=== PATIENT | female | born 1990 | race Caucasian/White ===

== ENCOUNTER → 2020-09-22 11:44 | Outpatient (CLI) | payer OTHER, SELFPAY ==
[2020-09-22 12:38] LABS: hCG Titer Quant., Serum 777 mIU/mL (1-3)
== END ==
PROVIDERS: Referring Provider Obstetrics & Gynecology Reproductive Endocrinology; Visit Provider Obstetrics & Gynecology Reproductive Endocrinology
DX: Z32.01 Encounter for pregnancy test, result positive (principal)
CPT/HCPCS: 36415; 84702

== ENCOUNTER → 2021-03-09 08:52 | Outpatient (CLI) | payer OTHER, SELFPAY ==
[2021-02-12 08:27] VITALS: BMI 26.5
[2021-03-09 09:09] LABS: Absolute Lymphocyte Count 1.43 X10^3/uL (0.83-4.51); Absolute Neutrophil Count 7.3 X10^3/uL (2.0-7.7); Basophil# 0.04 X10^3/uL; Basophil% 0.4 % (0-1); Eosinophil# 0.32 X10^3/uL; Eosinophils% 3.3 % (0-5); Hematocrit 36.1 % (37-47); Hemoglobin 11.7 g/dL (12.0-15.0); Lymphocyte # 1.43 X10^3/ul (0.83-4.51); Lymphocyte % 14.7 % (19-41); Mean Corp Hgb Conc 32.4 g/dL (32-36); Mean Corpuscular Volume 101.7 fL (81-99); Mean Platelet Vol. 11.5 fl (6.2-12.0); Monocyte# 0.57 X10^3/uL; Monocyte% 5.9 % (0-10); NRBC Flagged by Analyzer 0 % (0-5); Neutrophil % 75.1 % (47-70); Platelet Count 180 K/mm3 (150-450); RBC Distribution Width CV 12.5 % (11.6-14.6); RBC Distribution Width SD 46.9 fl (35.1-43.9); Red Blood Count 3.55 M/mm3 (4.2-5.4); White Blood Count 9.7 K/mm3 (4.4-11.0)
[2021-03-09 09:26] LABS: Glucose Challenge Gest 1H 50g 117 mg/dL (70-140)
== END ==
PROVIDERS: Referring Provider Obstetrics & Gynecology; Visit Provider Obstetrics & Gynecology
DX: Z34.90 Encounter for supervision of normal pregnancy, unspecified, unspecified trimester (principal); Z13.1 Encounter for screening for diabetes mellitus
CPT/HCPCS: 36415; 82950; 85025

== ENCOUNTER → 2021-05-07 17:14 | Outpatient (CLI) | payer OTHER, SELFPAY ==
[2021-05-07 16:14] VITALS: BMI 26.5
== END ==
PROVIDERS: Referring Provider Obstetrics & Gynecology; Visit Provider Obstetrics & Gynecology
DX: Z34.00 Encounter for supervision of normal first pregnancy, unspecified trimester (principal); Z3A.36 36 weeks gestation of pregnancy
CPT/HCPCS: 87077; 87081; 87186

== ENCOUNTER 2021-06-01 12:20 | Inpatient (IN) | payer OTHER, SELFPAY ==
[2021-05-24 13:25] VITALS: BMI 26.5
[2021-06-01] VITALS (35 sets, daily range): BP systolic 97–131; BP diastolic 55–92; PULSE 69–100; TEMP 36.6–37.3; O2SAT 96–100; BMI 26.5; BMI 28.3
[2021-06-01 10:57] LABS: ROM Internal Control Test YES-OK TO RESULT pt. (Internal QC)
[2021-06-01 11:01] LABS: ROM Patient Test POSITIVE (Negative)
[2021-06-01] MEDS: Lactated Ringers 1,000 ML 50 ML IV (13:30)
[2021-06-01 13:45] LABS: Absolute Lymphocyte Count 1.35 X10^3/uL (0.83-4.51); Absolute Neutrophil Count 7.3 X10^3/uL (2.0-7.7); Basophil# 0.03 X10^3/uL; Basophil% 0.3 % (0-1); Eosinophil# 0.01 X10^3/uL; Eosinophils% 0.1 % (0-5); Hemoglobin 11.9 g/dL (12.0-15.0); Lymphocyte # 1.35 X10^3/ul (0.83-4.51); Lymphocyte % 14.4 % (19-41); Mean Corp Hgb Conc 33.1 g/dL (32-36); Mean Corpuscular Hgb 33.2 pg (27.0-32.0); Mean Corpuscular Volume 100.6 fL (81-99); Mean Platelet Vol. 12.5 fl (6.2-12.0); Monocyte# 0.68 X10^3/uL; Monocyte% 7.2 % (0-10); NRBC Flagged by Analyzer 0 % (0-5); Neutrophil # 7.28 X10^3/uL (2.7-7.7); Neutrophil % 77.6 % (47-70); Platelet Count 171 K/mm3 (150-450); RBC Distribution Width CV 12.2 % (11.6-14.6); RBC Distribution Width SD 45.7 fl (35.1-43.9); Red Blood Count 3.58 M/mm3 (4.2-5.4); White Blood Count 9.4 K/mm3 (4.4-11.0)
--- NOTE | 2021-06-01 17:20 | HP.PCM.OB_ITS ---
HPI - General General Date of Admission: 06/01/21 HPI Narrative ISHA CUNNINGHAM, is a 30 F who presents with spontaneous rupture membranes. Patient was initially half centimeter dilated may change to 1/80 and -2. ROM plus was positive but bag was still present and therefore this was ruptured for meconium fluid. Maternal Data Information JENNY Calculator Estimated Delivery Date Method Current WG Current Estimate 05/30/21 LMP (Certain) 40w 2d Other Estimates 05/30/21 Manual 40w 2d by LMP [facility] Medical History Asthma Eczema Positive GBS test Home Medications cetirizine 10 mg tablet 10 mg PO DAILY PRN 12/06/20 [History Last Taken 1 Day Ago ~05/31/21] docosahexaenoic acid 200 mg capsule 1 PO 12/06/20 [History Last Taken 1 Day Ago ~05/31/21] Allergy/AdvReac Type Severity Reaction Status Date / Time ceftriaxone [From Rocephin] Allergy Mild rash Verified 05/24/21 13:25 Family History Grandfather Lymphoma Other Diabetes type 1, controlled Surgical History s/p left ankle surgery s/p stomach surgery Social History Smoking Status: Never smoker alcohol intake: never substance use type: does not use caffeine: No what type of physical activity do you participate in: running, aerobics and weight training frequency: 3-4 times per week seatbelt use: always do you feel safe at home: Yes additional social history: - No Patient is resident at [facility] History 1 Elective abortions Hx Para 0 Spontaneous abortions Hx # Term Pregnancies Ectopic pregnancies Hx # Pregnancies Multiple births # of living children Visit Details Expected Delivery Route/Plan by 41 weeks Labor Preferences- CB/BF classes: [] labor support person: Misha labor intervention preferences: tub in labor, birthing ball, ok with baby meds pain management options preferred: desires natural but open to epidural cut cord/dad catch: cord, patient wants to help deliver : [] PP control planned: [] discussed possible routes of delivery and associated risks: discussed possible delivery modalities and possible indications for each including R/B/A of , VAVD, FAVD, and CS. questions answered. special requests: [] Plans flu vaccine: given tdap vaccine: given rhogam: na LARC form signed: declined movement and labor precautions reviewed. Problem list reviewed and updated with the most current plan of care details and appropriate orders placed. Relevant counseling for the gestational age provided. Continue routine care and follow up unless otherwise noted in visit notes/problem list details OB Flowsheet Initial Weight: Not Recorded Date -?-?-?-?-?-?-?-?-?-?-?-?- EGA Weight BP Urine Prot -?-?-?-?-?-?-?-?-?-?-?-?- Glucose FHR FuHt Pres Dilation -?-?-?-?-?-?-?-?-?-?-?-?- Effaced St Visit Note 12/06/20 -?-?-?-?-?-?-?-?-?-?-?-?- 15w 0d 147 lb 4 oz 110/80 Nega tive -?-?-?-?-?-?-?-?-?-?-?-?- Negative 155 -?-?-?-?-?-?-?-?-?-?-?-?- GP - TEO from I. Conceived naturally. PRR. Discussed covid vaccine in . GP - TEO from I. Conceived naturally. PRR. Discussed covid vaccine in . Anatomy scan ordered. 01/17/21 -?-?-?-?-?-?-?-?-?-?-?-?- w 0d 153 lb 114/70 Negative -?-?-?-?-?-?-?-?-?-?-?-?- Negative 155 21 -?-?-?-?-?-?-?-?-?-?-?-?- GP - no LOF, VB, DFM, ctx. Awaiting anatomy scan report. 02/12/21 -?-?-?-?-?-?-?-?-?-?-?-?- 24w 5d 159 lb 8 oz 104/60 Nega tive -?-?-?-?-?-?-?-?-?-?-?-?- Negative 150 35 25 -?-?-?-?-?-?-?-?-?-?-?-?- SM- no vb good f m no regular ctx 03/09/21 -?-?-?-?-?-?-?-?-?-?-?-?- 28w 2d 161 lb 2 oz 122/78 Nega tive -?-?-?-?-?-?-?-?-?-?-?-?- Negative 155 28 -?-?-?-?-?-?-?-?-?-?-?-?- GP - no LOF, VB, DFM, ctx. 28w labs normal. Decided on Annie for name - still deciding on spelling. 03/23/21 -?-?-?-?-?-?-?-?-?-?-?-?- 30w 2d 164 lb 2 oz 110/80 Nega tive -?-?-?-?-?-?-?-?-?-?-?-?- Negative 135 30 -?-?-?-?-?-?-?-?-?-?-?-?- GP - no LOF, VB, DFM, ctx. LARC form signed. 04/06/21 -?-?-?-?-?-?-?-?-?-?-?-?- 32w 2d 164 lb 120/80 Negative -?-?-?-?-?-?-?-?-?-?-?-?- Negative 160 33 Cephalic -?-?-?-?-?-?-?-?-?-?-?-?- SM- no vb lof go od fm no regualr ctx 04/20/21 -?-?-?-?-?-?-?-?-?-?-?-?- 34w 2d 164 lb 2 oz 120/82 Nega tive -?-?-?-?-?-?-?-?-?-?-?-?- Negative 145 34 Cephalic -?-?-?-?-?-?-?-?-?-?-?-?- GP - no LOF, VB, DFM, ctx. Denies complaints. 05/07/21 -?-?-?-?-?-?-?-?-?-?-?-?- 36w 5d 167 lb 110/82 Negative -?-?-?-?-?-?-?-?-?-?-?-?- Negative 135 37 Cephalic 0 -?-?-?-?-?-?-?-?-?-?-?-?- SM- no vb lof go od fm nor egular ctx gbs done 05/18/21 -?-?-?-?-?-?-?-?-?-?-?-?- 38w 2d 169 lb 122/82 Negative -?-?-?-?-?-?-?-?-?-?-?-?- Negative 140 38 Cephalic 0 -?-?-?-?-?-?-?-?-?-?-?-?- SM- no vb lof go od fm no regular ctx 05/24/21 -?-?-?-?-?-?-?-?-?-?-?-?- 39w 1d 170 lb 120/80 -?-?-?-?-?-?-?-?-?-?-?-?- 150 39 Cephalic 0 -?-?-?-?-?-?-?-?-?-?-?-?- GP - no LOF, VB, DFM, regular contractions. Discussed labor preferences and routes of delivery. Baby initially tachycardic - NST normal 06/01/21 -?-?-?-?-?-?-?-?-?-?-?-?- 40w 2d 170 lb 120/88 Negative -?-?-?-?-?-?-?-?-?-?-?-?- Negative 150 40 Cephalic 0 .5 -?-?-?-?-?-?-?-?-?-?-?-?- SM- no vb good f m increasing ctx and SM- no vb good fm increasing ctx and discharge, questionable LOF- rom sent rev iewed precautions 06/01/21 -?-?-?-?-?-?-?-?-?-?-?-?- 40w 2d 170 lb 10.205 oz 109 /69 117/72 110/68 -?-?-?-?-?-?-?-?-?-?-?-?- -?-?-?-?-?-?-?-?--?-?-?-?- NST FHR Rate Baby A Baseline: 140 Variability:: Moderate Accelerations:: 15 x 15 Decelerations:: None NST Reactive:: Yes FHR Category:: Category I Uterine Activity:: q3-5 ROS Constitutional Constitutional: Reports systems reviewed and no addt'l complaints, except as documented ENT HEENT: Reports systems reviewed and no addt'l complaints, except as documented Cardiovascular Cardiovascular: Reports systems reviewed and no addt'l complaints, except as documented Respiratory/Chest Respiratory/Chest: Reports systems reviewed and no addt'l complaints, except as documented Gastrointestinal Gastrointestinal: Reports systems reviewed and no addt'l complaints, except as documented and nausea; Denies abdominal pain Genitourinary Genitourinary: Reports systems reviewed and no addt'l complaints, except as documented, contractions Details: present and frequency (regular ) and movement Details: present Musculoskeletal Musculoskeletal: Reports systems reviewed and no addt'l complaints, except as documented Integumentary Integumentary: Reports as per HPI Neurologic Neurologic: Reports systems reviewed and no addt'l complaints, except as documented Endocrine Endocrinology: Reports systems reviewed and no addt'l complaints, except as documented Vital Signs Vital Signs Vital Signs: 06/01/21 12:45 06/01/21 12:46 06/01/21 14:17 Temperature 98.5 F Temperature Source Temporal Pulse Rate 91 69 Blood Pressure 109/69 BP Systolic 109 BP Diastolic 69 Pulse Ox 97 06/01/21 15:57 Temperature 99.0 F Temperature Source Temporal Pulse Rate 82 Blood Pressure 117/72 BP Systolic 117 BP Diastolic 72 Pulse Ox 98 Weight Weight: 170 lb 10.205 oz Body Mass Index (BMI) 28.3 Physical Exam Const alert, oriented x3 and healthy appearing Constitutional Narrative: uncomfortable with contractions HEENT normocephalic and moist oral mucous membranes Head and Scalp: atraumatic Neck full ROM, no lymphadenopathy, supple and thyroid normal General: trachea midline Thyroid: thyroid normal Lymph Lymphatic: no lymphadenopathy noted Chest inspection of chest normal Resp normal respiratory effort Cardio regular rate GI normal to inspection, nondistended, normoactive bowel sounds, soft to palpation and non-tender Inspection: gravid external exam normal Bimanual Exam - Vag & Uterus: uterus non-tender Manual OB Exam: estimated gestational size appropriate, presentation cephalic, dilated, effaced and station Extremity normal to inspection General Extremity: Negative for edema Skin no rashes or lesions noted Neuro deep tendon reflexes 2+ bilaterally Motor Exam: strength 5/5 throughout and clonus absent Psych mental status grossly normal Labs Labs Labs: Blood Type O POSITIVE Antibody Screen NEGATIVE Hct 36.0 % (37-47) L Hgb 11.9 g/dL (12.0-15.0) L Pap Smear Negative VZV IgG Antibody 0.93 index (Immune >1.09) L Hep Bs Antigen Negative (Negative) Glucose 1 Hr 50 gm 117 mg/dL (70-140) Assessment & Plan (1) Positive GBS test: COMMENT: PCN in labor (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 Partner negative at [facility] (3) Supervision of normal : QUALIFIERS: Normal : normal first Trimester: second trimester Qualified Code(s): Z34.02 - Encounter for supervision of normal first , second trimester COMMENT: PRR JENNY 05/30/21 Girl! Annie (sp?) Spouse: Misha (4) : QUALIFIERS: Weeks of gestation: 40 weeks Qualified Code(s): Z3A.40 - 40 weeks gestation of COMMENT: Nl NIPT at [facility]. +carrier screen. NL anatomy except for pyelectasis which resolved (5) Asthma: QUALIFIERS: Asthma severity: mild Asthma persistence: intermittent Asthma complication type: uncomplicated Qualified Code(s): J45.20 - Mild intermittent asthma, uncomplicated COMMENT: Mild intermittent (6) PROM (premature rupture of membranes): QUALIFIERS: PROM onset of labor timing: onset of labor within 24 hours of rupture PROM gestational age: full term Qualified Code(s): O42.02 - Full-term premature rupture of membranes, onset of labor within 24 hours of rupture PLAN: Expectant management epidural as needed Pitocin as needed.
[2021-06-01] MEDS: Penicillin G 3,000,000 Units 50 ML 100 UNITS IV ×2 (17:43→21:42)
[2021-06-01] MEDS: Lactated Ringers 500 ML 999 ML IV ×3 (19:00→23:57)
[2021-06-01] MEDS: fentaNYL-bupivacaine (epidural) 100 ML BAG EPIDURAL (20:25)
[2021-06-01 20:37] LABS: Chlamydia Trachomatis by PCR Negative (Negative); Neisserai gonorrhoeae by PCR Negative (Negative); Probe Check PASS; Sample Adequacy Control PASS; Specimen Processing Control PASS
[2021-06-01] MEDS: Oxytocin 30 units/NS 500 ml 30 UNITS/500 ML IV.SOLN IV (23:28)
[2021-06-01] MEDS: Lactated Ringers 1,000 ML 200 ML IV (23:56)
[2021-06-02] VITALS (24 sets, daily range): BP systolic 94–122; BP diastolic 55–78; PULSE 68–113; RESP 16; TEMP 36.4–38.3; O2SAT 80–100
[2021-06-02] MEDS: fentaNYL-bupivacaine (epidural) 100 ML BAG EPIDURAL ×2 (00:34→05:11)
[2021-06-02] MEDS: Penicillin G 3,000,000 Units 50 ML 100 UNITS IV ×2 (02:21→06:31)
[2021-06-02] MEDS: Lactated Ringers 500 ML 999 ML IV (03:37)
[2021-06-02] MEDS: Amnioinfusion- 0.9% NS 1,000 ML IV.SOLN. INTRA-UTER (04:40)
[2021-06-02] MEDS: Acetaminophen 500 MG Tablet PO (05:46)
[2021-06-02] MEDS: Lactated Ringers 1,000 ML 200 ML IV (06:37)
--- NOTE | 2021-06-02 06:45 | PCM.PN.BLA ---
Progress Note Patient managed expectantly and had cervical change but now has stalled out at 6/90/+1 station. Assessment reveals an adequate contraction frequency and intensity. Developed elevated temperature and maternal tachycardia suspect triple I so antibiotics were started. current tracing: FHT: 170 minimal to moderate variability reactive intermittent late decelerations category 2 tracing [place]: Every 3 to 5 contractions reviewed tracing abnormalities since last note: Current pattern reassuring enough to start Pitocin for arrest of dilation. A/P: Suspected triple I continue antibiotics, labor support with Pitocin if able for arrest of dilation.
[2021-06-02] MEDS: Oxytocin 30 units/NS 500 ml 30 UNITS/500 ML IV.SOLN 334 UNITS IV (10:47)
--- NOTE | 2021-06-02 11:05 | OP.PCM_ITS ---
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 Partner negative at [facility] (4) Supervision of normal : QUALIFIERS: Normal : normal first Trimester: second trimester Qualified Code(s): Z34.02 - Encounter for supervision of normal first , second trimester COMMENT: PRR JENNY 05/30/21 Girl! Annie (sp?) Spouse: Misha (5) : QUALIFIERS: Weeks of gestation: 40 weeks Qualified Code(s): Z3A.40 - 40 weeks gestation of COMMENT: Nl NIPT at [facility]. +carrier screen. NL anatomy except for pyelectasis which resolved (6) Asthma: QUALIFIERS: Asthma severity: mild Asthma persistence: intermittent Asthma complication type: uncomplicated Qualified Code(s): J45.20 - Mild intermittent asthma, uncomplicated COMMENT: Mild intermittent Maternal Data Information JENNY Calculator Estimated Delivery Date Method Current WG Current Estimate 05/30/21 LMP (Certain) 40w 3d Other Estimates 05/30/21 Manual 40w 3d by LMP Vaginal Delivery Maternal Presentation Maternal Presentation: Spontaneous Rupture of Membranes Maternal Presentation: 30-year-old G1, P0 at 40 weeks gestation admitted for augmentation of labor for PROM. Patient was augmented with Cytotec followed by Pitocin. Patient had a protracted labor course that was complicated by suspected intrapartum intraamniotic infection. Patient made cervical change to complete dilation and pushed for 1 hour. Type of Induction: Pitocin Operative Information Date of Procedure: 06/02/21 Pre-Operative Diagnosis: Term , premature rupture of membranes Post-Operative Diagnosis: Same Type of Anesthesia: Epidural Drain: Suarez to straight drain Estimated Blood Loss: 200 Findings Description of Procedure: Patient began pushing and delivered the head in the LAUREEN presentation. The head was delivered atraumatically and no nuchal cord was noted. The anterior and posterior shoulders delivered without complication followed by the rest of the infant and the infant was placed on the maternal abdomen. Delayed cord clamping was employed for approximately 60 seconds. Cord was clamped and cut and gentle traction was applied to the cord and the placenta delivered spontaneously immediately following it was noted to be intact with three-vessel cord. The perineum and vagina were inspected and a right periurethral and a midline second-degree perineal laceration were noted and repaired in the standard fashion using 3-0 Vicryl Rapide suture. EBL was 200 cc. Patient and tolerated delivery well. Presentation: Vertex and LAUREEN Amniotic Membrane Rupture Type: Spontaneous Amniotic Fluid Description: Clear Placental Delivery Description: Spontaneous Placenta Disposition: [facility] Cord Vessel Description: 3 Vessels Cord Entanglement: None A Gender: Female Delayed Cord Clamping: Yes Post Vaginal Delivery Medications Given After Delivery: IV Pitocin and IM Methergin Episiotomy Description: None Laceration: Midline, Periurethral Extnsion/lac, Perineal Extension/lac and 2nd degree Complication Complications: None Procedures Urinary/Genital [id number]: [id number] Vaginal Delivery [facility]
--- NOTE | 2021-06-02 11:08 | PCM.DC ---
Discharge Instructions Diet Discharge Diet: No restrictions Activity Discharge Activity: Return to Normal Activity, May Not Drive (while taking narcotic pain medications.) and May Shower May resume sexual activity in: 4-6 weeks Dressing / Incision Call your doctor if your incision/area has: Continuous Slow Oozing, Sudden Increased Bleeding, Increased Pain/ Swelling, Increased Redness and Foul Smelling Discharge Follow Up Care When: Call to make an appointment with your doctor in 6 weeks. If you had elevated Blood Pressure or 4th degree laceration you will need to be seen in 2 weeks. Test Results: Test results from this visit will be discussed in further detail at your follow-up appointment, if applicable. Discharge Plan Admission Admit Date/Time: 06/01/21 12:20 Attending Provider: Caroline Feliz Primary Care Provider: Care Physician,No Primary Instructions Patient Instructions: After a Vaginal Discharge Orders/Prescriptions Prescriptions: Continued DHA 200 mg capsule 1 PO RF: 0 cetirizine [Zyrtec] 10 mg tablet 10 mg PO DAILY PRN (Reason: Allergy Symptoms) RF: 0 Referrals / Follow Up: Care Physician,No Primary [Primary Care Provider] -
[2021-06-02] MEDS: Methylergonovine 0.2 MG/ML Ampul IM (12:08)
[2021-06-02] MEDS: Acetaminophen 500 MG Tablet 1000 MG PO (12:16)
[2021-06-02] MEDS: Benzocaine/Lanolin/Aloe Vera 1 SPRAY EACH TOPICAL (12:17)
[2021-06-02] MEDS: Ibuprofen 600 MG Tablet PO ×2 (14:17→22:59)
[2021-06-02] MEDS: Senna/Docusate Sodium 1 Tablet PO (14:20)
--- NOTE | 2021-06-02 15:34 | PCM.NY.DEL ---
Delivery Attendance Service Date: 06/02/21 Service Time: 10:40 Asked to attend delivery by: OB and Nursing Reason for attendance: Meconium Plan: Return to Mother Course of Delivery Was resuscitation required: No Physical Exam Apgars/Vital Signs/Weight: Weight: 77.4 kg General: Alert, Active and Strong cry Head: Caput succedaneum Eyes: Conjunctiva clear Ears: Structurally normal and Neutral position Nose: Nares patent and No drainage Oropharynx: Normal, moist mucous membranes, Palate intact and Lips without lesions Neck: Normal, No adenopathy and Supple Lungs: Clear to auscultation, No retractions and No rales Cardiovascular: Regular rate and rhythm, No murmurs and Capillary refill normal Abdomen: Soft, Non distended and Without organomegaly Cord Vessel Description: 3 Vessels Genitalia, Female: External genitalia normal Musculoskeletal: Extremities with FROM, Hip exam without evidence of dislocation or instability, No hip clicks and Clavicles intact Neurological: Normal suck, rooting, and Ricardo reflexes., Muscle tone normal and Moving extremities equally Skin: Normal color and No jaundice General Weight: 77.4 kg Abdomen 3 Vessels Delivery Course Patient was vigorous at with strong. No intervention needed. Able to stay with her mother skin to sking
--- NOTE | 2021-06-02 15:39 | PCM.NUR.HP ---
Objective Objective Data: 06/01/21 15:57 06/01/21 17:19 06/01/21 17:20 Temperature 99.0 F 99.2 F H Temperature Source Temporal Temporal Pulse Rate 82 74 Blood Pressure 117/72 110/68 BP Systolic 117 110 BP Diastolic 72 68 Pulse Ox 98 98 06/01/21 19:16 06/01/21 19:17 06/01/21 19:48 Temperature 99.0 F Temperature Source Temporal Pulse Rate 90 86 100 Blood Pressure 113/61 BP Systolic 113 BP Diastolic 61 Pulse Ox 99 100 06/01/21 20:07 06/01/21 20:12 06/01/21 20:16 Temperature 98.6 F Temperature Source Temporal Pulse Rate 95 95 85 Blood Pressure 122/76 H 131/92 H 125/80 H BP Systolic 122 131 125 BP Diastolic 76 92 80 Pulse Ox 06/01/21 20:17 06/01/21 20:22 06/01/21 20:23 Temperature Temperature Source Pulse Rate 86 80 Blood Pressure 121/77 H 109/61 BP Systolic 121 109 BP Diastolic 77 61 Pulse Ox 96 100 06/01/21 20:25 06/01/21 20:27 06/01/21 20:28 Temperature Temperature Source Pulse Rate 83 89 81 Blood Pressure 101/59 L 99/55 L BP Systolic 101 99 BP Diastolic 59 55 Pulse Ox 99 06/01/21 20:31 06/01/21 20:32 06/01/21 20:33 Temperature Temperature Source Pulse Rate 81 83 Blood Pressure 98/57 L 99/57 L BP Systolic 98 99 BP Diastolic 57 57 Pulse Ox 99 06/01/21 20:37 06/01/21 20:38 06/01/21 20:42 Temperature Temperature Source Pulse Rate 80 82 Blood Pressure 99/55 L BP Systolic 99 BP Diastolic 55 Pulse Ox 99 99 06/01/21 20:45 06/01/21 20:47 06/01/21 20:49 Temperature Temperature Source Pulse Rate 78 78 83 Blood Pressure 97/57 L 101/61 BP Systolic 97 101 BP Diastolic 57 61 Pulse Ox 99 06/01/21 20:52 06/01/21 20:54 06/01/21 20:57 Temperature Temperature Source Pulse Rate 78 80 82 Blood Pressure 98/56 L BP Systolic 98 BP Diastolic 56 Pulse Ox 99 99 06/01/21 20:58 06/01/21 21:45 06/01/21 22:46 Temperature 97.9 F 99.0 F Temperature Source Temporal Temporal Pulse Rate 81 71 70 Blood Pressure 105/59 L 117/58 L 111/63 BP Systolic 105 117 111 BP Diastolic 59 58 63 Pulse Ox 06/01/21 23:33 06/01/21 23:34 06/02/21 00:33 Temperature 98.4 F 98.3 F Temperature Source Temporal Temporal Pulse Rate 77 68 Blood Pressure 113/70 109/66 BP Systolic 113 109 BP Diastolic 70 66 Pulse Ox 99 06/02/21 02:18 06/02/21 03:33 06/02/21 03:34 Temperature 98.3 F 99.4 F H Temperature Source Temporal Temporal Pulse Rate 98 113 H 98 Blood Pressure 102/63 111/74 BP Systolic 102 111 BP Diastolic 63 74 Pulse Ox 100 100 06/02/21 03:57 06/02/21 04:49 06/02/21 04:50 Temperature 99.8 F H 100.9 F H Temperature Source Oral Oral Pulse Rate 96 Blood Pressure 100/55 L BP Systolic 100 BP Diastolic 55 Pulse Ox 80 97 06/02/21 06:09 06/02/21 06:15 06/02/21 07:15 Temperature 99.0 F 98.6 F Temperature Source Oral Oral Pulse Rate 83 Blood Pressure 111/67 BP Systolic 111 BP Diastolic 67 Pulse Ox 06/02/21 07:22 06/02/21 08:22 06/02/21 09:16 Temperature 98.2 F 98.2 F Temperature Source Oral Oral Pulse Rate 88 74 81 Blood Pressure 101/56 L 113/68 110/64 BP Systolic 101 113 110 BP Diastolic 56 68 64 Pulse Ox 97 98 06/02/21 11:15 06/02/21 11:30 06/02/21 11:45 Temperature 98.4 F Temperature Source Oral Pulse Rate 78 76 75 Blood Pressure 97/65 94/72 109/73 BP Systolic 97 94 109 BP Diastolic 65 72 73 Pulse Ox 98 06/02/21 12:00 06/02/21 12:15 06/02/21 12:30 Temperature 99.1 F Temperature Source Temporal Pulse Rate 75 75 81 Blood Pressure 118/75 115/75 122/78 H BP Systolic 118 115 122 BP Diastolic 75 75 78 Pulse Ox 06/02/21 12:45 06/02/21 13:11 06/02/21 13:18 Temperature Temperature Source Pulse Rate 82 88 81 Blood Pressure 115/78 117/77 115/76 BP Systolic 115 117 115 BP Diastolic 78 77 76 Pulse Ox Weight: 77.4 kg Vital Signs Temp Pulse BP Pulse Ox 06/02/21 13:18 81 115/76 06/02/21 13:11 88 117/77 06/02/21 12:45 82 115/78 06/02/21 12:30 81 122/78 H 06/02/21 12:15 75 115/75 06/02/21 12:00 99.1 F 75 118/75 06/02/21 11:45 75 109/73 06/02/21 11:30 76 94/72 06/02/21 11:15 98.4 F 78 97/65 98 06/02/21 09:16 98.2 F 81 110/64 98 06/02/21 08:22 98.2 F 74 113/68 97 06/02/21 07:22 88 101/56 L 06/02/21 07:15 98.6 F 06/02/21 06:15 83 111/67 06/02/21 06:09 99.0 F 06/02/21 04:50 100.9 F H 96 100/55 L 97 06/02/21 04:49 80 06/02/21 03:57 99.8 F H 06/02/21 03:34 99.4 F H 98 111/74 06/02/21 03:33 113 H 100 06/02/21 02:18 98.3 F 98 102/63 100 06/02/21 00:33 98.3 F 68 109/66 06/01/21 23:34 98.4 F 77 113/70 06/01/21 23:33 99 06/01/21 22:46 99.0 F 70 111/63 06/01/21 21:45 97.9 F 71 117/58 L 06/01/21 20:58 81 105/59 L 06/01/21 20:57 82 99 06/01/21 20:54 80 98/56 L 06/01/21 20:52 78 99 06/01/21 20:49 83 101/61 06/01/21 20:47 78 99 06/01/21 20:45 78 97/57 L 06/01/21 20:42 82 99 06/01/21 20:38 80 99/55 L 06/01/21 20:37 99 06/01/21 20:33 83 99/57 L 06/01/21 20:32 99 06/01/21 20:31 81 98/57 L 06/01/21 20:28 81 99/55 L 06/01/21 20:27 89 99 06/01/21 20:25 83 101/59 L 06/01/21 20:23 80 109/61 06/01/21 20:22 100 06/01/21 20:17 86 121/77 H 96 06/01/21 20:16 85 125/80 H 06/01/21 20:12 95 131/92 H 06/01/21 20:07 98.6 F 95 122/76 H 06/01/21 19:48 100 100 06/01/21 19:17 86 113/61 06/01/21 19:16 99.0 F 90 99 06/01/21 17:20 74 110/68 06/01/21 17:19 99.2 F H 98 06/01/21 15:57 99.0 F 82 117/72 98 06/01/21 14:17 69 109/69 06/01/21 12:46 98.5 F 06/01/21 12:45 91 97 Lab tests last 48H 06/01/21 06/01/21 06/01/21 10:45 13:30 13:30 WBC 9.4 RBC 3.58 L Hgb 11.9 L Hct 36.0 L MCV 100.6 H MCH 33.2 H MCHC 33.1 RDW Std Deviation 45.7 H RDW Coeff of Shara 12.2 Plt Count 171 MPV 12.5 H Immature Gran % (Auto) 0.400 Neut % (Auto) 77.6 H Lymph % (Auto) 14.4 L [place] % (Auto) 7.2 Eos % (Auto) 0.1 Baso % (Auto) 0.3 Absolute Neuts (auto) 7.3 Absolute Lymphs (auto) 1.35 Nucleated RBC % 0 Vag Amniotic Fld Detect POSITIVE H Chlam trachomat DNA PCR N.gonorrhoeae DNA (PCR) Blood Type O POSITIVE Antibody Screen NEGATIVE 06/01/21 18:50 WBC RBC Hgb Hct MCV MCH MCHC RDW Std Deviation RDW Coeff of Shara Plt Count MPV Immature Gran % (Auto) Neut % (Auto) Lymph % (Auto) [place] % (Auto) Eos % (Auto) Baso % (Auto) Absolute Neuts (auto) Absolute Lymphs (auto) Nucleated RBC % Vag Amniotic Fld Detect Chlam trachomat DNA PCR Negative N.gonorrhoeae DNA (PCR) Negative Blood Type Antibody Screen Micro - Preliminary and Final Results 06/01/21 13:30 SARS-CoV-2 Antigen (Rapid) - Final Mucosa - Nose Delivery/Maternal Data Labor/Delivery Date of rupture of membranes: 06/01/21 Time of rupture of membranes: 04:30 Amniotic fluid color at rupture: Clear and Meconium Type of delivery: Vaginal Labor description: Spontaneous, Augmented-Oxytocin and Augmented-AROM Vacuum Extraction: N/A presentation: Cephalic Complications: Maternal fever (>/=100.4) (100.2) and Ruptured membranes >24 hours Maternal Data Maternal age: 29 : 1 Para: 0 Final JENNY: 05/30/21 Blood Type:: O RH:: NEGATIVE RPR/VDRL/Syphilis: Nonreactive HbSAg: Negative Hepatitis C: Negative HIV/AIDS: Non-Reactive Rubella status: Immune Gonorrhea: Negative Chlamydia: Negative Group B Strep:: Positive If GBS positive, treated & name of antibiotic, or untreated:: Penicillin, Clindamycin, Gentamicin Gestational Diabetes: No Vital Signs Vital Signs Vital Signs: 06/01/21 15:57 06/01/21 17:19 06/01/21 17:20 Temperature 99.0 F 99.2 F H Temperature Source Temporal Temporal Pulse Rate 82 74 Blood Pressure 117/72 110/68 BP Systolic 117 110 BP Diastolic 72 68 Pulse Ox 98 98 06/01/21 19:16 06/01/21 19:17 06/01/21 19:48 Temperature 99.0 F Temperature Source Temporal Pulse Rate 90 86 100 Blood Pressure 113/61 BP Systolic 113 BP Diastolic 61 Pulse Ox 99 100 06/01/21 20:07 06/01/21 20:12 06/01/21 20:16 Temperature 98.6 F Temperature Source Temporal Pulse Rate 95 95 85 Blood Pressure 122/76 H 131/92 H 125/80 H BP Systolic 122 131 125 BP Diastolic 76 92 80 Pulse Ox 06/01/21 20:17 06/01/21 20:22 06/01/21 20:23 Temperature Temperature Source Pulse Rate 86 80 Blood Pressure 121/77 H 109/61 BP Systolic 121 109 BP Diastolic 77 61 Pulse Ox 96 100 06/01/21 20:25 06/01/21 20:27 06/01/21 20:28 Temperature Temperature Source Pulse Rate 83 89 81 Blood Pressure 101/59 L 99/55 L BP Systolic 101 99 BP Diastolic 59 55 Pulse Ox 99 06/01/21 20:31 06/01/21 20:32 06/01/21 20:33 Temperature Temperature Source Pulse Rate 81 83 Blood Pressure 98/57 L 99/57 L BP Systolic 98 99 BP Diastolic 57 57 Pulse Ox 99 06/01/21 20:37 06/01/21 20:38 06/01/21 20:42 Temperature Temperature Source Pulse Rate 80 82 Blood Pressure 99/55 L BP Systolic 99 BP Diastolic 55 Pulse Ox 99 99 06/01/21 20:45 06/01/21 20:47 06/01/21 20:49 Temperature Temperature Source Pulse Rate 78 78 83 Blood Pressure 97/57 L 101/61 BP Systolic 97 101 BP Diastolic 57 61 Pulse Ox 99 06/01/21 20:52 06/01/21 20:54 06/01/21 20:57 Temperature Temperature Source Pulse Rate 78 80 82 Blood Pressure 98/56 L BP Systolic 98 BP Diastolic 56 Pulse Ox 99 99 06/01/21 20:58 06/01/21 21:45 06/01/21 22:46 Temperature 97.9 F 99.0 F Temperature Source Temporal Temporal Pulse Rate 81 71 70 Blood Pressure 105/59 L 117/58 L 111/63 BP Systolic 105 117 111 BP Diastolic 59 58 63 Pulse Ox 06/01/21 23:33 06/01/21 23:34 06/02/21 00:33 Temperature 98.4 F 98.3 F Temperature Source Temporal Temporal Pulse Rate 77 68 Blood Pressure 113/70 109/66 BP Systolic 113 109 BP Diastolic 70 66 Pulse Ox 99 06/02/21 02:18 06/02/21 03:33 06/02/21 03:34 Temperature 98.3 F 99.4 F H Temperature Source Temporal Temporal Pulse Rate 98 113 H 98 Blood Pressure 102/63 111/74 BP Systolic 102 111 BP Diastolic 63 74 Pulse Ox 100 100 06/02/21 03:57 06/02/21 04:49 06/02/21 04:50 Temperature 99.8 F H 100.9 F H Temperature Source Oral Oral Pulse Rate 96 Blood Pressure 100/55 L BP Systolic 100 BP Diastolic 55 Pulse Ox 80 97 06/02/21 06:09 06/02/21 06:15 06/02/21 07:15 Temperature 99.0 F 98.6 F Temperature Source Oral Oral Pulse Rate 83 Blood Pressure 111/67 BP Systolic 111 BP Diastolic 67 Pulse Ox 06/02/21 07:22 06/02/21 08:22 06/02/21 09:16 Temperature 98.2 F 98.2 F Temperature Source Oral Oral Pulse Rate 88 74 81 Blood Pressure 101/56 L 113/68 110/64 BP Systolic 101 113 110 BP Diastolic 56 68 64 Pulse Ox 97 98 06/02/21 11:15 06/02/21 11:30 06/02/21 11:45 Temperature 98.4 F Temperature Source Oral Pulse Rate 78 76 75 Blood Pressure 97/65 94/72 109/73 BP Systolic 97 94 109 BP Diastolic 65 72 73 Pulse Ox 98 06/02/21 12:00 06/02/21 12:15 06/02/21 12:30 Temperature 99.1 F Temperature Source Temporal Pulse Rate 75 75 81 Blood Pressure 118/75 115/75 122/78 H BP Systolic 118 115 122 BP Diastolic 75 75 78 Pulse Ox 06/02/21 12:45 06/02/21 13:11 06/02/21 13:18 Temperature Temperature Source Pulse Rate 82 88 81 Blood Pressure 115/78 117/77 115/76 BP Systolic 115 117 115 BP Diastolic 78 77 76 Pulse Ox Weight Weight: 77.4 kg Body Mass Index (BMI) 28.3 General Weight: 77.4 kg alert, active, no apparent distress and strong cry HEENT Yes caput succedaneum (mild) Eyes: red reflex present bilaterally and conjunctiva normal Ears: Yes external ears normal and Yes neutral position Nose: Yes external nose normal and nares normal Oropharynx: Yes oral and palatal mucosa normal, Yes moist mucous membranes abnormal and Yes lips normal Neck Neck: full ROM, no lymphadenopathy and supple Respiratory Respiratory: normal respiratory effort and clear to auscultation bilaterally Cardiovascular Yes regular rate, regular rhythm, no murmurs, no clicks, no rub, no gallops, normal capillary refill and femoral pulses present Abdomen normal to inspection, nondistended, normoactive bowel sounds, soft to palpation, non-distended, non-tender and no hepatosplenomegaly 3 Vessels external exam normal Musculoskeletal full ROM and hip exam without evidence of dislocation or instability Neurological normal suck, rooting, and neil reflexes, muscle tone normal and moving extremities equally Skin normal color and no jaundice
[2021-06-03 00:53] VITALS: BP 91/45; PULSE 71; RESP 16; TEMP 36.8
[2021-06-03] MEDS: Acetaminophen 500 MG Tablet 1000 MG PO (00:57)
[2021-06-03 04:05] VITALS: BP 131/84; PULSE 82; RESP 16; TEMP 36.6
[2021-06-03 08:50] VITALS: BP 95/59; PULSE 71; RESP 16; TEMP 36.7
--- NOTE | 2021-06-03 10:29 | PCM.PN.OB ---
Subjective Subjective Patient doing well without complaints. Tolerating PO. Ambulating and voiding without difficulty. Breast feeding well. Denies chest pain, shortness of breath, calf pain/swelling, fevers, chills, lightheadedness. Objective Data Objective Data Vital Signs: Vital Signs Temp Pulse Resp BP Pulse Ox 98.1 F 71 16 95/59 L 98 06/03/21 08:50 06/03/21 08:50 06/03/21 08:50 06/03/21 08:50 06/02/21 15:45 Oxygen Delivery Method Room Air Weight: 170 lb 10.205 oz Body Mass Index (BMI) 28.3 Intake & Output: Intake and Output for Last 24 Hours 06/01/21 06/02/21 06/03/21 23:59 23:59 23:59 Intake Total 2209.30 / 2209.30 4612.00 / 4612.00 Output Total 500 / 500 1150 / 1150 Balance 1709.30 / 1709.30 3462.00 / 3462.00 Lab / Micro Data Result Diagrams: 06/01/21 13:30 Micro: Microbiology 06/01/21 13:30 Mucosa - Nose SARS-CoV-2 Antigen (Rapid) - Final ROS Constitutional Constitutional: Denies fever(s) Cardiovascular Cardiovascular: Denies chest pain, dyspnea or lightheadedness Gastrointestinal Gastrointestinal: Reports abdominal pain; Denies constipation or diarrhea Neurologic Neurologic: Denies dizziness or headache(s) Physical Exam Const alert, oriented x3, no apparent distress, average body habitus, healthy appearing and well nourished HEENT normocephalic Head and Scalp: atraumatic Eyes PERRL and EOMs intact bilaterally Neck full ROM Lymph Lymphatic: no lymphadenopathy noted Resp normal respiratory effort, no retractions and no use of accessory muscles Cardio regular rate GI soft to palpation, non-tender and non-distended Palpation: other Other Details: fundus firm Extremity normal to inspection and no clubbing, cyanosis or edema Skin no rashes or lesions noted Neuro no focal motor deficits and no sensory deficits noted Psych mental status grossly normal, affect normal and speech normal Assessment & Plan (1) Spontaneous vaginal delivery: COMMENT: GP PROM Girl Annette 2nd degree PLAN: s/p PPD # 1 1. routine post delivery care 2. breast feeding- support given 3. rh positive 4. rubella immune
[2021-06-03] MEDS: Senna/Docusate Sodium 1 Tablet PO (10:44)
[2021-06-03 13:28] VITALS: BP 105/64; PULSE 91; RESP 16; TEMP 36.7
== END 2021-06-03 13:45 | disposition home or self-care (01) | DRG 805 ==
LOC: WP 12:31
PROVIDERS: Obstetrics & Gynecology; Admitting Provider Obstetrics & Gynecology; Referring Provider Obstetrics & Gynecology; Visit Provider Obstetrics & Gynecology
DX: O76 Abnormality in fetal heart rate and rhythm complicating labor and delivery (principal); O41.1230 Chorioamnionitis, third trimester, not applicable or unspecified; Z37.0 Single live birth; O99.284 Endocrine, nutritional and metabolic diseases complicating childbirth; E70.1 Other hyperphenylalaninemias; O62.0 Primary inadequate contractions; O42.02 Full-term premature rupture of membranes, onset of labor within 24 hours of rupture; O77.0 Labor and delivery complicated by meconium in amniotic fluid; O99.824 Streptococcus B carrier state complicating childbirth; O99.52 Diseases of the respiratory system complicating childbirth; J45.20 Mild intermittent asthma, uncomplicated; O70.1 Second degree perineal laceration during delivery; Z3A.40 40 weeks gestation of pregnancy
CPT/HCPCS: 59025; 59050; 84112; 85025; 86850; 86900; 86901; 87426; 87491; 87591; 99218; J7030; J7120; G0378

== ENCOUNTER → 2022-09-18 | Outpatient (CLI) | payer OTHER, SELFPAY ==
[2022-09-18 09:57] LABS: Progesterone Level 21.25 ng/mL (See Comment)
[2022-09-18 10:04] LABS: hCG Titer Quant., Serum 85 mIU/mL (1-3)
== END | disposition home or self-care (01) ==
PROVIDERS: Referring Provider Nurse Practitioner Women's Health; Visit Provider Nurse Practitioner Women's Health
DX: Z34.90 Encounter for supervision of normal pregnancy, unspecified, unspecified trimester (principal)
CPT/HCPCS: 36415; 84144; 84702

== ENCOUNTER → 2022-09-20 | Outpatient (CLI) | payer OTHER, SELFPAY ==
[2022-09-20 14:00] LABS: hCG Titer Quant., Serum 283 mIU/mL (1-3)
== END | disposition home or self-care (01) ==
LOC: LAB 13:01
PROVIDERS: PCP Family Medicine; Visit Provider Nurse Practitioner Women's Health
DX: Z34.90 Encounter for supervision of normal pregnancy, unspecified, unspecified trimester (principal)
CPT/HCPCS: 36415; 84702

== ENCOUNTER → 2022-11-01 | Outpatient (CLI) | payer OTHER, SELFPAY ==
[2022-11-01 15:41] LABS: Absolute Lymphocyte Count 2.09 X10^3/uL (0.83-4.51); Absolute Neutrophil Count 5.3 X10^3/uL (2.0-7.7); Basophil# 0.04 X10^3/uL; Basophil% 0.5 % (0-1); Eosinophil# 0.23 X10^3/uL; Eosinophils% 2.8 % (0-5); Hematocrit 36.9 % (37-47); Hemoglobin 12.6 g/dL (12.0-15.0); Lymphocyte # 2.09 X10^3/ul (0.83-4.51); Lymphocyte % 25.3 % (19-41); Mean Corp Hgb Conc 34.1 g/dL (32-36); Mean Corpuscular Hgb 32.9 pg (27.0-32.0); Mean Corpuscular Volume 96.3 fL (81-99); Mean Platelet Vol. 11.9 fl (6.2-12.0); Monocyte# 0.57 X10^3/uL; Monocyte% 6.9 % (0-10); NRBC Flagged by Analyzer 0 % (0-5); Neutrophil % 64.3 % (47-70); Platelet Count 210 K/mm3 (150-450); RBC Distribution Width CV 12.5 % (11.6-14.6); RBC Distribution Width SD 43.8 fl (35.1-43.9); Red Blood Count 3.83 M/mm3 (4.2-5.4); White Blood Count 8.3 K/mm3 (4.4-11.0)
[2022-11-01 15:56] LABS: NATERA MAILED SPECIMEN
[2022-11-01 16:51] LABS: HIV - WCH Non-Reactive (Nonreactive); Hepatitis B Surface Antigen Non-Reactive (Nonreactive); Hepatitis C Antibody Non-Reactive (Nonreactive); Rubella IgG Reactive (Nonreactive); Syphilis Antibodies Non-reactive
[2022-11-04 22:07] LABS: Chlamydia By Nucleic Acid AMP Negative (Negative)
[2022-11-07 21:38] LABS: Gonococcus By Nucleic Acid AMP Negative (Negative)
[2022-11-07 21:51] LABS: HPV APTIMA, High Risk Negative (Negative)
== END | disposition home or self-care (01) ==
PROVIDERS: PCP Family Medicine; Referring Provider Obstetrics & Gynecology; Visit Provider Obstetrics & Gynecology
DX: Z34.81 Encounter for supervision of other normal pregnancy, first trimester (principal)
CPT/HCPCS: 36415; 85025; 86703; 86762; 86780; 86803; 86850; 86900; 86901; 87086; 87340; 87491; 87591; 87624; 88175; G0145

== ENCOUNTER 2022-11-19 02:25 | Emergency (ER) | payer OTHER, SELFPAY ==
[2022-11-19 02:26] VITALS: BP 106/76; PULSE 63; RESP 15; TEMP 35.9; O2SAT 100; BMI 23.4
--- NOTE | 2022-11-19 02:46 | US_ITS ---
STUDY: FIRST TRIMESTER OBSTETRICAL ULTRASOUND REASON FOR EXAM: Female, 32 years old left lower quadrant pain. Patient 13 weeks . LMP: 08/18/2022. TECHNIQUE: Transvaginal TECHNICAL QUALITY: Adequate. PRIOR ULTRASOUND: None. FINDINGS: There is visualization of a single gestational sac in a normal intrauterine position. The gestational sac shape is within normal limits. There is no demonstrated yolk sac. Placenta anterior without evidence of placenta previa. There is visualization of a live embryo. The crown-rump length (CRL) measures 7.2 cm, indicating an estimated gestational age (EGA) of 13 weeks, 2 days. There is demonstrated cardiac activity with a heart rate of 154 bpm. The estimated gestation age (EGA) by LMP is 13 weeks, 2 days. The estimated date of delivery (JENNY) by LMP is 05/25/2023. The estimated gestation age (EGA) by US is 13 weeks, 2 days. The estimated date of delivery (JENNY) by US is 05/25/2023. The uterus measures 15.3 x 8.5 x 10.1 cm. There is no demonstrated uterine fibroid. The cervix is closed. Cervical length 5.4 cm. The right ovary measures 3.8 x 3.3 x 1.6 cm. There is no right ovarian cyst. There is no visualized right adnexal mass or complex lesion. The left ovary measures 3.4 x 2.9 x 1.4 cm. There is no left ovarian cyst. There is no visualized left adnexal mass or complex lesion. There is no fluid in the cul de sac. US/Transvaginal w/Preg US IMPRESSION: Single living intrauterine gestation with an estimated gestational age by ultrasound 13 weeks 2 days. Estimated date of delivery May 25, 2023. Normal ovaries. No evidence of ovarian torsion. Electronically Signed: Albert Back MD at 5:42 EST Reading Location ID and State: [id number] / , Service support ,
--- NOTE | 2022-11-19 02:46 | US_ITS ---
STUDY: RENAL ULTRASOUND - COMPLETE REASON FOR EXAM: Female, 32 years old. Left flank pain for 2 days. Patient is 13 weeks . TECHNIQUE: Ultrasound evaluation of the kidneys was performed with real-time and static alfaro-scale imaging. COMPARISON: None. FINDINGS: RIGHT KIDNEY: Normal location of the right kidney, which is normal in size. The right kidney measures 10.9 x 6.2 x 6.2 cm. There is a normal cortex of the right kidney. The renal cortex measures 1.8 cm. There is no right renal mass or cyst. There are no right renal calculi. There is mild hydronephrosis of the right kidney. DISTAL RIGHT URETER: There is non-visualization of the distal right ureter. There is no demonstrated right ureterovesical junction calculus. There is a visualized right ureteral jet. LEFT KIDNEY: Normal location of the left kidney, which is normal in size. The left kidney measures 11.5 x 6.2 x 5.7 cm. There is a normal cortex of the left kidney. The renal cortex measures 2.1 cm. There is no left renal mass or cyst. There are no left renal calculi. There is mild hydronephrosis of the left kidney. DISTAL LEFT URETER: There is non-visualization of the distal left ureter. There is no demonstrated left ureterovesical junction calculus. There is a visualized left ureteral jet. BLADDER: The distended urinary bladder has a volume of 75 ml. There is a normal wall thickness of the distended urinary bladder. There is no demonstrated mass within the urinary bladder. There are no demonstrated bladder calculi. US/Kidney and Bladder IMPRESSION: Mild bilateral hydronephrosis. Visualized bilateral ureteral jets. Electronically Signed: Albert Back MD at 5:46 EST Reading Location ID and State: [id number] / , Service support ,
[2022-11-19] MEDS: Ondansetron 4 MG/2 ML Vial IV (02:58)
[2022-11-19] MEDS: 0.9% Normal Saline 1,000 ML 1000 ML IV (02:58)
[2022-11-19] MEDS: Acetaminophen 325 MG Tablet 650 MG PO (02:59)
[2022-11-19 03:11] LABS: Color, Urine Yellow (Yellow); Glucose, Dipstick Normal (Normal); Ketone-Dipstick Negative (Negative); Leukocyte Esterase-Dipstick 25 /ul (Negative); Nitrite-Dipstick Negative (Negative); Occult Blood-Urine 25 /ul (Negative); Protein-Dipstick 15 mg/dl (Negative); Urine Bilirubin Dipstick Negative (Negative); Urine Clarity Clear (Clear); Urine Urobilinogen Normal (Normal)
[2022-11-19 03:12] LABS: Absolute Lymphocyte Count 1.67 X10^3/uL (0.83-4.51); Basophil# 0.04 X10^3/uL; Basophil% 0.4 % (0-1); Eosinophil# 0.03 X10^3/uL; Eosinophils% 0.3 % (0-5); Hematocrit 33.9 % (37-47); Hemoglobin 11.3 g/dL (12.0-15.0); Lymphocyte # 1.67 X10^3/ul (0.83-4.51); Lymphocyte % 17.9 % (19-41); Mean Corp Hgb Conc 33.3 g/dL (32-36); Mean Corpuscular Hgb 31.9 pg (27.0-32.0); Mean Corpuscular Volume 95.8 fL (81-99); Mean Platelet Vol. 11.5 fl (6.2-12.0); Monocyte# 0.54 X10^3/uL; Monocyte% 5.8 % (0-10); NRBC Flagged by Analyzer 0 % (0-5); Neutrophil # 7.01 X10^3/uL (2.7-7.7); Neutrophil % 75.4 % (47-70); Platelet Count 174 K/mm3 (150-450); RBC Distribution Width CV 12.8 % (11.6-14.6); RBC Distribution Width SD 44.4 fl (35.1-43.9); Red Blood Count 3.54 M/mm3 (4.2-5.4); White Blood Count 9.3 K/mm3 (4.4-11.0)
[2022-11-19 03:32] LABS: AST(SGOT) 11 U/L (15-37); Alanine Aminotransfer ALT/SGPT 19 U/L (13-56); Albumin, Serum 3.2 g/dL (3.2-5.0); Alkaline Phosphatase 29 U/L (45-117); Anion Gap 7 (5-15); BUN 17 mg/dL (7-18); BUN/Creat Ratio 27.6 RATIO (10-20); Calcium,Total 8.1 mg/dL (8.5-10.1); Chloride 104 mmol/L (98-107); Creatinine, Serum 0.62 mg/dL (0.55-1.02); EST Glomerular Filtration Rate 120 mL/min (>60); Est Glom Filt Rate - Afr Amer 145 mL/min (>60); Globulin 3.1 g/dL (2.2-4.2); Glucose 123 mg/dL (74-106); Potassium 3.8 mmol/L (3.5-5.1); Protein, Total 6.3 g/dL (6.4-8.2); Sodium Level 136 mmol/L (136-145)
[2022-11-19 03:42] LABS: Bacteria 3+ /hpf (None Seen); Calcium Oxalate Crystals Ur RARE /hpf (<or=2+); Mucous, Urine 1+ /hpf (<or=2+); Red Blood Cells-Urine 0-5 SEEN /hpf (0-5); Squamous Epithelial Cells - UA 5-10 SEEN /hpf (5-10); White Blood Cells 0-5 SEEN /hpf (0-5)
--- NOTE | 2022-11-19 05:22 | EX.ED.DYSGE1 ---
HPI History of Present Illness Chief Complaint: Abd Pain Informant: patient Narrative Narrative: Patient is a currently 13 weeks presenting with left lower quadrant abdominal pain. Patient states 11/17 (2 days ago) she woke up with some mild pain. She thought was possibly round ligament pain. Worsened throughout the day and last night woke her up from sleep. She spoke with her EDGE GLUE MACHINE TENDER who recommend she come to the ER. Patient has had a confirming IUP per her EDGE GLUE MACHINE TENDER (Dr. Wayne Harrison). Patient denies any vaginal bleeding or leakage of fluids. She denies any urinary symptoms. Patient notes the pain seems to be worse if she has a bowel movement or passes gas. She did have a bowel movement that was on the softer side prior to coming in. She did not take anything for pain prior to arrival as she only had NSAIDs at home. No other complaints at this time. [facility] Medical History Asthma Eczema Phenylalanine hydroxylase deficiency Spontaneous vaginal delivery Home Medications cetirizine 10 mg tablet (Zyrtec) 10 mg PO DAILY PRN Allergy Symptoms 12/06/20 [History Last Taken 1 Day Ago ~05/31/21] albuterol sulfate 90 mcg/actuation breath activated powder inhaler 1 inh inhalation Q4H PRN 10/18/22 [History Last Taken Unknown] multivitamin no.47-iron fum 27 mg-folate no.1 1 mg-dha 300 mg capsule (PNV-DHA) cap PO 10/18/22 [History Last Taken Unknown] dicyclomine 20 mg tablet 20 mg PO TID PRN abdominal discomfort #20 tabs 11/19/22 [Rx Last Taken Unknown] Allergy/AdvReac Type Severity Reaction Status Date / Time ceftriaxone [From Rocephin] Allergy Mild rash Verified 11/19/22 02:26 Family History Grandfather Lymphoma Other Diabetes type 1, controlled Surgical History s/p left ankle surgery s/p stomach surgery Social History adopted: No household members: spouse and children number of children: 1 current occupational status: employed 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 current occupational exposures/hazards: No pets and animals: Yes pets and animals: dog(s) history of recent travel: No sexually active: Yes Smoking Status: Never smoker alcohol intake: never substance use type: does not use well-balanced diet: daily or most days caffeine: No eating out: rarely or never during the past year weight has: remained stable what type of physical activity do you participate in: bicycling and weight training frequency: 3-4 times per week duration: 30-45 minutes/day nito/episcopalian: Scientology seatbelt use: always do you feel safe at home: Yes additional social history: - Misha-He ROS ROS ED Constitutional Constitutional ED: Denies chills or fever(s) ENT ENT ED: Denies sore throat Cardiovascular Cardiovascular: Denies chest pain or palpitations Respiratory/Chest Respiratory/Chest: Denies cough Gastrointestinal Gastrointestinal: Reports abdominal pain; Denies constipation, nausea or vomiting Genitourinary Genitourinary ED: Denies dysuria, hematuria or urinary frequency Musculoskeletal Musculoskeletal: Denies arthralgias or back pain Neurologic Neurologic: Denies headache(s) or weakness Psychiatric Psychiatric: Denies anxiety EXAM Physical Exam Const Vital Signs: 11/19/22 02:26 11/19/22 08:36 Temperature 96.6 F L Temperature Source Temporal Pulse Rate 63 63 Respiratory Rate 15 14 Blood Pressure 106/76 104/67 Blood Pressure Mean 86 79 Pulse Ox 100 97 Oxygen Delivery Method Room Air Room Air Positive well nourished and well developed Constitutional Narrative: Uncomfortable appearing General Appearance ED: well developed and NAD HEENT Reports moist mucous membranes Eyes Negative for PERRL or EOMs intact bilaterally Neck supple Chest Wall inspection of chest normal and palpation of chest normal Resp normal respiratory effort and clear to auscultation bilaterally GI non-distended GI Narrative: Gravid abdomen with fundus palpated just above the pubic bone Auscultation: normoactive bowel sounds Palpation: soft and tender LLQ and suprapubic; Negative for guarding or rebound tenderness present Back/Spine no CVA tenderness Extremity normal to inspection Neuro oriented x3 Sensorium / Orientation: alert Motor Exam: Negative for general weakness Psych mental status grossly normal Skin no rashes or lesions noted MDM MDM MDM Narrative Medical decision making narrative: Patient is evaluated for worsening left lower quadrant abdominal pain. Presentation is complicated by the fact that she is 13 weeks . No vaginal bleeding. She is not viable at this point. Case initially discussed with her EDGE GLUE MACHINE TENDER, Dr. Dax Harrison. Concern for possible ruptured cyst versus ovarian torsion. Ultrasound is ordered. Patient was ordered Tylenol and morphine but declined the morphine. I also ordered an ultrasound of her left kidney/bladder to rule out signs of obstructive stone. Patient is found to have a small amount of bilateral hydronephrosis but no other acute process including torsion. On repeat evaluation she continues to have significant pain in her left lower quadrant. Her lab work is largely unremarkable with no leukocytosis, normal CMP and urinalysis most consistent with contamination. We will send off a urine culture as does have 3+ bacteria however there are 5-10 squamous epithelial cells with only 0-5 white blood cells and no nitrites. Given her continued pain discussed the risk benefits of a CT to rule out things like diverticulitis or other acute intra-abdominal pathology. Patient agreed with CT especially given how much discomfort she was having. CT obtained does not show any acute intra-abdominal process to explain her symptoms. CT did show mild dilation of the renal collecting system bilaterally without evidence of obstructing stone and a gravid uterus. Case then discussed with Dr. Rush, now on-call OB. She came by to evaluate the patient as well. She thought possibly this can be pelvic vascular congestion. Given her pain we did obtain a venous duplex of the left lower extremity to rule out any clot in the femoral vein/may Thurner syndrome. This is negative. Patient is given a dose of Bentyl in the ER as her symptoms do seem to related to gas/bowel movements. She continues to be uncomfortable but would like to be discharged home at this point. Her work-up is largely negative and she remains hemodynamically stable. Cannot find an obvious source of her pain and there is not appear to be any clear surgical emergency. Patient will follow-up closely with her EDGE GLUE MACHINE TENDER. She is given referral for GI as well. Lab Data Attestation: I reviewed the patient's lab results. Labs: Laboratory Results - last 24 hr 11/19/22 11/19/22 11/19/22 03:00 03:00 03:02 WBC 9.3 RBC 3.54 L Hgb 11.3 L Hct 33.9 L MCV 95.8 MCH 31.9 MCHC 33.3 RDW Std Deviation 44.4 H RDW Coeff of Shara 12.8 Plt Count 174 MPV 11.5 Immature Gran % (Auto) 0.200 Neut % (Auto) 75.4 H Lymph % (Auto) 17.9 L Antelope % (Auto) 5.8 Eos % (Auto) 0.3 Baso % (Auto) 0.4 Absolute Neuts (auto) 7.0 Absolute Lymphs (auto) 1.67 Nucleated RBC % 0 Sodium 136 Potassium 3.8 Chloride 104 Carbon Dioxide 25.0 Anion Gap 7 BUN 17 Creatinine 0.62 Estim Creat Clear Calc 118.30 Est GFR (MDRD) Af Amer 145 Est GFR (MDRD) Non-Af 120 BUN/Creatinine Ratio 27.6 H Glucose 123 H Calcium 8.1 L Total Bilirubin 0.20 AST 11 L ALT 19 Alkaline Phosphatase 29 L Total Protein 6.3 L Albumin 3.2 Globulin 3.1 Albumin/Globulin Ratio 1.0 Urine Color Yellow Urine Clarity Clear Urine pH 5.0 Ur Specific [place] 1.030 Urine Protein 15 H Urine Glucose (UA) Normal Urine Ketones Negative Urine Occult Blood 25 H Urine Nitrite Negative Urine Bilirubin Negative Urine Urobilinogen Normal Ur Leukocyte Esterase 25 H Urine RBC 0-5 SEEN Urine WBC 0-5 SEEN Ur Squamous Epith Cells 5-10 SEEN Calcium Oxalate Crystal RARE Urine Bacteria 3+ Urine Mucus 1+ Radiography Diagnostic Testing: Clinical Impression(s) from Imaging Studies Obstetrics Ultrasound 11/19/22 02:46 IMPRESSION: Single living intrauterine gestation with an estimated gestational age by ultrasound 13 weeks 2 days. Estimated date of delivery May 25, 2023. Normal ovaries. No evidence of ovarian torsion. Electronically Signed: Albert Back MD at 5:42 EST Reading Location ID and State: [place] / , Service support , Renal Ultrasound 11/19/22 02:46 IMPRESSION: Mild bilateral hydronephrosis. Visualized bilateral ureteral jets. Electronically Signed: Albert Back MD at 5:46 EST Reading Location ID and State: [place] MD , Service support , Abdomen/Pelvis CT 11/19/22 06:28 IMPRESSION: Mild dilatation of the renal collecting system bilaterally without evidence of obstructing stone. Gravid uterus. Electronically Signed: Albert Back MD at 7:54 EST , Discharge Plan Triage Chief Complaint: Abd Pain ED Provider: Suzanne Aguilar Dx/Rx/DC Orders Clinical Impression: Abdominal pain, left lower quadrant, Instructions: ED Abdominal Pain Unkn Cause Fem, ED Abdominal Pain, Early Prescriptions: New dicyclomine 20 mg tablet 20 mg PO TID PRN (Reason: abdominal discomfort) Qty: 20 0RF No Action cetirizine [Zyrtec] 10 mg tablet 10 mg PO DAILY PRN (Reason: Allergy Symptoms) PNV-DHA 27 mg iron-1 mg -300 mg capsule PO albuterol sulfate 90 mcg/actuation aerosol powdr breath activated 1 inh inhalation Q4H PRN Primary Care Provider: Misha Shetty Referrals: Misha Shetty MD [Primary Care Provider] - Luis Corley DO [Med Staff - Active Staff] - 3-5 Days if not improving Karla Shrestha MD [Med Staff - Active Staff] - 1-2 Days if not improving Activity Restrictions/Additional Instructions: Start taking either Colace or MiraLAX to help with constipation as you do have some stool in the right side. The exact cause of your pain is not clear. No signs of acute infection. No blood clots in the legs. No signs of disrupted blood flow to your ovaries. Disposition Disposition: Home, Self Care
--- NOTE | 2022-11-19 06:28 | CT_ITS ---
STUDY: CT ABDOMEN AND PELVIS WITH CONTRAST REASON FOR EXAM: Female, 32 years old. Left lower quadrant pain. 13 weeks . RADIATION DOSAGE (If Supplied By Facility): CTDIvol = ( 11.95 ) mGy, DLP = ( 557.59 ) mGycm TECHNIQUE: Transaxial images were obtained from the dome of the diaphragm to the symphysis pubis without oral contrast. 100 mL Isovue 300 intravenous contrast was administered. Sagittal and coronal images were reconstructed. Individualized dose optimization techniques were used for this CT. COMPARISON: Pelvic ultrasound and renal ultrasound November 19, 2022. FINDINGS: The visualized lung bases are unremarkable. The visualized portions of the heart are within normal limits. Normal liver. Normal gallbladder and extrahepatic biliary system. Normal spleen. Normal pancreas. Normal bilateral adrenal glands. Mild dilatation of the renal collecting system bilaterally without visualization of an obstructing stone.. Retroaortic left renal vein. Normal enhancement of the kidneys with intravenous contrast. Normal visualized stomach. Normal small intestine. Normal colon. The appendix is probably visualized on coronal image 38 and sagittal ages 65 through 67 and appears normal. Normal abdominal aorta. Normal inferior vena cava. Normal retroperitoneum. No intra-abdominal free air. Normal urinary bladder. Gravid uterus. No adnexal mass is seen. Normal abdominal wall. Normal osseous structures. CT/Abdomen/Pelvis W IV Cont ONLY IMPRESSION: Mild dilatation of the renal collecting system bilaterally without evidence of obstructing stone. Gravid uterus. Electronically Signed: Albert Back MD at 7:54 EST Reading Location ID and State: [id number] / , Service support ,
[2022-11-19] MEDS: Dicyclomine 10 MG Capsule 20 MG PO (08:33)
[2022-11-19 08:36] VITALS: BP 104/67; PULSE 63; RESP 14; O2SAT 97
--- NOTE | 2022-11-19 08:36 | VDLE_ITS ---
Reason For Study: Pain Procedure LEFT This is a venous duplex using B-mode, color GSV is normal. flow and spectral Doppler. CFV is compressible, spontaneous, phasic, Exam performed portable in ED. competent, and demonstrates normal A preliminary report was called and/or faxed augmentation. to Lauren. FV is compressible, spontaneous, phasic, competent and demonstrates normal augmentation. POP V is compressible, spontaneous, phasic, competent and demonstrates normal augmentation. T/P Trunk is compressible. PTV is compressible. LT PerV is compressible. VL/Venous Duplex US, Unilateral Interpretation Summary Deep veins of the left lower extremity are patent and compressible segmentally. There is no evidence of left lower extremity deep vein thrombosis. The left great saphenous vein amanuel ears patent and compressible segmentally. Ordering Physician: Suzanne Aguilar Referring Physician: Misha Shetty Performed By: Shannon Burrell RVT
== END 2022-11-19 09:40 | disposition home or self-care (01) ==
PROVIDERS: Emergency Provider Emergency Medicine; PCP Family Medicine; Visit Provider Emergency Medicine
DX: O26.891 Other specified pregnancy related conditions, first trimester (principal); E70.1 Other hyperphenylalaninemias; R10.32 Left lower quadrant pain; O99.511 Diseases of the respiratory system complicating pregnancy, first trimester; J45.909 Unspecified asthma, uncomplicated; O99.281 Endocrine, nutritional and metabolic diseases complicating pregnancy, first trimester; Z79.899 Other long term (current) drug therapy; Z3A.13 13 weeks gestation of pregnancy
CPT/HCPCS: 74177; 76770; 76817; 80053; 81001; 85025; 87086; 93971; 96361; 96374; 96375; 99284; Q9967; A4216; J2405

== ENCOUNTER → 2023-02-17 | Outpatient (CLI) | payer OTHER, SELFPAY ==
[2023-02-17 10:33] LABS: Absolute Lymphocyte Count 1.58 X10^3/uL (0.83-4.51); Absolute Neutrophil Count 7.2 X10^3/uL (2.0-7.7); Basophil# 0.04 X10^3/uL; Basophil% 0.4 % (0-1); Glucose Challenge Gest 1H 50g 84 mg/dL (70-140); Hematocrit 32.2 % (37-47); Hemoglobin 10.6 g/dL (12.0-15.0); Lymphocyte # 1.58 X10^3/ul (0.83-4.51); Lymphocyte % 16.6 % (19-41); Mean Corp Hgb Conc 32.9 g/dL (32-36); Mean Corpuscular Hgb 33.3 pg (27.0-32.0); Mean Corpuscular Volume 101.3 fL (81-99); Mean Platelet Vol. 11.7 fl (6.2-12.0); Monocyte# 0.64 X10^3/uL; Monocyte% 6.7 % (0-10); NRBC Flagged by Analyzer 0 % (0-5); Neutrophil # 7.21 X10^3/uL (2.7-7.7); Neutrophil % 75.8 % (47-70); Platelet Count 199 K/mm3 (150-450); RBC Distribution Width CV 12.7 % (11.6-14.6); RBC Distribution Width SD 47.5 fl (35.1-43.9); Red Blood Count 3.18 M/mm3 (4.2-5.4); White Blood Count 9.5 K/mm3 (4.4-11.0)
[2023-02-17 11:21] LABS: HIV - WCH Non-Reactive (Nonreactive); Syphilis Antibodies Non-reactive
== END | disposition home or self-care (01) ==
LOC: PAVLAB 10:00
PROVIDERS: Nurse Practitioner Women's Health; PCP Family Medicine; Referring Provider Obstetrics & Gynecology; Visit Provider Obstetrics & Gynecology
DX: Z34.90 Encounter for supervision of normal pregnancy, unspecified, unspecified trimester (principal)
CPT/HCPCS: 36415; 82950; 85025; 86703; 86780

== ENCOUNTER → 2023-03-21 | Outpatient (CLI) | payer OTHER, SELFPAY ==
[2023-03-21 16:57] LABS: Absolute Neutrophil Count 6.4 X10^3/uL (2.0-7.7); Basophil# 0.03 X10^3/uL; Basophil% 0.3 % (0-1); Hematocrit 31.5 % (37-47); Hemoglobin 10.7 g/dL (12.0-15.0); Lymphocyte % 19.5 % (19-41); Mean Corpuscular Hgb 34.4 pg (27.0-32.0); Mean Corpuscular Volume 101.3 fL (81-99); Mean Platelet Vol. 10.2 fl (6.2-12.0); Monocyte# 0.58 X10^3/uL; Monocyte% 6.7 % (0-10); NRBC Flagged by Analyzer 0 % (0-5); Neutrophil # 6.37 X10^3/uL (2.7-7.7); Neutrophil % 73.2 % (47-70); Platelet Count 201 K/mm3 (150-450); RBC Distribution Width CV 12.7 % (11.6-14.6); RBC Distribution Width SD 46.9 fl (35.1-43.9); Red Blood Count 3.11 M/mm3 (4.2-5.4); White Blood Count 8.7 K/mm3 (4.4-11.0)
== END | disposition home or self-care (01) ==
LOC: LAB 16:29
PROVIDERS: PCP Family Medicine; Referring Provider Obstetrics & Gynecology; Visit Provider Obstetrics & Gynecology
DX: O99.013 Anemia complicating pregnancy, third trimester (principal)
CPT/HCPCS: 36415; 85025

== ENCOUNTER → 2023-05-09 | Outpatient (CLI) | payer OTHER, SELFPAY ==
[2023-05-09 10:40] LABS: Absolute Lymphocyte Count 1.95 X10^3/uL (0.83-4.51); Absolute Neutrophil Count 4.3 X10^3/uL (2.0-7.7); Basophil# 0.03 X10^3/uL; Basophil% 0.4 % (0-1); Eosinophil# 0.19 X10^3/uL; Eosinophils% 2.7 % (0-5); Hemoglobin 11.5 g/dL (12.0-15.0); Lymphocyte # 1.95 X10^3/ul (0.83-4.51); Lymphocyte % 27.4 % (19-41); Mean Corp Hgb Conc 33.8 g/dL (32-36); Mean Corpuscular Hgb 34.4 pg (27.0-32.0); Mean Corpuscular Volume 101.8 fL (81-99); Mean Platelet Vol. 11.1 fl (6.2-12.0); Monocyte# 0.61 X10^3/uL; Monocyte% 8.6 % (0-10); NRBC Flagged by Analyzer 0 % (0-5); Neutrophil % 60.5 % (47-70); Platelet Count 165 K/mm3 (150-450); RBC Distribution Width CV 12.4 % (11.6-14.6); RBC Distribution Width SD 46.8 fl (35.1-43.9); Red Blood Count 3.34 M/mm3 (4.2-5.4); White Blood Count 7.1 K/mm3 (4.4-11.0)
== END | disposition home or self-care (01) ==
PROVIDERS: PCP Family Medicine; Referring Provider Registered Nurse; Visit Provider Registered Nurse
DX: O09.90 Supervision of high risk pregnancy, unspecified, unspecified trimester (principal); Z3A.00 Weeks of gestation of pregnancy not specified
CPT/HCPCS: 36415; 85025; 87081

== ENCOUNTER 2023-05-29 07:42 | Inpatient (IN) | payer OTHER, SELFPAY ==
[2023-05-29] VITALS (68 sets, daily range): BP systolic 89–120; BP diastolic 50–70; PULSE 64–90; RESP 16; TEMP 36.2–37.1; O2SAT 97–100; BMI 27.0
--- NOTE | 2023-05-29 07:35 | HP.PCM.OB_ITS ---
HPI - General General Date of Admission: 05/29/23 HPI Narrative ISHA CUNNINGHAM, is a 32 F who presents IAL regular ctx no vb lof admits good fm Maternal Data Information JENNY Calculator Estimated Delivery Date Method Current WG Current Estimate 05/25/23 LMP (Certain) 40w 4d Other Estimates 05/24/23 Ultrasound #1 40w 5d PFSH PFSH Medical History Asthma Eczema Phenylalanine hydroxylase deficiency Spontaneous vaginal delivery Home Medications cetirizine 10 mg tablet (Zyrtec) 10 mg PO DAILY PRN Allergy Symptoms 12/06/20 [History Last Taken 1 Day Ago ~05/31/21] albuterol sulfate 90 mcg/actuation breath activated powder inhaler 1 inh inhalation Q4H PRN 10/18/22 [History Last Taken Unknown] multivitamin no.47-iron fum 27 mg-folate no.1 1 mg-dha 300 mg capsule (PNV-DHA) cap PO 10/18/22 [History Last Taken Unknown] dicyclomine 20 mg tablet 20 mg PO TID PRN abdominal discomfort #20 tabs 11/19/22 [Rx Last Taken Unknown] Allergy/AdvReac Type Severity Reaction Status Date / Time ceftriaxone [From Rocephin] Allergy Mild rash Verified 05/28/23 16:24 Family History Grandfather Lymphoma Other Diabetes type 1, controlled Surgical History s/p left ankle surgery s/p stomach surgery Social History adopted: No household members: spouse and children number of children: 1 current occupational status: employed 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 current occupational exposures/hazards: No pets and animals: Yes pets and animals: dog(s) history of recent travel: No sexually active: Yes Smoking Status: Never smoker alcohol intake: never substance use type: does not use well-balanced diet: daily or most days caffeine: No eating out: rarely or never during the past year weight has: remained stable what type of physical activity do you participate in: bicycling and weight training frequency: 3-4 times per week duration: 30-45 minutes/day nito/rastafari: Restoration seatbelt use: always do you feel safe at home: Yes additional social history: - No History 2 Elective abortions Hx Para 1 Spontaneous abortions Hx # Term Pregnancies Ectopic pregnancies Hx # Pregnancies Multiple births # of living children 1 Past Pregnancies Del. Date Name GA/Weeks Outcome Route Bth Weight Infant Gen [facility]21 Annette 40 live - full term 8lbs 3oz Female e pidural [facility] Tray Delivery Date: 06/02/21 Last Updated by: Alana Mendez PROM; Developed Chorio; 2nd degree laceration Visit Details Expected Delivery Route/Plan Labor Preferences- CB/BF classes: [] labor support person: maria isabel labor intervention preferences: [] pain management options preferred: [] cut cord/dad catch: [] :yes PP control planned: [] discussed possible routes of delivery and associated risks: [] special requests: [] Plans Covid status: discussed Flu vaccine: discussed Tdap vaccine: obtained Rhogam: na LARC form signed: completed. movement and labor precautions reviewed. Problem list reviewed and updated with the most current plan of care details and appropriate orders placed. Relevant counseling for the gestational age provided. Continue routine care and follow up unless otherwise noted in visit notes/problem list details OB Flowsheet Initial Weight: Not Recorded Date -?-?-?-?-?-?-?-?-?-?-?-?- EGA Weight BP Urine Prot -?-?-?-?-?-?-?-?-?-?-?-?- Glucose FHR FuHt Pres Dilation -?-?-?-?-?-?-?-?-?-?-?-?- Effaced St Visit Note 11/01/22 -?-?-?-?-?-?-?-?-?-?-?-?- 10w 5d 138 lb 4 oz 115/69 -?-?-?-?-?-?-?-?-?-?-?-?- 171 -?-?-?-?-?-?-?-?-?-?-?-?- JV- single live IUP measuring 10 weeks 6 days and consistent with LMP. 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 11/29/22 -?-?-?-?-?-?-?-?-?-?-?-?- 14w 5d 142 lb 106/74 Negative -?-?-?-?-?-?-?-?-?-?-?-?- Negative 160 -?-?-?-?-?-?-?-?-?-?-?-?- SM- no vb lof SM- no vb crmaping doing wel l 12/27/22 -?-?-?-?-?-?-?-?-?-?-?-?- 18w 5d 147 lb 6 oz 102/66 Nega tive -?-?-?-?-?-?-?-?-?-?-?-?- Negative 149 -?-?-?-?-?-?-?-?-?-?-?-?- JV- anatomy scan scheduled from 01/13. no complaints. 01/20/23 -?-?-?-?-?-?-?-?-?-?-?-?- 22w 1d 150 lb 8 oz 110/58 Nega tive -?-?-?-?-?-?-?-?-?-?-?-?- Negative 161 -?-?-?-?-?-?-?-?-?-?-?-?- MH-No VB, LOf. G ood FM. Has URI-saw PCP today. Viral. Denies concerns. 02/17/23 -?-?-?-?-?-?-?-?-?-?-?-?- 26w 1d 155 lb 6 oz 101/64 -?-?-?-?-?-?-?-?-?-?-?-?- 145 26 -?-?-?-?-?-?-?-?-?-?-?-?- Sm- n ovb lof go od fm no regualr ctx cbc gct 03/21/23 -?-?-?-?-?-?-?-?-?-?-?-?- 30w 5d 157 lb 6 oz 97/67 -?-?-?-?-?-?-?-?-?-?-?-?- 140 30 -?-?-?-?-?-?-?-?-?-?-?-?- JV- no lof, vagi nal bleeding, or dec fm. rpt cbc ordered. normal glucola 04/07/23 -?-?-?-?-?-?-?-?-?-?-?-?- 33w 1d 160 lb 4 oz 96/63 Nega tive -?-?-?-?-?-?-?-?-?-?-?-?- Negative 155 33 -?-?-?-?-?-?-?-?-?-?-?-?- LC- no vb/ctx/lo f. good fm. restarted on PNV, will add additional iron supplementation and recheck cbc in 4 weeks for mild anemia. larc completed. 04/25/23 -?-?-?-?-?-?-?-?-?-?-?-?- 35w 5d 159 lb 6 oz 96/47 Trac e -?-?-?-?-?-?-?-?-?-?-?-?- Negative 139 35 -?-?-?-?-?-?-?-?-?-?-?-?- LC- no vb/ctx/lo f. good fm. started on iron, cbc ordered. gbs next week. 05/09/23 -?-?-?-?-?-?-?-?-?-?-?-?- 37w 5d 161 lb 6 oz 100/62 Nega tive -?-?-?-?-?-?-?-?-?-?-?-?- Negative 140 37 0.5 -?-?-?-?-?-?-?-?-?-?-?-?- 20 LC-no vb /ctx/lof. good fm. will obtain cbc today. 05/16/23 -?-?-?-?-?-?-?-?-?-?-?-?- 38w 5d 164 lb 2 oz 105/64 Nega tive -?-?-?-?-?-?-?-?-?-?-?-?- Negative 140 39 1 -?-?-?-?-?-?-?-?-?-?-?-?- SM- no vb lof go od fm no regular ctx 05/23/23 -?-?-?-?-?-?-?-?-?-?-?-?- 39w 5d 164 lb 106/66 Negative -?-?-?-?-?-?-?-?-?-?-?-?- Negative 134 38 Cephalic 1 .5 -?-?-?-?-?-?-?-?-?-?-?-?- 30 -3 JV- no lof , v aginal bleeding or dec fm. 41 week IOL set up. 05/28/23 -?-?-?-?-?-?-?-?-?-?-?-?- 40w 3d 165 lb 4 oz 102/69 -?-?-?-?-?-?-?-?-?-?-?-?- 140 40 Cephalic 2 -?-?-?-?-?-?-?-?-?-?-?-?- 60 -3 LC-no lof/ vb/ctx. good fm. desires membrane sweep NST FHR Rate Baby A Baseline: 140 Variability:: Moderate Accelerations:: 15 x 15 Decelerations:: None NST Reactive:: Yes FHR Category:: Category I Uterine Activity:: q3-5 ROS Constitutional Constitutional: Reports systems reviewed and no addt'l complaints, except as documented ENT HEENT: Reports systems reviewed and no addt'l complaints, except as documented Cardiovascular Cardiovascular: Reports systems reviewed and no addt'l complaints, except as documented Respiratory/Chest Respiratory/Chest: Reports systems reviewed and no addt'l complaints, except as documented Gastrointestinal Gastrointestinal: Reports systems reviewed and no addt'l complaints, except as documented and nausea; Denies abdominal pain Genitourinary Genitourinary: Reports systems reviewed and no addt'l complaints, except as documented, contractions Details: present and frequency (regular ) and movement Details: present Musculoskeletal Musculoskeletal: Reports systems reviewed and no addt'l complaints, except as documented Integumentary Integumentary: Reports as per HPI Neurologic Neurologic: Reports systems reviewed and no addt'l complaints, except as documented Endocrine Endocrinology: Reports systems reviewed and no addt'l complaints, except as documented Physical Exam Const alert, oriented x3 and healthy appearing Constitutional Narrative: uncomfortable with contractions HEENT normocephalic and moist oral mucous membranes Head and Scalp: atraumatic Neck full ROM, no lymphadenopathy, supple and thyroid normal General: trachea midline Thyroid: thyroid normal Lymph Lymphatic: no lymphadenopathy noted Chest inspection of chest normal Resp normal respiratory effort Cardio regular rate GI normal to inspection, nondistended, normoactive bowel sounds, soft to palpation and non-tender Inspection: gravid external exam normal Bimanual Exam - Vag & Uterus: uterus non-tender Manual OB Exam: estimated gestational size appropriate, presentation cephalic, dilated, effaced and station Extremity normal to inspection General Extremity: Negative for edema Skin no rashes or lesions noted Neuro deep tendon reflexes 2+ bilaterally Motor Exam: strength 5/5 throughout and clonus absent Psych mental status grossly normal Labs Labs Labs: Blood Type O POSITIVE Antibody Screen NEGATIVE Hct 35.9 % (37-47) L Hgb 12.0 g/dL (12.0-15.0) Pap Smear Negative Obstetrics US Syphilis Total Ab Non-reactive VZV IgG Antibody 0.93 index (Immune >1.09) L Rubella IgG Antibody Reactive (Nonreactive) Hep Bs Antigen Non-Reactive (Nonreactive) Chlamydia DNA (ABA) Negative (Negative) Neisseria gonorrhoeae DNA (ABA) Negative (Negative) HIV 1&2 Antibody Non-Reactive (Nonreactive) Glucose 1 Hr 50 gm 84 mg/dL (70-140) Assessment & Plan (1) Supervision of high risk , antepartum: COMMENT: PRR , JENNY 05/25/23 girl Lili Bryant, Maria Isabel (2) Anemia affecting in third trimester: COMMENT: iron supplementation added 04/07. redraw cbc in 4 weeks (3) : QUALIFIERS: Weeks of gestation: 40 weeks Qualified Code(s): Z3A.40 - 40 weeks gestation of COMMENT: NIPT low risk, declined ntd and carrier testing. nl anatomy (4) Asthma: QUALIFIERS: Asthma complication type: uncomplicated Asthma persistence: intermittent Asthma severity: mild Qualified Code(s): J45.20 - Mild intermittent asthma, uncomplicated COMMENT: Mild intermittent PLAN: Plan admit in labor epidural arom prn
[2023-05-29] MEDS: LACTATED RINGERS 500 ML 999 ML IV ×3 (08:13→12:14)
[2023-05-29 08:40] LABS: Absolute Lymphocyte Count 1.46 X10^3/uL (0.83-4.51); Absolute Neutrophil Count 6.9 X10^3/uL (2.0-7.7); Basophil# 0.03 X10^3/uL; Basophil% 0.3 % (0-1); Eosinophil# 0.03 X10^3/uL; Eosinophils% 0.3 % (0-5); Hematocrit 35.9 % (37-47); Lymphocyte # 1.46 X10^3/ul (0.83-4.51); Mean Corp Hgb Conc 33.4 g/dL (32-36); Mean Corpuscular Hgb 33.4 pg (27.0-32.0); Mean Platelet Vol. 11.8 fl (6.2-12.0); Monocyte# 0.63 X10^3/uL; Monocyte% 6.9 % (0-10); NRBC Flagged by Analyzer 0 % (0-5); Neutrophil # 6.94 X10^3/uL (2.7-7.7); Neutrophil % 76.2 % (47-70); Platelet Count 173 K/mm3 (150-450); RBC Distribution Width CV 12.2 % (11.6-14.6); RBC Distribution Width SD 44.4 fl (35.1-43.9); Red Blood Count 3.59 M/mm3 (4.2-5.4); White Blood Count 9.1 K/mm3 (4.4-11.0)
[2023-05-29] MEDS: Lactated Ringers 1,000 ML 200 ML IV (08:44)
[2023-05-29] MEDS: fentaNYL-bupivacaine (epidural) 100 ML BAG EPIDURAL (09:25)
[2023-05-29 09:32] LABS: Syphilis Antibodies Non-reactive
[2023-05-29] MEDS: Oxytocin 10 UNITS/ML Vial IM (12:40)
[2023-05-29] MEDS: Oxytocin 15 Units/NS 250ml 15 UNITS/250 ML IV.SOLN 83 UNITS IV (12:45)
--- NOTE | 2023-05-29 17:07 | EX.PCM.OBRPT ---
Assessment & Plan (1) Anemia affecting in third trimester: COMMENT: iron supplementation added 04/07. redraw cbc in 4 weeks (2) : QUALIFIERS: Weeks of gestation: 40 weeks Qualified Code(s): Z3A.40 - 40 weeks gestation of COMMENT: NIPT low risk, declined ntd and carrier testing. nl anatomy (3) Asthma: QUALIFIERS: Asthma severity: mild Asthma persistence: intermittent Asthma complication type: uncomplicated Qualified Code(s): J45.20 - Mild intermittent asthma, uncomplicated COMMENT: Mild intermittent (4) Supervision of high risk , antepartum: COMMENT: PRR , JENNY 05/25/23 girl Lili Bryant, Misha Maternal Data Information JENNY Calculator Estimated Delivery Date Method Current WG Current Estimate 05/25/23 LMP (Certain) 40w 4d Other Estimates 05/24/23 Ultrasound #1 40w 5d Vaginal Delivery Operative Information Date of Procedure: 05/29/23 Pre-Operative Diagnosis: see a/p diagnoses Post-Operative Diagnosis: same Surgery / Procedure Performed: Spontaneous Vaginal Delivery Type of Anesthesia: Epidural Special Medications: none Estimated Blood Loss: 300 Fluids Replaced: crystalloid Findings Description of Procedure: Patient began pushing and delivered the head in the LAUREEN presentation. The head was delivered atraumatically . The anterior and posterior shoulders delivered without complication followed by the rest of the infant and the infant was placed on the maternal abdomen. Delayed cord clamping was employed for approximately 60 seconds. Cord was clamped and cut and gentle traction was applied to the cord and the placenta delivered spontaneously immediately following it was noted to be intact with three-vessel cord. The perineum and vagina were inspected and noted to have a second degree perineal laceration which was repaired in the usual fashion with 3-0 vicryl rapide. . EBL was 300. Patient and tolerated delivery well. Amniotic Fluid Description: Lightly stained meconium Placental Delivery Description: Spontaneous Placenta Disposition: [facility] Cord Vessel Description: 3 Vessels Cord Entanglement: None Delayed Cord Clamping: Yes Post Vaginal Delivery Medications Given After Delivery: IV Pitocin Episiotomy Description: None Complication Complications: None Procedures Urinary/Genital [id number]: [id number] Vaginal Delivery [facility]
--- NOTE | 2023-05-29 17:09 | DCINST_ITS ---
Discharge Instructions Diet Discharge Diet: No restrictions Activity Discharge Activity: Return to Normal Activity, May Not Drive (while taking narcotic pain medications.) and May Shower May resume sexual activity in: 4-6 weeks Dressing / Incision Call your doctor if your incision/area has: Continuous Slow Oozing, Sudden Increased Bleeding, Increased Pain/ Swelling, Increased Redness and Foul Smelling Discharge Follow Up Care Please Follow Up With: Karla Shrestha MD When: Call [phone] to make an appointment with your doctor in 6 weeks. If you had elevated blood pressure or 4th degree laceration, you will need to be seen in 2 weeks. Test Results: Test results from this visit will be discussed in further detail at your follow- up appointment, if applicable. Discharge Plan Admission Admit Date/Time: 05/29/23 07:42 Attending Provider: Karla Shrestha Primary Care Provider: Misha Shetty Discharge Orders/Prescriptions Prescriptions: No Action cetirizine [Zyrtec] 10 mg tablet 10 mg PO DAILY PRN (Reason: Allergy Symptoms) PNV-DHA 27 mg iron-1 mg -300 mg capsule PO albuterol sulfate 90 mcg/actuation aerosol powdr breath activated 1 inh inhalation Q4H PRN dicyclomine 20 mg tablet 20 mg PO TID PRN (Reason: abdominal discomfort) Qty: 20 0RF Referrals / Follow Up: Misha Shetty MD [Primary Care Provider] -
[2023-05-29] MEDS: Senna/Docusate Sodium 1 Tablet PO (19:13)
[2023-05-30] VITALS (8 sets, daily range): BP systolic 98–117; BP diastolic 57–72; PULSE 68–80; RESP 14–16; TEMP 36.7–36.9; O2SAT 97–98
--- NOTE | 2023-05-30 00:56 | NURSING ---
pt denies feeling dizzy or lightheaded. pt asleep prior to obtaining vital signs.
--- NOTE | 2023-05-30 08:43 | PCM.PN.OB ---
Subjective Subjective Patient doing well without complaints. Tolerating PO. Ambulating and voiding without difficulty. Feeding well. Denies chest pain, shortness of breath, calf pain/swelling, fevers, chills, lightheadedness. Objective Data Objective Data Vital Signs: Vital Signs Temp Pulse Resp BP Pulse Ox O2 Del Method 98.1 F 68 16 117/72 100 Room Air 05/30/23 04:49 05/30/23 04:49 05/30/23 04:49 05/30/23 04:49 05/29/23 14:38 05/30/23 04:49 Oxygen Delivery Method Room Air Weight: 162 lb 6.4 oz Body Mass Index (BMI) 27.0 Intake & Output: Intake and Output for Last 24 Hours 05/28/23 05/29/23 05/30/23 23:59 23:59 23:59 Intake Total 2782.9 / 2782.9 800 / 800 Output Total 2053 / 2053 Balance 729.9 / 729.9 800 / 800 Lab / Micro Data 05/29/23 08:00 Labs: Laboratory Results - last 24 hr 05/29/23 08:00: Syphilis Total Ab Non-reactive, Blood Type O POSITIVE, Antibody Screen NEGATIVE Physical Exam Const alert and no apparent distress Chest inspection of chest normal Nipple/Areola: nipples/areola normal Resp normal respiratory effort and no retractions Cardio regular rate GI GI Narrative: fundus firm, below u, no clots Extremity normal to inspection, no calf tenderness and no pedal edema Psych mental status grossly normal Assessment & Plan (1) (spontaneous vaginal delivery): COMMENT: SM girl. term IAL PLAN: s/p PPD # 1 1. routine post delivery care 2. breast feeding- support given 3. rh positive 4. rubella immune 5. d/c home today
[2023-05-30] MEDS: Senna/Docusate Sodium 1 Tablet PO (15:08)
== END 2023-05-30 15:35 | disposition home or self-care (01) | DRG 807 ==
LOC: WPOUT 07:44 → WP 08:28
PROVIDERS: Admitting Provider Obstetrics & Gynecology; PCP Family Medicine; Referring Provider Obstetrics & Gynecology; Visit Provider Obstetrics & Gynecology
DX: O77.0 Labor and delivery complicated by meconium in amniotic fluid (principal); Z37.0 Single live birth; J45.20 Mild intermittent asthma, uncomplicated; O70.1 Second degree perineal laceration during delivery; O99.52 Diseases of the respiratory system complicating childbirth; Z3A.40 40 weeks gestation of pregnancy; O99.02 Anemia complicating childbirth; Z87.59 Personal history of other complications of pregnancy, childbirth and the puerperium
CPT/HCPCS: 59025; 59050; 85025; 86780; 86850; 86900; 86901; 99221; J7120; G0378

== ENCOUNTER 2024-09-13 09:26 | Outpatient (CLI) | payer OTHER, SELFPAY ==
[2024-09-13 15:53] LABS: Vitamin D,25 Hydroxy 32.7 ng/mL
[2024-09-13 16:03] LABS: ALB/GLOB Ratio 1.3 RATIO (0.9-2.4); AST(SGOT) 11 U/L (15-37); Alanine Aminotransfer ALT/SGPT 18 U/L (13-56); Albumin, Serum 3.9 g/dL (3.2-5.0); Alkaline Phosphatase 40 U/L (45-117); Anion Gap 4 (5-15); BUN 19 mg/dL (7-18); BUN/Creat Ratio 25.6 RATIO (10-20); Calcium,Total 8.5 mg/dL (8.5-10.1); Chloride 109 mmol/L (98-107); Cholesterol 187 mg/dL (200); Creatinine, Serum 0.74 mg/dL (0.55-1.02); EST Glomerular Filtration Rate 96 mL/min (>60); Est Glom Filt Rate - Afr Amer 116 mL/min (>60); Globulin 3.1 g/dL (2.2-4.2); Glucose 91 mg/dL (74-106); High Density Lipoprotein 72 mg/dL; Potassium 3.9 mmol/L (3.5-5.1); Sodium Level 139 mmol/L (136-145); Thyroid Stim Hormone (TSH) 0.918 uIU/mL (0.358-3.740); Triglycerides 42 mg/dL; Very Low Density Lipoprotein 8 mg/dL (5-40)
[2024-09-13 16:25] LABS: Absolute Lymphocyte Count 1.69 X10^3/uL (0.83-4.51); Absolute Neutrophil Count 2.4 X10^3/uL (2.0-7.7); Basophil# 0.05 X10^3/uL; Basophil% 1.1 % (0-1); Eosinophil# 0.03 X10^3/uL; Eosinophils% 0.7 % (0-5); Hematocrit 37.2 % (37-47); Hemoglobin 12.2 g/dL (12.0-15.0); Lymphocyte # 1.69 X10^3/ul (0.83-4.51); Lymphocyte % 36.7 % (19-41); Mean Corp Hgb Conc 32.8 g/dL (32-36); Mean Corpuscular Hgb 31.5 pg (27.0-32.0); Mean Corpuscular Volume 96.1 fL (81-99); Mean Platelet Vol. 11.9 fl (6.2-12.0); Monocyte# 0.42 X10^3/uL; Monocyte% 9.1 % (0-10); NRBC Flagged by Analyzer 0 % (0-5); Neutrophil # 2.42 X10^3/uL (2.7-7.7); Neutrophil % 52.4 % (47-70); Platelet Count 180 K/mm3 (150-450); RBC Distribution Width CV 12.6 % (11.6-14.6); RBC Distribution Width SD 44.4 fl (35.1-43.9); Red Blood Count 3.87 M/mm3 (4.2-5.4); White Blood Count 4.6 K/mm3 (4.4-11.0)
== END 2024-09-13 23:59 | disposition home or self-care (01) ==
LOC: MFPLAB 09:27
PROVIDERS: PCP Family Medicine; Visit Provider Family Medicine
DX: R53.83 Other fatigue (principal); Z13.1 Encounter for screening for diabetes mellitus; Z13.220 Encounter for screening for lipoid disorders
CPT/HCPCS: 36415; 80053; 80061; 82306; 84443; 85025

== ENCOUNTER → 2024-09-22 | Outpatient (CLI) | payer OTHER, SELFPAY ==
[2024-09-22 14:50] LABS: hCG Titer Quant., Serum 423 mIU/mL (1-3)
[2024-09-25 07:07] LABS: PROGESTERONE 27.5 ng/mL (.)
== END | disposition home or self-care (01) ==
LOC: LAB 13:38
PROVIDERS: PCP Family Medicine; Referring Provider Advanced Practice Midwife; Visit Provider Advanced Practice Midwife
DX: Z34.90 Encounter for supervision of normal pregnancy, unspecified, unspecified trimester (principal); N91.2 Amenorrhea, unspecified
CPT/HCPCS: 36415; 84144; 84702

== ENCOUNTER → 2024-09-24 | Outpatient (CLI) | payer OTHER, SELFPAY ==
[2024-09-24 14:56] LABS: hCG Titer Quant., Serum 954 mIU/mL (1-3)
== END | disposition home or self-care (01) ==
LOC: MTLAB 13:19
PROVIDERS: PCP Family Medicine; Referring Provider Advanced Practice Midwife; Visit Provider Advanced Practice Midwife
DX: N91.2 Amenorrhea, unspecified (principal)
CPT/HCPCS: 36415; 84702

== ENCOUNTER → 2024-11-01 | Outpatient (CLI) | payer OTHER, SELFPAY ==
[2024-11-01 12:30] LABS: Absolute Neutrophil Count 3.7 X10^3/uL (2.0-7.7); Basophil# 0.03 X10^3/uL; Basophil% 0.5 % (0-1); Eosinophil# 0.03 X10^3/uL; Eosinophils% 0.5 % (0-5); Hematocrit 32.6 % (37-47); Hemoglobin 11.1 g/dL (12.0-15.0); Lymphocyte % 25.3 % (19-41); Mean Corpuscular Hgb 32.4 pg (27.0-32.0); Mean Platelet Vol. 12.3 fl (6.2-12.0); Monocyte# 0.36 X10^3/uL; Monocyte% 6.5 % (0-10); NRBC Flagged by Analyzer 0 % (0-5); Platelet Count 185 K/mm3 (150-450); RBC Distribution Width CV 12.5 % (11.6-14.6); RBC Distribution Width SD 43.5 fl (35.1-43.9); Red Blood Count 3.43 M/mm3 (4.2-5.4); White Blood Count 5.5 K/mm3 (4.4-11.0)
[2024-11-01 13:36] LABS: HIV - WCH Non-Reactive (Nonreactive); Hepatitis B Surface Antigen Non-Reactive (Nonreactive); Hepatitis C Antibody Non-Reactive (Nonreactive); Rubella IgG Reactive (Nonreactive); Syphilis Antibodies Non-reactive
[2024-11-02 21:06] LABS: Chlamydia By Nucleic Acid AMP Negative (Negative); Gonococcus By Nucleic Acid AMP Negative (Negative)
== END | disposition home or self-care (01) ==
LOC: BWCLAB 10:59
PROVIDERS: PCP Family Medicine; Referring Provider Obstetrics & Gynecology; Visit Provider Obstetrics & Gynecology
DX: O09.90 Supervision of high risk pregnancy, unspecified, unspecified trimester (principal); Z3A.00 Weeks of gestation of pregnancy not specified
CPT/HCPCS: 36415; 85025; 86703; 86762; 86780; 86803; 86850; 86900; 86901; 87077; 87086; 87088; 87186; 87340; 87491; 87591

== ENCOUNTER → 2025-03-04 | Outpatient (CLI) | payer OTHER, SELFPAY ==
[2025-03-04 12:43] LABS: Absolute Lymphocyte Count 1.55 X10^3/uL (0.83-4.51); Absolute Neutrophil Count 5.6 X10^3/uL (2.0-7.7); Basophil# 0.02 X10^3/uL; Basophil% 0.3 % (0-1); Hematocrit 31.7 % (37-47); Hemoglobin 10.7 g/dL (12.0-15.0); Lymphocyte # 1.55 X10^3/ul (0.83-4.51); Lymphocyte % 20.2 % (19-41); Mean Corp Hgb Conc 33.8 g/dL (32-36); Mean Corpuscular Hgb 33.3 pg (27.0-32.0); Mean Corpuscular Volume 98.8 fL (81-99); Mean Platelet Vol. 11.4 fl (6.2-12.0); Monocyte# 0.48 X10^3/uL; Monocyte% 6.2 % (0-10); NRBC Flagged by Analyzer 0 % (0-5); Neutrophil # 5.62 X10^3/uL (2.7-7.7); Platelet Count 170 K/mm3 (150-450); RBC Distribution Width CV 12.4 % (11.6-14.6); Red Blood Count 3.21 M/mm3 (4.2-5.4); White Blood Count 7.7 K/mm3 (4.4-11.0)
[2025-03-04 13:17] LABS: Glucose Challenge Gest 1H 50g 98 mg/dL (70-140); HIV Nonreactive (Nonreactive); Syphilis Antibodies Nonreactive (Nonreactive)
== END | disposition home or self-care (01) ==
LOC: BWCLAB 11:19
PROVIDERS: Obstetrics & Gynecology; PCP Family Medicine; Referring Provider Obstetrics & Gynecology; Visit Provider Obstetrics & Gynecology
DX: Z34.90 Encounter for supervision of normal pregnancy, unspecified, unspecified trimester (principal)
CPT/HCPCS: 36415; 82950; 85025; 86703; 86780

== ENCOUNTER → 2025-04-11 | Outpatient (CLI) | payer OTHER, SELFPAY ==
[2025-04-11 10:36] LABS: Absolute Lymphocyte Count 1.27 X10^3/uL (0.83-4.51); Absolute Neutrophil Count 4.6 X10^3/uL (2.0-7.7); Basophil# 0.02 X10^3/uL; Basophil% 0.3 % (0-1); Eosinophil# 0.22 X10^3/uL; Eosinophils% 3.3 % (0-5); Hematocrit 30.7 % (37-47); Hemoglobin 10.7 g/dL (12.0-15.0); Lymphocyte # 1.27 X10^3/ul (0.83-4.51); Lymphocyte % 19.3 % (19-41); Mean Corp Hgb Conc 34.9 g/dL (32-36); Mean Corpuscular Hgb 34.1 pg (27.0-32.0); Mean Corpuscular Volume 97.8 fL (81-99); Mean Platelet Vol. 11.3 fl (6.2-12.0); Monocyte# 0.45 X10^3/uL; Monocyte% 6.8 % (0-10); NRBC Flagged by Analyzer 0 % (0-5); Neutrophil % 69.8 % (47-70); Platelet Count 159 K/mm3 (150-450); RBC Distribution Width CV 12.2 % (11.6-14.6); RBC Distribution Width SD 43.8 fl (35.1-43.9); Red Blood Count 3.14 M/mm3 (4.2-5.4); White Blood Count 6.6 K/mm3 (4.4-11.0)
[2025-04-11 10:57] LABS: Protein, Urine (Random) 21.8 mg/dL (0.0-12.0); Protein:Creat Ratio 98 mg/g CRE (0-200)
[2025-04-11 11:55] LABS: ALB/GLOB Ratio 1.6 RATIO (0.9-2.4); AST(SGOT) 24 U/L (<=31); Alanine Aminotransfer ALT/SGPT 15 U/L (<=34); Albumin, Serum 3.6 g/dL (3.5-5.0); Alkaline Phosphatase 65 U/L (35-104); Anion Gap 9 (5-15); BUN 13 mg/dL (4-19); BUN/Creat Ratio 18.9 RATIO (10-20); Calcium,Total 8.7 mg/dL (7.6-11.0); Carbon Dioxide 24.9 mmol/L (21.0-32.0); Chloride 103 mmol/L (98-108); Creatinine, Serum 0.69 mg/dL (0.70-1.20); EST Glomerular Filtration Rate 118 (>60); Globulin 2.3 g/dL (2.2-4.2); Glucose 87 mg/dL (70-99); Protein, Total 5.9 g/dL (5.9-8.4); Sodium Level 137 mmol/L (133-145); Total Bilirubin 0.36 mg/dL (0.00-1.30)
== END | disposition home or self-care (01) ==
PROVIDERS: PCP Family Medicine; Referring Provider Advanced Practice Midwife; Visit Provider Advanced Practice Midwife
DX: O99.019 Anemia complicating pregnancy, unspecified trimester (principal); O12.10 Gestational proteinuria, unspecified trimester; D50.9 Iron deficiency anemia, unspecified; Z3A.00 Weeks of gestation of pregnancy not specified
CPT/HCPCS: 36415; 80053; 82570; 84156; 85025

== ENCOUNTER → 2025-04-15 | Outpatient (CLI) | payer OTHER, SELFPAY ==
--- NOTE | 2025-04-15 13:09 | US_ITS ---
PROCEDURE: OB LIMITED WITH BIOMETRICS 04/15/2025 REASON FOR EXAM: UTERINE SIZE LARGER THAT DATES TECHNIQUE: OB LIMITED WITH BIOMETRICS COMPARISON: None FINDINGS Number: 1 Position: Vertex Placental Position: Posterior and not low-lying Placental Abnormalities: No evidence of previa. DIMENSIONS: Biparietal Diameter: 8.68 cm: 35 weeks and 0 days: 82nd percentile/ Head Circumference: 31.85 cm: 35 weeks and 6 days: 69 percentile/ Abdominal Circumference: 31.21 cm: 35 weeks and 1 day: 88 percentile/ Femur Length: 6.51 cm: 33 weeks and 4 days: 36 percentile/ ESTIMATED WEIGHT: 2520 g plus/-378 g ESTIMATED WEIGHT PERCENTILE (24+ weeks): 75th ESTIMATED GESTATIONAL AGE: Baseline: 33 weeks and 5 days By Ultrasound: 35 weeks and 1 day ESTIMATED DATE OF DELIVERY: Baseline: May 29, 2025 By Ultrasound: May 19, 2025 BIOPHYSICAL ASSESSMENT: Amniotic Fluid Volume: 4.8 cm Amniotic Fluid Index: (8-24 cm normal range) Cardiac Motion: 144 beats per minute (average) Trunk and Limb Motion: Present. MATERNAL ANATOMY: Adnexa: Neither maternal ovary is successfully identified. US/OB Limited With Biometrics IMPRESSION: Single live intrauterine gestation with a mean gestational age of 35 weeks and 1 day. Reading Location: [id number]
[2025-04-15 15:42] LABS: Ferritin 38 ng/mL (22-378); Iron 113 ug/dL (50-170); Iron Binding Capacity,Total 387 ug/dL (250-450); Iron Binding Capacity,Unsat 274 ug/dL (228-428)
== END | disposition home or self-care (01) ==
PROVIDERS: PCP Family Medicine; Referring Provider Advanced Practice Midwife; Visit Provider Advanced Practice Midwife
DX: O99.019 Anemia complicating pregnancy, unspecified trimester (principal); D64.9 Anemia, unspecified; O26.849 Uterine size-date discrepancy, unspecified trimester; Z3A.00 Weeks of gestation of pregnancy not specified
CPT/HCPCS: 36415; 76816; 82728; 83540; 83550

== ENCOUNTER 2025-05-31 01:00 | Inpatient (IN) | payer OTHER, SELFPAY ==
[2025-05-31] VITALS (18 sets, daily range): BP systolic 93–132; BP diastolic 57–85; PULSE 60–98; RESP 14–20; TEMP 2.7–37.1; O2SAT 98–100; BMI 27.2
--- OUTSIDE RECORDS SUMMARY | 2025-05-31 01:01 | XMS RPT_ITS | CCD ---
Author Organization [facility] Care Team Providers Care Clinical Trials Systems Administrator Name Role Phone ANNMARIE VANEGAS Unavailable Unavailabl e SELF, SELF Unavailable Unavailable SYSTEM, PROVIDER NOT IN Admitting Unavaila ble NO, PHYSICIAN Primary Care Unavailable Care Physician, No Primary Primary Care Provider Unavailable Care Physician, No Primary Referring Provider Un available YAQUELIN Mike NP Attending Provider [phone] Dr. Tamiko Steven Attending Provider [phone] Dr. Maria Isabel Sandoval Primary Care Provider [phone] Care Physician, No Primary Referring Provider Un available Dr. Tamiko Steven Attending Provider [phone] Dr. Maria Isabel Sandoval Primary Care Provider [phone] Dr. Rishi Muse Attending Provider Dr. Suzanne Aguilar Referring Provider Dr. Maria Isabel Sandoval Referring Provider Dr. Karla Shrestha Attending Provider [phone] YAQUELIN Mike NP Attending Provider [phone] Dr. Maria Isabel Sandoval Primary Care Provider [phone] Dr. Maria Isabel Sandoval Referring Provider Dr. Tamiko Steven Attending Provider [phone] Dr. Karla Shrestha Attending Provider [phone] DAKOTA Lyon Attending Provider Dr. Maria Isabel Sandoval Primary Care Provider [phone] Dr. Maria Isabel Sandoval Referring Provider Dr. Tamiko Steven Attending Provider [phone] Dr. Karla Shrestha Admit Provider [phone] Dr. Karla Shrestha Referring Provider [phone] Dr. Karla Shrestha Other Provider [phone] Unavailable Primary Care Provider Unavailashok LUCIO, REBECCA Adamson Attending Unavailable MARIA ISABEL SANDOVAL Primary Care Unavailable LINO JOAQUIN Referring Unavai LINO Crabtree Attending Unavailable Pasquale FINN, Chalon Primary Care Provider [phone] Pasquale FINN, Pattie Referring Provider Madi DUNCAN, Lino Attending Provider [phone] Dr. Tamiko Steven DO Attending Provider Dr. Karla Shrestha MD Attending Provider [phone] Dr. Karla Shrestha MD Referring Provider [phone] Pasquale FINN, Chalon Primary Care Provider [phone] Pasquale FINN, Chaljanice Referring Provider Madi CNJuan Diego, Lino Attending Provider [phone] Madi CNM, Lino Referring Provider [phone] Pasquale FINN, Chalon Primary Care Provider [phone] Pasquale FINN, Chalon Referring Provider Madi DUNCAN, Lino Attending Provider [phone] Camron CNM, Mitzi Attending Provider [phone] Pasquale, Chalon Primary Care Unavailable Pasquale, Chalon Referring Unavailable Lino Joaquin Attending Unavailable Pasquale, Chalon Primary Care Unavailable Pasquale, Chalon Referring Unavailable Lino Joaquin Attending Unavailable Pasquale, Chalon Primary Care Unavailable Pasquale, Chalon Referring Unavailable Karla Shrestha Attending Unavailable Pasquale, Chalon Primary Care Unavailable Pasquale, Chalon Referring Unavailable Mitzi Lyon Attending Unavailable Pasquale, Chalon Primary Care Unavailable Pasquale, Chalon Referring Unavailable Karla Shrestha Attending Unavailable Pasquale, Chalon Primary Care Unavailable Pasquale, Chalon Referring Unavailable Lino Joaquin Attending Unavailable Pasquale, Chalon Primary Care Unavailable Pasquale, Chalon Referring Unavailable Lino Joaquin Attending Unavailable Pasquale, Chalon Primary Care Unavailable Pasquale, Chalon Referring Unavailable Madi, Lino Attending Unavailable Pasquale, Chalon Primary Care Unavailable Pasquale, Chalon Referring Unavailable Karla Shrestha Attending Unavailable Pasquale, Chalon Primary Care Unavailable Pasquale, Chalon Referring Unavailable Madi, Lino Attending Unavailable Pasquale, Chalon Primary Care Unavailable Pasquale, Chalon Referring Unavailable Tamiko Steven Attending Unavailabl e Pasquale, Chalon Primary Care Unavailable Madi, Lino Referring Unavailable Madi, Lino Attending Unavailable Pasquale, Chalon Primary Care Unavailable Madi, Lino Referring Unavailable Madi, Lino Attending Unavailable Pasquale, Chalon Primary Care Unavailable Marcronaony, Karla Referring Unavailable Marcronaony, Karla Attending Unavailable Pasquale, Chalon Primary Care Unavailable Madi, Lino Referring Unavailable Madi, Lino Attending Unavailable Pasquale, Chalon Primary Care Unavailable Madi, Lino Referring Unavailable Madi, Lino Attending Unavailable Pasquale, Chalon Primary Care Unavailable Pasquale, Navinon Attending Unavailable Pasquale, Chalon Primary Care Unavailable Karla Shrestha Referring Unavailable Karla Shrestha Attending Unavailable Allergies Allergy Classification Reported Allergen(s) Allergy Type Date of Onset Reaction(s) Facility (17 sources) cefTRIAXone Drug Allergy 2 rash [facility] (2 sources) cefTRIAXone; Translations: [CEFTRIAXONE SODIUM] Drug Allergy 9 Shortness of Breath [facility] Work Phone: (1 source) cefTRIAXone Drug Allergy 5 [facility] Repository Medications Current Medications Medication Drug Class(es) Dates Sig (Normalized) Sig (Original) 200 actuat albuterol 0.09 mg/actuat dry powder inhaler (15 sources) beta2-Adrenergic Agonist Start: 10-18-2022 Albuterol Sulfate 90 mcg/actuation aerosol powdr breath activated Active 1 NMA INHALATION Q4H as needed October 18, 2022 1:00am Start: 10-18-2022 Albuterol Sulf ate Active 1 INH INHALATION Q4H October 18, 2022 1:00am clobetasol propionate 0.0005 mg/mg topical ointment (12 sources) Corticosteroid Start: 05-14-2024 clobetasol (TE MOVATE) 0.05 % ointment Indications: Lichen sclerosus et atrophicus apply qhs * 6 weeks 0 05/14/2024 Active Start: 08-11-2023 Clobetasol 0.0 5 % ointment Active 1 NMA TOPICAL AT BEDTIME 30 3 August 11, 2023 12:00am apply thin layer; massage gently into affected area nightly x 6 weeks then 1-2x weekly Start: 08-07-2009 End: 05-14-2024 CLOBETASOL 0.05 % OINTMENT a pply qhs * 6 weeks QS 0 08/07/2009 05/14/2024 Discontinued Ethinyl Estradiol / Levonorgestrel (1 source) Progestin, Estrogen, Progestin-containing Intrauterine Device Start: 10-09-2010 End: 05-14-2024 take 1 tablet by mouth once daily Levonorgestrel-Ethinyl Estrad (AVIANE) 0.1-20 mg-mcg ORAL per tablet Take one(1) tablet daily. 1 Package 3 10/09/2010 05/14/2024 Discontinued (Clinical Decision) Multivit 89-Exlw-Gxkeab 1-Dha (Pnv-Dha) 27 mg iron-1 mg -300 mg capsule (15 sources) Start: 10-18-2022 Multivit 35-Dtfr-Uxdjqh 1-Dha (Pnv-Dha) 27 mg iron-1 mg -300 mg capsule Active NMA PO October 18, 2022 1:00am Start: 10-18-2022 Multivit 47-Ir on-Folate 1-Dha (Pnv-Dha) 27 mg iron-1 mg -300 mg capsule Active CAP PO October 18, 2022 1:00am Start: 10-18-2022 Multivit 47-Ir on-Folate 1-Dha (Pnv-Dha) 27 mg iron-1 mg -300 mg capsule Active CAP PO October 18, 2022 12:00am Completed/Discontinued Medications Medication Drug Class(es) Dates Sig (Normalized) Sig (Original) cetirizine hydrochloride 10 mg oral tablet (17 sources) Histamine-1 Receptor Antagonist Start: 12-06-2020 End: 07-08-2023 take 1 tablet by mouth once daily as needed Cetirizine (Zyrtec) 10 mg tablet Discontinued 10 mg PO DAILY as needed for Allergy Symptoms December 06, 2020 1:00am July 08, 2023 11:53am dicyclomine hydrochloride 20 mg oral tablet (14 sources) Anticholinergic Start: 11-19-2022 End: 07-08-2023 take 1 tablet by mouth three times daily as needed Dicyclomine 20 mg tablet Discontinued 20 mg PO THREE TIMES A DAY as needed for abdominal discomfort 20 November 19, 2022 10:20am July 08, 2023 11:53am docosahexaenoic acid 200 mg oral capsule (17 sources) Start: 12-06-2020 End: 10-18-2022 Docosahexaenoic Acid ( Dha) 200 mg capsule Discontinued 1 PO December 06, 2020 1:00am October 18, 2022 11:15am Check with primary doctor ibuprofen 800 mg oral tablet (17 sources) Nonsteroidal Anti-inflammatory Drug Start: 06-03-2021 End: 09-18-2022 take 1 tablet by mouth every eight hours as needed for pain Ibuprofen 800 mg tablet Discontinued 800 mg PO Q8H as needed for pain 30 June 03, 2021 12:00am September 18, 2022 9:48am norethindrone 0.35 mg oral tablet (17 sources) Start: 07-13-2021 End: 09-18-2022 take 1 tablet by mouth once daily Norethindrone (Contraceptive) (Ortho Micronor) 0.35 mg tablet Discontinued 0.35 mg PO DAILY 84 4 July 13, 2021 12:00am September 18, 2022 9:48am Problems Active Problems Problem Classification Problem Date Documented Date Episodic/Chronic Abdominal pain (14 sources) Left lower quadrant pain; Translations: [Left lower quadrant pain] 11-19-2022 Episodic Allergic reactions (17 sources) Eczema; Translations: [Dermatitis, unspecified] 02-12-2021 Episodic Asthma (20 sources) Asthma; Translations: [Unspecified asthma, uncomplicated] 01-17-2021 Chronic Comment on above: Mild intermittent Bacterial infection; unspecified site (20 sources) Bacteria present; Translations: [Streptococcus, group B, as the cause of diseases classified elsewhere] Onset: 05-23-2025 11-03-2024 Episodic Comment on above: treat in labor Deficiency and other anemia (1 source) Iron deficiency anemia, unspecified; Translations: [Iron deficiency anemia, unspecified] Onset: 04-11-2025 Episodic Genitourinary congenital anomalies (17 sources) pyelectasis; Translations: [Dilation of renal pelvis of fetus] 05-07-2021 Chronic Comment on above: resolved on recent [facility] Immunizations and screening for infectious disease (1 source) Encounter for immunization; Translations: [Encounter for immunization] Onset: 03-25-2025 Episodic Menstrual disorders (11 sources) Amenorrhea; Translations: [Amenorrhea, unspecified] Onset: 10-25-2024 11-01-2024 Chronic Other complications of (13 sources) Anemia in mother complicating , childbirth AND/OR puerperium; Translations: [Anemia complicating , third trimester] 02-17-2023 Chronic Comment on above: iron supplementation added 04/07. redraw cbc in 4 weeks Other complications of (14 sources) Anemia complicating , third trimester; Translations: [Anemia of mother, antepartum condition or complication] 02-17-2023 Chronic Other complications of (20 sources) Anemia of ; Translations: [Anemia complicating , unspecified trimester] 04-11-2025 Chronic Comment on above: ferritin, iron & iro n binding studies ferritin, iron & iro n binding studies-normal Other complications of (1 source) Anemia complicating , unspecified trimester; Translations: [Anemia complicating , unspecified trimester] Onset: 05-23-2025 Chronic Other complications of (20 sources) High risk ; Translations: [Supervision of high risk , unspecified, unspecified trimester] 10-18-2022 Episodic Comment on above: PRR , JENNY 3 girl Lili PC Annette, Maria Isabel Other complications of (20 sources) Fundal height high for dates; Translations: [Uterine size-date discrepancy, unspecified trimester] 04-11-2025 Episodic Comment on above: S>D Other complications of (1 source) Uterine size-date discrepancy, unspecified trimester; Translations: [Uterine size-date discrepancy, unspecified trimester] Onset: 05-23-2025 Episodic Other complications of (1 source) Gestational proteinuria, unspecified trimester; Translations: [Gestational proteinuria, unspecified trimester] Onset: 04-11-2025 Episodic Other eye disorders (1 source) Red eye; Translations: [Red Eye] Onset: 03-31-2018 Episodic Other and delivery including normal (20 sources) Vaginal delivery; Translations: [Encounter for full-term uncomplicated delivery] Onset: 05-23-2025 Episodic Comment on above: PRR, , JENNY 5, Lili Parr, Maria Isabel GP PROM Girl Annette 2nd degree SM girl. term IAL LMP 08/18/22 HCGx2, progesterone level Low risk, anatomy nl NIPT low risk, decli marcos ntd and carrier testing. nl anatomy PRR, , JENNY 5, boy Lili Parr, Maria Isabel Other skin disorders (2 sources) Lichen sclerosus et atrophicus; Translations: [Circumscribed scleroderma] Onset: 05-14-2024 05-14-2024 Chronic Other upper respiratory disease (15 sources) Seasonal allergy; Translations: [Other seasonal allergic rhinitis] 10-18-2022 Chronic Comment on above: pollen, ragweed, dus t Other upper respiratory disease (3 sources) Other seasonal allergic rhinitis; Translations: [Allergic rhinitis, cause unspecified] 11-01-2022 Chronic Residual codes; unclassified (1 source) 39 weeks gestation of ; Translations: [39 weeks gestation of ] Onset: 05-23-2025 Episodic Residual codes; unclassified (1 source) 37 weeks gestation of ; Translations: [37 weeks gestation of ] Onset: 05-13-2025 Episodic Residual codes; unclassified (1 source) 36 weeks gestation of ; Translations: [36 weeks gestation of ] Onset: 05-06-2025 Episodic Residual codes; unclassified (1 source) 33 weeks gestation of ; Translations: [33 weeks gestation of ] Onset: 04-11-2025 Episodic Unclassified (1 source) New Patient / [id number]() Onset: 03-31-2018 Unclassified (1 source) Red Eye / [id number]() Onset: 03-31-2018 Past or Other Problems Problem Classification Problem Date Documented Da te Episodic/Chronic Malaise and fatigue (1 source) Other fatigue; Translations: [Other fatigue] Onset: 10-10-2024 Episodic Other complications of (20 sources) Supervision of high risk , unspecified, unspecified trimester; Translations: [Supervision of unspecified high-risk ] Onset: 11-22-2024 11-01-2022 Episodic Residual codes; unclassified (1 source) 23 weeks gestation of ; Translations: [23 weeks gestation of ] Onset: 02-04-2025 Episodic Residual codes; unclassified (1 source) 10 weeks gestation of ; Translations: [10 weeks gestation of ] Onset: 11-01-2024 Episodic Unclassified (1 source) New Patient; Translations: [New Patient] Onset: 03-31-2018 Results Test Name Value Interpretation Reference Range Facility Laboratory - Chemistry and C hemistry - challengeOrdered By: Lino Joaquin on 05-23-2025 Glucose Ql (U) Negative [facility] Laboratory - UrinalysisOrder ed By: Lino Joaquin on 05-23-2025 Protein Ql (U) Negative [facility] Airline Customer Service Agent Office Visit Reporton 05-23-2025 Airline Customer Service Agent Office Visit Report [facility] [address], [address] [place] [address] OFFICE VISIT Date of Service: 05/23/25 MR#: [id number] Acct: [id number] Name: ISHA VANEGAS Rep #: [id number] : 1990 Provider: DAKOTA Mccormick ams Age/Sex: 34/F Location: [facility] Status: Signed Intake Vital Signs 02/04/25 09:33 05/20/25 08:35 05/23/25 08:50 05/23/25 08:51 Height 5 ft 5 in 5 ft 5 in 5 ft 5 in 5 ft 5 in Weight: 161 lb 8 oz BMI 26.9 BP 114/74 Intake Visit Reasons: 39 WK OB Chief Complaint: 39wk 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 Is patient in pain?: No Allergies ceftriaxone (From Rocephin) Allergy (Mild, Verified 05/23/25 08:50) rash Medications ???Medication ???Instructions ???Recorded ???Confirmed ???Type albuterol sulfate 90 mcg/actuation 1 inh inhalation Q4H PRN 2 05/23/25 History breath activated powder inhaler multivitamin no.47-iron fum 27 cap PO 10/18/22 05/23/25 History mg-folate no.1 1 mg-dha 300 mg capsule (PNV-DHA) clobetasol 0.05 % topical ointment 1 applic topical QHS #30 grams 1 05/23/25 Rx Last Menstrual Period: 08/22/24 : No PFSH PFSH Medical History Lichen sclerosus (spontaneous vaginal delivery) Spontaneous vaginal delivery Phenylalanine hydroxylase deficiency Eczema Asthma Surgical History s/p stomach surgery s/p left ankle surgery Family History Grandfather Lymphoma Aunt Diabetes type 1, controlled Paternal Social History adopted: No household members: spouse and children number of children: 2 current occupational status: employed 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 current occupational exposures/hazards: No pets and animals: Yes pets and animals: dog(s) history of recent travel: No sexually active: Yes Smoking Status: Never smoker alcohol intake: never substance use type: does not use well-balanced diet: daily or most days caffeine: No eating out: 1-3 times/week during the past year weight has: remained stable what type of physical activity do you participate in: bicycling and weight training frequency: 3-4 times per week duration: 30-45 minutes/day nito/episcopalian: Nondenominational seatbelt use: always do you feel safe at home: Yes 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 Date Name GA/Weeks Outcome Route Bth Weight Infant Gen Labor Lgth Anesthesia Del Locatn Provider FOB 06/02/21 Annette 40 live - full term 8lbs 3oz Female epidural [facility] P rokop 05/29/23 Lili 40 live - full term 8#3 Female [facility] Dax gurmeet Delivery Date: 06/02/21 Last Updated by: Alana Mendez PROM; Developed Chorio; 2nd degree laceration Delivery Date: 05/29/23 Last Updated by: Siena Braun IOL HPI 39 WK OB Details: ISHA VANEGAS is a 34 year old who presents for routine OB visit. OB Visit JENNY Calculator Estimated Delivery Date Method Current WG Current Estimate 05/29/25 LMP (Certain) 39w 1d Expected Delivery Route/Plan Labor Preferences- CB/BF classes: [] labor support person: [] labor intervention preferences: [] pain management options preferred: [] cut cord/dad catch: [] : plans PP control planned: [] discussed possible routes of delivery and associated risks: [] special requests: [] Specific Issue/Plans Covid status: [] Flu vaccine: [] Tdap vaccine:obtained Rhogam: na LARC form signed: completed Problem list reviewed and updated with the most current plan of care details and appropriate orders placed. Relevant counseling for the gestational age provided. Continue routine care and follow up unless otherwise noted in visit notes/problem list details Initial Weight: Not Recorded Date -???-???-???-???-??? -???-???-???-???-??? -???-???- EGA Weight BP Urine Prot -???-???-???-???-??? -???-???-???-???-??? -???-???- Glucose FHR FuHt Pres Dilation -???-???-???-???-??? -???-???-???-???-??? -???-???- Effaced St Visit Note 11/01/24 -???-???-???-???-??? -???-???-???-???-??? -???-???- 10w 1d 137 lb 8 oz 98/60 -???-???-???-???-??? -???-???-???-???-??? -???-???- 180 -???-???-???-???-??? -???-???-???-???-??? -???-???- SM- CRL cons with LMP 3.3 cm 12/03/24 -???-???-???-???-??? -???-???-???-???-??? -???-???- 14w 5d 140 lb 4 oz 103/69 Trace -???-???-???-???-??? -???-???-???-???-??? -??? (more content not included)... Normal [facility] Laboratory - Chemistry and C hemistry - challengeOrdered By: Mitzi Lyon on 05-20-2025 Glucose Ql (U) Negative [facility] Laboratory - UrinalysisOrder ed By: Mitzi Lyon on 05-20-2025 Protein Ql (U) Negative [facility] Airline Customer Service Agent Office Visit Reporton 05-20-2025 Airline Customer Service Agent Office Visit Report [facility] [address], [address] [place] [address] OFFICE VISIT Date of Service: 05/20/25 MR#: [id number] Acct: [id number] Name: ISHA VANEGAS Rep #: [id number] : 1990 Provider: DAKOTA chu Age/Sex: 34/F Location: [facility] Status: Signed Intake Vital Signs 02/04/25 09:33 04/11/25 10:06 05/13/25 11:02 05/20/25 08:35 Height 5 ft 5 in 5 ft 5 in 5 ft 5 in 5 ft 5 in Weight: 161 lb 4 oz BMI 26.8 BP 94/58 L Intake Visit Reasons: 38 WK 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 Is patient in pain?: No Allergies ceftriaxone (From Rocephin) Allergy (Mild, Verified 05/20/25 08:36) rash Medications ???Medication ???Instructions ???Recorded ???Confirmed ???Type albuterol sulfate 90 mcg/actuation 1 inh inhalation Q4H PRN 10/18/2 2 05/20/25 History breath activated powder inhaler multivitamin no.47-iron fum 27 cap PO 10/18/22 05/20/25 History mg-folate no.1 1 mg-dha 300 mg capsule (PNV-DHA) clobetasol 0.05 % topical ointment 1 applic topical QHS #30 grams 1 05/20/25 Rx Last Menstrual Period: 08/22/24 Zika: Zika virus screening: Negative : No Have you fallen in the past year?: No PFSH PFSH Medical History Lichen sclerosus (spontaneous vaginal delivery) Spontaneous vaginal delivery Phenylalanine hydroxylase deficiency Eczema Asthma Surgical History s/p stomach surgery s/p left ankle surgery Family History Grandfather Lymphoma Aunt Diabetes type 1, controlled Paternal Social History adopted: No household members: spouse and children number of children: 2 current occupational status: employed 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 current occupational exposures/hazards: No pets and animals: Yes pets and animals: dog(s) history of recent travel: No sexually active: Yes Smoking Status: Never smoker alcohol intake: never substance use type: does not use well-balanced diet: daily or most days caffeine: No eating out: 1-3 times/week during the past year weight has: remained stable what type of physical activity do you participate in: bicycling and weight training frequency: 3-4 times per week duration: 30-45 minutes/day nito/episcopalian: Nondenominational seatbelt use: always do you feel safe at home: Yes additional social history: - Maria Isabel-[employer] History 3 Elective abortions Hx Para 2 Spontaneous abortions Hx # Term Pregnancies Ectopic pregnancies Hx # Pregnancies Multiple births # of living children 2 Past Pregnancies Del. Date Name GA/Weeks Outcome Route Bth Weight Gen Labor Lgth Anesthesia Del Locatn Provider FOB 06/02/21 Annette 40 live - full term 8lbs 3oz Female epidural [facility] Ricki rokop 05/29/23 Lili 40 live - full term 8#3 Female [facility] Dax levi Delivery Date: 06/02/21 Last Updated by: Alana Mendez PROM; Developed Chorio; 2nd degree laceration Delivery Date: 05/29/23 Last Updated by: Siena Braun IOL HPI 38 WK OB Details: ISHA VANEGAS is a 34 year old who presents for routine OB visit. OB Visit JENNY Calculator Estimated Delivery Date Method Current WG Current Estimate 05/29/25 LMP (Certain) 38w 5d Expected Delivery Route/Plan Labor Preferences- CB/BF classes: [] labor support person: [] labor intervention preferences: [] pain management options preferred: [] cut cord/dad catch: [] : plans PP control planned: [] discussed possible routes of delivery and associated risks: [] special requests: [] Specific Issue/Plans Covid status: [] Flu vaccine: [] Tdap vaccine:obtained Rhogam: na LARC form signed: completed Problem list reviewed and updated with the most current plan of care details and appropriate orders placed. Relevant counseling for the gestational age provided. Continue routine care and follow up unless otherwise noted in visit notes/problem list details Initial Weight: Not Recorded Date -???-???-???-???-??? -???-???-???-???-??? -???-???- EGA Weight BP Urine Prot -???-???-???-???-??? -???-???-???-???-??? -???-???- Glucose FHR FuHt Pres Dilation -???-???-???-???-??? -???-???-???-???-??? -???-???- Effaced St Visit Note 11/01/24 -???-???-???-???-??? -???-???-???-???-??? -???-???- 10w 1d 137 lb 8 oz 98/60 -???-???-???-???-??? -???-???-???-???-??? -???-???- 180 -???-???-???-???-??? -???-???-???-???-??? -???-???- SM- CRL cons with LMP 3.3 cm 12/03/24 -???-???-???-???-??? -???-???-???-???-??? -???-???- 14w 5d 140 lb 4 oz 1 (more content not included)... Normal [facility] Laboratory - Chemistry and C hemistry - challengeOrdered By: Karla Shrestha on 05-13-2025 Glucose Ql (U) Negative [facility] Laboratory - UrinalysisOrder ed By: Karla Shrestha on 05-13-2025 Protein Ql (U) Negative [facility] Airline Customer Service Agent Office Visit Reporton 05-13-2025 Airline Customer Service Agent Office Visit Report [facility] [address], [address] [place] [address] OFFICE VISIT Date of Service: 05/13/25 MR#: [id number] Acct: [id number] Name: ISHA VANEGAS Rep #: [id number] : 1990 Provider: Dr. Karla hdez MD Age/Sex: 34/F Location: [facility] Status: Signed Intake Vital Signs 02/04/25 09:33 05/06/25 09:29 05/13/25 11:02 Height 5 ft 5 in 5 ft 5 in 5 ft 5 in Weight: 160 lb 8 oz BMI 26.6 BP 106/66 Intake Visit Reasons: 37 WK 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 Is patient in pain?: No Allergies ceftriaxone (From Rocephin) Allergy (Mild, Verified 05/13/25 11:00) rash Medications ???Medication ???Instructions ???Recorded ???Confirmed ???Type albuterol sulfate 90 mcg/actuation 1 inh inhalation Q4H PRN 2 05/13/25 History breath activated powder inhaler multivitamin no.47-iron fum 27 cap PO 10/18/22 05/13/25 History mg-folate no.1 1 mg-dha 300 mg capsule (PNV-DHA) clobetasol 0.05 % topical ointment 1 applic topical QHS #30 grams 1 05/13/25 Rx Last Menstrual Period: 08/22/24 Zika: Zika virus screening: Negative : No PFSH PFSH Medical History Lichen sclerosus (spontaneous vaginal delivery) Spontaneous vaginal delivery Phenylalanine hydroxylase deficiency Eczema Asthma Surgical History s/p stomach surgery s/p left ankle surgery Family History Grandfather Lymphoma Aunt Diabetes type 1, controlled Paternal Social History adopted: No household members: spouse and children number of children: 2 current occupational status: employed 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 current occupational exposures/hazards: No pets and animals: Yes pets and animals: dog(s) history of recent travel: No sexually active: Yes Smoking Status: Never smoker alcohol intake: never substance use type: does not use well-balanced diet: daily or most days caffeine: No eating out: 1-3 times/week during the past year weight has: remained stable what type of physical activity do you participate in: bicycling and weight training frequency: 3-4 times per week duration: 30-45 minutes/day nito/episcopalian: Nondenominational seatbelt use: always do you feel safe at home: Yes additional social history: - Maria Isabel-[employer] History 3 Elective abortions Hx Para 2 Spontaneous abortions Hx # Term Pregnancies Ectopic pregnancies Hx # Pregnancies Multiple births # of living children 2 Past Pregnancies Del. Date Name GA/Weeks Outcome Route Bth Weight Infant Gen Labor Lgth Anesthesia Del Locatn Provider FOB 06/02/21 Annette 40 live - full term 8lbs 3oz Female epidural [facility] Ricki rokop 05/29/23 Lili 40 live - full term 8#3 Female [facility] Dax levi Delivery Date: 06/02/21 Last Updated by: Alana Mendez PROM; Developed Chorio; 2nd degree laceration Delivery Date: 05/29/23 Last Updated by: Siena Braun IOL HPI 37 WK OB Details: ISHA VANEGAS is a 34 year old who presents for routine OB visit. OB Visit JENNY Calculator Estimated Delivery Date Method Current WG Current Estimate 05/29/25 LMP (Certain) 37w 5d Expected Delivery Route/Plan Labor Preferences- CB/BF classes: [] labor support person: [] labor intervention preferences: [] pain management options preferred: [] cut cord/dad catch: [] : [] PP control planned: [] discussed possible routes of delivery and associated risks: [] special requests: [] Specific Issue/Plans Covid status: [] Flu vaccine: [] Tdap vaccine: [] Rhogam: [] LARC form signed: [] Problem list reviewed and updated with the most current plan of care details and appropriate orders placed. Relevant counseling for the gestational age provided. Continue routine care and follow up unless otherwise noted in visit notes/problem list details Initial Weight: Not Recorded Date -???-???-???-???-??? -???-???-???-???-??? -???-???- EGA Weight BP Urine Prot -???-???-???-???-??? -???-???-???-???-??? -???-???- Glucose FHR FuHt Pres Dilation -???-???-???-???-??? -???-???-???-???-??? -???-???- Effaced St Visit Note 11/01/24 -???-???-???-???-??? -???-???-???-???-??? -???-???- 10w 1d 137 lb 8 oz 98/60 -???-???-???-???-??? -???-???-???-???-??? -???-???- 180 -???-???-???-???-??? -???-???-???-???-??? -???-???- SM- CRL cons with LMP 3.3 cm 12/03/24 -???-???-???-???-??? -???-???-???-???-??? -???-???- 14w 5d 140 lb 4 oz 103/69 Trace -???-???-???-???-??? -???-???-???-???-??? -???-???- Ne (more content not included)... Normal [facility] Laboratory - Chemistry and C hemistry - challengeOrdered By: Lino Joaquin on 05-06-2025 Glucose Ql (U) Negative [facility] - UrinalysisOrder ed By: Lino Joaquin on 05-06-2025 Protein Ql (U) Negative [facility] Airline Customer Service Agent Office Visit Reporton 05-06-2025 Airline Customer Service Agent Office Visit Report [facility] [address], [address] [place] [address] OFFICE VISIT Date of Service: 05/06/25 MR#: [id number] Acct: [id number] Name: ISHA VANEGAS Rep #: [id number] : 1990 Provider: DAKOTA Mccormick [facility] Age/Sex: 34/F Location: [facility] Status: Signed Intake Vital Signs 02/04/25 09:33 04/11/25 10:06 05/06/25 09:26 05/06/25 09:29 Height 5 ft 5 in 5 ft 5 in 5 ft 5 in 5 ft 5 in Weight: 160 lb BMI 26.6 BP 110/73 Intake Visit Reasons: 35 WK OB Chief Complaint: 36wk 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 Is patient in pain?: No Allergies ceftriaxone (From Rocephin) Allergy (Mild, Verified 05/06/25 09:25) rash Medications ???Medication ???Instructions ???Recorded ???Confirmed ???Type albuterol sulfate 90 mcg/actuation 1 inh inhalation Q4H PRN 2 05/06/25 History breath activated powder inhaler multivitamin no.47-iron fum 27 cap PO 10/18/22 05/06/25 History mg-folate no.1 1 mg-dha 300 mg capsule (PNV-DHA) clobetasol 0.05 % topical ointment 1 applic topical QHS #30 grams 1 05/06/25 Rx Last Menstrual Period: 08/22/24 : No PFSH PFSH Medical History Lichen sclerosus (spontaneous vaginal delivery) Spontaneous vaginal delivery Phenylalanine hydroxylase deficiency Eczema Asthma Surgical History s/p stomach surgery s/p left ankle surgery Family History Grandfather Lymphoma Aunt Diabetes type 1, controlled Paternal Social History adopted: No household members: spouse and children number of children: 2 current occupational status: employed 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 current occupational exposures/hazards: No pets and animals: Yes pets and animals: dog(s) history of recent travel: No sexually active: Yes Smoking Status: Never smoker alcohol intake: never substance use type: does not use well-balanced diet: daily or most days caffeine: No eating out: 1-3 times/week during the past year weight has: remained stable what type of physical activity do you participate in: bicycling and weight training frequency: 3-4 times per week duration: 30-45 minutes/day nito/episcopalian: Nondenominational seatbelt use: always do you feel safe at home: Yes 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 Date Name GA/Weeks Outcome Route Bth Weight Infant Gen Labor Lgth Anesthesia Del Locatn Provider FOB 06/02/21 Annette 40 live - full term 8lbs 3oz Female epidural [facility] P rokop 05/29/23 Lili 40 live - full term 8#3 Female [facility] Dax levi Delivery Date: 06/02/21 Last Updated by: Alana Mendez PROM; Developed Chorio; 2nd degree laceration Delivery Date: 05/29/23 Last Updated by: Siena Braun IOL HPI 35 WK OB Details: ISHA VANEGAS is a 34 year old who presents for routine OB visit. OB Visit JENNY Calculator Estimated Delivery Date Method Current WG Current Estimate 05/29/25 LMP (Certain) 36w 5d Expected Delivery Route/Plan Labor Preferences- CB/BF classes: [] labor support person: [] labor intervention preferences: [] pain management options preferred: [] cut cord/dad catch: [] : [] PP control planned: [] discussed possible routes of delivery and associated risks: [] special requests: [] Specific Issue/Plans Covid status: [] Flu vaccine: [] Tdap vaccine: [] Rhogam: [] LARC form signed: [] Problem list reviewed and updated with the most current plan of care details and appropriate orders placed. Relevant counseling for the gestational age provided. Continue routine care and follow up unless otherwise noted in visit notes/problem list details Initial Weight: Not Recorded Date -???-???-???-???-??? -???-???-???-???-??? -???-???- EGA Weight BP Urine Prot -???-???-???-???-??? -???-???-???-???-??? -???-???- Glucose FHR FuHt Pres Dilation -???-???-???-???-??? -???-???-???-???-??? -???-???- Effaced St Visit Note 11/01/24 -???-???-???-???-??? -???-???-???-???-??? -???-???- 10w 1d 137 lb 8 oz 98/60 -???-???-???-???-??? -???-???-???-???-??? -???-???- 180 -???-???-???-???-??? -???-???-???-???-??? -???-???- SM- CRL cons with LMP 3.3 cm 12/03/24 -???-???-???-???-??? -???-???-???-???-??? -???-???- 14w 5d 140 lb 4 oz 103/69 Trace -???-???-???-???-??? -???-???-???-???-??? -???-???- Negative 159 (more content not included)... Normal [facility] Ferritinon 04-15-2025 Ferritin [Mass/Vol] 38 ng/mL Normal 22-378 [facility] Comment on above: Performed By: #### L 503.6550, L503.6030 ####[facility] [address] [place], [place], [id number] Iron measurement (mass/mass) Ordered By: Lino Joaquin on 04-15-2025 Iron (Unsp spec) [Mass/Mass] 113 ug/dL 50-170 [facility] Iron+Iron Binding Capacityon 04-15-2025 Iron [Mass/Vol] 113 ug/dL Normal 50-170 [facility] Comment on above: Performed By: #### L 503.6550, L503.6030 ####[facility] [address] [place], [address] IRON SATURATION 29.0 Normal 13-59 [facility] Comment on above: Performed By: #### L 503.6550, L503.6030 ####[facility] [address] [place], [address] TIBC 387 ug/dL Normal 250-450 [facility] Comment on above: Performed By: #### L 503.6550, L503.6030 ####[facility] [address] [place], [place], [address] UIBC 274 ug/dL Normal 228-428 [facility] Comment on above: Performed By: #### L 503.6550, L503.6030 ####[facility] [address] [place], [address] No Panel InformationOrdered By: Lino Joaquin on 04-15-2025 Unsaturated Iron Binding Capacity 274 ug/dL 228-428 [facility] OB Limited With Biometricson 04-15-2025 OB Limited With Biometrics [facility] Imaging Services [address] [place], [place] [address] OB Limited With Biometrics MR#: [id number] Acct: [id number] Name: ISHA VANEGAS Rep #: [id number] : 1990 F 34 From: Jovany martinez MD PCP: Dr. Pattie Giordano MD Status: REG CLI Study: OB Limited With Biometrics Date of Exam: 04/15 Exam# [id number] Ordering Dr: Lino Joaquin M PROCEDURE: OB LIMITED WITH BIOMETRICS 04/15/2025 REASON FOR EXAM: UTERINE SIZE LARGER THAT DATES TECHNIQUE: OB LIMITED WITH BIOMETRICS COMPARISON: None FINDINGS Number: 1 Position: Vertex Placental Position: Posterior and not low-lying Placental Abnormalities: No evidence of previa. DIMENSIONS: Biparietal Diameter: 8.68 cm: 35 weeks and 0 days: 82nd percentile/ Head Circumference: 31.85 cm: 35 weeks and 6 days: 69 percentile/ Abdominal Circumference: 31.21 cm: 35 weeks and 1 day: 88 percentile/ Femur Length: 6.51 cm: 33 weeks and 4 days: 36 percentile/ ESTIMATED WEIGHT: 2520 g plus/-378 g ESTIMATED WEIGHT PERCENTILE (24+ weeks): 75th ESTIMATED GESTATIONAL AGE: Baseline: 33 weeks and 5 days By Ultrasound: 35 weeks and 1 day ESTIMATED DATE OF DELIVERY: Baseline: May 29, 2025 By Ultrasound: May 19, 2025 BIOPHYSICAL ASSESSMENT: Amniotic Fluid Volume: 4.8 cm Amniotic Fluid Index: (8-24 cm normal range) Cardiac Motion: 144 beats per minute (average) Trunk and Limb Motion: Present. MATERNAL ANATOMY: Adnexa: Neither maternal ovary is successfully identified. US/OB Limited With Biometrics IMPRESSION: Single live intrauterine gestation with a mean gestational age of 35 weeks and 1 day. Reading Location: [id number] CC: DAKOTA Joaquin; Dr. Pattie Giordano MD Quality Reviewer: Signed Normal [facility] Serum or plasma ferritin safia surement (mass/volume)Ordered By: Lino Joaquin on 04-15-2025 Ferritin [Mass/Vol] 38 ng/mL 22-378 [facility] Serum or plasma iron saturat ion measurement (mass fraction)Ordered By: Lino Joaquin on 04-15-2025 Iron saturation [Mass fraction] 29.0 % 13-59 [facility] Absolute lymphocyte countOrd ered By: Lino Joaquin on 04-11-2025 Lymphocytes Auto (Unsp spec) [#/Vol] 1.27 10*3/uL 0.83-4.51 [facility] Absolute neutrophil countOrd ered By: Lino Joaquin on 04-11-2025 Neutrophils (Bld) [#/Vol] 4.6 10*3/uL 2.0-7.7 [facility] Anion gap in Serum or Plasma Ordered By: Lino Joaquin on 04-11-2025 Anion gap [Moles/Vol] 9 mmol/L 5-15 [facility] Automated lymphocyte count a s percentage of total leukocytesOrdered By: Lino Joaquin on 04-11-2025 Lymphocytes/100 WBC Auto (Unsp spec) 19.3 % 19-41 [facility] BUN/creatinine ratioOrdered By: Lino Joaquin on 04-11-2025 Urea nitrogen/Creatinine [Mass ratio] 18.9 mg/mg 10-20 [facility] Basophil percentageOrdered B y: Lino Joaquin on 04-11-2025 Basophils/100 WBC (Bld) 0.3 % 0-1 [facility] Bilirubin, totalOrdered By: Lino Joaquin on 04-11-2025 Bilirubin [Mass/Vol] 0.36 mg/dL 0.00-1.30 [facility] CBC W/Diff, Automatedon 03-27 Absolute Lymph 1.27 X10 3/uL Normal 0.83-4.51 [facility] Comment on above: Performed By: #### L 100.0100 #### [facility] [address] [place], [address] Absolute Neut 4.6 X10 3/uL Normal 2.0-7.7 [facility] Comment on above: Performed By: #### L 100.0100 #### [facility] [address] [place], [address] Basophils/100 WBC (Bld) 0.3 % Normal 0-1 [facility] Comment on above: Performed By: #### L 100.0100 #### [facility] [address] [place], [address] Eosinophils/100 WBC (Bld) 3.3 % Normal 0-5 [facility] Comment on above: Performed By: #### L 100.0100 #### [facility] [address] [place], [address] Erythrocyte distribution width (RBC) [Ratio] 12.2 % Normal 11.6-14.6 [facility] Comment on above: Performed By: #### L 100.0100 #### [facility] [address] [place], [address] Hematocrit (Bld) [Volume fraction] 30.7 % Low 37-47 [facility] Comment on above: Performed By: #### L 100.0100 #### [facility] [address] [place], [address] Hemoglobin (Bld) [Mass/Vol] 10.7 g/dL Low 12.0-15.0 [facility] Comment on above: Performed By: #### L 100.0100 #### [facility] [address] [place], [address] IG% 0.500 Normal 0.0-0.9 [facility] Comment on above: Result Comment: IG% - Immature Granulocytes (promyelocytes, myelocytes and metamyelocytes) > 1% indicates that a LEFT SHIFT is Present. Performed By: #### L 100.0100 #### [facility] [address] [place], [address] Lymphocytes/100 WBC (Bld) 19.3 % Normal 19-41 [facility] Comment on above: Performed By: #### L 100.0100 #### [facility] [address] [place], [address] MCH (RBC) [Entitic mass] 34.1 pg High 27.0-32.0 [facility] Comment on above: Performed By: #### L 100.0100 #### [facility] [address] [place], [address] MCHC (RBC) [Mass/Vol] 34.9 g/dL Normal 32-36 [facility] Comment on above: Performed By: #### L 100.0100 #### [facility] [address] [place], [address] MCV (RBC) [Entitic vol] 97.8 fL Normal 81-99 [facility] Comment on above: Performed By: #### L 100.0100 #### [facility] [address] [place], [address] Monocytes/100 WBC (Bld) 6.8 % Normal 0-10 [facility] Comment on above: Performed By: #### L 100.0100 #### [facility] [address] [place], [address] Neutrophils/100 WBC (Bld) 69.8 % Normal 47-70 [facility] Comment on above: Performed By: #### L 100.0100 #### [facility] [address] [place], [address] Nucleated RBC (Bld) [#/Vol] 0 10*3/uL Normal 0-5 [facility] Comment on above: Performed By: #### L 100.0100 #### [facility] [address] [place], [address] Platelet mean volume (Bld) [Entitic vol] 11.3 fL Normal 6.2-12.0 [facility] Comment on above: Performed By: #### L 100.0100 #### [facility] [address] [place], [address] Platelets (Bld) [#/Vol] 159 10*3/uL Normal 150-450 [facility] Comment on above: Performed By: #### L 100.0100 #### [facility] [address] [place], [address] RBC (Bld) [#/Vol] 3.14 10*6/uL Low 4.2-5.4 [facility] Comment on above: Performed By: #### L 100.0100 #### [facility] [address] [place], [address] RDW SD 43.8 fl Normal 35.1-43.9 [facility] Comment on above: Performed By: #### L 100.0100 #### [facility] [address] [place], [address] WBC (Bld) [#/Vol] 6.6 10*3/uL Normal 4.4-11.0 [facility] Comment on above: Performed By: #### L 100.0100 #### [facility] [address] [place], [address] Carbon dioxide, total [Moles /volume] in Central venous bloodOrdered By: Lino Joaquin on 04-11-2025 CO2 [Moles/Vol] 24.9 mmol/L 21.0-32.0 [facility] Chloride assayOrdered By: Thomas Joaquin on 04-11-2025 Chloride [Moles/Vol] 103 mmol/L 98-108 [facility] Comprehensive Metabolic Prof ilon 04-11-2025 Albumin [Mass/Vol] 3.6 g/dL Normal 3.5-5.0 [facility] Comment on above: Performed By: #### L 500.4050, L501.0900 ####[facility] [address] [place], [address] Albumin/Globulin [Mass ratio] 1.6 {ratio} Normal 0.9-2.4 [facility] Comment on above: Performed By: #### L 500.4050, L501.0900 ####[facility] [address] [place], [address] ALK PHOS 65 U/L Normal 35-104 [facility] Comment on above: Performed By: #### L 500.4050, L501.0900 ####[facility] [address] [place], [address] ALT [Catalytic activity/Vol] 15 U/L Normal <=34 [facility] Comment on above: Performed By: #### L 500.4050, L501.0900 ####[facility] [address] [place], [address] AST [Catalytic activity/Vol] 24 U/L Normal <=31 [facility] Comment on above: Performed By: #### L 500.4050, L501.0900 ####[facility] [address] [place], [address] Bilirubin [Mass/Vol] 0.36 mg/dL Normal 0.00-1.30 [facility] Comment on above: Performed By: #### L 500.4050, L501.0900 ####[facility] [address] [place], [address] BUN/CRE 18.9 RATIO Normal 10-20 [facility] Comment on above: Performed By: #### L 500.4050, L501.0900 ####[facility] [address] [place], [address] Calcium [Mass/Vol] 8.7 mg/dL Normal 7.6-11.0 [facility] Comment on above: Performed By: #### L 500.4050, L501.0900 ####[facility] [address] [place], [address] Chloride [Moles/Vol] 103 mmol/L Normal 98-108 [facility] Comment on above: Performed By: #### L 500.4050, L501.0900 ####[facility] [address] [place], [address] CO2 [Moles/Vol] 24.9 mmol/L Normal 21.0-32.0 [facility] Comment on above: Performed By: #### L 500.4050, L501.0900 ####[facility] [address] [place], [address] Creatinine [Mass/Vol] 0.69 mg/dL Low 0.70-1.20 [facility] Comment on above: Performed By: #### L 500.4050, L501.0900 ####[facility] [address] [place], [address] GAP 9 Normal 5-15 [facility] Comment on above: Performed By: #### L 500.4050, L501.0900 ####[facility] [address] [place], [address] GFR/1.73 sq M.predicted among non-blacks MDRD (S/P/Bld) [Vol rate/Area] 118 mL/min/{1.73_m2} Normal >60 [facility] Comment on above: Result Comment: mL/m in/1.73m2 CKD-EPI Creatinine Equation (2020) Performed By: #### L 500.4050, L501.0900 ####[facility] [address] [place], [address] Globulin (S) [Mass/Vol] 2.3 g/dL Normal 2.2-4.2 [facility] Comment on above: Performed By: #### L 500.4050, L501.0900 ####[facility] [address] [place], [address] Glucose [Mass/Vol] 87 mg/dL Normal 70-99 [facility] Comment on above: Performed By: #### L 500.4050, L501.0900 ####[facility] [address] [place], [address] Potassium [Moles/Vol] 4.0 mmol/L Normal 3.3-5.1 [facility] Comment on above: Performed By: #### L 500.4050, L501.0900 ####[facility] [address] [place], [address] Sodium [Moles/Vol] 137 mmol/L Normal 133-145 [facility] Comment on above: Performed By: #### L 500.4050, L501.0900 ####[facility] [address] [place], [address] T PROT 5.9 g/dL Normal 5.9-8.4 [facility] Comment on above: Performed By: #### L 500.4050, L501.0900 ####[facility] [address] [place], [address] Urea nitrogen [Mass/Vol] 13 mg/dL Normal 4-19 [facility] Comment on above: Performed By: #### L 500.4050, L501.0900 ####[facility] [address] [place], [address] Eosinophil percentageOrdered By: Lino Joaquin on 04-11-2025 Eosinophils/100 WBC (Bld) 3.3 % 0-5 [facility] Erythrocyte distribution wid th ratioOrdered By: Lino Joaquin on 04-11-2025 Erythrocyte distribution width (RBC) [Ratio] 12.2 % 11.6-14.6 [facility] Erythrocyte distribution wid th standard deviationOrdered By: Lino Joaquin on 04-11-2025 Erythrocyte distribution width (RBC) [Ratio] 43.8 fl 35.1-43.9 [facility] Glomerular filtration rate ( GFR) estimation/1.73 sq m using serum, plasma, or whole bOrdered By: Lino Joaquin on 04-11-2025 GFR/1.73 sq M.predicted among non-blacks MDRD (S/P/Bld) [Vol rate/Area] 118 mL/min/{1.73_m2} >60 [facility] Comment on above: mL/min/1.73m2 CKD-EP I Creatinine Equation (2020) Hematocrit Auto (Bld) [Volum e fraction]Ordered By: Lino Joaquin on 04-11-2025 Hematocrit (Bld) [Volume fraction] 30.7 % Low 37-47 [facility] Hemoglobin measurementOrdere d By: Lino Joaquin on 04-11-2025 Hemoglobin (Bld) [Mass/Vol] 10.7 g/dL Low 12.0-15.0 [facility] Immature granulocytes/100 WB C Auto (Bld)Ordered By: Lino Joaquin on 04-11-2025 Immature granulocytes/100 WBC (Bld) 0.500 % 0.0-0.9 [facility] Comment on above: IG% - Immature Granu locytes (promyelocytes, myelocytes and metamyelocytes) > 1% indicates that a LEFT SHIFT is Present. Laboratory - Chemistry and C hemistry - challengeOrdered By: Lino Joaquin on 04-11-2025 AST [Catalytic activity/Vol] 24 U/L <32 [facility] Glucose Ql (U) Negative [facility] Laboratory - UrinalysisOrder ed By: Lino Joaquin on 04-11-2025 Protein Ql (U) 1+ [facility] MCV (mean corpuscular volume ) determinationOrdered By: Lino Joaquin on 04-11-2025 MCV (RBC) [Entitic vol] 97.8 fL 81-99 [facility] Mean corpuscular hemoglobin (MCH) determinationOrdered By: Lino Joaquin on 04-11-2025 MCH (RBC) [Entitic mass] 34.1 pg High 27.0-32.0 [facility] Mean corpuscular hemoglobin concentration (MCHC) determinationOrdered By: Lino Joaquin on 04-11-2025 MCHC (RBC) [Mass/Vol] 34.9 g/dL 32-36 [facility] Mean platelet volume determi nationOrdered By: Lino Joaquin on 04-11-2025 Platelet mean volume (Bld) [Entitic vol] 11.3 fL 6.2-12.0 [facility] Monocyte percentageOrdered B y: Lino Joaquin on 04-11-2025 Monocytes/100 WBC (Bld) 6.8 % 0-10 [facility] Neutrophil percentageOrdered By: Lino Joaquin on 04-11-2025 Neutrophils/100 WBC (Bld) 69.8 % 47-70 [facility] Nucleated red blood cell per centageOrdered By: Lino Joaquin on 04-11-2025 Nucleated RBC/100 WBC (Bld) [Ratio] 0 % 0-5 [facility] Airline Customer Service Agent Office Visit Reporton 04-11-2025 Airline Customer Service Agent Office Visit Report [facility]'[address], [address] [place] [address] OFFICE VISIT Date of Service: 04/11/25 MR#: [id number] Acct: [id number] Name: ISHA VANEGAS Rep #: [id number] : 1990 Provider: DAKOTA Mccormick ams Age/Sex: 34/F Location: [facility] Status: Signed Intake Vital Signs 02/04/25 09:33 03/25/25 11:20 04/11/25 10:05 04/11/25 10:06 Height 5 ft 5 in 5 ft 5 in 5 ft 5 in 5 ft 5 in Weight: 160 lb 2 oz 159 lb 6 oz BMI 26.6 26.5 BP 105/68 99/64 Intake Visit Reasons: 34 WK OB (PT RQT) Chief Complaint: 33wk 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 Is patient in pain?: No Allergies ceftriaxone (From Rocephin) Allergy (Mild, Verified 04/11/25 10:03) rash Medications ???Medication ???Instructions ???Recorded ???Confirmed ???Type albuterol sulfate 90 mcg/actuation 1 inh inhalation Q4H PRN 2 04/11/25 History breath activated powder inhaler multivitamin no.47-iron fum 27 cap PO 10/18/22 04/11/25 History mg-folate no.1 1 mg-dha 300 mg capsule (PNV-DHA) clobetasol 0.05 % topical ointment 1 applic topical QHS #30 grams 1 04/11/25 Rx Last Menstrual Period: 08/22/24 : No PFSH PFSH Medical History Lichen sclerosus (spontaneous vaginal delivery) Spontaneous vaginal delivery Phenylalanine hydroxylase deficiency Eczema Asthma Surgical History s/p stomach surgery s/p left ankle surgery Family History Grandfather Lymphoma Aunt Diabetes type 1, controlled Paternal Social History adopted: No household members: spouse and children number of children: 2 current occupational status: employed 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 current occupational exposures/hazards: No pets and animals: Yes pets and animals: dog(s) history of recent travel: No sexually active: Yes Smoking Status: Never smoker alcohol intake: never substance use type: does not use well-balanced diet: daily or most days caffeine: No eating out: 1-3 times/week during the past year weight has: remained stable what type of physical activity do you participate in: bicycling and weight training frequency: 3-4 times per week duration: 30-45 minutes/day nito/episcopalian: Nondenominational seatbelt use: always do you feel safe at home: Yes additional social history: - Maria Isabel-[employer] History 3 Elective abortions Hx Para 2 Spontaneous abortions Hx # Term Pregnancies Ectopic pregnancies Hx # Pregnancies Multiple births # of living children 2 Past Pregnancies Del. Date Name GA/Weeks Outcome Route Bth Weight Infant Gen Labor Lgth Anesthesia Del Locatn Provider FOB 06/02/21 Annette 40 live - full term 8lbs 3oz Female epidural [facility] P rokop 05/29/23 Lili 40 live - full term 8#3 Female [facility] Dax levi Delivery Date: 06/02/21 Last Updated by: Alana Mendez PROM; Developed Chorio; 2nd degree laceration Delivery Date: 05/29/23 Last Updated by: Siena Braun IOL HPI 33 WK OB (PT RQT) Details: ISHA VANEGAS is a 34 year old who presents for routine OB visit. OB Visit JENNY Calculator Estimated Delivery Date Method Current WG Current Estimate 05/29/25 LMP (Certain) 33w 1d Expected Delivery Route/Plan Labor Preferences- CB/BF classes: [] labor support person: [] labor intervention preferences: [] pain management options preferred: [] cut cord/dad catch: [] : [] PP control planned: [] discussed possible routes of delivery and associated risks: [] special requests: [] Specific Issue/Plans Covid status: [] Flu vaccine: [] Tdap vaccine: [] Rhogam: [] LARC form signed: [] Problem list reviewed and updated with the most current plan of care details and appropriate orders placed. Relevant counseling for the gestational age provided. Continue routine care and follow up unless otherwise noted in visit notes/problem list details Initial Weight: Not Recorded Date -???-???-???-???-??? -???-???-???-???-??? -???-???- EGA Weight BP Urine Prot -???-???-???-???-??? -???-???-???-???-??? -???-???- Glucose FHR FuHt Pres Dilation -???-???-???-???-??? -???-???-???-???-??? -???-???- Effaced St Visit Note 11/01/24 -???-???-???-???-??? -???-???-???-???-??? -???-???- 10w 1d 137 lb 8 oz 98/60 -???-???-???-???-??? -???-???-???-???-??? -???-???- 180 -???-???-???-???-??? -???-???-???-???-??? -???-???- SM- CRL cons with LMP 3.3 cm 12/03/24 -???-???-???-???-??? -???-???-???-???-??? -???-???- 14w 5d 140 lb 4 oz 103/69 Trace -???-???-???-???-? (more content not included)... Normal [facility] Platelet countOrdered By: Thomas Joaquin on 04-11-2025 Platelets (Bld) [#/Vol] 159 10*3/uL 150-450 [facility] Potassium measurement (mass/ volume)Ordered By: Lino Joaquin on 04-11-2025 Potassium (Unsp spec) [Mass/Vol] 4.0 mmol/L 3.3-5.1 [facility] Protein+Creatinine Ratio,Uri neon 04-11-2025 PROT:CRE RATIO 98 mg/g CRE Normal 0-200 [facility] Comment on above: Performed By: #### L 500.4050, L501.0900 ####[facility] [address] [place], [place], [id number] Protein (U) [Mass/Vol] 21.8 mg/dL High 0.0-12.0 [facility] Comment on above: Performed By: #### L 500.4050, L501.0900 ####[facility] [address] [place], [address] RBC Auto (Bld) [#/Vol]Ordere d By: Lino Joaquin on 04-11-2025 RBC (Bld) [#/Vol] 3.14 10*6/uL Low 4.2-5.4 [facility] Random urine creatinine dwayne urement (mass/volume)Ordered By: Lino Joaquin on 04-11-2025 Creatinine Unsp time (U) [Mass/Vol] 223.00 mg/dL High 28.00-217.00 [facility] Serum creatinine measurement (mass/volume)Ordered By: Lino Joaquin on 04-11-2025 Creatinine [Mass/Vol] 0.69 mg/dL Low 0.70-1.20 [facility] Serum globulin measurementOr dered By: Lino Joaquin on 04-11-2025 Globulin (S) [Mass/Vol] 2.3 g/dL 2.2-4.2 [facility] Serum glucose measurement (m ass/volume)Ordered By: Lino Joaquin on 04-11-2025 Glucose [Mass/Vol] 87 mg/dL 70-99 [facility] Serum or plasma alanine boone otransferase (ALT) measurementOrdered By: Lino Joaquin on 04-11-2025 ALT [Catalytic activity/Vol] 15 U/L <35 [facility] Serum or plasma albumin dwayne urement (mass/volume)Ordered By: Lino Joaquin on 04-11-2025 Albumin [Mass/Vol] 3.6 g/dL 3.5-5.0 [facility] Serum or plasma albumin/glob ulin mass ratioOrdered By: Lino Joaquin on 04-11-2025 Albumin/Globulin [Mass ratio] 1.6 {ratio} 0.9-2.4 [facility] Serum or plasma alkaline eusebia sphatase measurementOrdered By: Lino Joaquin on 04-11-2025 ALP [Catalytic activity/Vol] 65 U/L 35-104 [facility] Serum or plasma calcium dwayne urement (mass/volume)Ordered By: Lino Joaquin on 04-11-2025 Calcium [Mass/Vol] 8.7 mg/dL 7.6-11.0 [facility] Serum or plasma urea nitroge n measurement (mass/volume)Ordered By: Lino Joaquin on 04-11-2025 Urea nitrogen [Mass/Vol] 13 mg/dL 4-19 [facility] Sodium levelOrdered By: Arelis Joaquin on 04-11-2025 Sodium [Moles/Vol] 137 mmol/L 133-145 [facility] Total proteinOrdered By: Chaim Joaquin on 04-11-2025 Protein [Mass/Vol] 5.9 g/dL 5.9-8.4 [facility] Urine protein measurement (m ass/volume)Ordered By: Lino Joaquin on 04-11-2025 Protein (U) [Mass/Vol] 21.8 mg/dL High 0.0-12.0 [facility] Urine protein/creatinine mas s ratioOrdered By: Lino Joaquin on 04-11-2025 Protein/Creatinine (U) [Mass ratio] 98 mg/g CRE 0-200 [facility] White blood cell (WBC) count Ordered By: Lino Joaquin on 04-11-2025 WBC (Bld) [#/Vol] 6.6 10*3/uL 4.4-11.0 [facility] Airline Customer Service Agent Office Visit Reporton 03-25-2025 Airline Customer Service Agent Office Visit Report [facility]'[address], [address] [place] [address] OFFICE VISIT Date of Service: 03/25/25 MR#: [id number] Acct: [id number] Name: ISHA VANEGAS Rep #: [id number] : 1990 Provider: Dr. Karla hdez MD Age/Sex: 34/F Location: [facility] Status: Signed Intake Vital Signs 02/04/25 09:33 03/04/25 11:18 03/25/25 11:20 Height 5 ft 5 in 5 ft 5 in 5 ft 5 in Weight: 154 lb 4 oz 156 lb 160 lb 2 oz BMI 25.7 25.9 26.6 BP 95/61 115/75 105/68 Intake Visit Reasons: 30 WK 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 Is patient in pain?: No Allergies ceftriaxone (From Rocephin) Allergy (Mild, Verified 03/25/25 11:21) rash Medications ???Medication ???Instructions ???Recorded ???Confirmed ???Type albuterol sulfate 90 mcg/actuation 1 inh inhalation Q4H PRN 2 03/25/25 History breath activated powder inhaler multivitamin no.47-iron fum 27 cap PO 10/18/22 03/25/25 History mg-folate no.1 1 mg-dha 300 mg capsule (PNV-DHA) clobetasol 0.05 % topical ointment 1 applic topical QHS #30 grams 1 03/25/25 Rx Last Menstrual Period: 08/22/24 Zika: Zika virus screening: Negative : No PFSH PFSH Medical History Lichen sclerosus (spontaneous vaginal delivery) Spontaneous vaginal delivery Phenylalanine hydroxylase deficiency Eczema Asthma Surgical History s/p stomach surgery s/p left ankle surgery Family History Grandfather Lymphoma Aunt Diabetes type 1, controlled Paternal Social History adopted: No household members: spouse and children number of children: 2 current occupational status: employed 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 current occupational exposures/hazards: No pets and animals: Yes pets and animals: dog(s) history of recent travel: No sexually active: Yes Smoking Status: Never smoker alcohol intake: never substance use type: does not use well-balanced diet: daily or most days caffeine: No eating out: 1-3 times/week during the past year weight has: remained stable what type of physical activity do you participate in: bicycling and weight training frequency: 3-4 times per week duration: 30-45 minutes/day nito/episcopalian: Nondenominational seatbelt use: always do you feel safe at home: Yes 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 Date Name GA/Weeks Outcome Route Bth Weight Infant Gen Labor Lgth Anesthesia Del Locatn Provider FOB 06/02/21 Annette 40 live - full term 8lbs 3oz Female epidural [facility] P rokop 05/29/23 Lili 40 live - full term 8#3 Female [facility] Dax levi Delivery Date: 06/02/21 Last Updated by: Alana Mendez PROM; Developed Chorio; 2nd degree laceration Delivery Date: 05/29/23 Last Updated by: Siena Braun IOL HPI 30 WK OB Details: ISHA VANEGAS is a 34 year old who presents for routine OB visit. OB Visit JENNY Calculator Estimated Delivery Date Method Current WG Current Estimate 05/29/25 LMP (Certain) 30w 5d Expected Delivery Route/Plan Labor Preferences- CB/BF classes: [] labor support person: [] labor intervention preferences: [] pain management options preferred: [] cut cord/dad catch: [] : [] PP control planned: [] discussed possible routes of delivery and associated risks: [] special requests: [] Specific Issue/Plans Covid status: [] Flu vaccine: [] Tdap vaccine: [] Rhogam: [] LARC form signed: [] Problem list reviewed and updated with the most current plan of care details and appropriate orders placed. Relevant counseling for the gestational age provided. Continue routine care and follow up unless otherwise noted in visit notes/problem list details Initial Weight: Not Recorded Date -???-???-???-???-??? -???-???-???-???-??? -???-???- EGA Weight BP Urine Prot -???-???-???-???-??? -???-???-???-???-??? -???-???- Glucose FHR FuHt Pres Dilation -???-???-???-???-??? -???-???-???-???-??? -???-???- Effaced St Visit Note 11/01/24 -???-???-???-???-??? -???-???-???-???-??? -???-???- 10w 1d 137 lb 8 oz 98/60 -???-???-???-???-??? -???-???-???-???-??? -???-???- 180 -???-???-???-???-??? -???-???-???-???-??? -???-???- SM- CRL cons with LMP 3.3 cm 12/03/24 -???-???-???-???-??? -???-???-???-???-??? -???-???- 14w 5d 140 lb 4 oz 103/69 Trace -???-???-??? (more content not included)... Normal [facility] Absolute lymphocyte countOrd ered By: Tamiko Cohn on 03-04-2025 Lymphocytes Auto (Unsp spec) [#/Vol] 1.55 10*3/uL 0.83-4.51 [facility] Absolute neutrophil countOrd ered By: [facility]iko [facility] on 03-04-2025 Neutrophils (Bld) [#/Vol] 5.6 10*3/uL 2.0-7.7 [facility] Automated lymphocyte count a s percentage of total leukocytesOrdered By: Tamiko Cohn on 03-04-2025 Lymphocytes/100 WBC Auto (Unsp spec) 20.2 % 19-41 [facility] Basophil percentageOrdered B y: Tamiko Cohn on 03-04-2025 Basophils/100 WBC (Bld) 0.3 % 0-1 [facility] CBC W/Diff, Automatedon 05-0 Absolute Lymph 1.55 X10 3/uL Normal 0.83-4.51 [facility] Comment on above: Performed By: #### L 3890.6006, L100.0100, L509.8002, L501.0250 ####[facility] [address] [place], [place], [id number] Absolute Neut 5.6 X10 3/uL Normal 2.0-7.7 [facility] Comment on above: Performed By: #### L 3890.6006, L100.0100, L509.8002, L501.0250 ####[facility] [address] [place], [address] Basophils/100 WBC (Bld) 0.3 % Normal 0-1 [facility] Comment on above: Performed By: #### L 3890.6006, L100.0100, L509.8002, L501.0250 ####[facility] [address] [place], [address] Eosinophils/100 WBC (Bld) 0.0 % Normal 0-5 [facility] Comment on above: Performed By: #### L 3890.6006, L100.0100, L509.8002, L501.0250 ####[facility] [address] [place], [address] Erythrocyte distribution width (RBC) [Ratio] 12.4 % Normal 11.6-14.6 [facility] Comment on above: Performed By: #### L 3890.6006, L100.0100, L509.8002, L501.0250 ####[facility] [address] [place], [address] Hematocrit (Bld) [Volume fraction] 31.7 % Low 37-47 [facility] Comment on above: Performed By: #### L 3890.6006, L100.0100, L509.8002, L501.0250 ####[facility] [address] [place], [address] Hemoglobin (Bld) [Mass/Vol] 10.7 g/dL Low 12.0-15.0 [facility] Comment on above: Performed By: #### L 3890.6006, L100.0100, L509.8002, L501.0250 ####[facility] [address] [place], [address] IG% 0.300 Normal 0.0-0.9 [facility] Comment on above: Result Comment: IG% - Immature Granulocytes (promyelocytes, myelocytes and metamyelocytes) > 1% indicates that a LEFT SHIFT is Present. Performed By: #### L 3890.6006, L100.0100, L509.8002, L501.0250 ####[facility] [address] [place], [address] Lymphocytes/100 WBC (Bld) 20.2 % Normal 19-41 [facility] Comment on above: Performed By: #### L 3890.6006, L100.0100, L509.8002, L501.0250 ####[facility] [address] [place], [address] MCH (RBC) [Entitic mass] 33.3 pg High 27.0-32.0 [facility] Comment on above: Performed By: #### L 3890.6006, L100.0100, L509.8002, L501.0250 ####[facility] [address] [place], [address] MCHC (RBC) [Mass/Vol] 33.8 g/dL Normal 32-36 [facility] Comment on above: Performed By: #### L 3890.6006, L100.0100, L509.8002, L501.0250 ####[facility] [address] [place], [address] MCV (RBC) [Entitic vol] 98.8 fL Normal 81-99 [facility] Comment on above: Performed By: #### L 3890.6006, L100.0100, L509.8002, L501.0250 ####[facility] [address] [place], [address] Monocytes/100 WBC (Bld) 6.2 % Normal 0-10 [facility] Comment on above: Performed By: #### L 3890.6006, L100.0100, L509.8002, L501.0250 ####[facility] [address] [place], [address] Neutrophils/100 WBC (Bld) 73.0 % High 47-70 [facility] Comment on above: Performed By: #### L 3890.6006, L100.0100, L509.8002, L501.0250 ####[facility] [address] [place], [address] Nucleated RBC (Bld) [#/Vol] 0 10*3/uL Normal 0-5 [facility] Comment on above: Performed By: #### L 3890.6006, L100.0100, L509.8002, L501.0250 ####[facility] [address] [place], [address] Platelet mean volume (Bld) [Entitic vol] 11.4 fL Normal 6.2-12.0 [facility] Comment on above: Performed By: #### L 3890.6006, L100.0100, L509.8002, L501.0250 ####[facility] [address] [place], [address] Platelets (Bld) [#/Vol] 170 10*3/uL Normal 150-450 [facility] Comment on above: Performed By: #### L 3890.6006, L100.0100, L509.8002, L501.0250 ####[facility] [address] [place], [address] RBC (Bld) [#/Vol] 3.21 10*6/uL Low 4.2-5.4 [facility] Comment on above: Performed By: #### L 3890.6006, L100.0100, L509.8002, L501.0250 ####[facility] [address] [place], [address] RDW SD 45.0 fl High 35.1-43.9 [facility] Comment on above: Performed By: #### L 3890.6006, L100.0100, L509.8002, L501.0250 ####[facility] [address] [place], [address] WBC (Bld) [#/Vol] 7.7 10*3/uL Normal 4.4-11.0 [facility] Comment on above: Performed By: #### L 3890.6006, L100.0100, L509.8002, L501.0250 ####[facility] [address] [place], [address] Eosinophil percentageOrdered By: Tamiko Cohn on 03-04-2025 Eosinophils/100 WBC (Bld) 0.0 % 0-5 [facility] Erythrocyte distribution wid th ratioOrdered By: Tamiko Cohn on 03-04-2025 Erythrocyte distribution width (RBC) [Ratio] 12.4 % 11.6-14.6 [facility] Erythrocyte distribution wid th standard deviationOrdered By: Tamiko Cohn on 03-04-2025 Erythrocyte distribution width (RBC) [Ratio] 45.0 fl High 35.1-43.9 [facility] Glucose Challenge Gest 1H 50 ally 03-04-2025 GLU GEST 50g 1H 98 mg/dL Normal 70-140 [facility] Comment on above: Performed By: #### L 3890.6006, L100.0100, L509.8002, L501.0250 ####[facility] [address] [place], [address] Glucose measurement at 2 robles rs post-dose gestational glucose tolerance testOrdered By: Tamiko Cohn on 03-04-2025 Glucose [Mass/Vol] 98 mg/dL 70-140 [facility] HIVon 03-04-2025 HIV Non-Reactive Normal Nonreactive [facility] Comment on above: Result Comment: Non- Reactive Reactive Repeatedly reactive samples must be confirmed according to CDC recommended confirmatory algorithms. The subresults for either HIVAG or AHIV can be used as an aid in the selection of the confirmation algorithm for reactive samples. Send out specimens with Reactive results to [facility] for confirmation. Order the HIV antibody detection and differentiation: [id number] Performed By: #### L 3890.6006, L100.0100, L509.8002, L501.0250 ####[facility] [address] [place], [address] Hematocrit Auto (Bld) [Volum e fraction]Ordered By: Tamiko Cohn on 03-04-2025 Hematocrit (Bld) [Volume fraction] 31.7 % Low 37-47 [facility] Hemoglobin measurementOrdere d By: Tamiko Cohn on 03-04-2025 Hemoglobin (Bld) [Mass/Vol] 10.7 g/dL Low 12.0-15.0 [facility] Immature granulocytes/100 WB C Auto (Bld)Ordered By: Tamiko Cohn on 03-04-2025 Immature granulocytes/100 WBC (Bld) 0.300 % 0.0-0.9 [facility] Comment on above: IG% - Immature Granu locytes (promyelocytes, myelocytes and metamyelocytes) > 1% indicates that a LEFT SHIFT is Present. Laboratory - Chemistry and C hemistry - challengeOrdered By: Lino Joaquin on 03-04-2025 Glucose Ql (U) Negative [facility] Laboratory - UrinalysisOrder ed By: Lino Joaquin on 03-04-2025 Protein Ql (U) Negative [facility] MCV (mean corpuscular volume ) determinationOrdered By: Tamiko Cohn on 03-04-2025 MCV (RBC) [Entitic vol] 98.8 fL 81-99 [facility] Mean corpuscular hemoglobin (MCH) determinationOrdered By: Tamiko Cohn on 03-04-2025 MCH (RBC) [Entitic mass] 33.3 pg High 27.0-32.0 [facility] Mean corpuscular hemoglobin concentration (MCHC) determinationOrdered By: Tamiko Cohn on 03-04-2025 MCHC (RBC) [Mass/Vol] 33.8 g/dL 32-36 [facility] Mean platelet volume determi nationOrdered By: Tamiko Cohn on 03-04-2025 Platelet mean volume (Bld) [Entitic vol] 11.4 fL 6.2-12.0 [facility] Monocyte percentageOrdered B y: Tamiko Cohn on 03-04-2025 Monocytes/100 WBC (Bld) 6.2 % 0-10 [facility] Neutrophil percentageOrdered By: Tamiko Cohn on 03-04-2025 Neutrophils/100 WBC (Bld) 73.0 % High 47-70 [facility] No Panel InformationOrdered By: Tamiko Cohn on 03-04-2025 HIV (1&2) Antibody Non-Reactive Nonreactive [facility] Comment on above: Non-ReactiveReactive Repeatedly reactive samples must be confirmed according to CDC recommended confirmatory algorithms. The subresults for either HIVAG or AHIV can be used as an aid in the selection of the confirmation algorithm for reactive samples.Send out specimens with Reactive results to [facility] for confirmation.Order the HIV antibody detection and differentiation: #[id number] Nucleated red blood cell per centageOrdered By: Tamiko Cohn on 03-04-2025 Nucleated RBC/100 WBC (Bld) [Ratio] 0 % 0-5 [facility] Airline Customer Service Agent Office Visit Reporton 03-04-2025 Airline Customer Service Agent Office Visit Report [facility] [address], [address] [place] [address] OFFICE VISIT Date of Service: 03/04/25 MR#: [id number] Acct: [id number] Name: ISHA VANEGAS Rep #: [id number] : 1990 Provider: DAKOTA Mccormick ams Age/Sex: 34/F Location: [facility] Status: Signed Intake Vital Signs 12/03/24 10:02 02/04/25 09:33 03/04/25 11:18 Height 5 ft 5 in 5 ft 5 in 5 ft 5 in Weight: 156 lb BMI 25.9 BP 115/75 Intake Visit Reasons: 27 WK OB/GLUCOSE Chief Complaint: 27wk 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 Is patient in pain?: No Allergies ceftriaxone (From Rocephin) Allergy (Mild, Verified 03/04/25 11:16) rash Medications ???Medication ???Instructions ???Recorded ???Confirmed ???Type albuterol sulfate 90 mcg/actuation 1 inh inhalation Q4H PRN 2 03/04/25 History breath activated powder inhaler multivitamin no.47-iron fum 27 cap PO 10/18/22 03/04/25 History mg-folate no.1 1 mg-dha 300 mg capsule (PNV-DHA) clobetasol 0.05 % topical ointment 1 applic topical QHS #30 grams 1 03/04/25 Rx Last Menstrual Period: 08/22/24 : No PFSH PFSH Medical History Lichen sclerosus (spontaneous vaginal delivery) Spontaneous vaginal delivery Phenylalanine hydroxylase deficiency Eczema Asthma Surgical History s/p stomach surgery s/p left ankle surgery Family History Grandfather Lymphoma Aunt Diabetes type 1, controlled Paternal Social History adopted: No household members: spouse and children number of children: 2 current occupational status: employed 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 current occupational exposures/hazards: No pets and animals: Yes pets and animals: dog(s) history of recent travel: No sexually active: Yes Smoking Status: Never smoker alcohol intake: never substance use type: does not use well-balanced diet: daily or most days caffeine: No eating out: 1-3 times/week during the past year weight has: remained stable what type of physical activity do you participate in: bicycling and weight training frequency: 3-4 times per week duration: 30-45 minutes/day nito/episcopalian: Nondenominational seatbelt use: always do you feel safe at home: Yes 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 Date Name GA/Weeks Outcome Route Bth Weight Infant Gen Labor Lgth Anesthesia Del Locatn Provider FOB 06/02/21 Annette 40 live - full term 8lbs 3oz Female epidural [facility] P rokop 05/29/23 Lili 40 live - full term 8#3 Female [facility] Dax levi Delivery Date: 06/02/21 Last Updated by: Alana Mendez PROM; Developed Chorio; 2nd degree laceration Delivery Date: 05/29/23 Last Updated by: Siena Braun IOL HPI 27 WK OB/GLUCOSE Details: ISHA VANEGAS is a 34 year old who presents for routine OB visit. OB Visit JENNY Calculator Estimated Delivery Date Method Current WG Current Estimate 05/29/25 LMP (Certain) 27w 5d Expected Delivery Route/Plan Labor Preferences- CB/BF classes: [] labor support person: [] labor intervention preferences: [] pain management options preferred: [] cut cord/dad catch: [] : [] PP control planned: [] discussed possible routes of delivery and associated risks: [] special requests: [] Specific Issue/Plans Covid status: [] Flu vaccine: [] Tdap vaccine: [] Rhogam: [] LARC form signed: [] Problem list reviewed and updated with the most current plan of care details and appropriate orders placed. Relevant counseling for the gestational age provided. Continue routine care and follow up unless otherwise noted in visit notes/problem list details Initial Weight: Not Recorded Date -???-???-???-???-??? -???-???-???-???-??? -???-???- EGA Weight BP Urine Prot -???-???-???-???-??? -???-???-???-???-??? -???-???- Glucose FHR FuHt Pres Dilation -???-???-???-???-??? -???-???-???-???-??? -???-???- Effaced St Visit Note 11/01/24 -???-???-???-???-??? -???-???-???-???-??? -???-???- 10w 1d 137 lb 8 oz 98/60 -???-???-???-???-??? -???-???-???-???-??? -???-???- 180 -???-???-???-???-??? -???-???-???-???-??? -???-???- SM- CRL cons with LMP 3.3 cm 12/03/24 -???-???-???-???-??? -???-???-???-???-??? -???-???- 14w 5d 140 lb 4 oz 103/69 Trace -???-???-???-???-??? -???-???-???-???-??? -???-???- Negative 159 -???-??? (more content not included)... Normal [facility] Platelet countOrdered By: Dwight Cohn on 03-04-2025 Platelets (Bld) [#/Vol] 170 10*3/uL 150-450 [facility] RBC Auto (Bld) [#/Vol]Ordere d By: Tamiko Cohn on 03-04-2025 RBC (Bld) [#/Vol] 3.21 10*6/uL Low 4.2-5.4 [facility] Syphilis Antibodieson 2024 Syphilis Abs Non-Reactive Normal Nonreactive [facility] Comment on above: Performed By: #### L 3890.6006, L100.0100, L509.8002, L501.0250 ####[facility] [id number] [place], [place], [id number] White blood cell (WBC) count Ordered By: Tamiko Cohn on 03-04-2025 WBC (Bld) [#/Vol] 7.7 10*3/uL 4.4-11.0 [facility] Laboratory - Chemistry and C hemistry - challengeOrdered By: Tamiko Cohn on 02-04-2025 Glucose Ql (U) Negative [facility] Laboratory - UrinalysisOrder ed By: Tamiko Cohn on 02-04-2025 Protein Ql (U) Negative [facility] Airline Customer Service Agent Office Visit Reporton 02-04-2025 Airline Customer Service Agent Office Visit Report [facility]'s [address], [address] [place] [address] OFFICE VISIT Date of Service: 02/04/25 MR#: [id number] Acct: [id number] Name: ISHA VANEGAS Rep #: [id number] : 1990 Provider: Dr. Tamiko Marcos DO Age/Sex: 34/F Location: [facility] Status: Signed Intake Vital Signs 12/03/24 10:02 12/31/24 09:30 02/04/25 09:33 Height 5 ft 5 in 5 ft 5 in 5 ft 5 in Weight: 154 lb 4 oz BMI 25.7 BP 95/61 Intake Visit Reasons: 22 WK 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 Is patient in pain?: No Allergies ceftriaxone (From Rocephin) Allergy (Mild, Verified 02/04/25 09:31) rash Medications ???Medication ???Instructions ???Recorded ???Confirmed ???Type albuterol sulfate 90 mcg/actuation 1 inh inhalation Q4H PRN 2 02/04/25 History breath activated powder inhaler multivitamin no.47-iron fum 27 cap PO 10/18/22 02/04/25 History mg-folate no.1 1 mg-dha 300 mg capsule (PNV-DHA) clobetasol 0.05 % topical ointment 1 applic topical QHS #30 grams 1 02/04/25 Rx Last Menstrual Period: 08/22/24 Zika: Zika virus screening: Negative : No PFSH PFSH Medical History Lichen sclerosus (spontaneous vaginal delivery) Spontaneous vaginal delivery Phenylalanine hydroxylase deficiency Eczema Asthma Surgical History s/p stomach surgery s/p left ankle surgery Family History Grandfather Lymphoma Aunt Diabetes type 1, controlled Paternal Social History adopted: No household members: spouse and children number of children: 2 current occupational status: employed 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 current occupational exposures/hazards: No pets and animals: Yes pets and animals: dog(s) history of recent travel: No sexually active: Yes Smoking Status: Never smoker alcohol intake: never substance use type: does not use well-balanced diet: daily or most days caffeine: No eating out: 1-3 times/week during the past year weight has: remained stable what type of physical activity do you participate in: bicycling and weight training frequency: 3-4 times per week duration: 30-45 minutes/day nito/episcopalian: Nondenominational seatbelt use: always do you feel safe at home: Yes additional social history: - Maria Isabel-He History 3 Elective abortions Hx Para 2 Spontaneous abortions Hx # Term Pregnancies Ectopic pregnancies Hx # Pregnancies Multiple births # of living children 2 Past Pregnancies Del. Date Name GA/Weeks Outcome Route Bth Weight Gen Labor Lgth Anesthesia Del Locatn Provider FOB 06/02/21 Annette 40 live - full term 8lbs 3oz Female epidural [facility] P rokop 05/29/23 Lili 40 live - full term 8#3 Female [facility] Dax gurmeet Delivery Date: 06/02/21 Last Updated by: Alana Mendez PROM; Developed Chorio; 2nd degree laceration Delivery Date: 05/29/23 Last Updated by: Siena Braun IOL HPI 22 WK OB Details: ISHA VANEGAS is a 34 year old who presents for routine OB visit. OB Visit JENNY Calculator Estimated Delivery Date Method Current WG Current Estimate 05/29/25 LMP (Certain) 23w 5d Expected Delivery Route/Plan Labor Preferences- CB/BF classes: [] labor support person: [] labor intervention preferences: [] pain management options preferred: [] cut cord/dad catch: [] : [] PP control planned: [] discussed possible routes of delivery and associated risks: [] special requests: [] Specific Issue/Plans Covid status: [] Flu vaccine: [] Tdap vaccine: [] Rhogam: [] LARC form signed: [] Problem list reviewed and updated with the most current plan of care details and appropriate orders placed. Relevant counseling for the gestational age provided. Continue routine care and follow up unless otherwise noted in visit notes/problem list details Initial Weight: Not Recorded Date -???-???-???-???-??? -???-???-???-???-??? -???-???- EGA Weight BP Urine Prot -???-???-???-???-??? -???-???-???-???-??? -???-???- Glucose FHR FuHt Pres Dilation -???-???-???-???-??? -???-???-???-???-??? -???-???- Effaced St Visit Note 11/01/24 -???-???-???-???-??? -???-???-???-???-??? -???-???- 10w 1d 137 lb 8 oz 98/60 -???-???-???-???-??? -???-???-???-???-??? -???-???- 180 -???-???-???-???-??? -???-???-???-???-??? -???-???- SM- CRL cons with LMP 3.3 cm 12/03/24 -???-???-???-???-??? -???-???-???-???-??? -???-???- 14w 5d 140 lb 4 oz 103/69 Trace -???-???-???-???-??? -???-???-???-???-??? -???- (more content not included)... Normal [facility] Laboratory - Chemistry and C hemistry - challengeOrdered By: Lino Joaquin on 12-31-2024 Glucose Ql (U) Negative [facility] Laboratory - UrinalysisOrder ed By: Lino Joaquin on 12-31-2024 Protein Ql (U) Negative [facility] Airline Customer Service Agent Office Visit Reporton 12-31-2024 Airline Customer Service Agent Office Visit Report [facility]'s [address], [address] [place] [address] OFFICE VISIT Date of Service: 12/31/24 MR#: [id number] Acct: [id number] Name: ISHA VANEGAS Rep #: [id number] : 1990 Provider: DAKOTA Mccormick [facility] Age/Sex: 34/F Location: [facility] Status: Signed Intake Vital Signs 11/01/24 10:21 11/01/24 11:11 12/03/24 10:02 12/31/24 09:30 12/31/24 09:30 Height 5 ft 5 in 5 ft 5 in 5 ft 5 in 5 ft 5 in 5 ft 5 in Weight: 137 lb 8 oz 140 lb 4 oz 148 lb 6 oz 148 lb 6 oz BMI 22.8 23.3 24.7 24.7 BP 98/60 103/69 99/62 Intake Visit Reasons: 18 WK OB Chief Complaint: 18wk ob Is patient in pain?: No Allergies ceftriaxone (From Rocephin) Allergy (Mild, Verified 12/31/24 09:28) rash Medications ???Medication ???Instructions ???Recorded ???Confirmed ???Type albuterol sulfate 90 mcg/actuation 1 inh inhalation Q4H PRN 10/18/ 2 12/31/24 History breath activated powder inhaler multivitamin no.47-iron fum 27 cap PO 10/18/22 12/31/24 History mg-folate no.1 1 mg-dha 300 mg capsule (PNV-DHA) clobetasol 0.05 % topical ointment 1 applic topical QHS #30 grams 1 12/31/24 Rx Last Menstrual Period: 08/22/24 : No PFSH PFSH Medical History Lichen sclerosus (spontaneous vaginal delivery) Spontaneous vaginal delivery Phenylalanine hydroxylase deficiency Eczema Asthma Surgical History s/p stomach surgery s/p left ankle surgery Family History Grandfather Lymphoma Aunt Diabetes type 1, controlled Paternal Social History adopted: No household members: spouse and children number of children: 2 current occupational status: employed 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 current occupational exposures/hazards: No pets and animals: Yes pets and animals: dog(s) history of recent travel: No sexually active: Yes Smoking Status: Never smoker alcohol intake: never substance use type: does not use well-balanced diet: daily or most days caffeine: No eating out: 1-3 times/week during the past year weight has: remained stable what type of physical activity do you participate in: bicycling and weight training frequency: 3-4 times per week duration: 30-45 minutes/day nito/episcopalian: Nondenominational seatbelt use: always do you feel safe at home: Yes 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 Date Name GA/Weeks Outcome Route Bth Weight Gen Labor Lgth Anesthesia Del Locatn Provider FOB 06/02/21 Annette 40 live - full term 8lbs 3oz Female epidural [facility] P rokop 05/29/23 Lili 40 live - full term 8#3 Female [facility] Dax levi Delivery Date: 06/02/21 Last Updated by: Alana Mendez PROM; Developed Chorio; 2nd degree laceration Delivery Date: 05/29/23 Last Updated by: Siena Braun IOL HPI 18 WK OB Details: ISHA VANEGAS is a 34 year old who presents for routine OB visit. OB Visit JENNY Calculator Estimated Delivery Date Method Current WG Current Estimate 05/29/25 LMP (Certain) 18w 5d Expected Delivery Route/Plan Labor Preferences- CB/BF classes: [] labor support person: [] labor intervention preferences: [] pain management options preferred: [] cut cord/dad catch: [] : [] PP control planned: [] discussed possible routes of delivery and associated risks: [] special requests: [] Specific Issue/Plans Covid status: [] Flu vaccine: [] Tdap vaccine: [] Rhogam: [] LARC form signed: [] Problem list reviewed and updated with the most current plan of care details and appropriate orders placed. Relevant counseling for the gestational age provided. Continue routine care and follow up unless otherwise noted in visit notes/problem list details Initial Weight: Not Recorded Date -???-???-???-???-??? -???-???-???-???-??? -???-???- EGA Weight BP Urine Prot -???-???-???-???-??? -???-???-???-???-??? -???-???- Glucose FHR FuHt Pres Dilation -???-???-???-???-??? -???-???-???-???-??? -???-???- Effaced St Visit Note 11/01/24 -???-???-???-???-??? -???-???-???-???-??? -???-???- 10w 1d 137 lb 8 oz 98/60 -???-???-???-???-??? -???-???-???-???-??? -???-???- 180 -???-???-???-???-??? -???-???-???-???-??? -???-???- SM- CRL cons with LMP 3.3 cm 12/03/24 -???-???-???-???-??? -???-???-???-???-??? -???-???- 14w 5d 140 lb 4 oz 103/69 Trac (more content not included)... Normal [facility] Laboratory - Chemistry and C hemistry - challengeOrdered By: Lino Joaquin on 12-03-2024 Glucose Ql (U) Negative [facility] Laboratory - UrinalysisOrder ed By: Lino Joaquin on 12-03-2024 Protein Ql (U) Trace [facility] Airline Customer Service Agent Office Visit Reporton 12-03-2024 Airline Customer Service Agent Office Visit Report [facility]'s [address], [address] [place] [id number] OFFICE VISIT Date of Service: 12/03/24 MR#: [id number] Acct: [id number] Name: ISHA VANEGAS Rep #: [id number] : 1990 Provider: DAKOTA Mccormick ams Age/Sex: 34/F Location: [facility] Status: Signed Intake Vital Signs 07/08/23 11:54 11/01/24 11:11 12/03/24 10:02 Height 5 ft 5 in 5 ft 5 in 5 ft 5 in Weight: 140 lb 4 oz BMI 23.3 BP 103/69 Intake Visit Reasons: 14wk OB Chief Complaint: 14wk OB Is patient in pain?: No Allergies ceftriaxone (From Rocephin) Allergy (Mild, Verified 12/03/24 10:04) rash Medications ???Medication ???Instructions ???Recorded ???Confirmed ???Type albuterol sulfate 90 mcg/actuation 1 inh inhalation Q4H PRN 2 2 12/03/24 History breath activated powder inhaler multivitamin no.47-iron fum 27 cap PO 10/18/22 12/03/24 History mg-folate no.1 1 mg-dha 300 mg capsule (PNV-DHA) clobetasol 0.05 % topical ointment 1 applic topical QHS #30 grams 1 12/03/24 Rx Last Menstrual Period: 08/22/24 : No PFSH PFSH Medical History Lichen sclerosus (spontaneous vaginal delivery) Spontaneous vaginal delivery Phenylalanine hydroxylase deficiency Eczema Asthma Surgical History s/p stomach surgery s/p left ankle surgery Family History Grandfather Lymphoma Aunt Diabetes type 1, controlled Paternal Social History adopted: No household members: spouse and children number of children: 2 current occupational status: employed 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 current occupational exposures/hazards: No pets and animals: Yes pets and animals: dog(s) history of recent travel: No sexually active: Yes Smoking Status: Never smoker alcohol intake: never substance use type: does not use well-balanced diet: daily or most days caffeine: No eating out: 1-3 times/week during the past year weight has: remained stable what type of physical activity do you participate in: bicycling and weight training frequency: 3-4 times per week duration: 30-45 minutes/day nito/episcopalian: Nondenominational seatbelt use: always do you feel safe at home: Yes additional social history: - Maria Isabel-He History 3 Elective abortions Hx Para 2 Spontaneous abortions Hx # Term Pregnancies Ectopic pregnancies Hx # Pregnancies Multiple births # of living children 2 Past Pregnancies Del. Date Name GA/Weeks Outcome Route Bth Weight Gen Labor Lgth Anesthesia Del Locatn Provider FOB 06/02/21 Annette 40 live - full term 8lbs 3oz Female epidural [facility] P rokop 05/29/23 Lili 40 live - full term 8#3 Female [facility] Dax gurmeet Delivery Date: 06/02/21 Last Updated by: Alana Mendez PROM; Developed Chorio; 2nd degree laceration Delivery Date: 05/29/23 Last Updated by: Siena Braun IOL HPI 14wk OB Details: ISHA VANEGAS is a 34 year old who presents for routine OB visit. OB Visit JENNY Calculator Estimated Delivery Date Method Current WG Current Estimate 05/29/25 LMP (Certain) 14w 5d Expected Delivery Route/Plan Labor Preferences- CB/BF classes: [] labor support person: [] labor intervention preferences: [] pain management options preferred: [] cut cord/dad catch: [] : [] PP control planned: [] discussed possible routes of delivery and associated risks: [] special requests: [] Specific Issue/Plans Covid status: [] Flu vaccine: [] Tdap vaccine: [] Rhogam: [] LARC form signed: [] Problem list reviewed and updated with the most current plan of care details and appropriate orders placed. Relevant counseling for the gestational age provided. Continue routine care and follow up unless otherwise noted in visit notes/problem list details Initial Weight: Not Recorded Date -???-???-???-???-??? -???-???-???-???-??? -???-???- EGA Weight BP Urine Prot -???-???-???-???-??? -???-???-???-???-??? -???-???- Glucose FHR FuHt Pres Dilation -???-???-???-???-??? -???-???-???-???-??? -???-???- Effaced St Visit Note 11/01/24 -???-???-???-???-??? -???-???-???-???-??? -???-???- 10w 1d 137 lb 8 oz 98/60 -???-???-???-???-??? -???-???-???-???-??? -???-???- 180 -???-???-???-???-??? -???-???-???-???-??? -???-???- SM- CRL cons with LMP 3.3 cm 12/03/24 -???-???-???-???-??? -???-???-???-???-??? -???-???- 14w 5d 140 lb 4 oz 103/69 -???-???-???-???-??? -???-???-???-???-??? -???-???- 159 -???-???-???-???-??? -???-???-???-???-??? -???-???- KW- no vb/c (more content not included)... Normal [facility] Urine Cultureon 11-04-2024 URC Below infection level. Streptococcus agalactiae (B) [place] Count 1000-10,000 Streptococcus agalactiae (B): REACTION Ampicillin Islt GABRIEL <=0.25 cefTRIAXone Islt GABRIEL <=0.12 S Clindamycin Islt GABRIEL R Clindamycin.induced Susc Islt POS Linezolid Islt GABRIEL <=2 S Vancomycin Islt GABRIEL 0.5 S Normal [facility] Comment on above: Performed By: #### L 0.1799, ####[facility] [id number] [place], [address] Chlamydia/GC ABA aptimaon CHLAMY,NUC ACID Negative Normal Negative [facility] Comment on above: Performed By: #### L 0.1799, ####[facility] [address] [place], [place], [address] GC BY NUC ACID Negative Normal Negative [facility] Comment on above: Result Comment: Perf ormed at: =G - [facility] [address] [place], [place] [id number] Utility System Operator: Raquel Key MD, Phone: [phone] Performed By: #### L 0.1800, M100.2200 ####[facility] [address] [place], [address] CBC W/Diff, Automatedon 01-0 6-2024 Absolute Lymph 1.40 X10 3/uL Normal 0.83-4.51 [facility] Comment on above: Performed By: #### L 100.0100, BTS, L3890.6100, L3890.6005, L509.8000, L509.4005, L900.0098, L3890.6300 #### [facility] [address] [place], [address] Absolute Neut 3.7 X10 3/uL Normal 2.0-7.7 [facility] Comment on above: Performed By: #### L 100.0100, BTS, L3890.6100, L3890.6005, L509.8000, L509.4005, L900.0098, L3890.6300 #### [facility] [facility] [address] [place], [address] Basophils/100 WBC (Bld) 0.5 % Normal 0-1 [facility] Comment on above: Performed By: #### L 100.0100, BTS, L3890.6100, L3890.6005, L509.8000, L509.4005, L900.0098, L3890.6300 #### [facility] [address] [place], [address] Eosinophils/100 WBC (Bld) 0.5 % Normal 0-5 [facility] Comment on above: Performed By: #### L 100.0100, BTS, L3890.6100, L3890.6005, L509.8000, L509.4005, L900.0098, L3890.6300 #### [facility] [address] [place], [address] Erythrocyte distribution width (RBC) [Ratio] 12.5 % Normal 11.6-14.6 [facility] Comment on above: Performed By: #### L 100.0100, BTS, L3890.6100, L3890.6005, L509.8000, L509.4005, L900.0098, L3890.6300 #### [facility] [address] [place], [address] Hematocrit (Bld) [Volume fraction] 32.6 % Low 37-47 [facility] Comment on above: Performed By: #### L 100.0100, BTS, L3890.6100, L3890.6005, L509.8000, L509.4005, L900.0098, L3890.6300 #### [facility] [address] [facility] [place], [address] Hemoglobin (Bld) [Mass/Vol] 11.1 g/dL Low 12.0-15.0 [facility] Comment on above: Performed By: #### L 100.0100, BTS, L3890.6100, L3890.6005, L509.8000, L509.4005, L900.0098, L3890.6300 #### [facility] [address] [facility] [place], [address] IG% 0.200 Normal 0.0-0.9 [facility] Comment on above: Result Comment: IG% - Immature Granulocytes (promyelocytes, myelocytes and metamyelocytes) > 1% indicates that a LEFT SHIFT is Present. Performed By: #### L 100.0100, BTS, L3890.6100, L3890.6005, L509.8000, L509.4005, L900.0098, L3890.6300 #### [facility] [address] [place], [address] Lymphocytes/100 WBC (Bld) 25.3 % Normal 19-41 [facility] Comment on above: Performed By: #### L 100.0100, BTS, L3890.6100, L3890.6005, L509.8000, L509.4005, L900.0098, L3890.6300 #### [facility] [address] [place], [address] MCH (RBC) [Entitic mass] 32.4 pg High 27.0-32.0 [facility] Comment on above: Performed By: #### L 100.0100, BTS, L3890.6100, L3890.6005, L509.8000, L509.4005, L900.0098, L3890.6300 #### [facility] [address] [place], [address] MCHC (RBC) [Mass/Vol] 34.0 g/dL Normal 32-36 [facility] Comment on above: Performed By: #### L 100.0100, BTS, L3890.6100, L3890.6005, L509.8000, L509.4005, L900.0098, L3890.6300 #### [facility] [address] [place], [address] MCV (RBC) [Entitic vol] 95.0 fL Normal 81-99 [facility] Comment on above: Performed By: #### L 100.0100, BTS, L3890.6100, L3890.6005, L509.8000, L509.4005, L900.0098, L3890.6300 #### [facility] [address] [place], [address] Monocytes/100 WBC (Bld) 6.5 % Normal 0-10 [facility] Comment on above: Performed By: #### L 100.0100, BTS, L3890.6100, L3890.6005, L509.8000, L509.4005, L900.0098, L3890.6300 #### [facility] [address] [place], [address] Neutrophils/100 WBC (Bld) 67.0 % Normal 47-70 [facility] Comment on above: Performed By: #### L 100.0100, BTS, L3890.6100, L3890.6005, L509.8000, L509.4005, L900.0098, L3890.6300 #### [facility] [address] [place], [address] Nucleated RBC (Bld) [#/Vol] 0 10*3/uL Normal 0-5 [facility] Comment on above: Performed By: #### L 100.0100, BTS, L3890.6100, L3890.6005, L509.8000, L509.4005, L900.0098, L3890.6300 #### [facility] [address] [place], [address] Platelet mean volume (Bld) [Entitic vol] 12.3 fL High 6.2-12.0 [facility] Comment on above: Performed By: #### L 100.0100, BTS, L3890.6100, L3890.6005, L509.8000, L509.4005, L900.0098, L3890.6300 #### [facility] [address] [place], [address] Platelets (Bld) [#/Vol] 185 10*3/uL Normal 150-450 [facility] Comment on above: Performed By: #### L 100.0100, BTS, L3890.6100, L3890.6005, L509.8000, L509.4005, L900.0098, L3890.6300 #### [facility] [address] [place], [address] RBC (Bld) [#/Vol] 3.43 10*6/uL Low 4.2-5.4 [facility] Comment on above: Performed By: #### L 100.0100, BTS, L3890.6100, L3890.6005, L509.8000, L509.4005, L900.0098, L3890.6300 #### [facility] [address] [place], [place], [address] RDW SD 43.5 fl Normal 35.1-43.9 [facility] Comment on above: Performed By: #### L 100.0100, BTS, L3890.6100, L3890.6005, L509.8000, L509.4005, L900.0098, L3890.6300 #### [facility] [address] [facility] [place], [address] WBC (Bld) [#/Vol] 5.5 10*3/uL Normal 4.4-11.0 [facility] Comment on above: Performed By: #### L 100.0100, BTS, L3890.6100, L3890.6005, L509.8000, L509.4005, L900.0098, L3890.6300 #### [facility] [address] [facility] [place], [address] HIV - WCHon 11-01-2024 HIV Non-Reactive Normal Nonreactive [facility] Comment on above: Order Comment: Reaso n for Exam: Performed By: #### L 100.0100, BTS, L3890.6100, L3890.6005, L509.8000, L509.4005, L900.0098, L3890.6300 #### [facility] [address] [place], [address] Hepatitis B Surface Antigeno n 11-01-2024 HEP B Surf Ag Non-Reactive [facility] Comment on above: Order Comment: Reaso n for Exam: Performed By: #### L 100.0100, BTS, L3890.6100, L3890.6005, L509.8000, L509.4005, L900.0098, L3890.6300 ####[facility] [address] [place], [address] Hepatitis C Antibodyon 11-01 Hepatitis C AB Non-Reactive Normal Nonreactive [facility] Comment on above: Order Comment: Reaso n for Exam: Result Comment: Non Reactive: < 0.8 Equivocal: >/= 0.8 to < 1.0 Reactive: >/= 1.0 The [facility] requires that a reactive/equivocal HCV antibody result be sent out for confirmation. HCV Quant by PCR testing. Performed By: #### L 100.0100, BTS, L3890.6100, L3890.6005, L509.8000, L509.4005, L900.0098, L3890.6300 ####[facility] [address] [place], [address] L509.8000on 11-01-2024 Syphilis Abs Non-Reactive Normal [facility] Comment on above: Order Comment: Reaso n for Exam: Performed By: #### L 100.0100, BTS, L3890.6100, L3890.6005, L509.8000, L509.4005, L900.0098, L3890.6300 #### [facility] [address] [place], [address] NATERAon 11-01-2024 NATURA SEE SCANNED REPORT Normal [facility] Comment on above: Order Comment: Comme nts: NIPT with Gender Performed By: #### L 100.0100, BTS, L3890.6100, L3890.6005, L509.8000, L509.4005, L900.0098, L3890.6300 #### [facility] [address] [place], [address] Airline Customer Service Agent Office Visit Reporton 11-01-2024 Airline Customer Service Agent Office Visit Report [facility] [address], [address] [place] [address] OFFICE VISIT Date of Service: 11/01/24 MR#: [id number] Acct: [id number] Name: ISHA VANEGAS Rep #: [id number] : 1990 Provider: Dr. 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: No Is patient in pain?: No Feel stressed/tense/nervo us/anxious/difficult y sleeping: not at all Allergies ceftriaxone (From Rocephin) Allergy (Mild, Verified 11/01/24 10:25) rash Medications ???Medication ???Instructions ???Recorded ???Confirmed ???Type albuterol sulfate 90 mcg/actuation 1 inh inhalation Q4H PRN 10/18/22 11/01/24 History breath activated powder inhaler multivitamin no.47-iron fum 27 cap PO 10/18/22 11/01/24 History mg-folate no.1 1 mg-dha 300 mg capsule (PNV-DHA) clobetasol 0.05 % topical ointment 1 applic topical QHS #30 grams 08/11/23 11/01/24 Rx Last Menstrual Period: 08/22/24 Zika: Zika virus screening: Negative : No Have you fallen in the past year?: No PFSH PFSH Medical History Lichen sclerosus (spontaneous vaginal delivery) Spontaneous vaginal delivery Phenylalanine hydroxylase deficiency Eczema Asthma Surgical History s/p stomach surgery s/p left ankle surgery Family History Grandfather Lymphoma Aunt Diabetes type 1, controlled Paternal Social History adopted: No household members: spouse and children number of children: 2 current occupational status: employed 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 current occupational exposures/hazards: No pets and animals: Yes pets and animals: dog(s) history of recent travel: No sexually active: Yes Smoking Status: Never smoker alcohol intake: never substance use type: does not use well-balanced diet: daily or most days caffeine: No eating out: 1-3 times/week during the past year weight has: remained stable what type of physical activity do you participate in: bicycling and weight training frequency: 3-4 times per week duration: 30-45 minutes/day nito/episcopalian: Nondenominational seatbelt use: always do you feel safe at home: Yes additional social history: - Maria Isabel-He History 3 Elective abortions Hx Para 2 Spontaneous abortions Hx # Term Pregnancies Ectopic pregnancies Hx # Pregnancies Multiple births # of living children 2 Past Pregnancies Del. Date Name GA/Weeks Outcome Route Bth Weight Infant Gen Labor Lgth Anesthesia Del Locatn Provider FOB 06/02/21 Annette 40 live - full term 8lbs 3oz Female epidural [facility] P rokop 05/29/23 Lili 40 live - full term 8#3 Female [facility] Dax levi Delivery Date: 06/02/21 Last Updated by: Alana Mendez PROM; Developed Chorio; 2nd degree laceration Delivery Date: 05/29/23 Last Updated by: Siena Braun IOL HPI NOB LMP 08/23 Details: ISHA VANEGAS is a 34 year old who presents for New OB visit. OB Visit JENNY Calculator Estimated Delivery Date Method Current WG Current Estimate 05/29/25 LMP (Certain) 10w 1d Comments: HIV: Urine Culture: Sequential Screen: NIPT Screen: Estimated Due Date: 05/29/25 Expected Delivery Route/Plan Labor Preferences- CB/BF classes: [] labor support person: [] labor intervention preferences: [] pain management options preferred: [] cut cord/dad catch: [] : [] PP control planned: [] discussed possible routes of delivery and associated risks: [] special requests: [] Specific Issue/Plans Covid status: [] Flu vaccine: [] Tdap vaccine: [] Rhogam: [] LARC form signed: [] Problem list reviewed and updated with the most current plan of care details and appropriate orders placed. Relevant counseling for the gestational age provided. Continue routine care and follow up unless otherwise noted in visit notes/problem list details Initial Weight: Not Recorded Date -???-???-???-???-??? -???-???-???-???-??? -???-???- EGA Weight BP Urine Prot -???-???-???-???-??? -???-???-???-???-??? -???-???- Glucose FHR FuHt Pres Dilation -???-???-???-???-??? -???-???-???-???-??? -???-???- Effaced St Visit Note 11/01/24 -???-???-???-???-??? -???-???-???-???-??? -???-???- 10w 1d 137 lb 8 oz 98/60 -???-???-???-???-??? -???-???-???-???-??? -???-???- 180 -???-???-???-???-??? -???-???-???-???-??? -???-???- (more content not included)... Normal [facility] Rubella IgGon 11-01-2024 Rubella IgG Reactive Normal Nonreactive [facility] Comment on above: Order Comment: Reaso n for Exam: Result Comment: Anti body Results Interpretation of Immune Status Non Reactive Presumed Non-Immune Equivocal Equivocal Reactive Presumed Immune Performed By: #### L 100.0100, BTS, L3890.6100, L3890.6005, L509.8000, L509.4005, L900.0098, L3890.6300 #### [facility] [place], [address] Type AND Screenon 11-01-2024 Ab SCREEN GEL Negative Normal [facility] Comment on above: Order Comment: PN Performed By: #### L 100.0100, BTS, L3890.6100, L3890.6005, L509.8000, L509.4005, L900.0098, L3890.6300 #### [facility] [address] [place], [place], [id number] PROGESTERONE 4317on 09-25-20 24 PROGESTERONE 27.5 ng/mL Normal . [facility] Comment on above: Order Comment: N Result Comment: Foll icular phase 0.1 - 0.9 Luteal phase 1.8 - 23.9 Ovulation phase 0.1 - 12.0 First trimester 11.0 - 44.3 Second trimester 25.4 - 83.3 Third trimester 58.7 - 214.0 Postmenopausal 0.0 - 0.1 Performed at: [facility] [address] [id number] Utility System Operator: Addy Mcginnis PhD, Phone: [phone] Performed By: #### L 801.2600, L700.8000 ####[facility] [address] [place], [place], [id number] hCG Titer Quant., Serumon HCG QUANT. 954 mIU/mL [address] Comment on above: Result Comment: hCG levels with Gestational Age Gestational Age hCG mIU/mL (IU/L) 0.2 - 1 week 5 - 50 1-2 weeks 50 - 500 2-3 weeks 100 - 5000 3-4 weeks 500 - 71960 4-5 weeks 1000 - 03267 5-6 weeks 18859 - 100,000 6-8 weeks 96137 - 200,000 2-3 months 53410 - 100,000 Performed By: #### L 700.8000 ####[facility] [address] [place], [place], [id number] hCG Titer Quant., Serumon HCG QUANT. 423 mIU/mL [facility] [address] Comment on above: Result Comment: hCG levels with Gestational Age Gestational Age hCG mIU/mL (IU/L) 0.2 - 1 week 5 - 50 1-2 weeks 50 - 500 2-3 weeks 100 - 5000 3-4 weeks 500 - 34804 4-5 weeks 1000 - 96449 5-6 weeks 95011 - 100,000 6-8 weeks 31645 - 200,000 2-3 months 97682 - 100,000 Performed By: #### L 801.2600, L700.8000 ####[facility] [address] [place], [address] CBC W/Diff, Automatedon 08-27 Absolute Lymph 1.69 X10 3/uL Normal 0.83-4.51 [facility] Comment on above: Performed By: #### L 100.0100 #### [facility] [address] [place], [address] Absolute Neut 2.4 X10 3/uL Normal 2.0-7.7 [facility] Comment on above: Performed By: #### L 100.0100 #### [facility] [address] [place], [address] Basophils/100 WBC (Bld) 1.1 % High 0-1 [facility] Comment on above: Performed By: #### L 100.0100 #### [facility] [address] [place], [address] Eosinophils/100 WBC (Bld) 0.7 % Normal 0-5 [facility] Comment on above: Performed By: #### L 100.0100 #### [facility] [address] [place], [address] Erythrocyte distribution width (RBC) [Ratio] 12.6 % Normal 11.6-14.6 [facility] Comment on above: Performed By: #### L 100.0100 #### [facility] [address] [place], [address] Hematocrit (Bld) [Volume fraction] 37.2 % Normal 37-47 [facility] Comment on above: Performed By: #### L 100.0100 #### [facility] [address] [place], [address] Hemoglobin (Bld) [Mass/Vol] 12.2 g/dL Normal 12.0-15.0 [facility] Comment on above: Performed By: #### L 100.0100 #### [facility] [address] [place], [address] IG% 0.000 Normal 0.0-0.9 [facility] Comment on above: Result Comment: IG% - Immature Granulocytes (promyelocytes, myelocytes and metamyelocytes) > 1% indicates that a LEFT SHIFT is Present. Performed By: #### L 100.0100 #### [facility] [address] [place], [address] Lymphocytes/100 WBC (Bld) 36.7 % Normal 19-41 [facility] Comment on above: Performed By: #### L 100.0100 #### [facility] [address] [place], [address] MCH (RBC) [Entitic mass] 31.5 pg Normal 27.0-32.0 [facility] Comment on above: Performed By: #### L 100.0100 #### [facility] [address] [place], [address] MCHC (RBC) [Mass/Vol] 32.8 g/dL Normal 32-36 [facility] Comment on above: Performed By: #### L 100.0100 #### [facility] [address] [place], [address] MCV (RBC) [Entitic vol] 96.1 fL Normal 81-99 [facility] Comment on above: Performed By: #### L 100.0100 #### [facility] [address] [place], [address] Monocytes/100 WBC (Bld) 9.1 % Normal 0-10 [facility] Comment on above: Performed By: #### L 100.0100 #### [facility] [address] [place], [address] Neutrophils/100 WBC (Bld) 52.4 % Normal 47-70 [facility] Comment on above: Performed By: #### L 100.0100 #### [facility] [address] [place], [address] Nucleated RBC (Bld) [#/Vol] 0 10*3/uL Normal 0-5 [facility] Comment on above: Performed By: #### L 100.0100 #### [facility] [address] [place], [address] Platelet mean volume (Bld) [Entitic vol] 11.9 fL Normal 6.2-12.0 [facility] Comment on above: Performed By: #### L 100.0100 #### [facility] [address] [place], [address] Platelets (Bld) [#/Vol] 180 10*3/uL Normal 150-450 [facility] Comment on above: Performed By: #### L 100.0100 #### [facility] [address] [place], [address] RBC (Bld) [#/Vol] 3.87 10*6/uL Low 4.2-5.4 [facility] Comment on above: Performed By: #### L 100.0100 #### [facility] [address] [place], [address] RDW SD 44.4 fl High 35.1-43.9 [facility] Comment on above: Performed By: #### L 100.0100 #### [facility] [address] [place], [address] WBC (Bld) [#/Vol] 4.6 10*3/uL Normal 4.4-11.0 [facility] Comment on above: Performed By: #### L 100.0100 #### [facility] [address] [place], [address] Comprehensive Metabolic Prof ilon 09-13-2024 Albumin [Mass/Vol] 3.9 g/dL Normal 3.2-5.0 [facility] Comment on above: Performed By: #### L 506.1000, L500.4050, L500.4100, L100.0100, L501.9520 ####[facility] [address] [place], [address] Albumin/Globulin [Mass ratio] 1.3 {ratio} Normal 0.9-2.4 [facility] Comment on above: Performed By: #### L 506.1000, L500.4050, L500.4100, L100.0100, L501.9520 ####[facility] [address] [place], [address] ALK P 40 U/L Low 45-117 [facility] Comment on above: Performed By: #### L 506.1000, L500.4050, L500.4100, L100.0100, L501.9520 ####[facility] [address] [place], [address] ALT [Catalytic activity/Vol] 18 U/L Normal 13-56 [facility] Comment on above: Performed By: #### L 506.1000, L500.4050, L500.4100, L100.0100, L501.9520 ####[facility] [address] [place], [address] AST [Catalytic activity/Vol] 11 U/L Low 15-37 [facility] Comment on above: Performed By: #### L 506.1000, L500.4050, L500.4100, L100.0100, L501.9520 ####[facility] [address] [place], [address] Bilirubin [Mass/Vol] 0.40 mg/dL Normal 0.20-1.00 [facility] Comment on above: Result Comment: For patients on eltrombopag therapy, use of Dimension [place] TBIL is not recommended. Performed By: #### L 506.1000, L500.4050, L500.4100, L100.0100, L501.9520 ####[facility] [address] [place], [address] BUN/CRE 25.6 RATIO High 10-20 [facility] Comment on above: Performed By: #### L 506.1000, L500.4050, L500.4100, L100.0100, L501.9520 ####[facility] [address] [place], [address] CA,Total 8.5 mg/dL Normal 8.5-10.1 [facility] Comment on above: Performed By: #### L 506.1000, L500.4050, L500.4100, L100.0100, L501.9520 ####[facility] [address] [place], [address] Chloride [Moles/Vol] 109 mmol/L High 98-107 [facility] Comment on above: Performed By: #### L 506.1000, L500.4050, L500.4100, L100.0100, L501.9520 ####[facility] [address] [place], [address] CO2 [Moles/Vol] 26.0 mmol/L Normal 21.0-32.0 [facility] Comment on above: Performed By: #### L 506.1000, L500.4050, L500.4100, L100.0100, L501.9520 ####[facility] [address] [place], [address] Creatinine [Mass/Vol] 0.74 mg/dL Normal 0.55-1.02 [facility] Comment on above: Result Comment: The validity of the calculated GFR GFRAA in patients over 70 years has not been determined. Clinical correlation is essential. Performed By: #### L 506.1000, L500.4050, L500.4100, L100.0100, L501.9520 ####[facility] [address] [place], [address] EST GFR - AA 116 mL/min Normal >60 [facility] Comment on above: Result Comment: Afri can Citizen [place] GFR Calc Performed By: #### L 506.1000, L500.4050, L500.4100, L100.0100, L501.9520 ####[facility] [address] [place], [address] GAP 4 Low 5-15 [facility] Comment on above: Performed By: #### L 506.1000, L500.4050, L500.4100, L100.0100, [id number] ####[facility] [address] [place], [address] GFR/1.73 sq M.predicted among non-blacks MDRD (S/P/Bld) [Vol rate/Area] 96 mL/min/{1.73_m2} Normal >60 [facility] Comment on above: Result Comment: Non- GFR Calc Performed By: #### L 506.1000, L500.4050, L500.4100, L100.0100, [id number] ####[facility] [address] [place], [address] Globulin (S) [Mass/Vol] 3.1 g/dL Normal 2.2-4.2 [facility] Comment on above: Performed By: #### L 506.1000, L500.4050, L500.4100, L100.0100, [id number] ####[facility] [address] [place], [address] Glucose [Mass/Vol] 91 mg/dL Normal 74-106 [facility] Comment on above: Performed By: #### L 506.1000, L500.4050, L500.4100, L100.0100, [id number] ####[facility] [address] [place], [address] Potassium [Moles/Vol] 3.9 mmol/L Normal 3.5-5.1 [facility] Comment on above: Performed By: #### L 506.1000, L500.4050, L500.4100, L100.0100, [id number] ####[facility] [address] [place], [address] Sodium [Moles/Vol] 139 mmol/L Normal 136-145 [facility] Comment on above: Performed By: #### L 506.1000, L500.4050, L500.4100, L100.0100, [id number] ####[facility] [address] [place], [address] T PROT 7.0 g/dL Normal 6.4-8.2 [facility] Comment on above: Performed By: #### L 506.1000, L500.4050, L500.4100, L100.0100, [id number] ####[facility] [address] [place], [address] Urea nitrogen [Mass/Vol] 19 mg/dL High 7-18 [facility] Comment on above: Performed By: #### L 506.1000, L500.4050, L500.4100, L100.0100, [id number] ####[facility] [address] [place], [address] Lipid Profileon 09-13-2024 Cholesterol [Mass/Vol] 187 mg/dL Normal 200 [facility] Comment on above: Result Comment: <200 mg/dL Desirable 200-240 mg/dL Borderline >240 mg/dL High Risk Performed By: #### L 506.1000, L500.4050, L500.4100, L100.0100, [id number] ####[facility] [address] [place], [address] Cholesterol in HDL [Mass/Vol] 72 mg/dL Normal [facility] Comment on above: Result Comment: The drugs N-Acetylcysteine and Metamizole may falsely depress this assay. Reference Range HDL <40 mg/dL Low HDL Cholesterol HDL >or= 60 mg/dL High HDL Cholesterol Performed By: #### L 506.1000, L500.4050, L500.4100, L100.0100, [id number] ####[facility] [address] [place], [address] Cholesterol in LDL [Mass/Vol] 107 mg/dL Normal 0-130 [facility] Comment on above: Performed By: #### L 506.1000, L500.4050, L500.4100, L100.0100, [id number] ####[facility] [address] [place], [address] Cholesterol in VLDL [Mass/Vol] 8 mg/dL Normal 5-40 [facility] Comment on above: Performed By: #### L 506.1000, L500.4050, L500.4100, L100.0100, [id number] ####[facility] [address] [place], [address] Triglyceride [Mass/Vol] 42 mg/dL Normal [facility] Comment on above: Result Comment: The drugs N-Acetylcysteine and Metamizole may falsely depress this assay. Serum Triglycerides Reference Interval Normal <150 mg/dL Borderline high 150 - 199 mg/dL High 200 - 499 mg/dL Very High > or = 500 mg/dL Performed By: #### L 506.1000, L500.4050, L500.4100, L100.0100, [id number] ####[facility] [address] [place], [address] Thyroid Stim Hormone (TSH)on 09-13-2024 TSH 0.918 uIU/mL Normal 0.358-3.740 [facility] Comment on above: Performed By: #### L 100.0100 #### [facility] [address] [place], [address] Vitamin D,25 Hydroxyon 09-13 Vitamin D 25-OH 32.7 ng/mL Normal [facility] Comment on above: Result Comment: Mela min D 25(OH) Status Range Deficiency <20 ng/mL (50nmol/L) Insufficiency 20 - 30 ng/mL (50 - 75 nmol/L) Sufficiency 30 - 100 ng/mL (75 - 250 nmol/L) Toxicity >100 ng/mL (>250 nmol/L) Performed By: #### L 506.1000, L500.4050, L500.4100, L100.0100, [id number] ####[facility] [address] [place], [address] CNOVon 05-14-2024 CNOV Office Visit (GYURWP) ISHA VANEGAS ([id number]) 1990 F Date Time Provider Department 05/14/24 8:00 AM REBECCA LUCIO During your visit today, we recorded the following information about you: Blood pressure Weight Height Last Period 110/78 61.6 kg 1.651 m 08/14/22 Rebecca Lucio MD 05/14/2024 8:52 AM Addendum Female Pelvic Medicine AND Reconstructive Surgery Consult CHIEF COMPLAINT: Isha Vanegas is a 33 year old No obstetric history on file. female who presents for consultation requested by Dr. Heather Cao for an opinion regarding lichen sclerosus. My final recommendations will be communicated back to the requesting physician by way of shared Medical record or letter to requesting physician via US mail. HISTORY OF PRESENT ILLNESS: She presents today for evaluation/discussio n of treatment of lichen sclerosus. She was diagnosed many years ago and has only had to use clobetasol on a few occasions due to flares. She reports after delivering her children it has worsened by far. This was diagnosed by biopsy. She reports the clobetasol does work (has been using it about once a week) but she would like to discuss other treatment options. Medical and Symptom History: LMP: Patient's last menstrual period was 08/14/2022 (approximate).; Menopause no : ALLERGIES Allergen Reactions Rocephin [Ceftriaxo* Shortness of Breath Current Outpatient Medications Medication Sig clobetasol (TEMOVATE) 0.05 % ointment apply qhs * 6 weeks No current facility-administere d medications for this visit. History reviewed. No pertinent surgical history. 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 Review of Systems Constitutional: Negative for chills, diaphoresis and fever. HENT: Negative for drooling, ear discharge, facial swelling, nosebleeds, sore throat and trouble swallowing. Eyes: Negative for discharge, redness, itching and visual disturbance. Respiratory: Negative for apnea, choking, chest tightness, shortness of breath, wheezing and stridor. Cardiovascular: Negative for chest pain and palpitations. Gastrointestinal: Negative for abdominal distention, abdominal pain, anal bleeding, blood in stool, nausea and vomiting. Endocrine: Negative for cold intolerance and heat intolerance. Genitourinary: Positive for vaginal pain. Negative for genital sores, menstrual problem and vaginal bleeding. Musculoskeletal: Negative for gait problem, myalgias, neck pain and neck stiffness. Skin: Negative for pallor, rash and wound. Allergic/Immunologic : Negative for environmental allergies, food allergies and immunocompromised state. Neurological: Negative for dizziness, seizures, facial asymmetry, speech difficulty, light-headedness, numbness and headaches. Hematological: Negative for adenopathy. Does not bruise/bleed easily. Psychiatric/Behavior al: Negative for agitation, behavioral problems, confusion and hallucinations. OBJECTIVE: BP 110/78 Ht 165.1 cm (5' 5) Wt 61.6 kg (135 lb 14.4 oz) LMP 08/14/2022 (Approximate) BMI 22.61 kg/m? Physical Exam Exam conducted with a flatwork finisher present. Constitutional: Appearance: She is well-developed. HENT: Head: Normocephalic and atraumatic. Nose: Nose normal. Mouth/Throat: Mouth: Mucous membranes are moist. Pharynx: Oropharynx is clear. Eyes: Extraocular Movements: Extraocular movements intact. Conjunctiva/sclera: Conjunctivae normal. Pupils: Pupils are equal, round, and reactive to light. Cardiovascular: Rate and Rhythm: Normal rate. Pulmonary: Effort: Pulmonary effort is normal. Breath sounds: No wheezing, rhonchi or rales. Abdominal: General: Bowel sounds are normal. There is no distension. Palpations: Abdomen is soft. There is no mass. Tenderness: There is no abdominal tenderness. There is no guarding or rebound. Hernia: There is no hernia in the left inguinal area or right inguinal area. Genitourinary: General: Normal vulva. Exam position: Lithotomy position. Pubic Area: No rash. Labia: Right: No rash, tenderness, lesion or injury. Left: No rash, tenderness, lesion or injury. Urethra: No prolapse, urethral pain, urethral swelling or urethral lesion. Vagina: No vaginal discharge, erythema, tenderness, bleeding, lesions or prolapsed vaginal buck. Cervix: No cervical motion tenderness, friability or erythema. Uterus: Not enlarged, not tender and no uterine pro (more content not included)... Normal [facility] Absolute lymphocyte countOrd ered By: Karla Shrestha on 05-29-2023 Lymphocytes Auto (Unsp spec) [#/Vol] 1.46 10*3/uL 0.83-4.51 [facility] Basophil percentageOrdered B y: Karla Shrestha on 05-29-2023 Basophils/100 WBC (Bld) 0.3 % 0-1 [facility] Eosinophils/100 WBC (Bld) 0.3 % 0-5 [facility] Neutrophils (Bld) [#/Vol] 6.9 10*3/uL 2.0-7.7 [facility] Neutrophils/100 WBC (Bld) 76.2 % 47-70 [facility] WBC (Bld) [#/Vol] 9.1 10*3/uL 4.4-11.0 [facility] Blood erythrocytes count (nu mber/volume)Ordered By: Karla Shrestha on 05-29-2023 RBC (Bld) [#/Vol] 3.59 10*6/uL 4.2-5.4 [facility] Blood hemoglobin measurement (mass/volume)Ordered By: Karla Shrestha on 05-29-2023 Hemoglobin (Bld) [Mass/Vol] 12.0 g/dL 12.0-15.0 [facility] Blood lymphocytes/100 leukoc ytesOrdered By: Karla Shrestha on 05-29-2023 Lymphocytes/100 WBC (Bld) 16.0 % 19-41 [facility] Blood monocytes/100 leukocyt esOrdered By: Karla Shrestha on 05-29-2023 Monocytes/100 WBC (Bld) 6.9 % 0-10 [facility] Blood platelet mean volumeOr dered By: Karla Shrestha on 05-29-2023 Platelet mean volume (Bld) [Entitic vol] 11.8 fL 6.2-12.0 [facility] Determination of erythrocyte mean corpuscular volume (MCV)Ordered By: Karla Shrestha on 05-29-2023 MCV (RBC) [Entitic vol] 100.0 fL 81-99 [facility] Hematocrit Auto (Bld) [Volum e fraction]Ordered By: Karla Shrestah on 05-29-2023 Hematocrit (Bld) [Volume fraction] 35.9 % 37-47 [facility] - Hematology and Cell countsOrdered By: Karla Shrestha on 05-29-2023 Erythrocyte distribution width (RBC) [Entitic vol] 44.4 fL 35.1-43.9 [facility] Erythrocyte distribution width (RBC) [Ratio] 12.2 % 11.6-14.6 [facility] Immature granulocytes/100 WBC (Bld) 0.300 % 0.0-0.9 [facility] Comment on above: IG% - Immature Granu locytes (promyelocytes, myelocytes and metamyelocytes) > 1% indicates that a LEFT SHIFT is Present. MCH (RBC) [Entitic mass] 33.4 pg 27.0-32.0 [facility] Nucleated RBC/100 WBC (Bld) [Ratio] 0 % 0-5 [facility] MCHC Auto (RBC) [Mass/Vol]Or dered By: Karla Shrestha on 05-29-2023 MCHC (RBC) [Mass/Vol] 33.4 g/dL 32-36 [facility] Platelets bldOrdered By: Eric Shrestha on 05-29-2023 Platelets (Bld) [#/Vol] 173 10*3/uL 150-450 [facility] Serum Treponema species anti body detectionOrdered By: Karla Shrestha on 05-29-2023 Treponema sp Ab Ql (S) Non-Reactive [facility] - Chemistry and C hemistry - challengeon 05-23-2023 Glucose Ql (U) Negative [facility] - Urinalysison Protein Ql (U) Negative [facility] - Chemistry and C hemistry - challengeon 05-16-2023 Glucose Ql (U) Negative [facility] - Urinalysison Protein Ql (U) Negative [facility] Absolute lymphocyte countOrd ered By: Mitzi Lyon on 05-09-2023 Lymphocytes Auto (Unsp spec) [#/Vol] 1.95 10*3/uL 0.83-4.51 [facility] Basophil percentageOrdered B y: Mitzi Lyon on 05-09-2023 Basophils/100 WBC (Bld) 0.4 % 0-1 [facility] Eosinophils/100 WBC (Bld) 2.7 % 0-5 [facility] Neutrophils (Bld) [#/Vol] 4.3 10*3/uL 2.0-7.7 [facility] Neutrophils/100 WBC (Bld) 60.5 % 47-70 [facility] WBC (Bld) [#/Vol] 7.1 10*3/uL 4.4-11.0 [facility] Blood erythrocytes count (nu mber/volume)Ordered By: Mitzi Lyon on 05-09-2023 RBC (Bld) [#/Vol] 3.34 10*6/uL 4.2-5.4 [facility] Blood hemoglobin measurement (mass/volume)Ordered By: Mitzi Lyon on 05-09-2023 Hemoglobin (Bld) [Mass/Vol] 11.5 g/dL 12.0-15.0 [facility] Blood lymphocytes/100 leukoc ytesOrdered By: Mitzi Lyon on 05-09-2023 Lymphocytes/100 WBC (Bld) 27.4 % 19-41 [facility] Blood monocytes/100 leukocyt esOrdered By: Mitzi Lyon on 05-09-2023 Monocytes/100 WBC (Bld) 8.6 % 0-10 [facility] Blood platelet mean volumeOr dered By: Mitzi Lyon on 05-09-2023 Platelet mean volume (Bld) [Entitic vol] 11.1 fL 6.2-12.0 [facility] Determination of erythrocyte mean corpuscular volume (MCV)Ordered By: Mitzi Lyon on 05-09-2023 MCV (RBC) [Entitic vol] 101.8 fL 81-99 [facility] Hematocrit Auto (Bld) [Volum e fraction]Ordered By: Mitzi Lyon on 05-09-2023 Hematocrit (Bld) [Volume fraction] 34.0 % 37-47 [facility] - Chemistry and C hemistry - challengeon 05-09-2023 Glucose Ql (U) Negative [facility] - Hematology and Cell countsOrdered By: Mitzi Lyon on 05-09-2023 Erythrocyte distribution width (RBC) [Entitic vol] 46.8 fL 35.1-43.9 [facility] Erythrocyte distribution width (RBC) [Ratio] 12.4 % 11.6-14.6 [facility] Immature granulocytes/100 WBC (Bld) 0.400 % 0.0-0.9 [facility] Comment on above: IG% - Immature Granu locytes (promyelocytes, myelocytes and metamyelocytes) > 1% indicates that a LEFT SHIFT is Present. MCH (RBC) [Entitic mass] 34.4 pg 27.0-32.0 [facility] Nucleated RBC/100 WBC (Bld) [Ratio] 0 % 0-5 [facility] - Urinalysison Protein Ql (U) Negative [facility] MCHC Auto (RBC) [Mass/Vol]Or dered By: Mitzi Lyon on 05-09-2023 MCHC (RBC) [Mass/Vol] 33.8 g/dL 32-36 [facility] No Panel InformationOrdered By: Mitzi Lyon on 05-09-2023 Group B Streptococcus Culture Group B Beta Streptococcus is not isolated. [facility] Platelets bldOrdered By: Megan Lyon on 05-09-2023 Platelets (Bld) [#/Vol] 165 10*3/uL 150-450 [facility] - Chemistry and C hemistry - challengeon 04-25-2023 Glucose Ql (U) Negative [facility] - Urinalysison Protein Ql (U) Trace [facility] - Chemistry and C hemistry - challengeon 04-07-2023 Glucose Ql (U) Negative [facility] - Urinalysison Protein Ql (U) Negative [facility] Absolute lymphocyte countOrd ered By: Tamiko Cohn on 03-21-2023 Lymphocytes Auto (Unsp spec) [#/Vol] 1.70 10*3/uL 0.83-4.51 [facility] Basophil percentageOrdered B y: Tamiko Cohn on 03-21-2023 Basophils/100 WBC (Bld) 0.3 % 0-1 [facility] Eosinophils/100 WBC (Bld) 0.0 % 0-5 [facility] Neutrophils (Bld) [#/Vol] 6.4 10*3/uL 2.0-7.7 [facility] Neutrophils/100 WBC (Bld) 73.2 % 47-70 [facility] WBC (Bld) [#/Vol] 8.7 10*3/uL 4.4-11.0 [facility] Blood erythrocytes count (nu mber/volume)Ordered By: Tamiko Cohn on 03-21-2023 RBC (Bld) [#/Vol] 3.11 10*6/uL 4.2-5.4 [facility] Blood hemoglobin measurement (mass/volume)Ordered By: Tamiko Cohn on 03-21-2023 Hemoglobin (Bld) [Mass/Vol] 10.7 g/dL 12.0-15.0 [facility] Blood lymphocytes/100 leukoc ytesOrdered By: Tamiko Cohn on 03-21-2023 Lymphocytes/100 WBC (Bld) 19.5 % 19-41 [facility] Blood monocytes/100 leukocyt esOrdered By: Tamiko Cohn on 03-21-2023 Monocytes/100 WBC (Bld) 6.7 % 0-10 [facility] Blood platelet mean volumeOr dered By: Tamiko Cohn on 03-21-2023 Platelet mean volume (Bld) [Entitic vol] 10.2 fL 6.2-12.0 [facility] Determination of erythrocyte mean corpuscular volume (MCV)Ordered By: Tamiko Cohn on 03-21-2023 MCV (RBC) [Entitic vol] 101.3 fL 81-99 [facility] Hematocrit Auto (Bld) [Volum e fraction]Ordered By: Tamiko Cohn on 03-21-2023 Hematocrit (Bld) [Volume fraction] 31.5 % 37-47 [facility] - Hematology and Cell countsOrdered By: Tamiko Cohn on 03-21-2023 Erythrocyte distribution width (RBC) [Entitic vol] 46.9 fL 35.1-43.9 [facility] Erythrocyte distribution width (RBC) [Ratio] 12.7 % 11.6-14.6 [facility] Immature granulocytes/100 WBC (Bld) 0.300 % 0.0-0.9 [facility] Comment on above: IG% - Immature Granu locytes (promyelocytes, myelocytes and metamyelocytes) > 1% indicates that a LEFT SHIFT is Present. MCH (RBC) [Entitic mass] 34.4 pg 27.0-32.0 [facility] Nucleated RBC/100 WBC (Bld) [Ratio] 0 % 0-5 [facility] MCHC Auto (RBC) [Mass/Vol]Or dered By: Tamiko Cohn on 03-21-2023 MCHC (RBC) [Mass/Vol] 34.0 g/dL 32-36 [facility] Platelets bldOrdered By: Maribel Cohn on 03-21-2023 Platelets (Bld) [#/Vol] 201 10*3/uL 150-450 [facility] Absolute lymphocyte countOrd ered By: Jennifer Mike on 02-17-2023 Lymphocytes Auto (Unsp spec) [#/Vol] 1.58 10*3/uL 0.83-4.51 [facility] Basophil percentageOrdered B y: Jennifer Mike on 02-17-2023 Basophils/100 WBC (Bld) 0.4 % 0-1 [facility] Eosinophils/100 WBC (Bld) 0.0 % 0-5 [facility] Neutrophils (Bld) [#/Vol] 7.2 10*3/uL 2.0-7.7 [facility] Neutrophils/100 WBC (Bld) 75.8 % 47-70 [facility] WBC (Bld) [#/Vol] 9.5 10*3/uL 4.4-11.0 [facility] Blood erythrocytes count (nu mber/volume)Ordered By: Jennifer Mike on 02-17-2023 RBC (Bld) [#/Vol] 3.18 10*6/uL 4.2-5.4 [facility] Blood hemoglobin measurement (mass/volume)Ordered By: Jennifer Mike on 02-17-2023 Hemoglobin (Bld) [Mass/Vol] 10.6 g/dL 12.0-15.0 [facility] Blood lymphocytes/100 leukoc ytesOrdered By: Jennifer Mike on 02-17-2023 Lymphocytes/100 WBC (Bld) 16.6 % 19-41 [facility] Blood monocytes/100 leukocyt esOrdered By: Jennifer Mike on 04-24-2023 Monocytes/100 WBC (Bld) 6.7 % 0-10 [facility] Blood platelet mean volumeOr dered By: Jennifer Mike on 02-17-2023 Platelet mean volume (Bld) [Entitic vol] 11.7 fL 6.2-12.0 [facility] Determination of erythrocyte mean corpuscular volume (MCV)Ordered By: Jennifer Mike on 02-17-2023 MCV (RBC) [Entitic vol] 101.3 fL 81-99 [facility] Gestational diabetes screen 1-hour screen with 50g oral glucose loadOrdered By: Jennifer Mike on 02-17-2023 Glucose 1 Hr post 50 g glucose PO [Mass/Vol] 84 mg/dL 70-140 [facility] HIV 1 and HIV-2 antibody ass ay with HIV-1 p24 antigen detectionOrdered By: Jennifer Mike on 02-17-2023 HIV 1+2 Ab+HIV1 p24 Ag IA Ql Non-Reactive Nonreactive [facility] Hematocrit Auto (Bld) [Volum e fraction]Ordered By: Jennifer Mike on 02-17-2023 Hematocrit (Bld) [Volume fraction] 32.2 % 37-47 [facility] - Hematology and Cell countsOrdered By: Jennifer Mike on 02-17-2023 Erythrocyte distribution width (RBC) [Entitic vol] 47.5 fL 35.1-43.9 [facility] Erythrocyte distribution width (RBC) [Ratio] 12.7 % 11.6-14.6 [facility] Immature granulocytes/100 WBC (Bld) 0.500 % 0.0-0.9 [facility] Comment on above: IG% - Immature Granu locytes (promyelocytes, myelocytes and metamyelocytes) > 1% indicates that a LEFT SHIFT is Present. MCH (RBC) [Entitic mass] 33.3 pg 27.0-32.0 [facility] Nucleated RBC/100 WBC (Bld) [Ratio] 0 % 0-5 [facility] MCHC Auto (RBC) [Mass/Vol]Or dered By: Jennifer Mike on 02-17-2023 MCHC (RBC) [Mass/Vol] 32.9 g/dL 32-36 [facility] Platelets bldOrdered By: Mahsa Mike on 02-17-2023 Platelets (Bld) [#/Vol] 199 10*3/uL 150-450 [facility] Serum Treponema species anti body detectionOrdered By: Jennifer Cee on 02-17-2023 Treponema sp Ab Ql (S) Non-Reactive [facility] - Chemistry and C hemistry - challengeon 01-20-2023 Glucose Ql (U) Negative [facility] - Urinalysison Protein Ql (U) Negative [facility] - Chemistry and C hemistry - challengeon 12-27-2022 Glucose Ql (U) Negative [facility] - Urinalysison Protein Ql (U) Negative [facility] - Chemistry and C hemistry - challengeon 11-29-2022 Glucose Ql (U) Negative [facility] - Urinalysison Protein Ql (U) Negative [facility] Culture, urineOrdered By: Dr Margarita Aguilar on 11-21-2022 Bacteria identified Cx Nom (U) Culture exhibits no growth. [facility] Absolute lymphocyte countOrd ered By: Dr. Aguilar on 11-19-2022 Lymphocytes Auto (Unsp spec) [#/Vol] 1.67 10*3/uL 0.83-4.51 [facility] Basophil percentageOrdered B y: Dr. Aguilar on 11-19-2022 Basophil percentage 0-5 SEEN /hpf 0-5 [facility] Basophils/100 WBC (Bld) 0.4 % 0-1 [facility] Bilirubin [Mass/Vol] 0.20 mg/dL 0.20-1.00 [facility] Comment on above: For patients on eltr ombopag therapy, use of Dimension [place] TBIL is not recommended. Chloride [Moles/Vol] 104 mmol/L 98-107 [facility] Eosinophils/100 WBC (Bld) 0.3 % 0-5 [facility] Glucose [Mass/Vol] 123 mg/dL 74-106 [facility] Comment on above: Fasting Glucose resu lt from 100 to 125 mg/dL suggests IMPAIRED HOMEOSTASIS per A.D.A. criteria. Neutrophils (Bld) [#/Vol] 7.0 10*3/uL 2.0-7.7 [facility] Neutrophils/100 WBC (Bld) 75.4 % 47-70 [facility] Potassium [Moles/Vol] 3.8 mmol/L 3.5-5.1 [facility] Protein [Mass/Vol] 6.3 g/dL 6.4-8.2 [facility] Sodium [Moles/Vol] 136 mmol/L 136-145 [facility] WBC (Bld) [#/Vol] 9.3 10*3/uL 4.4-11.0 [facility] Bilirubin Test strip Ql (U)O rdered By: Dr. Aguilar on 11-19-2022 Bilirubin Ql (U) Negative Negative [facility] Blood erythrocytes count (nu mber/volume)Ordered By: Dr. Aguilar on 11-19-2022 RBC (Bld) [#/Vol] 3.54 10*6/uL 4.2-5.4 [facility] Blood hemoglobin measurement (mass/volume)Ordered By: Dr. Aguilar on 11-19-2022 Hemoglobin (Bld) [Mass/Vol] 11.3 g/dL 12.0-15.0 [facility] Blood lymphocytes/100 leukoc ytesOrdered By: Dr. Aguilar on 11-19-2022 Lymphocytes/100 WBC (Bld) 17.9 % 19-41 [facility] Blood monocytes/100 leukocyt esOrdered By: Dr. Aguilar on 11-19-2022 Monocytes/100 WBC (Bld) 5.8 % 0-10 [facility] Blood platelet mean volumeOr dered By: Dr. Aguilar on 11-19-2022 Platelet mean volume (Bld) [Entitic vol] 11.5 fL 6.2-12.0 [facility] Calcium oxalate crystals det ection in urine sediment by light microscopyOrdered By: Dr. Aguilar on 11-19-2022 Calcium oxalate crystals LM Ql (Urine sed) RARE /hpf [facility] Determination of erythrocyte mean corpuscular volume (MCV)Ordered By: Dr. Aguilar on 11-19-2022 MCV (RBC) [Entitic vol] 95.8 fL 81-99 [facility] Hematocrit Auto (Bld) [Volum e fraction]Ordered By: Dr. Aguilar on 11-19-2022 Hematocrit (Bld) [Volume fraction] 33.9 % 37-47 [facility] Ketones Test strip Ql (U)Ord ered By: Dr. Aguilar on 11-19-2022 Ketones Ql (U) Negative Negative [facility] Laboratory - Chemistry and C hemistry - challengeOrdered By: Dr. Aguilar on 11-19-2022 ALP [Catalytic activity/Vol] 29 U/L 45-117 [facility] ALT [Catalytic activity/Vol] 19 U/L 13-56 [facility] CO2 [Moles/Vol] 25.0 mmol/L 21.0-32.0 [facility] Globulin (S) [Mass/Vol] 3.1 g/dL 2.2-4.2 [facility] Urea nitrogen/Creatinine [Mass ratio] 27.6 mg/mg 10-20 [facility] Laboratory - Hematology and Cell countsOrdered By: Dr. Aguilar on 11-19-2022 Erythrocyte distribution width (RBC) [Entitic vol] 44.4 fL 35.1-43.9 [facility] Erythrocyte distribution width (RBC) [Ratio] 12.8 % 11.6-14.6 [facility] Immature granulocytes/100 WBC (Bld) 0.200 % 0.0-0.9 [facility] Comment on above: IG% - Immature Granu locytes (promyelocytes, myelocytes and metamyelocytes) > 1% indicates that a LEFT SHIFT is Present. MCH (RBC) [Entitic mass] 31.9 pg 27.0-32.0 [facility] Nucleated RBC/100 WBC (Bld) [Ratio] 0 % 0-5 [facility] MCHC Auto (RBC) [Mass/Vol]Or dered By: Dr. Aguilar on 11-19-2022 MCHC (RBC) [Mass/Vol] 33.3 g/dL 32-36 [facility] Mucus LM Ql (Urine sed)Order ed By: Dr. Aguilar on 11-19-2022 Mucus Ql (Urine sed) 1+ /hpf [facility] Nitrite Test strip Ql (U)Ord ered By: Dr. Aguilar on 11-19-2022 Nitrite Ql (U) Negative Negative [facility] No Panel InformationOrdered By: Dr. Aguilar on 11-19-2022 Estimated Creatinine Clearance Calc 118.30 ml/min [facility] Estimated GFR (MDRD) Amer 145 mL/min >60 [facility] Comment on above: GFR Calc Estimated GFR (MDRD) Non-Af Amer 120 mL/min >60 [facility] Comment on above: Non- GFR Calc Platelets bldOrdered By: Dr. Aguilar on 11-19-2022 Platelets (Bld) [#/Vol] 174 10*3/uL 150-450 [facility] Protein Test strip Ql (U)Ord ered By: Dr. Aguilar on 11-19-2022 Protein Ql (U) 15 mg/dl Negative [facility] Serum or plasma albumin dwayne urement (mass/volume)Ordered By: Dr. Aguilar on 11-19-2022 Albumin [Mass/Vol] 3.2 g/dL 3.2-5.0 [facility] Serum or plasma albumin/glob ulin mass ratioOrdered By: Dr. Aguilar on 11-19-2022 Albumin/Globulin [Mass ratio] 1.0 {ratio} 0.9-2.4 [facility] Serum or plasma calcium dwayne urement (mass/volume)Ordered By: Dr. Aguilar on 11-19-2022 Calcium [Mass/Vol] 8.1 mg/dL 8.5-10.1 [facility] Serum or plasma creatinine m easurement (mass/volume)Ordered By: Dr. Aguilar on 11-19-2022 Creatinine [Mass/Vol] 0.62 mg/dL 0.55-1.02 [facility] Comment on above: The validity of the calculated GFR & GFRAA in patients over 70 years has not been determined. Clinical correlation is essential. Serum or plasma urea nitroge n measurement (mass/volume)Ordered By: Dr. Aguilar on 11-19-2022 Urea nitrogen [Mass/Vol] 17 mg/dL 7-18 [facility] Squamous epithelial cells de tection in urine sediment by light microscopyOrdered By: Dr. Aguilar on 11-19-2022 Epithelial cells.squamous LM Ql (Urine sed) 5-10 SEEN /hpf 5-10 [facility] Thin prep Papanicolaou smear with manual screeningOrdered By: Dr. Aguilar on 11-19-2022 Thin prep Papanicolaou smear with manual screening 11 U/L 15-37 [facility] Thin prep Papanicolaou smear with manual screening 7 5-15 [facility] Urine blood detectionOrdered By: Dr. Aguilar on 11-19-2022 RBC Ql (U) 25 /ul Negative [facility] RBC Ql (U) 0-5 SEEN /hpf 0-5 [facility] Urine clarityOrdered By: Dr. Aguilar on 11-19-2022 Clarity (U) Clear Clear [facility] Urine color determinationOrd ered By: Dr. Aguilar on 11-19-2022 Color (U) Yellow Yellow [facility] Urine glucose detectionOrder ed By: Dr. Aguilar on 11-19-2022 Glucose Ql (U) Normal mg/dl Normal [facility] Urine leukocyte esterase det ection by dipstickOrdered By: Dr. Aguilar on 11-19-2022 Leukocyte esterase Test strip Ql (U) 25 /ul Negative [facility] Urine pHOrdered By: Dr. Gregorio yen on 11-19-2022 pH (U) 5.0 [pH] 5.0 - 8.0 [facility] Urine sediment bacteria coun t by microscopy (number/high power field)Ordered By: Dr. Aguilar on 11-19-2022 Bacteria LM.HPF (Urine sed) [#/Area] 3 /[HPF] None Seen [facility] Urine specific gravity measu rementOrdered By: Dr. Aguilar on 11-19-2022 Specific gravity (U) [Rel density] 1.030 1.002-1.030 [facility] Urobilinogen Auto test strip Ql (U)Ordered By: Dr. Aguilar on 11-19-2022 Urobilinogen Ql (U) Normal mg/dl Normal [facility] Culture, urineOrdered By: Dr Margarita Cohn on 11-03-2022 Bacteria identified Cx Nom (U) Culture exhibits no growth. [facility] Absolute lymphocyte countOrd ered By: Dr. Cohn on 11-01-2022 Lymphocytes Auto (Unsp spec) [#/Vol] 2.09 10*3/uL 0.83-4.51 [facility] Basophil percentageOrdered B y: Dr. Cohn on 11-01-2022 Basophils/100 WBC (Bld) 0.5 % 0-1 [facility] Eosinophils/100 WBC (Bld) 2.8 % 0-5 [facility] Neutrophils (Bld) [#/Vol] 5.3 10*3/uL 2.0-7.7 [facility] Neutrophils/100 WBC (Bld) 64.3 % 47-70 [facility] WBC (Bld) [#/Vol] 8.3 10*3/uL 4.4-11.0 [facility] Blood erythrocytes count (nu mber/volume)Ordered By: Dr. Cohn on 11-01-2022 RBC (Bld) [#/Vol] 3.83 10*6/uL 4.2-5.4 [facility] Blood hemoglobin measurement (mass/volume)Ordered By: Dr. Cohn on 11-01-2022 Hemoglobin (Bld) [Mass/Vol] 12.6 g/dL 12.0-15.0 [facility] Blood lymphocytes/100 leukoc ytesOrdered By: Dr. Cohn on 11-01-2022 Lymphocytes/100 WBC (Bld) 25.3 % 19-41 [facility] Blood monocytes/100 leukocyt esOrdered By: Dr. Cohn on 11-01-2022 Monocytes/100 WBC (Bld) 6.9 % 0-10 [facility] Blood platelet mean volumeOr dered By: Dr. Cohn on 11-01-2022 Platelet mean volume (Bld) [Entitic vol] 11.9 fL 6.2-12.0 [facility] Cervical or vagninal specime n microscopic examination by cytology stain (reported asOrdered By: Dr. Cohn on 11-01-2022 Cytology report Cyto stain Doc (Cvx/Vag) Comment . [facility] Comment on above: The Pap smear is a s creening test designed to aid in thedetection of premalignant and malignant conditions of theuterine cervix. It is not a diagnostic procedure andshould not be used as the sole means of detecting cervicalcancer. Both false-positive and false-negative reports dooccur. Chlamydia trachomatis rRNA d etection by probe and target amplification methodOrdered By: Dr. Cohn on 11-01-2022 C. trachomatis rRNA ABA+probe Ql (Unsp spec) Negative Negative [facility] Detection in cervical specim en of any of human papilloma virus (HPV) 16, 18, 31, 33,Ordered By: Dr. Cohn on 11-01-2022 HPV 16+18+31+33+35+39+45+51+ 52+56+58+59+66+68 DNA Probe+sig amp Ql (Cvx) Negative Negative [facility] Comment on above: This nucleic acid am plification test detects fourteen high-risk HPV types (16,18,31,33,35,39,45,51,52,56,58,59,66,68)without differentiation. Determination of erythrocyte mean corpuscular volume (MCV)Ordered By: Dr. Cohn on 11-01-2022 MCV (RBC) [Entitic vol] 96.3 fL 81-99 [facility] HIV 1 and HIV-2 antibody ass ay with HIV-1 p24 antigen detectionOrdered By: Dr. Cohn on 11-01-2022 HIV 1+2 Ab+HIV1 p24 Ag IA Ql Non-Reactive Nonreactive [facility] Hematocrit Auto (Bld) [Volum e fraction]Ordered By: Dr. Cohn on 11-01-2022 Hematocrit (Bld) [Volume fraction] 36.9 % 37-47 [facility] Laboratory - CytologyOrdered By: Dr. Cohn on 11-01-2022 Mass Spectroscopist Cyto stain Nom (Cvx/Vag) [ID] Comment . [facility] Comment on above: Luis Adams, Cyto technologist (ASCP) Laboratory - Hematology and Cell countsOrdered By: Dr. Cohn on 11-01-2022 Erythrocyte distribution width (RBC) [Entitic vol] 43.8 fL 35.1-43.9 [facility] Erythrocyte distribution width (RBC) [Ratio] 12.5 % 11.6-14.6 [facility] Immature granulocytes/100 WBC (Bld) 0.200 % 0.0-0.9 [facility] Comment on above: IG% - Immature Granu locytes (promyelocytes, myelocytes and metamyelocytes) > 1% indicates that a LEFT SHIFT is Present. MCH (RBC) [Entitic mass] 32.9 pg 27.0-32.0 [facility] Nucleated RBC/100 WBC (Bld) [Ratio] 0 % 0-5 [facility] Laboratory - Microbiology an d Antimicrobial susceptibilityOrdered By: Dr. Cohn on 11-01-2022 N. gonorrhoeae DNA ABA+probe Ql (Unsp spec) Negative Negative [facility] Comment on above: Performed at: =G - [address] [id number] Director: Raquel Key MD, Phone: [phone] Laboratory - Miscellaneous t estsOrdered By: Dr. Cohn on 11-01-2022 Service comment (Unsp spec) [Interp] Comment . [facility] Comment on above: This liquid based Th inPrep(R) pap test was screened withthe use of an image guided system. Service comment (Unsp spec) [Interp] . . [facility] Liquid-based cerv Pap + CT/G C by ABA w reflex to high-risk HPV for ASCUSOrdered By: Dr. Cohn on 11-01-2022 Cytology report Cyto stain.thin prep Doc (Cvx/Vag) Comment . [facility] Comment on above: Criteria not met, HP V Genotype not performed.Performed at: - [facility] [id number] Director: Raquel Key MD, Phone: [phone] at: =G - [facility] [id number] Director: Raquel Key MD, Phone: [phone] MCHC Auto (RBC) [Mass/Vol]Or dered By: Dr. Cohn on 11-01-2022 MCHC (RBC) [Mass/Vol] 34.1 g/dL 32-36 [facility] No Panel InformationOrdered By: Dr. Cohn on 11-01-2022 Pathology report final diagnosis Narrative Comment . [facility] Comment on above: NEGATIVE FOR INTRAEP ITHELIAL LESION OR MALIGNANCY. Miscellaneous Test Comment MAILED SPECIMEN [facility] Hepatitis B Surface Antigen Non-Reactive Nonreactive [facility] Hepatitis C Antibody Non-Reactive Nonreactive [facility] Comment on above: Non Reactive: < 0.8 Equivocal: >/= 0.8 to < 1.0 Reactive: >/= 1.0The CDC recommends that a reactive/equivocal HCV antibody result be followed up by the HCV Nucleic Acid Amplificationtest (782843) Rubella IgG Antibody Reactive Nonreactive [facility] Comment on above: Antibody Results Int erpretation of Immune Status Non Reactive Presumed Non-Immune Equivocal Equivocal Reactive Presumed Immune Platelets bldOrdered By: Dr. Cohn on 11-01-2022 Platelets (Bld) [#/Vol] 210 10*3/uL 150-450 [facility] Serum Treponema species anti body detectionOrdered By: Dr. Cohn on 11-01-2022 Treponema sp Ab Ql (S) Non-Reactive [facility] Serum or plasma choriogonado tropin detectionOrdered By: Jennifer Mike on 09-20-2022 HCG ( test) Ql 283 mIU/mL <4 [facility] Comment on above: hCG levels with Gest ational AgeGestational Age hCG mIU/mL (IU/L)0.2 - 1 week 5 - 501-2 weeks 50 - 5002-3 weeks 100 - 76862-9 weeks 500 - 265759-7 weeks 1000 - 418766-9 weeks 03310 - 100,0006-8 weeks 77931 - 200,0002-3 months 60725 - 100,000 Serum or plasma choriogonado tropin detectionOrdered By: Jennifer Mike on 09-18-2022 HCG ( test) Ql 85 mIU/mL <4 [facility] Comment on above: hCG levels with Gest ational AgeGestational Age hCG mIU/mL (IU/L)0.2 - 1 week 5 - 501-2 weeks 50 - 5002-3 weeks 100 - 03821-8 weeks 500 - 164471-2 weeks 1000 - 526489-7 weeks 07953 - 100,0006-8 weeks 78540 - 200,0002-3 months 52426 - 100,000 Serum or plasma progesterone measurement (mass/volume)Ordered By: Jennifer Mike on 09-18-2022 Progesterone [Mass/Vol] 21.25 ng/mL See Comment [facility] Comment on above: Progesterone Referen ce Table: UNITS Female: Follicular 0.15 - 1.40 ng/mL Luteal 3.34 - 25.56 ng/mL Mid-luteal 4.44 - 28.03 ng/mL Postmenopausal 0.0 - 0.73 ng/mL : 1st Trimester 11.22 - 90.00 ng/mL 2nd Trimester 25.55 - 89.40 ng/mL 3rd Trimester 48.40 -422.50 ng/mL Vital Signs Date Time Vital Sign Value Performing Clinician Ant brown 05-30-2025 15:58-0400 Body height 165.1 cm Pattie Giordano MD Work Phone: [facility] 05-30-2025 15:57-0400 Body mass index (BMI) [Ratio] 27.5 kg/m2 Pattie Giordano MD Work Phone: [facility] 05-30-2025 15:57-0400 Body weight 74.98 kg Pattie Giordano MD Work Phone: [facility] 05-30-2025 15:57-0400 Diastolic blood pressure 75 mm[Hg] Pattie Giordano MD Work Phone: [facility] 05-30-2025 15:57-0400 Systolic blood pressure 116 mm[Hg] Pattie Giordano MD Work Phone: [facility] 05-23-2025 08:51-0400 Body height 165.1 cm Pattie Giordano MD Work Phone: [facility] 05-23-2025 08:50-0400 Body mass index (BMI) [Ratio] 26.9 kg/m2 Pattie Giordano MD Work Phone: [facility] 05-23-2025 08:50-0400 Body weight 73.25 kg Pattie Giordano MD Work Phone: [facility] 05-23-2025 08:50-0400 Diastolic blood pressure 74 mm[Hg] Pattie Giordano MD Work Phone: [facility] 05-23-2025 08:50-0400 Systolic blood pressure 114 mm[Hg] Pattie Giordano MD Work Phone: [facility] 05-20-2025 08:35-0400 Body height 165.1 cm Pattie Giordano MD Work Phone: [facility] 05-20-2025 08:35-0400 Body mass index (BMI) [Ratio] 26.8 kg/m2 Pattie Giordano MD Work Phone: [facility] 05-20-2025 08:35-0400 Body weight 73.14 kg Pattie Giordano MD Work Phone: [facility] 05-20-2025 08:35-0400 Diastolic blood pressure 58 mm[Hg] Pattie Giordano MD Work Phone: [facility] 05-20-2025 08:35-0400 Systolic blood pressure 94 mm[Hg] Pattie Giordano MD Work Phone: [facility] 05-13-2025 11:02-0400 Body height 165.1 cm Pattie Giordano MD Work Phone: [facility] 05-13-2025 11:02-0400 Body mass index (BMI) [Ratio] 26.6 kg/m2 Pattie Giordano MD Work Phone: [facility] 05-13-2025 11:02-0400 Body weight 72.8 kg Pattie Giordano MD Work Phone: [facility] 05-13-2025 11:02-0400 Diastolic blood pressure 66 mm[Hg] Pattie Giordano MD Work Phone: [facility] 05-13-2025 11:02-0400 Systolic blood pressure 106 mm[Hg] Pattie Giordano MD Work Phone: [facility] 05-06-2025 09:29-0400 Body height 165.1 cm Pattie Giordano MD Work Phone: [facility] 05-06-2025 09:26-0400 Body mass index (BMI) [Ratio] 26.6 kg/m2 Pattie Giordano MD Work Phone: [facility] 05-06-2025 09:26-0400 Body weight 72.57 kg Pattie Giordano MD Work Phone: [facility] 05-06-2025 09:26-0400 Diastolic blood pressure 73 mm[Hg] Pattie Giordano MD Work Phone: [facility] 05-06-2025 09:26-0400 Systolic blood pressure 110 mm[Hg] Pattie Giordano MD Work Phone: [facility] 04-11-2025 10:06-0400 Body height 165.1 cm Pattie Giordano MD Work Phone: [facility] 04-11-2025 10:05-0400 Body mass index (BMI) [Ratio] 26.5 kg/m2 Pattie Giordano MD Work Phone: [facility] 04-11-2025 10:05-0400 Body weight 72.29 kg Pattie Giordano MD Work Phone: [facility] 04-11-2025 10:05-0400 Diastolic blood pressure 64 mm[Hg] Pattie Giordano MD Work Phone: [facility] 04-11-2025 10:05-0400 Systolic blood pressure 99 mm[Hg] Pattie Giordano MD Work Phone: [facility] 03-25-2025 11:20-0400 Body height 165.1 cm Pattie Giordano MD Work Phone: [facility] 03-25-2025 11:20-0400 Body mass index (BMI) [Ratio] 26.6 kg/m2 Pattie Giordano MD Work Phone: [facility] 03-25-2025 11:20-0400 Body weight 72.63 kg Pattie Giordano MD Work Phone: [facility] 03-25-2025 11:20-0400 Diastolic blood pressure 68 mm[Hg] Pattie Giordano MD Work Phone: [facility] 03-25-2025 11:20-0400 Systolic blood pressure 105 mm[Hg] Pattie Giordano MD Work Phone: 0(414)129-732076 [place] [address] 03-04-2025 11:18-0400 Body height 165.1 cm Pattie Giordano MD Work Phone: [facility] 03-04-2025 11:18-0400 Body mass index (BMI) [Ratio] 25.9 kg/m2 Pattie Giordano MD Work Phone: [facility] 03-04-2025 11:18-0400 Body weight 70.76 kg Pattie Giordano MD Work Phone: 0(013)309-065576 [place] [address] 03-04-2025 11:18-0400 Diastolic blood pressure 75 mm[Hg] Pattie Giordano MD Work Phone: 6(537)765-323276 [place] [address] 03-04-2025 11:18-0400 Systolic blood pressure 115 mm[Hg] Pattie Giordano MD Work Phone: 5(311)[phone] [place] [address] 02-04-2025 09:33-0400 Body mass index (BMI) [Ratio] 25.7 kg/m2 Pattie Giordano MD Work Phone: 7(968)154-327476 [place] [address] 02-04-2025 09:33-0400 Body weight 69.96 kg Pattie Giordano MD Work Phone: 4([phone])464-235476 [place] [address] 02-04-2025 09:33-0400 Diastolic blood pressure 61 mm[Hg] Pattie Giordano MD Work Phone: 9(078)687-882320 [place] [address] 02-04-2025 09:33-0400 Systolic blood pressure 95 mm[Hg] Pattie Giordano MD Work Phone: 8(011)[phone] [place] [address] 12-31-2024 09:30-0500 Body mass index (BMI) [Ratio] 24.7 kg/m2 Pattie Giordano MD Work Phone: 7(079)908-669276 [place] [address] 12-31-2024 09:30-0500 Body weight 67.3 kg Pattie Giordano MD Work Phone: [facility] 12-31-2024 09:30-0500 Diastolic blood pressure 62 mm[Hg] Pattie Giordano MD Work Phone: [facility] 12-31-2024 09:30-0500 Systolic blood pressure 99 mm[Hg] Pattie Giordano MD Work Phone: [facility] 12-03-2024 10:02-0500 Body mass index (BMI) [Ratio] 23.3 kg/m2 Pattie Giordano MD Work Phone: [facility] 12-03-2024 10:02-0500 Body weight 63.61 kg Pattie Giordano MD Work Phone: [facility] 12-03-2024 10:02-0500 Diastolic blood pressure 69 mm[Hg] Pattie Giordano MD Work Phone: [facility] 12-03-2024 10:02-0500 Systolic blood pressure 103 mm[Hg] Pattie Giordano MD Work Phone: [facility] 05-14-2024 08:14-0400 Body height 165.1 cm Rebecca Lucio MD Work Phone: [facility] 05-14-2024 08:14-0400 Body mass index (BMI) [Ratio] 22.61 kg/m2 Rebecca Lucio MD Work Phone: [facility] 05-14-2024 08:14-0400 Body weight 61.64 kg Rebecca Lucio MD Work Phone: [facility] 05-14-2024 08:14-0400 Diastolic blood pressure 78 mm[Hg] Rebecca Lucio MD Work Phone: [facility] [facility]24 08:14-0400 Systolic blood pressure 110 mm[Hg] Rebecca Lucio MD Work Phone: [facility] 05-30-2023 13:43-0400 Body temperature 98.2 [degF] Dr. Maria Isabel Snadoval Work Phone: [facility] 05-30-2023 13:43-0400 Diastolic blood pressure 64 mm[Hg] Dr. Maria Isabel Sandoval Work Phone: [facility] 05-30-2023 13:43-0400 Heart rate 68 /min Dr. Maria Isabel Sandoval Work Phone: [facility] 05-30-2023 13:43-0400 Respiratory rate 16 /min Dr. Maria Isabel Sandoval Work Phone: [facility] 05-30-2023 13:43-0400 SaO2% (BldA) [Mass fraction] 98 % Dr. Maria Isabel Sandoval Work Phone: [facility] 05-30-2023 13:43-0400 Systolic blood pressure 106 mm[Hg] Dr. Maria Isabel Sandoval Work Phone: [facility] 05-29-2023 08:27-0400 Body height 165.[address] Maria Isabel Sandoval Work Phone: [facility] 05-29-2023 08:27-0400 Body mass index (BMI) [Ratio] 27 kg/m2 Dr. Maria Isabel Sandoval Work Phone: 1(228)[phone] [place] [address] 05-29-2023 08:27-0400 Body weight 73.[address] Maria Isabel Sandoval Work Phone: [facility] 05-28-2023 16:22-0400 Body mass index (BMI) [Ratio] 27.5 kg/m2 Dr. Maria Isabel Sandoval Work Phone: [facility] 05-28-2023 16:22-0400 Body weight 74.[address] Maria Isabel Sandoval Work Phone: [facility] 05-28-2023 16:22-0400 Diastolic blood pressure 69 mm[Hg] Dr. Maria Isabel Sandoval Work Phone: [facility] 05-28-2023 16:22-0400 Systolic blood pressure 102 mm[Hg] Dr. Maria Isabel Sandoval Work Phone: [facility] 05-23-2023 14:08-0400 Body mass index (BMI) [Ratio] 27.3 kg/m2 Dr. Maria Isabel Sandoval Work Phone: [facility] 05-23-2023 14:08-0400 Body weight 74.[address] Maria Isabel Sandoval Work Phone: [facility] 05-23-2023 14:08-0400 Diastolic blood pressure 66 mm[Hg] Dr. Maria Isabel Sandoval Work Phone: [facility] 05-23-2023 14:08-0400 Systolic blood pressure 106 mm[Hg] Dr. Maria Isabel Sandoval Work Phone: [facility] 05-16-2023 16:06-0400 Body mass index (BMI) [Ratio] 27.3 kg/m2 Dr. Maria Isabel Sandoval Work Phone: [facility] 05-16-2023 16:06-0400 Body weight 74.[address] Maria Isabel Sandoval Work Phone: [facility] 05-16-2023 16:06-0400 Diastolic blood pressure 64 mm[Hg] Dr. Maria Isabel Sandoval Work Phone: [facility] 05-16-2023 16:06-0400 Systolic blood pressure 105 mm[Hg] Dr. Maria Isabel Sandoval Work Phone: [facility] 05-09-2023 09:44-0400 Body mass index (BMI) [Ratio] 26.8 kg/m2 Dr. Maria Isabel Sandoval Work Phone: [facility] 05-09-2023 09:44-0400 Body weight 73.[address] Maria Isabel Sandoval Work Phone: [facility] 05-09-2023 09:44-0400 Diastolic blood pressure 62 mm[Hg] Dr. Maria Isabel Sandoval Work Phone: [facility] 05-09-2023 09:44-0400 Systolic blood pressure 100 mm[Hg] Dr. Maria Isabel Sandoval Work Phone: [facility] 04-25-2023 08:09-0400 Body height 165.[address] Maria Isabel Sandoval Work Phone: [facility] 04-25-2023 08:06-0400 Body mass index (BMI) [Ratio] 26.5 kg/m2 Dr. Maria Isabel Sandoval Work Phone: [facility] 04-25-2023 08:06-0400 Body weight 72.[address] Maria Isabel Sandoval Work Phone: [facility] 04-25-2023 08:06-0400 Diastolic blood pressure 47 mm[Hg] Dr. Maria Isabel Sandoval Work Phone: [facility] 04-25-2023 08:06-0400 Systolic blood pressure 96 mm[Hg] Dr. Maria Isabel Sandoval Work Phone: [facility] 04-07-2023 11:39-0400 Body mass index (BMI) [Ratio] 26.6 kg/m2 Dr. Maria Isabel Sandoval Work Phone: [facility] 04-07-2023 11:39-0400 Body weight 72.[address] Maria Isabel Sandoval Work Phone: 5(140)[phone] [place] [address] 04-07-2023 11:39-0400 Diastolic blood pressure 63 mm[Hg] Dr. Maria Isabel Sandoval Work Phone: 9(105)[phone] [place] [address] 04-07-2023 11:39-0400 Systolic blood pressure 96 mm[Hg] Dr. Maria Isabel Sandoval Work Phone: [facility] 03-21-2023 16:06-0400 Body mass index (BMI) [Ratio] 26.2 kg/m2 Dr. Maria Isabel Sandovla Work Phone: [facility] 03-21-2023 16:06-0400 Body weight 71.[address] Maria Isabel Sandoval Work Phone: [facility] 03-21-2023 16:06-0400 Diastolic blood pressure 67 mm[Hg] Dr. Maria Isabel Sandoval Work Phone: [facility] 03-21-2023 16:06-0400 Systolic blood pressure 97 mm[Hg] Dr. Maria Isabel Sandoval Work Phone: [facility] 02-17-2023 10:48-0400 Body height 165.1 cm No Primary Care Physician [facility] 02-17-2023 10:48-0400 Body mass index (BMI) [Ratio] 25.8 kg/m2 No Primary Care Physician [facility] 02-17-2023 10:48-0400 Body weight 70.47 kg No Primary Care Physician [facility] 02-17-2023 10:48-0400 Diastolic blood pressure 64 mm[Hg] No Primary Care Physician [facility] 02-17-2023 10:48-0400 Systolic blood pressure 101 mm[Hg] No Primary Care Physician [facility] 01-20-2023 11:12-0400 Body mass index (BMI) [Ratio] 25 kg/m2 No Primary Care Physician [facility] 01-20-2023 11:12-0400 Body weight 68.26 kg No Primary Care Physician [facility] 01-20-2023 11:12-0400 Diastolic blood pressure 58 mm[Hg] No Primary Care Physician [facility] 01-20-2023 11:12-0400 Systolic blood pressure 110 mm[Hg] No Primary Care Physician [facility] 12-27-2022 10:42-0500 Body mass index (BMI) [Ratio] 24.5 kg/m2 No Primary Care Physician [facility] 12-27-2022 10:42-0500 Body weight 66.84 kg No Primary Care Physician [facility] 12-27-2022 10:42-0500 Diastolic blood pressure 66 mm[Hg] No Primary Care Physician [facility] 12-27-2022 10:42-0500 Systolic blood pressure 102 mm[Hg] No Primary Care Physician [facility] 11-29-2022 15:50-0500 Body mass index (BMI) [Ratio] 23.6 kg/m2 No Primary Care Physician [facility] 11-29-2022 15:50-0500 Body weight 64.41 kg No Primary Care Physician [facility] 11-29-2022 15:50-0500 Diastolic blood pressure 74 mm[Hg] No Primary Care Physician [facility] 11-29-2022 15:50-0500 Systolic blood pressure 106 mm[Hg] No Primary Care Physician [facility] 11-19-2022 08:36-0500 Diastolic blood pressure 67 mm[Hg] No Primary Care Physician [facility] 11-19-2022 08:36-0500 Heart rate 63 /min No Primary Care Physician [facility] 11-19-2022 08:36-0500 Respiratory rate 14 /min No Primary Care Physician [facility] 11-19-2022 08:36-0500 SaO2% (BldA) [Mass fraction] 97 % No Primary Care Physician [facility] 11-19-2022 08:36-0500 Systolic blood pressure 104 mm[Hg] No Primary Care Physician [facility] 11-19-2022 02:26-0500 Body height 165.1 cm No Primary Care Physician [facility] 11-19-2022 02:26-0500 Body mass index (BMI) [Ratio] 23.4 kg/m2 No Primary Care Physician [facility] 11-19-2022 02:26-0500 Body temperature 96.6 [degF] No Primary Care Physician [facility] 11-19-2022 02:26-0500 Body weight 64 kg No Primary Care Physician [facility] 11-01-2022 14:12-0500 Body height 165.1 cm No Primary Care Physician [facility] 11-01-2022 14:11-0500 Body mass index (BMI) [Ratio] 23 kg/m2 No Primary Care Physician [facility] 11-01-2022 14:11-0500 Body weight 62.7 kg No Primary Care Physician [facility] 11-01-2022 14:11-0500 Diastolic blood pressure 69 mm[Hg] No Primary Care Physician [facility] 11-01-2022 14:11-0500 Systolic blood pressure 115 mm[Hg] No Primary Care Physician [facility] 09-18-2022 09:01-0500 Body mass index (BMI) [Ratio] 22.4 kg/m2 No Primary Care Physician [facility] 09-18-2022 09:01-0500 Diastolic blood pressure 68 mm[Hg] No Primary Care Physician [facility] 09-18-2022 09:01-0500 Systolic blood pressure 100 mm[Hg] No Primary Care Physician [facility] 09-18-2022 08:40-0500 Body weight 60.95 kg No Primary Care Physician [facility] Encounters Encounter Date Encounter Type Care Provider Facility Start: 05-30-2025 End: 05-30-2025 ambulatory Pattie Giordano MD Work Phone: [facility] Start: 05-30-2025 End: 05-30-[address] Tamiko Steven DO -[facility] Work Phone: Start: 05-23-2025 End: 05-23-2025 Patient encounter procedure Lino Joaquin CNM -[facility] Work Phone: Start: 05-23-2025 End: 05-23-2025 ambulatory Pattie Giordano MD Work Phone: [facility] Start: 05-20-2025 End: 05-20-2025 Patient encounter procedure Mitzi AVELAR -[facility] Work Phone: Start: 05-20-2025 End: 05-20-2025 ambulatory Pattie Giordano MD Work Phone: [facility] Start: 05-13-2025 End: 05-13-[address] Karla Shrestha MD -[facility] Work Phone: Start: 05-13-2025 End: 05-13-2025 ambulatory Pattie Giordano MD Work Phone: [facility] Start: 05-06-2025 End: 05-06-2025 Patient encounter procedure Lino Joaquin CNM -[facility] Work Phone: Start: 05-06-2025 End: 05-06-2025 ambulatory Pattie Giordano MD Work Phone: [facility] Start: 04-15-2025 End: 04-15-2025 ambulatory Pattie Giordano MD Work Phone: [facility] Work Phone: Start: 04-15-2025 End: 04-15-2025 [facility] Start: 04-15-2025 End: 04-15-2025 ambulatory Chalon Pasquale Facility:[facility] Start: 04-11-2025 End: 04-11-2025 Patient encounter procedure Lino Joaquin CNM -[facility] Work Phone: Start: 04-11-2025 End: 04-11-2025 ambulatory Pattie Giordano MD Work Phone: [facility] Work Phone: Start: 04-11-2025 End: 04-11-2025 ambulatory Chalon Pasquale Facility:[facility] Start: 03-25-2025 End: 03-25-[address] Karla Shrestha MD -[facility] Work Phone: Start: 03-25-2025 End: 03-25-2025 ambulatory Pattie Giordano MD Work Phone: [facility] Work Phone: Start: 03-04-2025 End: 03-04-2025 Patient encounter procedure Lino Joaquin CNM -[facility] Work Phone: Start: 03-04-2025 End: 03-04-2025 ambulatory Pattie Giordano MD Work Phone: [facility] Work Phone: Start: 03-04-2025 End: 03-04-2025 ambulatory Chalon Pasquale Facility:[facility] Start: 02-04-2025 End: 02-04-[address] Tamiko Steven DO -[facility] Work Phone: Start: 02-04-2025 End: 02-04-2025 ambulatory Chalon Pasquale Facility:[facility] Start: 01-03-2025 End: 01-03-2025 ambulatory MARIA ISABEL SANDOVAL [facility] Start: 12-31-2024 End: 12-31-2024 Patient encounter procedure Lino Joaquin CNM -[facility] Work Phone: Start: 12-31-2024 End: 12-31-2024 ambulatory Chalon Pasquale Facility:[facility] Start: 12-03-2024 End: 12-03-2024 Patient encounter procedure Lino Joaquin CNM -[facility] Work Phone: Start: 12-03-2024 End: 12-03-2024 ambulatory Chalon Pasquale Facility:[facility] Start: 11-01-2024 End: 11-01-2024 ambulatory Chalon Pasquale Facility:[facility] Start: 11-01-2024 End: 11-01-2024 ambulatory Chalon Pasquale Facility:[facility] Start: 09-24-2024 End: 09-24-2024 ambulatory Chalon Pasquale Facility:[facility] Start: 09-22-2024 End: 09-22-2024 ambulatory Chalon Pasquale Facility:[facility] Start: 09-13-2024 End: 09-13-2024 ambulatory Chalon Pasquale Facility:[facility] Start: 05-14-2024 End: 05-14-2024 ambulatory REBECCA LUCIO Facility:[facility] Start: 05-14-2024 End: 05-14-2024 Office consultation new/estab patient 60 min Rebecca Lucio MD Work Phone: URO/Gynecology Comment on above: Lichen sclerosus et atrophicus (Primary Dx) Start: 05-30-2023 Non-patient / Non-visit Dr. Beth Sandoval Work Phone: [facility] Start: 05-29-2023 End: 05-30-2023 Evaluation and management of inpatient Dr. Maria Isabel Sandoval Work Phone: [facility] Work Phone: Start: 05-28-2023 End: 05-28-[address] Maria Isabel Sandoval Work Phone: [facility] Work Phone: Start: 05-23-2023 End: 05-23-[address] Maria Isabel Sandoval Work Phone: [facility] Work Phone: Start: 05-16-2023 End: 05-16-[address] Maria Isabel Sandoval Work Phone: [facility] Work Phone: Start: 05-09-2023 End: 05-09-[address] Maria Isabel Sandoval Work Phone: [facility] Work Phone: Start: 04-25-2023 End: 04-25-[address] Maria Isabel Sandoval Work Phone: [facility] Work Phone: Start: 04-07-2023 End: 04-07-[address] Maria Isabel Sandoval Work Phone: [facility] Work Phone: Start: 03-21-2023 End: 03-21-[address] Maria Isabel Sandoval Work Phone: [facility] Work Phone: Start: 03-21-2023 End: 03-21-[address] Maria Isabel Sandoval Work Phone: [facility] Work Phone: Start: 02-17-2023 End: 02-17-2023 ambulatory No Primary Care Physician [facility] Work Phone: Start: 02-17-2023 End: 02-17-2023 Patient encounter procedure No Primary Care Physician [facility] Start: 01-20-2023 End: 01-20-2023 Patient encounter procedure No Primary Care Physician [facility] Start: 12-27-2022 End: 12-27-2022 Patient encounter procedure No Primary Care Physician [facility] Start: 11-29-2022 End: 11-29-2022 Patient encounter procedure No Primary Care Physician [facility] Start: 11-19-2022 Non-patient / Non-visit No [facility] Care Physician [facility] Start: 11-19-2022 End: 11-19-2022 Emergency department patient visit No Primary Care Physician [facility] Start: 11-01-2022 End: 11-01-2022 ambulatory No Primary Care Physician [facility] Work Phone: Start: 11-01-2022 End: 11-01-2022 Patient encounter procedure No Primary Care Physician [facility] Start: 09-20-2022 End: 09-20-2022 ambulatory No Primary Care Physician [facility] Work Phone: Start: 09-20-2022 End: 09-20-2022 Patient encounter procedure No Primary Care Physician [facility] Start: 09-18-2022 End: 09-18-2022 ambulatory No Primary Care Physician [facility] Work Phone: Start: 09-18-2022 End: 09-18-2022 Patient encounter procedure No Primary Care Physician [facility] Start: 09-19-2020 End: 09-23-2020 Patient encounter procedure PROVIDER NOT IN SYSTEM [facility] Start: 03-31-2018 Ambulatory ANNMARIE VANEGAS [facility] Procedures Date Procedure Procedure Detail Performing Clinician Start: 04-15-2025 Total iron binding c apacity measurement Pattie Giordano MD Work Phone: Start: 04-15-2025 Ultrasound scan for growth Pattie Giordano MD Work Phone: Start: 03-04-2025 Serologic test for syphilis Pattie Giordano MD Work Phone: Start: 05-09-2023 Group B Streptococcu s Culture Dr. Maria Isabel Sandoval Work Phone: Start: 11-19-2022 Computed tomography of abdomen and pelvis with intravenous contrast No Primary Care Physician Start: 11-19-2022 Transvaginal obstetr ic ultrasonography No Primary Care Physician Start: 11-19-2022 US urinary tract No [facility] Physician Urine culture No Primary Car e Physician Urine culture No Primary Car e Physician Plan of Treatment Date Care Activity Detail Author Start: 03-21-2033 Urine microalbumin profile DTaP,Tdap,Td Vaccine (9 - Td or Tdap) [facility] Start: 04-11-2025 Comprehensive metabolic 2000 panel - Serum or Plasma [facility] Start: 04-11-2025 Protein/Creatinine [Ratio] in Urine [facility] Start: 06-27-2024 Influenza vaccination Influenza Vaccine (#1) [facility] Start: 10-27-2023 Behavioral Health Screening Behavioral Health Screening [facility] Start: 06-27-2023 Covid-19 Vaccine () Covid-19 Vaccine () [facility] Start: 05-30-2023 Patient discharge [facility] Start: 05-29-2023 Administration of medication [facility] Start: 05-29-2023 Application of ice collar, cap or bag [facility] Start: 05-29-2023 Catheterization of vein [facility] Start: 05-29-2023 Introduction of urinary catheter [facility] Start: 05-29-2023 Measuring intake and output [facility] Start: 05-29-2023 Notification of physician [facility] Start: 05-29-2023 Procedure discontinued [facility] Start: 05-29-2023 Provision of activity privileges [facility] Start: 05-29-2023 Vital signs measurements [facility] Start: 05-29-2023 [facility] Start: 05-29-2023 Admission procedure [facility] Start: 11-19-2022 [facility] Start: 2012 Screening for malignant neoplasm of cervix Cervical Cancer Screening [facility] Start: 2009 Hepatitis C screening Hepatitis C Screening [facility] Start: 2009 HIV screening HIV Screening [facility] Alanine aminotransfe rase [Enzymatic activity/volume] in Serum or Plasma [facility] Albumin [Mass/volume ] in Serum or Plasma [facility] Alkaline phosphatase [Enzymatic activity/volume] in Serum or Plasma [facility] Anion gap in Serum or Plasma [facility] Bilirubin, total measurement [facility] BUN/Creatinine ratio [facility] Calcium [Mass/volume ] in Serum or Plasma [facility] Carbon dioxide, tota l [Moles/volume] in Central venous blood [facility] CBC W Auto Different ial panel - Blood [facility] Creatinine [Mass/vol ume] in Serum or Plasma [facility] Creatinine [Mass/vol ume] in Urine collected for unspecified duration [facility] Glucose [Mass/volume ] in Serum or Plasma [facility] Measurement of renal function [facility] Patient Education ED Abdominal P ain Unkn Cause Fem ED Abdominal Pain, Early [facility] Work Phone: Patient referral [facility] Work Phone: Potassium measurement [facility] Protein [Mass/volume ] in Urine [facility] Protein/Creatinine [ Mass Ratio] in Urine [facility] Serum chloride measurement [facility] Sodium measurement [facility] Total protein measurement [facility] Ultrasound scan for growth [facility] Urea nitrogen [Mass/ volume] in Serum or Plasma [facility] Immunizations Immunization Date Immunization Notes Care Provider [facility] 03-25-2025 tetanus toxoid, redu rodo diphtheria toxoid, and acellular pertussis vaccine, adsorbed Pattie Giordano MD Work Phone: [facility] 03-21-2023 tetanus toxoid, redu rodo diphtheria toxoid, and acellular pertussis vaccine, adsorbed Dr. Maria Isabel Sandoval Work Phone: [facility] 03-09-2021 tetanus toxoid, redu rodo diphtheria toxoid, and acellular pertussis vaccine, adsorbed No Primary Care Physician [facility] 07-17-2020 influenza virus vaccine, unspecified formulation Rebecca Lucio MD Work Phone: [facility] 01-25-1997 diphtheria, tetanus toxoids and acellular pertussis vaccine Rebecca Lucio MD Work Phone: [facility] 01-25-1997 trivalent poliovirus vaccine, live, oral Rebecca Lucio MD Work Phone: [facility] 11-02-1992 haemophilus influenz ae type b vaccine, HbOC conjugate Rebecca Lucio MD Work Phone: [facility] 11-02-1992 measles, mumps and rubella virus vaccine Rebecca Lucio MD Work Phone: [facility] 01-13-1992 diphtheria, tetanus toxoids and acellular pertussis vaccine Rebecca Lucio MD Work Phone: [facility] 01-13-1992 haemophilus influenz ae type b vaccine, HbOC conjugate Rebecca Lucio MD Work Phone: [facility] 1991 diphtheria, tetanus toxoids and acellular pertussis vaccine Rebecca Lucio MD Work Phone: [facility] 1991 haemophilus influenz ae type b vaccine, HbOC conjugate Rebecca Lucio MD Work Phone: [facility] [facility] trivalent poliovirus vaccine, live, oral Rebecca Lucio MD Work Phone: [facility] 1990 diphtheria, tetanus toxoids and acellular pertussis vaccine Rebecca Lucio MD Work Phone: [facility] 1990 haemophilus influenz ae type b vaccine, HbOC conjugate Rebecca Lucio MD Work Phone: [facility] 1990 trivalent poliovirus vaccine, live, oral Rebecca Lucio MD Work Phone: [facility] Payers Date Payer Category Payer Self-pay [id number] 2022 Unknown [employer] PPLEMENT [id number] 20[address]-[facility] [phone] [address] [place] [address] Indemnity [id number] 2022 Private Health Insurance [id number] 2018 Private Health Insurance [id number] 1990 Unknown [id number] [id number]. 900 1991 Unknown [id number] 2.16.840.1.075183.3.579.2. 479 Unknown [id number] Unknown [facility] *DO NOT USE* [id number] Unknown [id number] 2.16.840.1.831431.3.579.2. 462 Unknown [id number] 2.16.840.1.933212.3.579.2. 462 Unknown [id number] 2..840.1.768078.3.579.2. 462 Unknown [id number] 2.16.840.1.350831.3.579.2. 462 Unknown [id number] 2.16.840.1.866589.3.579.2. 462 Unknown [id number] 2.16.840.1.623715.3.579.2. 462 Unknown [id number] 2.16.840.1.452791.3.579.2. 462 Unknown [id number] 2.16.840.1.450099.3.579.2. 462 Unknown [id number] 2.16.840.1.033082.3.579.2. 462 Unknown [id number] 2.16.840.1.046934.3.579.2. 462 Unknown [id number] 2.16.840.1.188977.3.579.2. 462 Unknown [id number] 2.16.840.1.307853.3.579.2. 462 Unknown [id number] 2.16.840.1.215453.3.579.2. 462 Unknown [id number] 2.840.1.540618.3.579.2. 462 Unknown [id number] 2.840.1.262175.3.579.2. 462 Unknown [id number] 2.16840.1.019948.3.579.2. 462 Unknown [id number] 2.0.1.104664.3.579.2. 462 Unknown [id number] 2.840.1.402557.3.579.2. 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 Imaging Services [address] [place] [address] OB Limited With Biometrics MR#: [id number] Acct: [id number] Name: ISHA VANEGAS Rep #: [id number] : 1990 F 34 From: Familia Cervantes MD PCP: Dr. Pattie Giordano MD Status: REG CL I Study:OB Limited With Biometrics Date of Exam : 04/15/25 Exam# [id number] Ordering Dr: Lino Joaquin CNM PROCEDURE: OB LIMITED WITH BIOMETRICS 04/15/2025 REASON FOR EXAM: UTERINE SIZE LARGER THAT DATES TECHNIQUE: OB LIMITED WITH BIOMETRICS COMPARISON: None FINDINGS Number: 1 Position: Vertex Placental Position: Posterior and not low-lying Placental Abnormalities: No evidence of previa. DIMENSIONS: Biparietal Diameter: 8.68 cm: 35 weeks and 0 days: 82nd percentile/ Head Circumference: 31.85 cm: 35 weeks and 6 days: 69 percentile/ Abdominal Circumference: 31.21 cm: 35 weeks and 1 day: 88 percentile/ Femur Length: 6.51 cm: 33 weeks and 4 days: 36 percentile/ ESTIMATED WEIGHT: 2520 g plus/-378 g ESTIMATED WEIGHT PERCENTILE (24+ weeks): 75th ESTIMATED GESTATIONAL AGE: Baseline: 33 weeks and 5 days By Ultrasound: 35 weeks and 1 day ESTIMATED DATE OF DELIVERY: Baseline: May 29, 2025 By Ultrasound: May 19, 2025 BIOPHYSICAL ASSESSMENT: Amniotic Fluid Volume: 4.8 cm Amniotic Fluid Index: (8-24 cm normal range) Cardiac Motion: 144 beats per minute (average) Trunk and Limb Motion: Present. MATERNAL ANATOMY: Adnexa: Neither maternal ovary is successfully identified. US/OB Limited With Biometrics IMPRESSION: Single live intrauterine gestation with a mean gestational age of 35 weeks and 1day. Reading Location: [id number] CC: DAKOTA Joaquin; Dr. Pattie Giordano MD ~ Quality Reviewer: Signed [facility] 04-11-2025 Progress note [facility] 02-04-2025 Evaluation note Diagnosis Onset Date Resolution Positive GBS test acute January 252024 9:25am acute February 04 9:25am Supervision of normal acute February 04, 2025 9:25am Positive GBS test acute February 11:14am acute March 04, 2025 11:14am Supervision of normal acute March 04, 2025 11 :14am Positive GBS test acute February 11:16am acute March 25, 2025 11:16am Supervision of normal acute March 25, 2025 11:16am Positive GBS test acute April 112024 10:02am acute April 11 10:02am Supervision of normal acute April 11, 2025 10:02am Uterine size date discrepancy acute April 11, 2025 10:02am Anemia affecting acute May 06, 2025 9:22am Positive GBS test acute May 062024 9:22am acute May 06 9:22am Supervision of normal acute May 06, 2025 9:22am Uterine size date discrepancy acute May 06, 2025 9:22am [facility] Work Phone: 1(115) 101-182904-11-2025 Evaluation note* Diagnosis Onset Date Resolution Status Admit Date Positive GBS test acute January 252024 9:25am acute February 04 9:25am Supervision of normal acut e February 04, 2025 9:25am Positive GBS test acute February 11:14am acute March 04, 2025 11:14am Supervision of normal acut e March 04, 2025 11:14am Positive GBS test acute February 11:16am acute March 25, 2025 11:16am Supervision of normal acut e March 25, 2025 11:16am Positive GBS test acute April 112024 10:02am acute April 11 10:02am Supervision of normal acut e April 11, 2025 10:02am Uterine size date discrepanc y acute April 11, 2025 10:02am Anemia affecting acute May 06, 2025 9:22am Positive GBS test acute May 062024 9:22am acute May 06 9:22am Supervision of normal acut e May 06, 2025 9:22am Uterine size date discrepanc y acute May 06, 2025 9:22am Anemia affecting acute May 13, 2025 10:49am Positive GBS test acute May 132024 10:49am acute May 13 10:49am Supervision of normal acut e May 13, 2025 10:49am Uterine size date discrepanc y acute May 13, 2025 10:49am [facility] Work Phone: 1(451) 668-888804-11-2025 Evaluation note* Diagnosis Onset Date Resolution Status Admit Date Positive GBS test acute January 252024 9:25am acute February 04 9:25am Supervision of normal acut e February 04, 2025 9:25am Positive GBS test acute February 11:14am acute March 04, 2025 11:14am Supervision of normal acut e March 04, 2025 11:14am Positive GBS test acute February 11:16am acute March 25, 2025 11:16am Supervision of normal acut e March 25, 2025 11:16am Positive GBS test acute April 112024 10:02am acute April 11 10:02am Supervision of normal acut e April 11, 2025 10:02am Uterine size date discrepanc y acute April 11, 2025 10:02am Anemia affecting acute May 06, 2025 9:22am Positive GBS test acute May 062024 9:22am acute May 06 9:22am Supervision of normal acut e May 06, 2025 9:22am Uterine size date discrepanc y acute May 06, 2025 9:22am Anemia affecting acute May 13, 2025 10:49am Positive GBS test acute May 132024 10:49am acute May 13 10:49am Supervision of normal acut e May 13, 2025 10:49am Uterine size date discrepanc y acute May 13, 2025 10:49am Anemia affecting acute May 20, 2025 8:33am Positive GBS test acute May 202024 8:33am acute May 20 8:33am Supervision of normal acut e May 20, 2025 8:33am Uterine size date discrepanc y acute May 20, 2025 8:33am [facility] Work Phone: 1(572) 418-153704-11-2025 Evaluation note* Diagnosis Onset Date Resolution Status Admit Date Positive GBS test acute January 252024 9:25am acute February 04 9:25am Supervision of normal acut e February 04, 2025 9:25am Positive GBS test acute February 11:14am acute March 04, 2025 11:14am Supervision of normal acut e March 04, 2025 11:14am Positive GBS test acute February 11:16am acute March 25, 2025 11:16am Supervision of normal acut e March 25, 2025 11:16am Positive GBS test acute April 112024 10:02am acute April 11 10:02am Supervision of normal acut e April 11, 2025 10:02am Uterine size date discrepanc y acute April 11, 2025 10:02am Anemia affecting acute May 06, 2025 9:22am Positive GBS test acute May 062024 9:22am acute May 06 9:22am Supervision of normal acut e May 06, 2025 9:22am Uterine size date discrepanc y acute May 06, 2025 9:22am Anemia affecting acute May 13, 2025 10:49am Positive GBS test acute May 132024 10:49am acute May 13 10:49am Supervision of normal acut e May 13, 2025 10:49am Uterine size date discrepanc y acute May 13, 2025 10:49am Anemia affecting acute May 20, 2025 8:33am Positive GBS test acute May 202024 8:33am acute May 20 8:33am Supervision of normal acut e May 20, 2025 8:33am Uterine size date discrepanc y acute May 20, 2025 8:33am Anemia affecting acute May 23, 2025 8:42am Positive GBS test acute May 232024 8:42am acute May 23 8:42am Supervision of normal acut e May 23, 2025 8:42am Uterine size date discrepanc y acute May 23, 2025 8:42am [facility] Work Phone: 1(511) 635-809704-11-2025 Evaluation note* Diagnosis Onset Date Resolution Status Admit Date Positive GBS test acute January 252024 9:25am acute February 04 9:25am Supervision of normal acut e February 04, 2025 9:25am Positive GBS test acute February 11:14am acute March 04, 2025 11:14am Supervision of normal acut e March 04, 2025 11:14am Positive GBS test acute February 11:16am acute March 25, 2025 11:16am Supervision of normal acut e March 25, 2025 11:16am Positive GBS test acute April 112024 10:02am acute April 11 10:02am Supervision of normal acut e April 11, 2025 10:02am Uterine size date discrepanc y acute April 11, 2025 10:02am Anemia affecting acute May 06, 2025 9:22am Positive GBS test acute May 062024 9:22am acute May 06 9:22am Supervision of normal acut e May 06, 2025 9:22am Uterine size date discrepanc y acute May 06, 2025 9:22am Anemia affecting acute May 13, 2025 10:49am Positive GBS test acute May 132024 10:49am acute May 13 10:49am Supervision of normal acut e May 13, 2025 10:49am Uterine size date discrepanc y acute May 13, 2025 10:49am Anemia affecting acute May 20, 2025 8:33am Positive GBS test acute May 202024 8:33am acute May 20 8:33am Supervision of normal acut e May 20, 2025 8:33am Uterine size date discrepanc y acute May 20, 2025 8:33am Anemia affecting acute May 23, 2025 8:42am Positive GBS test acute May 232024 8:42am acute May 23 8:42am Supervision of normal acut e May 23, 2025 8:42am Uterine size date discrepanc y acute May 23, 2025 8:42am Anemia affecting acute May 30, 2025 3:54pm Positive GBS test acute May 30, 2025 3:54pm acute May 30 3:54pm Supervision of normal acut e May 30, 2025 3:54pm Uterine size date discrepanc y acute May 30, 2025 3:54pm [employer] [facility] Work Phone: [phone]) [phone] Evaluation note* Diagnosis Onset Date Resolution Status Admit Date Positive GBS test acute December 312024 9:25am acute December 31 9:25am Supervision of normal acut e December 31, 2024 9:25am Positive GBS test acute January 252024 9:25am acute February 04 9:25am Supervision of normal acut e February 04, 2025 9:25am Positive GBS test acute February 11:14am acute March 04, 2025 11:14am Supervision of normal acut e March 04, 2025 11:14am Positive GBS test acute February 11:16am acute March 25, 2025 11:16am Supervision of normal acut e March 25, 2025 11:16am Positive GBS test acute April 112024 10:02am acute April 11 10:02am Supervision of normal acut e April 11, 2025 10:02am Uterine size date discrepanc y acute April 11, 2025 10:02am [employer] Work Phone: [phone]) [phone] Evaluation note* Diagnosis Onset Date Resolution Status Admit Date Positive GBS test acute 2024 9:59am acute December 03, 2024 9:59am Supervision of normal acute December 03 9:59am Positive GBS test acute December 312024 9:25am acute December 31 9:25am Supervision of normal acute December 31, 2024 9:25am Positive GBS test acute January 252024 9:25am acute February 04 9:25am Supervision of normal acute February 04, 2025 9:25am Positive GBS test acute February 11:14am acute March 04, 2025 11:14am Supervision of normal acute March 04, 2025 11 :14am [facility] Work Phone: 1(989) 985-804102-07-2025 Evaluation note* Diagnosis Onset Date Resolution Status Admit Date Positive GBS test acute 2024 9:59am acute December 03, 2024 9:59am Supervision of normal acute December 03 9:59am Positive GBS test acute December 312024 9:25am acute December 31 9:25am Supervision of normal acute December 31, 2024 9:25am Positive GBS test acute January 252024 9:25am acute February 04 9:25am Supervision of normal acute February 04, 2025 9:25am Positive GBS test acute February 11:14am acute March 04, 2025 11:14am Supervision of normal acute March 04, 2025 11 :14am Positive GBS test acute February 11:16am acute March 25, 2025 11:16am Supervision of normal acute March 25, 2025 1 1:16am [facility] Work Phone: 1(145) 124-231907-19-2024 Evaluation note* Diagnosis 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 We talked about aloe vera, estrogen cream, steroid ointments and giselle jaylan touch. We discussed the need for surveillance for lesions. Plan Giselle Jaylan Touch laser therapy. She was given a pamphlet on the procedure and pre-procedure instructions. documented in this encounter [facility]07-19-2024 Instructions* Patient Instructions* Rebecca Lucio MD - 05/14/2024 8:34 AM EDT We discussed treatment options for lichen sclerosus. We talked about aloe vera, estrogen cream, steroid ointments and giselle jaylan touch. We discussed the need for surveillance for lesions. Giselle Jaylan Touch Pre- and Post-Internal Procedure Instructions It is important to follow your provider's instructions before and after the procedure. Pre-Procedure Recommendations: Shower or bathe the morning of the procedure, so that the area to be lased is clean. Area must be clean, dry and without traces of cream, lotions or other substances that may interact with the laser Clip or trim long pubic hair before your procedure Understand and sign a Consent to Treat form Dress in loose fitting pants and cotton underwear on the day of the procedure Your care provider may apply topical anesthetic to the vulvar area prior to lasing to minimize discomfort Purchase supplies and medications needed for post-procedure care before the procedure Patient Supplies Needed: Moisturizing occlusive ointment, such as Aquaphor Healing Ointment or Vaseline ointment. Gentle, hypoallergenic skin cleanser Cold gel packs Patient prescriptions as directed by physician: antiviral and/or others Immediately Post-Procedure: Apply cold compresses or cold gel packs to the lased area for 20 minutes Schedule follow up visits Skin may feel sensitive and may be red, swollen and itchy Most patients resume normal activity as tolerated immediately after procedure Patient Post-Procedure Instructions Keep area moist by applying occlusive ointment to the lased area and reapply ointment after each wash and continue to use until tissue has fully healed. Wait 1 day before taking a shower or bath (avoid using hot water on the lased area until healing iscomplete) Use cold compresses or cold gel packs (20 minutes on; then 20 minutes off) as needed for swelling and discomfort Avoid lifting heavy weights or doing intense physical exercise for 3-4 days following the procedure Refrain from sexual intercourse for a week after the procedure. Wear loose, cotton underwear Avoid wearing panty hose and tight-fitting pants CONTACT OFFICE FOR ADDITIONAL QUESTIONS/CONCERNS [phone] [facility] History of Present illness Narrative* Rebecca Lucio MD - 05/14/2024 8:00 AM EDT Female Pelvic Medicine & Reconstructive Surgery Consult CHIEF COMPLAINT: Isha Vanegas is a 33 year old No obstetric history on file. female who presents for consultation requested by Dr. Heather Cao for an opinion regarding lichen sclerosus. My final recommendations will be communicated back to the requesting physician by way of shared Medical record or letter torequesting physician via [place] mail. HISTORY OF PRESENT ILLNESS: She presents today for evaluation/discussion of treatment of lichen sclerosus. She was diagnosed many years ago and has only had to use clobetasol on a few occasions due to flares. She reports after delivering her children it has worsened by far. This was diagnosed by biopsy. She reports the clobetasol does work (has been using it about once a week) but she would like to discuss other treatment options. Medical and Symptom History: LMP: Patient's last menstrual period was 08/14/2022 (approximate).; Menopause no : ALLERGIES Allergen Reactions Rocephin [Ceftriaxo* Shortness of Breath Current Outpatient Medications Medication Sig clobetasol (TEMOVATE) 0.05 % ointment apply qhs * 6 weeks No current facility-administered medications for this visit. History reviewed. No pertinent surgical history. 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 Review of Systems Constitutional: Negative for chills, diaphoresis and fever. HENT: Negative for drooling, ear discharge, facial swelling, nosebleeds, sore throat and trouble swallowing. Eyes: Negative for discharge, redness, itching and visual disturbance. Respiratory: Negative for apnea, choking, chest tightness, shortness of breath, wheezing and stridor. Cardiovascular: Negative for chest pain and palpitations. Gastrointestinal: Negative for abdominal distention, abdominal pain, anal bleeding, blood in stool,nausea and vomiting. Endocrine: Negative for cold intolerance and heat intolerance. Genitourinary: Positive for vaginal pain. Negative for genital sores, menstrual problem and vaginalbleeding. Musculoskeletal: Negative for gait problem, myalgias, neck pain and neck stiffness. Skin: Negative for pallor, rash and wound. Allergic/Immunologic: Negative for environmental allergies, food allergies and immunocompromised state. Neurological: Negative for dizziness, seizures, facial asymmetry, speech difficulty, light-headedness, numbness and headaches. Hematological: Negative for adenopathy. Does not bruise/bleed easily. Psychiatric/Behavioral: Negative for agitation, behavioral problems, confusion and hallucinations. OBJECTIVE: BP 110/78 Ht 165.1 cm (5' 5) Wt 61.6 kg (135 lb 14.4 oz) LMP 08/14/2022 (Approximate) BMI 22.61 kg/m Physical Exam Exam conducted with a flatwork finisher present. Constitutional: Appearance: She is well-developed. HENT: Head: Normocephalic and atraumatic. Nose: Nose normal. Mouth/Throat: Mouth: Mucous membranes are moist. Pharynx: Oropharynx is clear. Eyes: Extraocular Movements: Extraocular movements intact. Conjunctiva/sclera: Conjunctivae normal. Pupils: Pupils are equal, round, and reactive to light. Cardiovascular: Rate and Rhythm: Normal rate. Pulmonary: Effort: Pulmonary effort is normal. Breath sounds: No wheezing, rhonchi or rales. Abdominal: General: Bowel sounds are normal. There is no distension. Palpations: Abdomen is soft. There is no mass. Tenderness: There is no abdominal tenderness. There is no guarding or rebound. Hernia: There is no hernia in the left inguinal area or right inguinal area. Genitourinary: General: Normal vulva. Exam position: Lithotomy position. Pubic Area: No rash. Labia: Right: No rash, tenderness, lesion or injury. Left: No rash, tenderness, lesion or injury. Urethra: No prolapse, urethral pain, urethral swelling or urethral lesion. Vagina: No vaginal discharge, erythema, tenderness, bleeding, lesions or prolapsed vaginal buck. Cervix: No cervical motion tenderness, friability or erythema. Uterus: Not enlarged, not tender and no uterine prolapse. Adnexa: Right: No mass, tenderness or fullness. Left: No mass, tenderness or fullness. Comments: Cigarette-paper appearnce to labia skin. No lesions noted. Musculoskeletal: General: No swelling, tenderness, deformity or signs of injury. Normal range of motion. Cervical back: Normal range of motion and neck supple. Lymphadenopathy: Lower Body: No right inguinal adenopathy. No left inguinal adenopathy. Skin: General: Skin is warm and dry. Coloration: Skin is not jaundiced. Findings: No erythema or lesion. Neurological: Mental Status: She is alert and oriented to person, place, and time. Cranial Nerves: No cranial nerve deficit. Gait: Gait normal. Deep Tendon Reflexes: Reflexes are normal and symmetric. Psychiatric: Mood and Affect: Mood normal. Behavior: Behavior normal. Thought Content: Thought content normal. Judgment: Judgment normal. Assessment and Plan Problem List Items Addressed This Visit Other Lichen sclerosus et atrophicus - Primary We discussed treatment options for lichen sclerosus. We talked about aloe vera, estrogen cream, steroid ointments and giselle jaylan touch. We discussed the need for surveillance for lesions. Plan Giselle Jaylan Touch laser therapy. She was given a pamphlet on the procedure and pre-procedure instructions. Relevant Medications clobetasol (TEMOVATE) 0.05 % ointment Rebecca Lucio MD This note was created using [employer]. documented [facility] NoteHNO ID: [id number] Author: REBECCA LUCIO MD Service: ? Author Type: Physician Type: Progress Notes Filed: 05/14/2024 08:52 Note Text: Female Pelvic Medicine AND Reconstructive Surgery Consult CHIEF COMPLAINT: Isha Vanegas is a 33 year old No obstetric history on file. female who presents for consultation requested by Dr. Heather Cao for an opinion regarding lichen sclerosus. My final recommendations will be communicated back to the requesting physician by way of shared Medical record or letter to requesting physician via [place] mail. HISTORY OF PRESENT ILLNESS: She presents today for evaluation/discussion of treatment of lichen sclerosus. She was diagnosed many years ago and has only had to use clobetasol on a few occasions due to flares. She reports after delivering her children it has worsened by far. This was diagnosed by biopsy. She reports the clobetasol does work (has been using it about once a week) but she would like to discuss other treatment options. Medical and Symptom History: LMP: Patient's last menstrual period was 08/14/2022 (approximate).; Menopause no : ALLERGIES Allergen Reactions Rocephin [Ceftriaxo* Shortness of Breath Current Outpatient Medications Medication Sig clobetasol (TEMOVATE) 0.05 % ointment apply qhs * 6 weeks No current facility-administered medications for this visit. History reviewed. No pertinent surgical history. 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 Review of Systems Constitutional: Negative for chills, diaphoresis and fever. HENT: Negative for drooling, ear discharge, facial swelling, nosebleeds, sore throat and trouble swallowing. Eyes: Negative for discharge, redness, itching and visual disturbance. Respiratory: Negative for apnea, choking, chest tightness, shortness of breath, wheezing and stridor. Cardiovascular: Negative for chest pain and palpitations. Gastrointestinal: Negative for abdominal distention, abdominal pain, anal bleeding, blood in stool, nausea and vomiting. Endocrine: Negative for cold intolerance and heat intolerance. Genitourinary: Positive for vaginal pain. Negative for genital sores, menstrual problem and vaginal bleeding. Musculoskeletal: Negative for gait problem, myalgias, neck pain and neck stiffness. Skin: Negative for pallor, rash and wound. Allergic/Immunologic: Negative for environmental allergies, food allergies and immunocompromised state. Neurological: Negative for dizziness, seizures, facial asymmetry, speech difficulty, light-headedness, numbness and headaches. Hematological: Negative for adenopathy. Does not bruise/bleed easily. Psychiatric/Behavioral: Negative for agitation, behavioral problems, confusion and hallucinations. OBJECTIVE: BP 110/78 Ht 165.1 cm (5' 5) Wt 61.6 kg (135 lb 14.4 oz) LMP 08/14/2022 (Approximate) BMI 22.61 kg/m? Physical Exam Exam conducted with a flatwork finisher present. Constitutional: Appearance: She is well-developed. HENT: Head: Normocephalic and atraumatic. Nose: Nose normal. Mouth/Throat: Mouth: Mucous membranes are moist. Pharynx: Oropharynx is clear. Eyes: Extraocular Movements: Extraocular movements intact. Conjunctiva/sclera: Conjunctivae normal. Pupils: Pupils are equal, round, and reactive to light. Cardiovascular: Rate and Rhythm: Normal rate. Pulmonary: Effort: Pulmonary effort is normal. Breath sounds: No wheezing, rhonchi or rales. Abdominal: General: Bowel sounds are normal. There is no distension. Palpations: Abdomen is soft. There is no mass. Tenderness: There is no abdominal tenderness. There is no guarding or rebound. Hernia: There is no hernia in the left inguinal area or right inguinal area. Genitourinary: General: Normal vulva. Exam position: Lithotomy position. Pubic Area: No rash. Labia: Right: No rash, tenderness, lesion or injury. Left: No rash, tenderness, lesion or injury. Urethra: No prolapse, urethral pain, urethral swelling or urethral lesion. Vagina: No vaginal discharge, erythema, tenderness, bleeding, lesions or prolapsed vaginal buck. Cervix: No cervical motion tenderness, friability or erythema. Uterus: Not enlarged, not tender and no uterine prolapse. Adnexa: Right: No mass, tenderness or fullness. Left: No mass, tenderness or fullness. Comments: Cigarette-paper appearnce to labia skin. No lesions noted. Musculoskeletal: General: No swelling, tenderness, deformity or signs of injury. Normal range of mo (more content not included)...[facility]08-04-2023 Progress note Author Mitzi Lyon [facility] May 30, 2023 8:45am Note Date/Time May 30, 2023 8:4 5am [facility] Medical Records Department [address] [place] [address] Progress Note - OBGYN 05/30/23 0843 MR#: [id number] Acct: [id number] Name: ISHA VANEGAS Rep #: [id number] : 1990 32 From: Mitzi Lyon CNM PCP: Dr. Maria Isabel Sandoval MD Status:AD M IN Location: [id number] Subjective Subjective Patient doing well without complaints. Tolerating PO. Ambulating and voiding without difficulty. Feeding well. Denies chest pain, shortness of breath, calf pain/swelling, fevers, chills, lightheadedness. Objective Data Objective Data Vital Signs: Vital Signs Temp Pulse Resp BP Pulse Ox O2 Del Method 98.1 F 68 16 117/72 100 Room Air 05/30/23 04:49 05/30/23 04:49 05/30/23 04:49 05/30/23 04:49 05/29/23 14:38 05/30/23 04:49 Oxygen Delivery Method Room Air Weight: 162 lb 6.4 oz Body Mass Index (BMI) 27.0 Intake & Output: Intake and Output for Last 24 Hours 05/28/23 05/29/23 05/30/23 23:59 23:59 23:59 Intake Total 2782.9 / 2782.9 800 / 800 Output Total 2052 / 2052 Balance 729.9 / 729.9 800 / 800 Lab / Micro Data 05/29/23 08:00 Labs: Laboratory Results - last 24 hr 05/29/23 08:00: Syphilis Total Ab Non-reactive, Blood Type O POSITIVE, Antibody Screen NEGATIVE Physical Exam Const alert and no apparent distress Chest inspection of chest normal Nipple/Areola: nipples/areola normal Resp normal respiratory effort and no retractions Cardio regular rate GI GI Narrative: fundus firm, below u, no clots Extremity normal to inspection, no calf tenderness and no pedal edema Psych mental status grossly normal Assessment & Plan (1) (spontaneous vaginal delivery): COMMENT: SM girl. term IAL PLAN: s/p PPD # 1 1. routine post delivery care 2. breast feeding- support given 3. rh positive 4. rubella immune 5. d/c home today 05/30/23 0845 <Electronically signed by Mitzi Lyon CNM> Cosigner Signature (if applicable): CC: ~ Signed [facility] Work Phone: 1(957) 676-194708-03-2023 Discharge summary Author Karla Shrestha [facility] May 29, 2023 5:09pm Note Date/Time May 29, 2023 5:1 0pm [facility] Medical Records Department [address] [place] [address] Instructions for Home/Discharge Instructions 05/29/23 1709 MR#: [id number] Acct: [id number] Name: ISHA VANEGAS Rep #: [id number] : 1990 32 From: Karla flower MD PCP: Dr. Maria Isabel Sandoval MD Status:AD M IN Discharge Instructions Diet Discharge Diet: No restrictions Activity Discharge Activity: Return to Normal Activity, May Not Drive (while taking narcotic pain medications.) and May Shower May resume sexual activity in: 4-6 weeks Dressing / Incision Call your doctor if your incision/area has: Continuous Slow Oozing, Sudden Increased Bleeding, Increased Pain/ Swelling, Increased Redness and Foul Smelling Discharge Follow Up Care Please Follow Up With: Karla Shrestha MD When: Call [phone] to make an appointment with your doctor in 6 weeks. If you had elevated blood pressure or 4th degree laceration, you will need to be seen in 2 weeks. Test Results: Test results from this visit will be discussed in further detail at your follow- up appointment, if applicable. Discharge Plan Admission Admit Date/Time: 05/29/23 07:42 Attending Provider: Karla Shrestha Primary Care Provider: Maria Isabel Sandoval Discharge Orders/Prescriptions Prescriptions: No Action cetirizine [Zyrtec] 10 mg tablet 10 mg PO DAILY PRN (Reason: Allergy Symptoms) PNV-DHA 27 mg iron-1 mg -300 mg capsule PO albuterol sulfate 90 mcg/actuation aerosol powdr breath activated 1 inh inhalation Q4H PRN dicyclomine 20 mg tablet 20 mg PO TID PRN (Reason: abdominal discomfort) Qty: 20 0RF Referrals / Follow Up: Maria Isabel Sandoval MD [Primary Care Provider] - 05/29/23 5919<Electronically signed by Karla Shrestha MD>Karla Shrestha MD CC: Dr. 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 Maria Isabel Sandoval MD Status:AD M IN Location: AQ127-0 HPI - General General Date of Admission: 05/29/23 HPI Narrative ISHA VANEGAS, is a 32 F who presents IAL regular ctx no vb lof admits good fm Maternal Data Information JENNY Calculator Estimated Delivery Date Method Current WG Current Estimate 05/25/23 LMP (Certain) 40w 4d Other Estimates 05/24/23 Ultrasound #1 40w 5d PFSH PFSH Medical History Asthma Eczema Phenylalanine hydroxylase deficiency Spontaneous vaginal delivery Home Medications cetirizine 10 mg tablet (Zyrtec) 10 mg PO DAILY PRN Allergy Symptoms 12/06/20 [History Last Taken 1 Day Ago ~05/31/21] albuterol sulfate 90 mcg/actuation breath activated powder inhaler 1 inh inhalation Q4H PRN 10/18/22 [History Last Taken Unknown] multivitamin no.47-iron fum 27 mg-folate no.1 1 mg-dha 300 mg capsule (PNV- DHA)cap PO 10/18/22 [History Last Taken Unknown] dicyclomine 20 mg tablet 20 mg PO TID PRN abdominal discomfort #20 tabs 11/19/22[Rx Last Taken Unknown] Allergy/AdvReac Type Severity Reaction Status Date / Time ceftriaxone [From Rocephin] Allergy Mild rash Verified 05/28/23 16:24 Family History Grandfather Lymphoma Other Diabetes type 1, controlled Surgical History s/p left ankle surgery s/p stomach surgery Social History adopted: No household members: spouse and children number of children: 1 current occupational status: employed 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 current occupational exposures/hazards: No pets and animals: Yes pets and animals: dog(s) history of recent travel: No sexually active: Yes Smoking Status: Never smoker alcohol intake: never substance use type: does not use well-balanced diet: daily or most days caffeine: No eating out: rarely or never during the past year weight has: remained stable what type of physical activity do you participate in: bicycling and weight training frequency: 3-4 times per week duration: 30-45 minutes/day nito/episcopalian: Nondenominational seatbelt use: always do you feel safe at home: Yes additional social history: - Maria Isabel-He History 2 Elective abortions Hx Para 1 Spontaneous abortions Hx # Term Pregnancies Ectopic pregnancies Hx # Pregnancies Multiple births # of living children 1 Past Pregnancies Del. Date Name GA/Weeks Outcome Route Bth Weight Infant Gen Labor Lgth Anesthesia Del Locatn Provider FOB 06/02/21 Annette 40 live - full term 8lbs 3oz Female e pidural [facility] Tray Delivery Date: 06/02/21 Last Updated by: Alana Mendez PROM; Developed Chorio; 2nd degree laceration Visit Details Expected Delivery Route/Plan Labor Preferences- CB/BF classes: [] labor support person: maria isabel labor intervention preferences: [] pain management options preferred: [] cut cord/dad catch: [] :yes PP control planned: [] discussed possible routes of delivery and associated risks: [] special requests: [] Plans Covid status: discussed Flu vaccine: discussed Tdap vaccine: obtained Rhogam: na LARC form signed: completed. movement and labor precautions reviewed. Problem list reviewed and updated with the most current plan of care details and appropriate orders placed. Relevant counseling for the gestational age provided. Continue routine care and follow up unless otherwise noted in visit notes/problem list details OB Flowsheet Initial Weight: Not Recorded Date -?-?-?-?-?-?-?-?-?-?-?-?- EGA Weight BP Urine Prot -?-?-?-?-?-?-?-?-?-?-?-?- Glucose FHR FuHt Pres Dilation -?-?-?-?-?-?-?-?-?-?-?-?- Effaced St Visit Note 11/01/22 -?-?-?-?-?-?-?-?-?-?-?-?- 10w 5d 138 lb 4 oz 115/69 -?-?-?-?-?-?-?-?-?-?-?-?- 171 -?-?-?-?-?-?-?-?-?-?-?-?- JV- single live IUP measuring 10 weeks 6 days and consistent with LMP. 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 no complaints. 01/20/23 -?-?-?-?-?-?-?-?-?-?-?-?- 22w 1d 150 lb 8 oz 110/58 Nega tive -?-?-?-?-?-?-?-?-?-?-?-?- Negative 161 -?-?-?-?-?-?-?-?-?-?-?-?- MH-No VB, LOf. G ood FM. Has URI-saw PCP today. Viral. Denies concerns. 02/17/23 -?-?-?-?-?-?-?-?-?-?-?-?- 26w 1d 155 lb 6 oz 101/64 -?-?-?-?-?-?-?-?-?-?-?-?- 145 26 -?-?-?-?-?-?-?-?-?-?-?-?- Sm- n ovb lof go od fm no regualr ctx cbc gct 03/21/23 -?-?-?-?-?-?-?-?-?-?-?-?- 30w 5d 157 lb 6 oz 97/67 -?-?-?-?-?-?-?-?-?-?-?-?- 140 30 -?-?-?-?-?-?-?-?-?-?-?-?- JV- no lof, vagi nal bleeding, or dec fm. rpt cbc ordered. normal glucola 04/07/23 -?-?-?-?-?-?-?-?-?-?-?-?- 33w 1d 160 lb 4 oz 96/63 Nega tive -?-?-?-?-?-?-?-?-?-?-?-?- Negative 155 33 -?-?-?-?-?-?-?-?-?-?-?-?- LC- no vb/ctx/lo f. good fm. restarted on PNV, will add additional iron supplementation and recheck cbc in 4 weeks for mild anemia. larc completed. 04/25/23 -?-?-?-?-?-?-?-?-?-?-?-?- 35w 5d 159 lb 6 oz 96/47 Trac e -?-?-?-?-?-?-?-?-?-?-?-?- Negative 139 35 -?-?-?-?-?-?-?-?-?-?-?-?- LC- no vb/ctx/lo f. good fm. started on iron, cbc ordered. gbs next week. 05/09/23 -?-?-?-?-?-?-?-?-?-?-?-?- 37w 5d 161 lb 6 oz 100/62 Nega tive -?-?-?-?-?-?-?-?-?-?-?-?- Negative 140 37 0.5 -?-?-?-?-?-?-?-?-?-?-?-?- 20 LC-no vb /ctx/lof. good fm. will obtain cbc today. 05/16/23 -?-?-?-?-?-?-?-?-?-?-?-?- 38w 5d 164 lb 2 oz 105/64 Nega tive -?-?-?-?-?-?-?-?-?-?-?-?- Negative 140 39 1 -?-?-?-?-?-?-?-?-?-?-?-?- SM- no vb lof go od fm no regular ctx 05/23/23 -?-?-?-?-?-?-?-?-?-?-?-?- 39w 5d 164 lb 106/66 Negative -?-?-?-?-?-?-?-?-?-?-?-?- Negative 134 38 Cephalic 1 .5 -?-?-?-?-?-?-?-?-?-?-?-?- 30 -3 JV- no lof , v aginal bleeding or dec fm. 41 week IOL set up. 05/28/23 -?-?-?-?-?-?-?-?-?-?-?-?- 40w 3d 165 lb 4 oz 102/69 -?-?-?-?-?-?-?-?-?-?-?-?- 140 40 Cephalic 2 -?-?-?-?-?-?-?-?-?-?-?-?- 60 -3 LC-no lof/ vb/ctx. good fm. desires membrane sweep NST FHR Rate Baby A Baseline: 140 Variability:: Moderate Accelerations:: 15 x 15 Decelerations:: None NST Reactive:: Yes FHR Category:: Category I Uterine Activity:: q3-5 ROS Constitutional Constitutional: Reports systems reviewed and no addt'l complaints, except as documented ENT HEENT: Reports systems reviewed and no addt'l complaints, except as documented Cardiovascular Cardiovascular: Reports systems reviewed and no addt'l complaints, except as documented Respiratory/Chest Respiratory/Chest: Reports systems reviewed and no addt'l complaints, except as documented Gastrointestinal Gastrointestinal: Reports systems reviewed and no addt'l complaints, except as documented and nausea; Denies abdominal pain Genitourinary Genitourinary: Reports systems reviewed and no addt'l complaints, except as documented, contractions Details: present and frequency (regular ) and movement Details: present Musculoskeletal Musculoskeletal: Reports systems reviewed and no addt'l complaints, except as documented Integumentary Integumentary: Reports as per HPI Neurologic Neurologic: Reports systems reviewed and no addt'l complaints, except as documented Endocrine Endocrinology: Reports systems reviewed and no addt'l complaints, except as documented Physical Exam Const alert, oriented x3 and healthy appearing Constitutional Narrative: uncomfortable with contractions HEENT normocephalic and moist oral mucous membranes Head and Scalp: atraumatic Neck full ROM, no lymphadenopathy, supple and thyroid normal General: trachea midline Thyroid: thyroid normal Lymph Lymphatic: no lymphadenopathy noted Chest inspection of chest normal Resp normal respiratory effort Cardio regular rate GI normal to inspection, nondistended, normoactive bowel sounds, soft to palpation and non-tender Inspection: gravid external exam normal Bimanual Exam - Vag & Uterus: uterus non-tender Manual OB Exam: estimated gestational size appropriate, presentation cephalic, dilated, effaced and station Extremity normal to inspection General Extremity: Negative for edema Skin no rashes or lesions noted Neuro deep tendon reflexes 2+ bilaterally Motor Exam: strength 5/5 throughout and clonus absent Psych mental status grossly normal Labs Labs Labs: Blood Type O POSITIVE Antibody Screen NEGATIVE Hct 35.9 % (37-47) L Hgb 12.0 g/dL (12.0-15.0) Pap Smear Negative Obstetrics US Syphilis Total Ab Non-reactive VZV IgG Antibody 0.93 index (Immune >1.09) L Rubella IgG Antibody Reactive (Nonreactive) Hep Bs Antigen Non-Reactive (Nonreactive) Chlamydia DNA (ABA) Negative (Negative) Neisseria gonorrhoeae DNA (ABA) Negative (Negative) HIV 1&2 Antibody Non-Reactive (Nonreactive) Glucose 1 Hr 50 gm 84 mg/dL (70-140) Assessment & Plan (1) Supervision of high risk , antepartum: COMMENT: PRR , JENNY 05/25/23 girl Lili DEN Annette, Maria Isabel (2) Anemia affecting in third trimester: COMMENT: iron supplementation added 04/07. redraw cbc in 4 weeks (3) : QUALIFIERS: Weeks of gestation: 40 weeks Qualified Code(s): Z3A.40 - 40 weeks gestation of COMMENT: NIPT low risk, declined ntd and carrier testing. nl anatomy (4) Asthma: QUALIFIERS: Asthma complication type: uncomplicated Asthma persistence: intermittent Asthma severity: mild Qualified Code(s): J45.20 - Mild intermittent asthma, uncomplicated COMMENT: Mild intermittent PLAN: Plan admit in labor epidural arom prn 05/29/23 0845 <Electronically signed by Karla Shrestha MD> Cosigner Signature (if applicable): CC: Dr. Maria Isabel Sandoval MD; Dr. Karla Shrestha MD~ Signed [facility] Work Phone: 1(174) 151-154601-24-[address] Aguilar [facility] November 19, 2022 10:07am Note Date/Time November 19, 2022 5 :26am [facility] Medical Records Department [address] [place] [address] Emergency Department Summary 11/19/22 MR#: [id number] Acct: [id number] Name: ISHA VANEGAS Rep #: [id number] : 1990 32 From: Suzanne Monroy PCP: Dr. Maria Isabel Sandoval MD Status:DE P ER Location: ED HPI History of Present Illness Chief Complaint: Abd Pain Informant: patient Narrative Narrative: Patient is a currently 13 weeks presenting with left lower quadrant abdominal pain. Patient states 11/17 (2 days ago) she woke up with somemild pain. She thought was possibly round ligament pain. Worsened throughout the day and last night woke her up from sleep. She spoke with her SOLAR PROJECT MANAGER who recommend she come to the ER. Patient has had a confirming IUP per her SOLAR PROJECT MANAGER (Dr. Wayne Levi). Patient denies any vaginal bleeding or leakage of fluids. She denies any urinary symptoms. Patient notes the pain seems to beworse if she has a bowel movement or passes gas. She did have a bowel movement that was on the softer side prior to coming in. She did not take anything for pain prior to arrival as she only had NSAIDs at home. No other complaints at this time. [facility] Medical History Asthma Eczema Phenylalanine hydroxylase deficiency Spontaneous vaginal delivery Home Medications cetirizine 10 mg tablet (Zyrtec) 10 mg PO DAILY PRN Allergy Symptoms 12/06/20 [History Last Taken 1 Day Ago ~05/31/21] albuterol sulfate 90 mcg/actuation breath activated powder inhaler 1 inh inhalation Q4H PRN 10/18/22 [History Last Taken Unknown] multivitamin no.47-iron fum 27 mg-folate no.1 1 mg-dha 300 mg capsule (PNV- DHA)cap PO 10/18/22 [History Last Taken Unknown] dicyclomine 20 mg tablet 20 mg PO TID PRN abdominal discomfort #20 tabs 11/19/22[Rx Last Taken Unknown] Allergy/AdvReac Type Severity Reaction Status Date / Time ceftriaxone [From Rocephin] Allergy Mild rash Verified 11/19/22 02:26 Family History Grandfather Lymphoma Other Diabetes type 1, controlled Surgical History s/p left ankle surgery s/p stomach surgery Social History adopted: No household members: spouse and children number of children: 1 current occupational status: employed 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 current occupational exposures/hazards: No pets and animals: Yes pets and animals: dog(s) history of recent travel: No sexually active: Yes Smoking Status: Never smoker alcohol intake: never substance use type: does not use well-balanced diet: daily or most days caffeine: No eating out: rarely or never during the past year weight has: remained stable what type of physical activity do you participate in: bicycling and weight training frequency: 3-4 times per week duration: 30-45 minutes/day nito/episcopalian: Nondenominational seatbelt use: always do you feel safe at home: Yes additional social history: - Maria Isabel-He JJ ROS ED Constitutional Constitutional ED: Denies chills or fever(s) ENT ENT ED: Denies sore throat Cardiovascular Cardiovascular: Denies chest pain or palpitations Respiratory/Chest Respiratory/Chest: Denies cough Gastrointestinal Gastrointestinal: Reports abdominal pain; Denies constipation, nausea or vomiting Genitourinary Genitourinary ED: Denies dysuria, hematuria or urinary frequency Musculoskeletal Musculoskeletal: Denies arthralgias or back pain Neurologic Neurologic: Denies headache(s) or weakness Psychiatric Psychiatric: Denies anxiety EXAM Physical Exam Const Vital Signs: 11/19/22 02:26 11/19/22 08:36 Temperature 96.6 F L Temperature Source Temporal Pulse Rate 63 63 Respiratory Rate 15 14 Blood Pressure 106/76 104/67 Blood Pressure Mean 86 79 Pulse Ox 100 97 Oxygen Delivery Method Room Air Room Air Positive well nourished and well developed Constitutional Narrative: Uncomfortable appearing General Appearance ED: well developed and NAD HEENT Reports moist mucous membranes Eyes Negative for PERRL or EOMs intact bilaterally Neck supple Chest Wall inspection of chest normal and palpation of chest normal Resp normal respiratory effort and clear to auscultation bilaterally GI non-distended GI Narrative: Gravid abdomen with fundus palpated just above the pubic bone Auscultation: normoactive bowel sounds Palpation: soft and tender LLQ and suprapubic; Negative for guarding or rebound tenderness present Back/Spine no CVA tenderness Extremity normal to inspection Neuro oriented x3 Sensorium / Orientation: alert Motor Exam: Negative for general weakness Psych mental status grossly normal Skin no rashes or lesions noted MDM MDM MDM Narrative Medical decision making narrative: Patient is evaluated for worsening left lower quadrant abdominal pain. Presentation is complicated by the fact that she is 13 weeks . No vaginal bleeding. She is not viable at this point. Case initially discussed with her SOLAR PROJECT MANAGER, Dr. Dax Levi. Concern for possible ruptured cyst versus ovarian torsion. Ultrasound is ordered. Patient was ordered Tylenol and morphine but declined the morphine. I also ordered an ultrasound of her left kidney/bladder to rule out signs of obstructive stone. Patient is found to havea small amount of bilateral hydronephrosis but no other acute process including torsion. On repeat evaluation she continues to have significant pain in her left lower quadrant. Her lab work is largely unremarkable with no leukocytosis,normal CMP and urinalysis most consistent with contamination. We will send off a urine culture as does have 3+ bacteria however there are 5-10 squamous epithelial cells with only 0-5 white blood cells and no nitrites. Given her continued pain discussed the risk benefits of a CT to rule out things like diverticulitis or other acute intra-abdominal pathology. Patient agreed with CTespecially given how much discomfort she was having. CT obtained does not show any acute intra-abdominal process to explain her symptoms. CT did show mild dilation of the renal collecting system bilaterally without evidence of obstructing stone and a gravid uterus. Case then discussed with Dr. Rush,now on-call OB. She came by to evaluate the patient as well. She thought possibly this can be pelvic vascular congestion. Given her pain we did obtain avenous duplex of the left lower extremity to rule out any clot in the femoral vein/may Thurner syndrome. This is negative. Patient is given a dose of Bentylin the ER as her symptoms do seem to related to gas/bowel movements. She continues to be uncomfortable but would like to be discharged home at this point. Her work-up is largely negative and she remains hemodynamically stable. Cannot find an obvious source of her pain and there is not appear to be any clear surgical emergency. Patient will follow-up closely with her SOLAR PROJECT MANAGER. She is given referral for GI as well. Lab Data Attestation: I reviewed the patient's lab results. Labs: Laboratory Results - last 24 hr 11/19/22 11/19/22 11/19/22 03:00 03:00 03:02 WBC 9.3 RBC 3.54 L Hgb 11.3 L Hct 33.9 L MCV 95.8 MCH 31.9 MCHC 33.3 RDW Std Deviation 44.4 H RDW Coeff of Shara 12.8 Plt Count 174 MPV 11.5 Immature Gran % (Auto) 0.200 Neut % (Auto) 75.4 H Lymph % (Auto) 17.9 L Hernando % (Auto) 5.8 Eos % (Auto) 0.3 Baso % (Auto) 0.4 Absolute Neuts (auto) 7.0 Absolute Lymphs (auto) 1.67 Nucleated RBC % 0 Sodium 136 Potassium 3.8 Chloride 104 Carbon Dioxide 25.0 Anion Gap 7 BUN 17 Creatinine 0.62 Estim Creat Clear Calc 118.30 Est GFR (MDRD) Af Amer 145 Est GFR (MDRD) Non-Af 120 BUN/Creatinine Ratio 27.6 H Glucose 123 H Calcium 8.1 L Total Bilirubin 0.20 AST 11 L ALT 19 Alkaline Phosphatase 29 L Total Protein 6.3 L Albumin 3.2 Globulin 3.1 Albumin/Globulin Ratio 1.0 Urine Color Yellow Urine Clarity Clear Urine pH 5.0 Ur Specific [place] 1.030 Urine Protein 15 H Urine Glucose (UA) Normal Urine Ketones Negative Urine Occult Blood 25 H Urine Nitrite Negative Urine Bilirubin Negative Urine Urobilinogen Normal Ur Leukocyte Esterase 25 H Urine RBC 0-5 SEEN Urine WBC 0-5 SEEN Ur Squamous Epith Cells 5-10 SEEN Calcium Oxalate Crystal RARE Urine Bacteria 3+ Urine Mucus 1+ Radiography Diagnostic Testing: Clinical Impression(s) from Imaging Studies Obstetrics Ultrasound 11/19/22 02:46 IMPRESSION: Single living intrauterine gestation with an estimated gestational age by ultrasound 13 weeks 2 days. Estimated date of delivery May 25, 2023. Normal ovaries. No evidence of ovarian torsion. Electronically Signed: Albert Back MD at 5:42 EST Reading Location ID and State: Christine Rivers MD , Service support , Renal Ultrasound 11/19/22 02:46 IMPRESSION: Mild bilateral hydronephrosis. Visualized bilateral ureteral jets. Electronically Signed: Albert Back MD at 5:46 EST Reading Location ID and State: Christine Rivers MD , Service support , Abdomen/Pelvis CT 11/19/22 06:28 IMPRESSION: Mild dilatation of the renal collecting system bilaterally without evidence of obstructing stone. Gravid uterus. Electronically Signed: Albert Back MD at 7:54 EST Reading Location ID and State: Christine Rivers MD , Service support , Discharge Plan Triage Chief Complaint: Abd Pain ED Provider: Suzanne Aguilar Dx/Rx/DC Orders Clinical Impression: Abdominal pain, left lower quadrant, Instructions: ED Abdominal Pain Unkn Cause Fem, ED Abdominal Pain, Early Prescriptions: New dicyclomine 20 mg tablet 20 mg PO TID PRN (Reason: abdominal discomfort) Qty: 20 0RF No Action cetirizine [Zyrtec] 10 mg tablet 10 mg PO DAILY PRN (Reason: Allergy Symptoms) PNV-DHA 27 mg iron-1 mg -300 mg capsule PO albuterol sulfate 90 mcg/actuation aerosol powdr breath activated 1 inh inhalation Q4H PRN Primary Care Provider: Maria Isabel Sandoval Referrals: Maria Isabel Sandoval MD [Primary Care Provider] - Luis Corley DO [Med Staff - Active Staff] - 3-5 Days if not improving Karla Shrestha MD [Med Staff - Active Staff] - 1-2 Days if not improving Activity Restrictions/Additional Instructions: Start taking either Colace or MiraLAX to help with constipation as you do have some stool in the right side. The exact cause of your pain is not clear. No signs of acute infection. No blood clots in the legs. No signs of disrupted blood flow to your ovaries. Disposition Disposition: Home, Self Care What to do if you have Problems For any increased pain, shortness of breath, bleeding, nausea or vomiting, chestpain, or any unexpected problems, contact your Primary Care Provider. Call [facility] ([phone]) or report to the closest Emergency Room. Call 911 if necessary. 11/19/22 1007 <Electronically signed by Suzanne Aguilar DO> Cosigner Signature (if applicable): CC: Dr. Maria Isabel Sandoval MD ~ Signed [facility] Work Phone: 1(481) 681-692901-06-2023 NotePap Smear Specimen AdequacyJanuary 2022 4:36pmComment.Satisfactory for evaluation. No endocervical component is identified.An endocervical component is not commonly seen in the patient.[facility] A#[id number] Medical [facility] on above: Satisfactory for evaluation. No endocervical component is identified.An endocervical component is not commonly seen in the patient.11-01-2022 NotePap Smear Specimen AdequacyJanuary 2022 4:36pmComment.Satisfactory for evaluation. No endocervical component is identified.An endocervical component is not commonly seen in the patient.[facility] A#[id number] Medical Specialty [facility] on above:Satisfactory for evaluation. No endocervical component is identified.An endocervical component is not commonly seen in the patient.11-01-2022 NotePap Smear Specimen AdequacyJanuary 2022 5:36pmComment.Satisfactory for evaluation. No endocervical component is identified.An endocervical component is not commonly seen in the patient.[facility] A#[id number] Clinic Akron GeneralComment on above: Satisfactory for evaluation. No endocervical component is identified.An endocervical component is not commonly seen in the patient.Evaluation note* Diagnosis Onset Date Resolution Status Early stage of acu te Encounter for routine gynecological examination noneactive [facility] Work Phone: Evaluation note* Diagnosis Onset Date Resolution Status Early stage of acu te Encounter for routine gynecological examination noneactive Early stage of acu te acute Seasonal allergies acute Supervision of high risk , antepartum acute Asthma chronic [facility] Work Phone: Evaluation note* Diagnosis Onset Date Resolution Status acute Supervision of high risk , antepartum acute Asthma chronic Early stage of res olved Seasonal allergies resolved acute Supervision of high risk , antepartum acute Asthma chronic acute Supervision of high risk , antepartum acute Asthma chronic acute Supervision of high risk , antepartum acute Anemia affecting in third trimester acute acute Supervision of high risk , antepartum acute Asthma chronic [facility] Work Phone: Evaluation note* Diagnosis Onset Date Resolution Status acute Supervision of high risk , antepartum acute Asthma chronic acute Supervision of high risk , antepartum acute Anemia affecting in third trimester acute acute Supervision of high risk , antepartum acute Asthma chronic Anemia affecting in third trimester acute acute Supervision of high risk , antepartum acute Asthma chronic Anemia affecting in third trimester acute acute Supervision of high risk , antepartum acute Asthma chronic Anemia affecting in third trimester acute acute Supervision of high risk , antepartum acute Asthma chronic [facility] Work Phone: Evaluation note* Diagnosis Onset Date Resolution Status Anemia affecting in third trimester acute acute Supervision of high risk , antepartum acute Asthma chronic Anemia affecting in third trimester acute acute Supervision of high risk , antepartum acute Asthma chronic Anemia affecting in third trimester acute acute Supervision of high risk , antepartum acute Asthma chronic Anemia affecting in third trimester acute acute Supervision of high risk , antepartum acute Asthma chronic Anemia affecting in third trimester acute acute Supervision of high risk , antepartum acute Asthma chronic Anemia affecting in third trimester acute acute Supervision of high risk , antepartum acute Asthma chronic Anemia affecting in third trimester acute acute Supervision of high risk , antepartum acute Asthma chronic Anemia affecting in third trimester acute acute Supervision of high risk , antepartum acute Asthma chronic Anemia affecting in third trimester acute acute Supervision of high risk , antepartum acute (spontaneous vaginal delivery) acute Asthma chronic [facility] Work Phone: Hospital Discharge instructions Additional Instructions Start taking either Colace or MiraLAX to help with constipation as you do have some stool in the right side. The exact cause of your pain is not clear. No signs of acute infection. No blood clots in the legs. No signs of disrupted blood flow to your ovaries.[facility] Work Phone: Progress note Author iLno Joaquin [facility] Note Date/Time April 11, 2025 10:2 0am [facility] [address] [place] [address], [address] [place] [address] OFFICE VISIT Date of Service: 04/11/25 MR#: [id number] Acct: [id number] Name: ISHA VANEGAS Rep #: [id number] : 1990 Provider: DAKOTA Joaquin Age/Sex: 34/F Location: [facility] Status: Signed Intake Vital Signs 02/04/25 09:33 03/25/25 11:20 04/11/25 10:05 04/11/25 10:06 Height 5 ft 5 in 5 ft 5 in 5 ft 5 in 5 ft 5 in Weight: 160 lb 2 oz 159 lb 6 oz BMI 26.6 26.5 BP 105/68 99/64 Intake Visit Reasons: 33 WK OB (PT RQT) Chief Complaint: 33wk 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 Is patient in pain?: No Allergies ceftriaxone (From Rocephin) Allergy (Mild, Verified 04/11/25 10:03) rash Medications ?Medication ?Instructions ?Recorded ?Confirmed ?Type albuterol sulfate 90 mcg/actuation 1 inh inhalation Q4 H PRN 10/18/22 04/11/25 History breath activated powder inhaler multivitamin no.47-iron fum 27 cap PO 10/18/22 5 History mg-folate no.1 1 mg-dha 300 mg capsule (PNV-DHA) clobetasol 0.05 % topical ointment 1 applic topical QH S #30 grams 08/11/23 04/11/25 Rx Last Menstrual Period: 08/22/24 : No PFSH PFSH Medical History Lichen sclerosus (spontaneous vaginal delivery) Spontaneous vaginal delivery Phenylalanine hydroxylase deficiency Eczema Asthma Surgical History s/p stomach surgery s/p left ankle surgery Family History Grandfather Lymphoma Aunt Diabetes type 1, controlled Paternal Social History adopted: No household members: spouse and children number of children: 2 current occupational status: employed 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 current occupational exposures/hazards: No pets and animals: Yes pets and animals: dog(s) history of recent travel: No sexually active: Yes Smoking Status: Never smoker alcohol intake: never substance use type: does not use well-balanced diet: daily or most days caffeine: No eating out: 1-3 times/week during the past year weight has: remained stable what type of physical activity do you participate in: bicycling and weight training frequency: 3-4 times per week duration: 30-45 minutes/day nito/episcopalian: Nondenominational seatbelt use: always do you feel safe at home: Yes additional social history: - Maria Isabel-[employer] History 2 3 Elective abortions Hx Para 2 Spontaneous abortions Hx # Term Pregnancies Ectopic pregnancies Hx # Pregnancies Multiple births # of living children 2 Past Pregnancies Del. Date Name GA/Weeks Outcome Route Bth Weight Infant Gen Labor Lgth Anesthesia Del Locatn Provider FOB 06/02/21 Annette 40 live - full term 8lbs 3oz Female e pidural [facility] Tray 05/29/23 Lili 40 live - full term 8#3 Female [facility] [place] Delivery Date: 06/02/21 Last Updated by: Alana Mendez PROM; Developed Chorio; 2nd degree laceration Delivery Date: 05/29/23 Last Updated by: Siena Braun IOL HPI 33 WK OB (PT RQT) Details: ISHA VANEGAS is a 34 year old who presents for routine OB visit. OB Visit JENNY Calculator Estimated Delivery Date Method Current WG Current Estimate 05/29/25 LMP (Certain) 33w 1d Expected Delivery Route/Plan Labor Preferences- CB/BF classes: [] labor support person: [] labor intervention preferences: [] pain management options preferred: [] cut cord/dad catch: [] : [] PP control planned: [] discussed possible routes of delivery and associated risks: [] special requests: [] Specific Issue/Plans Covid status: [] Flu vaccine: [] Tdap vaccine: [] Rhogam: [] LARC form signed: [] Problem list reviewed and updated with the most current plan of care details and appropriate orders placed. Relevant counseling for the gestational age provided. Continue routine care and follow up unless otherwise noted in visit notes/problem list details Initial Weight: Not Recorded Date -?-?-?-?-?-?-?-?-?-?-?-?- EGA Weight BP Urine Prot -?-?-?-?-?-?-?-?-?-?-?-?- Glucose FHR FuHt Pres Dilation -?-?-?-?-?-?-?-?-?-?-?-?- Effaced St Visit Note 11/01/24 -?-?-?-?-?-?-?-?-?-?-?-?- 10w 1d 137 lb 8 oz 98/60 -?-?-?-?-?-?-?-?-?-?-?--?- 180 -?-?-?-?-?-?-?-?-?-?-?-?- SM- CRL cons wit h LMP 3.3 cm 12/03/24 -?-?-?-?-?-?-?-?-?-?-?-?- 14w 5d 140 lb 4 oz 103/69 Trac e -?-?-?-?-?-?-?-?-?-?-?-?- Negative 159 -?-?-?-?-?-?-?-?-?-?-?-?- KW- no vb/crampi ng. had GI bug over that last week. US ordered. 12/31/24 -?-?-?-?-?-?-?-?-?-?-?-?- 18w 5d 148 lb 6 oz 148 lb 6 oz 99/62 Negative -?-?-?-?-?-?-?-?-?-?-?-?- Negative 145 -?-?-?-?-?-?-?-?-?-?-?-?- KW- no vb/crampi ng. US scheduled for next week. declines AFP 02/04/25 -?-?-?-?-?-?-?-?-?-?-?-?- 23w 5d 154 lb 4 oz 95/61 Nega tive -?-?-?-?-?-?-?-?-?-?-?-?- Negative 143 24 -?-?-?-?-?-?-?-?-?-?-?-?- JV- normal anato my scan reviewed. no lof, vaginal bleedig. + FM. planning GCT next visit. 03/04/25 -?-?-?-?-?--?-?-?-?-?-?-?- 27w 5d 156 lb 115/75 Negative -?-?-?-?-?-?-?-?-?-?-?-?- Negative 150 28 -?-?-?-?-?-?-?-?-?-?-?-?- kw- no vb/lof/ct x. good fm gct today. LARC done. tdap next visit. 03/25/25 -?-?-?-?-?-?-?-?-?-?-?-?- 30w 5d 160 lb 2 oz 105/68 -?-?-?-?-?-?-?-?-?-?-?-?- 140 32 -?-?-?-?-?-?-?-?-?-?-?-?- SM- no vb lof go od fm nor egular ctx tdap given 04/11/25 -?-?-?-?-?-?-?-?-?-?-?-?- 33w 1d 159 lb 6 oz 99/64 1+ -?-?-?-?-?-?-?-?-?-?-?-?- Negative 130 35 -?-?-?-?-?-?-?-?-?-?-?-?- KW- no vb/lof/ct x. good fm. PC ratio sent for 1+ protein. growth US ordered for fundal height. ACOG First Trimester First Trimester: Discussed Second Trimester Second Trimester: Signs and Symptoms of Labor, Selecting a care provider, Reproductive Life Planning & Contreception, Care Planning, Depression/Anxiety and Intimate Partner Violence; Discussed Tobacco Cessation ROS Const Reports system reviewed and no additional complaints, except as documented Eyes Reports system reviewed and no additional complaints, except as documented ENT Reports system reviewed and no additional complaints, except as documented Card Reports system reviewed and no additional complaints, except as documented Resp Reports system reviewed and no additional complaints, except as documented GI Reports system reviewed and no additional complaints, except as documented, Denies nausea and Denies vomiting Reports system reviewed and no additional complaints, except as documented Musc Reports system reviewed and no additional complaints, except as documented Skin/Breast Reports system reviewed and no additional complaints, except as documented Neuro Yes system reviewed and no additional complaints, except as documented Psych Reports system reviewed and no additional complaints, except as documented Endo Reports system reviewed and no additional complaints, except as documented Morgan/Lymph Reports system reviewed and no additional complaints, except as documented Aller/Immun Reports system reviewed and no additional complaints, except as documented Exam Const General: cooperative, healthy appearing and no acute distress Orientation: alert, awake and oriented x3 Neck Neck: normal visual inspection and full ROM Resp Effort & Inspection: normal respiratory effort, able to speak in complete sentences and symmetric chest movement GI Inspection: normal to inspection Palpation: soft and other Other: gravid Skin General: no rashes or lesions noted Neuro General: patient alert, patient awake and patient oriented x3 Cognition: normal cognition Speech: speech normal Gait: normal gait Motor: muscle tone normal throughout Extrem General: normal to inspection and full ROM Psych Appearance: grossly normal Mental Status: mental status grossly normal Mood: congruent mood Affect: normal affect Speech and Movement: speech and movement normal Attitude: cooperative Thought Process: normal Thought Content: normal Judgment: judgment good Results POC Urinalysis 2 Dip (Clinic) Office Urine Glucose Negative Last Edit by Juliann Nicolas on 04/11/25 10:11 Office Urine Protein 1+ Last Edit by Juliann Nicolas on 04/11/25 10:11 Coding Level of Care Code OB Routine Diagnoses Positive GBS test B95.1 Supervision of normal Z34.90 33 weeks gestation of Z3A.33 Weeks of gestation: 33 weeks Uterine size date discrepancy O26.849 Assessment and Plan Assessment and Plan (1) Positive GBS test: Status: Acute Comment: treat in labor (2) Supervision of normal : Status: Acute Comment: PRR, , JENNY 05/29/25, Lili Parr, Maria Isabel (3) : Status: Acute Qualifiers: Weeks of gestation: 33 weeks Qualified Code(s): Z3A.33 - 33 weeks gestation of Comment: Low risk, anatomy nl (4) Uterine size date discrepancy : Status: Acute Comment: S>D Orders: Orders POC Urinalysis 2 Dip (Clinic) Today CBC W/Diff, Automated Today D50.9 - Iron deficiency anemia, unspecified, O99.019 - Anemia complicating , unspecified trimester Protein+Creatinine Ratio,Urine Today O12.10 - Gestational proteinuria, unspecified trimester Comprehensive Metabolic Profil Today O12.10 - Gestational proteinuria, unspecified trimester OB Limited With Biometrics Today O26.849 - Uterine size-date discrepancy, unspecified trimester Plan Details Additional Comments: ACOG trimester education reviewed and updated. see problem list details for updated plan management information and see below for orders placed at this visit. GA appropriate handout given. 04/11/25 1020 <Electronically signed by Lino mckenna CNM> Date _ Lino Joaquin CNM Cosigner Signature: Date (if applicable) CC: ~ [facility] Work Phone: Progress note Author Lino Madi [facility] Note Date/Time May 06, 2025 9:43 am [facility] [address] [place] [address], [address] [place] [address] OFFICE VISIT Date of Service: 05/06/25 MR#: [id number] Acct: [id number] Name: ISHA VANEGAS Rep #: [id number] : 1990 Provider: DAKOTA Joaquin Age/Sex: 34/F Location: [facility] Status: Signed Intake Vital Signs 02/04/25 09:33 04/11/25 10:06 05/06/25 09:26 05/06/25 09:29 Height 5 ft 5 in 5 ft 5 in 5 ft 5 in 5 ft 5 in Weight: 160 lb BMI 26.6 BP 110/73 Intake Visit Reasons: 35 WK OB Chief Complaint: 36wk 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 Is patient in pain?: No Allergies ceftriaxone (From Rocephin) Allergy (Mild, Verified 05/06/25 09:25) rash Medications ?Medication ?Instructions ?Recorded ?Confirmed ?Type albuterol sulfate 90 mcg/actuation 1 inh inhalation Q4 H PRN 10/18/22 05/06/25 History breath activated powder inhaler multivitamin no.47-iron fum 27 cap PO 10/18/22 5 History mg-folate no.1 1 mg-dha 300 mg capsule (PNV-DHA) clobetasol 0.05 % topical ointment 1 applic topical QH S #30 grams 08/11/23 05/06/25 Rx Last Menstrual Period: 08/22/24 : No PFSH PFSH Medical History Lichen sclerosus (spontaneous vaginal delivery) Spontaneous vaginal delivery Phenylalanine hydroxylase deficiency Eczema Asthma Surgical History s/p stomach surgery s/p left ankle surgery Family History Grandfather Lymphoma Aunt Diabetes type 1, controlled Paternal Social History adopted: No household members: spouse and children number of children: 2 current occupational status: employed 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 current occupational exposures/hazards: No pets and animals: Yes pets and animals: dog(s) history of recent travel: No sexually active: Yes Smoking Status: Never smoker alcohol intake: never substance use type: does not use well-balanced diet: daily or most days caffeine: No eating out: 1-3 times/week during the past year weight has: remained stable what type of physical activity do you participate in: bicycling and weight training frequency: 3-4 times per week duration: 30-45 minutes/day nito/episcopalian: Nondenominational seatbelt use: always do you feel safe at home: Yes 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 Date Name GA/Weeks Outcome Route Bth Weight Gen Labor Lgth Anesthesia Del Locatn Provider FOB 06/02/21 Annette 40 live - full term 8lbs 3oz Female e pidural [facility] Tray 05/29/23 Lili 40 live - full term 8#3 Female [facility] [place]anthony Delivery Date: 06/02/21 Last Updated by: Alana Mendez PROM; Developed Chorio; 2nd degree laceration Delivery Date: 05/29/23 Last Updated by: Siena Braun IOL HPI 35 WK OB Details: ISHA VANEGAS is a 34 year old who presents for routine OB visit. OB Visit JENNY Calculator Estimated Delivery Date Method Current WG Current Estimate 05/29/25 LMP (Certain) 36w 5d Expected Delivery Route/Plan Labor Preferences- CB/BF classes: [] labor support person: [] labor intervention preferences: [] pain management options preferred: [] cut cord/dad catch: [] : [] PP control planned: [] discussed possible routes of delivery and associated risks: [] special requests: [] Specific Issue/Plans Covid status: [] Flu vaccine: [] Tdap vaccine: [] Rhogam: [] LARC form signed: [] Problem list reviewed and updated with the most current plan of care details and appropriate orders placed. Relevant counseling for the gestational age provided. Continue routine care and follow up unless otherwise noted in visit notes/problem list details Initial Weight: Not Recorded Date -?-?-?-?-?-?-?-?-?-?-?-?- EGA Weight BP Urine Prot -?-?-?-?-?-?-?-?-?-?-?-?- Glucose FHR FuHt Pres Dilation -?-?-?-?-?-?-?-?-?-?-?-?- Effaced St Visit Note 11/01/24 -?-?-?-?-?-?-?-?-?-?-?-?- 10w 1d 137 lb 8 oz 98/60 -?-?-?-?-?-?-?-?-?-?-?-?- 180 -?-?-?-?-?-?-?-?-?-?-?-?- SM- CRL cons wit h LMP 3.3 cm 12/03/24 -?-?-?-?-?-?-?-?-?-?-?-?- 14w 5d 140 lb 4 oz 103/69 Trac e -?-?-?-?-?-?-?-?-?-?-?-?- Negative 159 -?-?-?-?-?-?-?-?-?-?-?-?- KW- no vb/crampi ng. had GI bug over that last week. US ordered. 12/31/24 -?-?-?-?-?-?-?-?-?-?-?-?- 18w 5d 148 lb 6 oz 148 lb 6 oz 99/62 Negative -?-?-?-?-?-?-?-?-?-?-?-?- Negative 145 -?-?-?-?-?-?-?-?-?-?-?-?- KW- no vb/crampi ng. US scheduled for next week. declines AFP 02/04/25 -?-?-?-?-?-?-?-?-?-?-?-?- 23w 5d 154 lb 4 oz 95/61 Nega tive -?-?-?-?-?-?-?-?-?-?-?-?- Negative 143 24 -?-?--?-?-?-?-?-?-?-?-?-?- JV- normal anato my scan reviewed. no lof, vaginal bleedig. + FM. planning GCT next visit. 03/04/25 -?-?-?-?-?-?-?-?-?-?-?-?- 27w 5d 156 lb 115/75 Negative -?-?-?-?-?-?-?-?-?-?-?-?- Negative 150 28 -?-?-?-?-?-?-?-?-?-?-?-?- kw- no vb/lof/ct x. good fm gct today. LARC done. tdap next visit. 03/25/25 -?-?-?-?-?-?-?-?-?-?-?-?- 30w 5d 160 lb 2 oz 105/68 -?-?-?-?-?-?-?-?-?-?-?-?- 140 32 -?-?-?-?-?-?-?-?-?-?-?-?- SM- no vb lof go od fm nor egular ctx tdap given 04/11/25 -?-?-?-?-?-?-?-?-?-?-?-?- 33w 1d 159 lb 6 oz 99/64 1+ -?-?-?-?-?-?-?-?-?-?-?-?- Negative 130 35 -?-?-?-?-?-?-?-?-?-?-?-?- KW- no vb/lof/ct x. good fm. PC ratio sent for 1+ protein. growth US ordered for fundal height. 05/06/25 -?-?-?-?-?-?-?-?-?-?-?-?- 36w 5d 160 lb 110/73 Negative -?-?-?-?-?-?-?-?-?-?-?-?- Negative 145 36 Cephalic 1 -?-?-?-?-?-?-?-?-?-?-?-?- 60 -2 KW- no vb. lof.ctx good fm. GBS today. normal KW- no vb.lof.ctx good fm. G BS positive in urine. normal US ACOG First Trimester First Trimester: Discussed Second Trimester Second Trimester: Signs and Symptoms of Labor, Selecting a care provider, Reproductive Life Planning & Contreception, Care Planning, Depression/Anxiety and Intimate Partner Violence; Discussed Tobacco Cessation ROS Const Reports system reviewed and no additional complaints, except as documented Eyes Reports system reviewed and no additional complaints, except as documented ENT Reports system reviewed and no additional complaints, except as documented Card Reports system reviewed and no additional complaints, except as documented Resp Reports system reviewed and no additional complaints, except as documented GI Reports system reviewed and no additional complaints, except as documented, Denies nausea and Denies vomiting Reports system reviewed and no additional complaints, except as documented Musc Reports system reviewed and no additional complaints, except as documented Skin/Breast Reports system reviewed and no additional complaints, except as documented Neuro Yes system reviewed and no additional complaints, except as documented Psych Reports system reviewed and no additional complaints, except as documented Endo Reports system reviewed and no additional complaints, except as documented Morgan/Lymph Reports system reviewed and no additional complaints, except as documented Aller/Immun Reports system reviewed and no additional complaints, except as documented Exam Const General: cooperative, healthy appearing and no acute distress Orientation: alert, awake and oriented x3 Neck Neck: normal visual inspection and full ROM Resp Effort & Inspection: normal respiratory effort, able to speak in complete sentences and symmetric chest movement GI Inspection: normal to inspection Palpation: soft and other Other: gravid Skin General: no rashes or lesions noted Neuro General: patient alert, patient awake and patient oriented x3 Cognition: normal cognition Speech: speech normal Gait: normal gait Motor: muscle tone normal throughout Extrem General: normal to inspection and full ROM Psych Appearance: grossly normal Mental Status: mental status grossly normal Mood: congruent mood Affect: normal affect Speech and Movement: speech and movement normal Attitude: cooperative Thought Process: normal Thought Content: normal Judgment: judgment good Results POC Urinalysis 2 Dip (Clinic) Office Urine Glucose Negative Last Edit by Juliann Nicolas on 05/06/25 09:30 Office Urine Protein Negative Last Edit by Juliann Nicolas on 05/06/25 09:30 Coding Level of Care Code OB Routine Diagnoses Anemia affecting O99.019 Uterine size date discrepancy O26.849 Supervision of normal Z34.90 Positive GBS test B95.1 36 weeks gestation of Z3A.36 Weeks of gestation: 36 weeks Assessment and Plan Assessment and Plan (1) Anemia affecting : Status: Acute Comment: ferritin, iron & iron binding studies (2) Uterine size date discrepancy : Status: Acute Comment: S>D (3) Supervision of normal : Status: Acute Comment: PRR, , JENNY 05/29/25, Lili Parr, Maria Isabel (4) Positive GBS test: Status: Acute Comment: treat in labor (5) : Status: Acute Qualifiers: Weeks of gestation: 36 weeks Qualified Code(s): Z3A.36 - 36 weeks gestation of Comment: Low risk, anatomy nl Orders: Orders POC Urinalysis 2 Dip (Clinic) Today Plan Details Additional Comments: ACOG trimester education reviewed and updated. see problem list details for updated plan management information and see below for orders placed at this visit. GA appropriate handout given. 05/06/25 0943 <Electronically signed by Lino mckenna CNM> Date _ Lino Joaquin CNM Cosigner Signature: Date (if applicable) CC: ~ [facility] Work Phone: Progress note Author Karla Shreshta [facility] Note Date/Time May 13, 2025 11:2 9am [facility] [address] [place] [address], [address] [place] [address] OFFICE VISIT Date of Service: 05/13/25 MR#: [id number] Acct: [id number] Name: ISHA VANEGAS Rep #: [id number] : 1990 Provider: Dr. Guanaco Shrestha MD Age/Sex: 34/F Location: [facility] Status: Signed Intake Vital Signs 02/04/25 09:33 05/06/25 09:29 05/13/25 11:02 Height 5 ft 5 in 5 ft 5 in 5 ft 5 in Weight: 160 lb 8 oz BMI 26.6 BP 106/66 Intake Visit Reasons: 37 WK 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 Is patient in pain?: No Allergies ceftriaxone (From Rocephin) Allergy (Mild, Verified 05/13/25 11:00) rash Medications ?Medication ?Instructions ?Recorded ?Confirmed ?Type albuterol sulfate 90 mcg/actuation 1 inh inhalation Q4 H PRN 10/18/22 05/13/25 History breath activated powder inhaler multivitamin no.47-iron fum 27 cap PO 10/18/22 5 History mg-folate no.1 1 mg-dha 300 mg capsule (PNV-DHA) clobetasol 0.05 % topical ointment 1 applic topical QH S #30 grams 08/11/23 05/13/25 Rx Last Menstrual Period: 08/22/24 Zika: Zika virus screening: Negative : No PFSH PFSH Medical History Lichen sclerosus (spontaneous vaginal delivery) Spontaneous vaginal delivery Phenylalanine hydroxylase deficiency Eczema Asthma Surgical History s/p stomach surgery s/p left ankle surgery Family History Grandfather Lymphoma Aunt Diabetes type 1, controlled Paternal Social History adopted: No household members: spouse and children number of children: 2 current occupational status: employed 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 current occupational exposures/hazards: No pets and animals: Yes pets and animals: dog(s) history of recent travel: No sexually active: Yes Smoking Status: Never smoker alcohol intake: never substance use type: does not use well-balanced diet: daily or most days caffeine: No eating out: 1-3 times/week during the past year weight has: remained stable what type of physical activity do you participate in: bicycling and weight training frequency: 3-4 times per week duration: 30-45 minutes/day nito/episcopalian: Nondenominational seatbelt use: always do you feel safe at home: Yes additional social history: - No History 3 Elective abortions Hx Para 2 Spontaneous abortions Hx # Term Pregnancies Ectopic pregnancies Hx # Pregnancies Multiple births # of living children 2 Past Pregnancies Del. Date Name GA/Weeks Outcome Route Bth Weight Infant Gen Labor Lgth Anesthesia Del Locatn Provider FOB 06/02/21 Annette 40 live - full term 8lbs 3oz Female e pidural [facility] Tray 05/29/23 Lili 40 live - full term 8#3 Female [facility] Marcanthony Delivery Date: 06/02/21 Last Updated by: Alana Mendez PROM; Developed Chorio; 2nd degree laceration Delivery Date: 05/29/23 Last Updated by: Siena Braun IOL HPI 37 WK OB Details: ISHA VANEGAS is a 34 year old who presents for routine OB visit. OB Visit JENNY Calculator Estimated Delivery Date Method Current WG Current Estimate 05/29/25 LMP (Certain) 37w 5d Expected Delivery Route/Plan Labor Preferences- CB/BF classes: [] labor support person: [] labor intervention preferences: [] pain management options preferred: [] cut cord/dad catch: [] : [] PP control planned: [] discussed possible routes of delivery and associated risks: [] special requests: [] Specific Issue/Plans Covid status: [] Flu vaccine: [] Tdap vaccine: [] Rhogam: [] LARC form signed: [] Problem list reviewed and updated with the most current plan of care details and appropriate orders placed. Relevant counseling for the gestational age provided. Continue routine care and follow up unless otherwise noted in visit notes/problem list details Initial Weight: Not Recorded Date -?-?-?-?-?-?-?-?-?-?-?-?- EGA Weight BP Urine Prot -?-?-?-?-?-?-?-?-?-?-?-?- Glucose FHR FuHt Pres Dilation -?-?-?-?-?-?-?-?-?-?-?-?- Effaced St Visit Note 11/01/24 -?-?-?-?-?-?-?-?-?-?-?-?- 10w 1d 137 lb 8 oz 98/60 -?-?-?-?-?-?-?-?-?-?-?-?- 180 -?-?-?-?-?-?-?-?--?-?-?-?- SM- CRL cons wit h LMP 3.3 cm 12/03/24 -?-?-?-?-?-?-?-?-?-?-?-?- 14w 5d 140 lb 4 oz 103/69 Trac e -?-?-?-?-?-?-?-?-?-?-?-?- Negative 159 -?-?-?-?-?-?-?-?-?-?-?-?- KW- no vb/crampi ng. had GI bug over that last week. US ordered. 12/31/24 -?-?-?-?-?-?-?-?-?-?-?-?- 18w 5d 148 lb 6 oz 148 lb 6 oz 99/62 Negative -?-?-?-?-?-?-?-?-?-?-?-?- Negative 145 -?-?-?-?-?-?-?-?-?-?-?-?- KW- no vb/crampi ng. US scheduled for next week. declines AFP 02/04/25 -?-?-?-?-?-?-?-?-?-?-?-?- 23w 5d 154 lb 4 oz 95/61 Nega tive -?-?-?-?-?-?-?-?-?-?-?-?- Negative 143 24 -?-?-?-?-?-?-?-?-?-?-?--?- JV- normal anato my scan reviewed. no lof, vaginal bleedig. + FM. planning GCT next visit. 03/04/25 -?-?-?-?-?-?-?-?-?-?-?-?- 27w 5d 156 lb 115/75 Negative -?-?-?-?-?-?-?-?-?-?-?-?- Negative 150 28 -?-?-?-?-?-?-?-?-?-?-?-?- kw- no vb/lof/ct x. good fm gct today. LARC done. tdap next visit. 03/25/25 -?-?-?-?-?-?-?-?-?-?-?-?- 30w 5d 160 lb 2 oz 105/68 -?-?-?-?-?-?-?-?-?-?-?-?- 140 32 -?-?-?-?-?-?-?-?-?-?-?-?- SM- no vb lof go od fm nor egular ctx tdap given 04/11/25 -?-?-?-?-?-?-?-?-?-?-?-?- 33w 1d 159 lb 6 oz 99/64 1+ -?-?-?-?-?-?-?-?-?-?-?-?- Negative 130 35 -?-?-?-?-?-?-?-?-?-?-?-?- KW- no vb/lof/ct x. good fm. PC ratio sent for 1+ protein. growth US ordered for fundal height. 05/06/25 -?-?-?-?-?-?-?-?-?-?-?-?- 36w 5d 160 lb 110/73 Negative -?-?-?-?-?-?-?-?-?-?-?-?- Negative 145 36 Cephalic 1 -?-?-?-?-?-?-?-?-?-?-?-?- 60 -2 KW- no vb. lof.ctx good fm. GBS today. normal KW- no vb.lof.ctx good fm. G BS positive in urine. normal US 05/13/25 -?-?-?-?-?-?-?-?-?-?-?-?- 37w 5d 160 lb 8 oz 106/66 Nega tive -?-?-?-?-?-?-?-?-?-?-?-?- Negative 135 38 Cephalic -?-?-?-?-?-?-?-?-?-?-?-?- SM- no vb lof go od fm no reuglar ctx ACOG First Trimester First Trimester: Discussed Second Trimester Second Trimester: Signs and Symptoms of Labor, Selecting a care provider, Reproductive Life Planning & Contreception, Care Planning, Depression/Anxiety and Intimate Partner Violence; Discussed Tobacco Cessation Results POC Urinalysis 2 Dip (Clinic) Office Urine Glucose Negative Last Edit by Jennifer Parmar on 05/13/25 11:06 Office Urine Protein Negative Last Edit by Jennifer Parmar on 05/13/25 11:06 Coding Level of Care Code OB Routine Diagnoses Anemia affecting O99.019 Uterine size date discrepancy O26.849 Positive GBS test B95.1 Supervision of normal Z34.90 37 weeks gestation of Z3A.37 Weeks of gestation: 37 weeks Assessment and Plan Assessment and Plan (1) Anemia affecting : Status: Acute Comment: ferritin, iron & iron binding studies (2) Uterine size date discrepancy : Status: Acute Comment: S>D (3) Positive GBS test: Status: Acute Comment: treat in labor (4) Supervision of normal : Status: Acute Comment: PRR, , JENNY 05/29/25, boy Lili Parr, Maria Isabel (5) : Status: Acute Qualifiers: Weeks of gestation: 37 weeks Qualified Code(s): Z3A.37 - 37 weeks gestation of Comment: Low risk, anatomy nl Orders: Orders POC Urinalysis 2 Dip (Clinic) Today 05/13/25 1129 <Electronically signed by Karla singletary MD> Date _ Karla Shrestha MD Cosigner Signature: Date (if applicable) CC: ~ [facility] Work Phone: Progress note Author Mitzi Lyon [facility] Note Date/Time May 20, 2025 8:55 am [facility] [address] [place] [address], [address] [place] [address] OFFICE VISIT Date of Service: 05/20/25 MR#: [id number] Acct: [id number] Name: ISHA VANEGAS Rep #: [id number] : 1990 Provider: DAKOTA Lyon Age/Sex: 34/F Location: [facility] Status: Signed Intake Vital Signs 02/04/25 09:33 04/11/25 10:06 05/13/25 11:02 05/20/25 08:35 Height 5 ft 5 in 5 ft 5 in 5 ft 5 in 5 ft 5 in Weight: 161 lb 4 oz BMI 26.8 BP 94/58 L Intake Visit Reasons: 38 WK 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 Is patient in pain?: No Allergies ceftriaxone (From Rocephin) Allergy (Mild, Verified 05/20/25 08:36) rash Medications ?Medication ?Instructions ?Recorded ?Confirmed ?Type albuterol sulfate 90 mcg/actuation 1 inh inhalation Q4 H PRN 10/18/22 05/20/25 History breath activated powder inhaler multivitamin no.47-iron fum 27 cap PO 10/18/22 5 History mg-folate no.1 1 mg-dha 300 mg capsule (PNV-DHA) clobetasol 0.05 % topical ointment 1 applic topical QH S #30 grams 08/11/23 05/20/25 Rx Last Menstrual Period: 08/22/24 Zika: Zika virus screening: Negative : No Have you fallen in the past year?: No PFSH PFSH Medical History Lichen sclerosus (spontaneous vaginal delivery) Spontaneous vaginal delivery Phenylalanine hydroxylase deficiency Eczema Asthma Surgical History s/p stomach surgery s/p left ankle surgery Family History Grandfather Lymphoma Aunt Diabetes type 1, controlled Paternal Social History adopted: No household members: spouse and children number of children: 2 current occupational status: employed 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 current occupational exposures/hazards: No pets and animals: Yes pets and animals: dog(s) history of recent travel: No sexually active: Yes Smoking Status: Never smoker alcohol intake: never substance use type: does not use well-balanced diet: daily or most days caffeine: No eating out: 1-3 times/week during the past year weight has: remained stable what type of physical activity do you participate in: bicycling and weight training frequency: 3-4 times per week duration: 30-45 minutes/day nito/episcopalian: Nondenominational seatbelt use: always do you feel safe at home: Yes additional social history: - Maria Isabel-He History 3 Elective abortions Hx Para 2 Spontaneous abortions Hx # Term Pregnancies Ectopic pregnancies Hx # Pregnancies Multiple births # of living children 2 Past Pregnancies Del. Date Name GA/Weeks Outcome Route Bth Weight Gen Labor Lgth Anesthesia Del Locatn Provider FOB 06/02/21 Annette 40 live - full term 8lbs 3oz Female e pidural [facility] Tray 05/29/23 Lili 40 live - full term 8#3 Female [facility] Marcanthony Delivery Date: 06/02/21 Last Updated by: Alana Mendez PROM; Developed Chorio; 2nd degree laceration Delivery Date: 05/29/23 Last Updated by: Siena Braun IOL HPI 38 WK OB Details: ISHA VANEGAS is a 34 year old who presents for routine OB visit. OB Visit JENNY Calculator Estimated Delivery Date Method Current WG Current Estimate 05/29/25 LMP (Certain) 38w 5d Expected Delivery Route/Plan Labor Preferences- CB/BF classes: [] labor support person: [] labor intervention preferences: [] pain management options preferred: [] cut cord/dad catch: [] : plans PP control planned: [] discussed possible routes of delivery and associated risks: [] special requests: [] Specific Issue/Plans Covid status: [] Flu vaccine: [] Tdap vaccine:obtained Rhogam: na LARC form signed: completed Problem list reviewed and updated with the most current plan of care details and appropriate orders placed. Relevant counseling for the gestational age provided. Continue routine care and follow up unless otherwise noted in visit notes/problem list details Initial Weight: Not Recorded Date -?-?-?-?-?-?-?-?-?-?-?-?- EGA Weight BP Urine Prot -?-?-?-?-?-?-?-?-?-?-?-?- Glucose FHR FuHt Pres Dilation -?-?-?-?-?-?-?-?-?-?-?-?- Effaced St Visit Note 11/01/24 -?-?-?-?-?-?-?-?-?-?-?-?- 10w 1d 137 lb 8 oz 98/60 -?-?-?-?-?-?-?-?-?-?-?-?- 180 -?-?-?-?-?-?-?-?-?-?-?-?- SM- CRL cons wit h LMP 3.3 cm 12/03/24 -?-?-?-?-?-?-?-?-?-?-?--?- 14w 5d 140 lb 4 oz 103/69 Trac e -?-?-?-?-?-?-?-?-?-?-?-?- Negative 159 -?-?-?-?-?-?-?-?-?-?-?-?- KW- no vb/crampi ng. had GI bug over that last week. US ordered. 12/31/24 -?-?-?-?-?-?-?-?-?-?-?-?- 18w 5d 148 lb 6 oz 148 lb 6 oz 99/62 Negative -?-?-?-?-?-?-?-?-?-?-?-?- Negative 145 -?-?-?-?-?-?-?-?-?-?-?-?- KW- no vb/crampi ng. US scheduled for next week. declines AFP 02/04/25 -?-?-?-?-?-?-?-?-?-?-?-?- 23w 5d 154 lb 4 oz 95/61 Nega tive -?-?-?-?-?-?-?-?-?-?-?-?- Negative 143 24 -?-?-?-?-?-?-?-?-?-?-?-?- JV- normal anato my scan reviewed. no lof, vaginal bleedig. + FM. planning GCT next visit. 03/04/25 -?-?-?-?-?-?-?-?-?-?-?-?- 27w 5d 156 lb 115/75 Negative -?-?-?-?-?-?-?-?-?-?-?-?- Negative 150 28 -?-?-?-?-?--?-?-?-?-?-?-?- kw- no vb/lof/ct x. good fm gct today. LARC done. tdap next visit. 03/25/25 -?-?-?-?-?-?-?-?-?-?-?-?- 30w 5d 160 lb 2 oz 105/68 -?-?-?-?--?-?-?-?-?-?-?-?- 140 32 -?-?-?-?-?-?-?-?-?-?-?-?- SM- no vb lof go od fm nor egular ctx tdap given 04/11/25 -?-?-?-?-?-?-?-?-?-?-?-?- 33w 1d 159 lb 6 oz 99/64 1+ -?-?-?-?-?-?-?-?-?-?-?-?- Negative 130 35 -?-?-?-?-?-?-?-?-?-?-?-?- KW- no vb/lof/ct x. good fm. PC ratio sent for 1+ protein. growth US ordered for fundal height. 05/06/25 -?-?-?-?-?-?-?-?-?-?-?-?- 36w 5d 160 lb 110/73 Negative -?-?-?-?-?-?-?-?-?-?-?-?- Negative 145 36 Cephalic 1 -?-?-?-?-?-?-?-?-?-?-?-?- 60 -2 KW- no vb. lof.ctx good fm. GBS today. normal KW- no vb.lof.ctx good fm. G BS positive in urine. normal US 05/13/25 -?-?-?-?-?-?-?-?-?-?-?-?- 37w 5d 160 lb 8 oz 106/66 Nega tive -?-?-?-?-?-?-?-?-?-?-?-?- Negative 135 38 Cephalic -?-?-?-?-?-?-?-?-?-?-?-?- SM- no vb lof go od fm no reuglar ctx 05/20/25 -?-?-?-?-?-?-?-?-?-?-?-?- 38w 5d 161 lb 4 oz 94/58 Nega tive -?-?-?-?-?-?-?-?-?-?-?-?- Negative 138 38 Cephalic 1 -?-?-?-?-?-?-?-?-?-?-?-?- 60 -3 LC- no ctx /lof/vb/ good fm. no concerns today ACOG First Trimester First Trimester: Discussed Second Trimester Second Trimester: Signs and Symptoms of Labor, Selecting a care provider, Reproductive Life Planning & Contreception, Care Planning, Depression/Anxiety and Intimate Partner Violence; Discussed Tobacco Cessation ROS Const Reports system reviewed and no additional complaints, except as documented GI Denies nausea and Denies vomiting Denies urinary hesitancy and Denies urinary urgency Exam Const Orientation: alert, awake and oriented x3 Resp Effort & Inspection: normal respiratory effort, able to speak in complete sentences and symmetric chest movement GI Palpation: soft (gravid) OB/External & Speculum: other (fundus appriopriate for GA) Results POC Urinalysis 2 Dip (Clinic) Office Urine Glucose Negative Last Edit by Tamiko Conner on 05/20/25 08:41 Office Urine Protein Negative Last Edit by Tamiko Conner on 05/20/25 08:41 Coding Level of Care Code OB Routine Diagnoses Anemia affecting O99.019 Uterine size date discrepancy O26.849 Positive GBS test B95.1 Supervision of normal Z34.90 37 weeks gestation of Z3A.37 Weeks of gestation: 37 weeks Assessment and Plan Assessment and Plan (1) Anemia affecting : Status: Acute Comment: ferritin, iron & iron binding studies-normal (2) Uterine size date discrepancy : Status: Acute Comment: S>D (3) Positive GBS test: Status: Acute Comment: treat in labor (4) Supervision of normal : Status: Acute Comment: PRR, , JENNY 05/29/25, boy Lili Parr, Maria Isabel (5) : Status: Acute Qualifiers: Weeks of gestation: 37 weeks Qualified Code(s): Z3A.37 - 37 weeks gestation of Comment: Low risk, anatomy nl Orders: Orders POC Urinalysis 2 Dip (Clinic) Today Plan Details Additional Comments: ACOG trimester education reviewed and updated. see problem list details for updated plan management information and see below for orders placed at this visit. GA appropriate handout given. Clinical Quality Measures Falls Risk Screening/Assistive Devices Have you fallen in the past year?: No 05/20/25 0855 <Electronically signed by Mitzi beauchamp CNM> Date _ Mitzi Lyon CNM Cosigner Signature: Date (if applicable) CC: ~ [facility] Work Phone: Progress note Author Lino Joaquin [facility] Note Date/Time May 23, 2025 9:00 am [facility] [address], [address] [place] [address] OFFICE VISIT Date of Service: 05/23/25 MR#: [id number] Acct: [id number] Name: ISHA VANEGAS Rep #: [id number] : 1990 Provider: DAKOTA Joaquin Age/Sex: 34/F Location: [facility] Status: Signed Intake Vital Signs 02/04/25 09:33 05/20/25 08:35 05/23/25 08:50 05/23/25 08:51 Height 5 ft 5 in 5 ft 5 in 5 ft 5 in 5 ft 5 in Weight: 161 lb 8 oz BMI 26.9 BP 114/74 Intake Visit Reasons: 39 WK OB Chief Complaint: 39wk 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 Is patient in pain?: No Allergies ceftriaxone (From Rocephin) Allergy (Mild, Verified 05/23/25 08:50) rash Medications ?Medication ?Instructions ?Recorded ?Confirmed ?Type albuterol sulfate 90 mcg/actuation 1 inh inhalation Q4 H PRN 10/18/22 05/23/25 History breath activated powder inhaler multivitamin no.47-iron fum 27 cap PO 10/18/22 5 History mg-folate no.1 1 mg-dha 300 mg capsule (PNV-DHA) clobetasol 0.05 % topical ointment 1 applic topical QH S #30 grams 08/11/23 05/23/25 Rx Last Menstrual Period: 08/22/24 : No PFSH PFSH Medical History Lichen sclerosus (spontaneous vaginal delivery) Spontaneous vaginal delivery Phenylalanine hydroxylase deficiency Eczema Asthma Surgical History s/p stomach surgery s/p left ankle surgery Family History Grandfather Lymphoma Aunt Diabetes type 1, controlled Paternal Social History adopted: No household members: spouse and children number of children: 2 current occupational status: employed 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 current occupational exposures/hazards: No pets and animals: Yes pets and animals: dog(s) history of recent travel: No sexually active: Yes Smoking Status: Never smoker alcohol intake: never substance use type: does not use well-balanced diet: daily or most days caffeine: No eating out: 1-3 times/week during the past year weight has: remained stable what type of physical activity do you participate in: bicycling and weight training frequency: 3-4 times per week duration: 30-45 minutes/day nito/episcopalian: Nondenominational seatbelt use: always do you feel safe at home: Yes additional social history: - Maria Isabel-He History 3 Elective abortions Hx Para 2 Spontaneous abortions Hx # Term Pregnancies Ectopic pregnancies Hx # Pregnancies Multiple births # of living children 2 Past Pregnancies Del. Date Name GA/Weeks Outcome Route Bth Weight Infant Gen Labor Lgth Anesthesia Del Locatn Provider FOB 06/02/21 Annette 40 live - full term 8lbs 3oz Female e pidural [facility] Tray 05/29/23 Lili 40 live - full term 8#3 Female [facility] Marcanthony Delivery Date: 06/02/21 Last Updated by: Alana Mendez PROM; Developed Chorio; 2nd degree laceration Delivery Date: 05/29/23 Last Updated by: Siena Braun IOL HPI 39 WK OB Details: ISHA VANEGAS is a 34 year old who presents for routine OB visit. OB Visit JENNY Calculator Estimated Delivery Date Method Current WG Current Estimate 05/29/25 LMP (Certain) 39w 1d Expected Delivery Route/Plan Labor Preferences- CB/BF classes: [] labor support person: [] labor intervention preferences: [] pain management options preferred: [] cut cord/dad catch: [] : plans PP control planned: [] discussed possible routes of delivery and associated risks: [] special requests: [] Specific Issue/Plans Covid status: [] Flu vaccine: [] Tdap vaccine:obtained Rhogam: na LARC form signed: completed Problem list reviewed and updated with the most current plan of care details and appropriate orders placed. Relevant counseling for the gestational age provided. Continue routine care and follow up unless otherwise noted in visit notes/problem list details Initial Weight: Not Recorded Date -?-?-?-?-?-?-?-?-?-?-?-?- EGA Weight BP Urine Prot -?-?-?-?-?-?-?-?-?-?-?-?- Glucose FHR FuHt Pres Dilation -?-?-?-?-?-?-?-?-?-?-?-?- Effaced St Visit Note 11/01/24 -?-?-?-?-?-?-?-?-?-?-?-?- 10w 1d 137 lb 8 oz 98/60 -?-?-?-?-?-?-?-?-?-?-?-?- 180 -?-?-?-?-?-?-?-?-?-?-?-?- SM- CRL cons wit h LMP 3.3 cm 12/03/24 -?-?-?-?-?-?-?-?-?-?-?-?- 14w 5d 140 lb 4 oz 103/69 Trac e -?-?-?-?-?-?-?-?-?-?-?--?- Negative 159 -?-?-?-?-?-?-?-?-?-?-?-?- KW- no vb/crampi ng. had GI bug over that last week. US ordered. 12/31/24 -?-?-?-?-?-?-?-?-?-?-?-?- 18w 5d 148 lb 6 oz 148 lb 6 oz 99/62 Negative -?-?-?-?-?-?-?-?-?-?-?-?- Negative 145 -?-?-?-?-?-?-?-?-?-?-?-?- KW- no vb/crampi ng. US scheduled for next week. declines AFP 02/04/25 -?-?-?-?-?-?-?-?-?-?-?-?- 23w 5d 154 lb 4 oz 95/61 Nega tive -?-?-?-?-?-?-?-?-?-?-?-?- Negative 143 24 -?-?-?-?-?-?-?-?-?-?-?-?- JV- normal anato my scan reviewed. no lof, vaginal bleedig. + FM. planning GCT next visit. 03/04/25 -?-?-?-?-?-?-?-?-?-?-?-?- 27w 5d 156 lb 115/75 Negative -?-?-?-?-?-?-?-?-?-?-?-?- Negative 150 28 -?-?-?-?-?-?-?-?-?-?-?-?- kw- no vb/lof/ct x. good fm gct today. LARC done. tdap next visit. 03/25/25 -?-?-?-?-?-?-?-?-?-?-?-?- 30w 5d 160 lb 2 oz 105/68 -?-?-?-?-?-?-?-?-?-?-?-?- 140 32 -?-?-?-?-?-?-?-?-?-?-?-?- SM- no vb lof go od fm nor egular ctx tdap given 04/11/25 -?-?-?-?-?-?-?-?-?-?-?-?- 33w 1d 159 lb 6 oz 99/64 1+ -?-?-?-?-?-?-?-?-?-?-?-?- Negative 130 35 -?-?-?-?-?-?-?-?-?-?-?-?- KW- no vb/lof/ct x. good fm. PC ratio sent for 1+ protein. growth US ordered for fundal height. 05/06/25 -?-?-?-?-?-?-?-?-?-?-?-?- 36w 5d 160 lb 110/73 Negative -?-?-?-?-?-?-?-?-?-?-?-?- Negative 145 36 Cephalic 1 -?-?-?-?-?-?-?-?-?-?-?-?- 60 -2 KW- no vb. lof.ctx good fm. GBS today. normal KW- no vb.lof.ctx good fm. G BS positive in urine. normal US 05/13/25 -?-?-?-?-?-?-?-?-?-?-?-?- 37w 5d 160 lb 8 oz 106/66 Nega tive -?-?-?-?-?-?-?-?-?-?-?-?- Negative 135 38 Cephalic -?-?-?-?-?-?-?-?-?-?-?-?- SM- no vb lof go od fm no reuglar ctx 05/20/25 -?-?-?-?-?-?-?-?-?-?-?-?- 38w 5d 161 lb 4 oz 94/58 Nega tive -?-?-?-?-?-?-?-?-?-?-?-?- Negative 138 38 Cephalic 1 -?-?-?-?-?-?-?-?-?-?-?-?- 60 -3 LC- no ctx /lof/vb/ good fm. no concerns today 05/23/25 -?-?-?-?-?-?-?-?-?-?-?-?- 39w 1d 161 lb 8 oz 114/74 Nega tive -?-?-?-?-?-?-?-?-?-?-?-?- Negative 140 39 Cephalic -?-?-?-?-?-?-?-?-?-?-?-?- KW- no vb/lof/ct x. good fm. declines vaginal exam. ACOG First Trimester First Trimester: Discussed Second Trimester Second Trimester: Signs and Symptoms of Labor, Selecting a care provider, Reproductive Life Planning & Contreception, Care Planning, Depression/Anxiety and Intimate Partner Violence; Discussed Tobacco Cessation ROS Const Reports system reviewed and no additional complaints, except as documented Eyes Reports system reviewed and no additional complaints, except as documented ENT Reports system reviewed and no additional complaints, except as documented Card Reports system reviewed and no additional complaints, except as documented Resp Reports system reviewed and no additional complaints, except as documented GI Reports system reviewed and no additional complaints, except as documented, Denies nausea and Denies vomiting Reports system reviewed and no additional complaints, except as documented Musc Reports system reviewed and no additional complaints, except as documented Skin/Breast Reports system reviewed and no additional complaints, except as documented Neuro Yes system reviewed and no additional complaints, except as documented Psych Reports system reviewed and no additional complaints, except as documented Endo Reports system reviewed and no additional complaints, except as documented Morgan/Lymph Reports system reviewed and no additional complaints, except as documented Aller/Immun Reports system reviewed and no additional complaints, except as documented Exam Const General: cooperative, healthy appearing and no acute distress Orientation: alert, awake and oriented x3 Neck Neck: normal visual inspection and full ROM Resp Effort & Inspection: normal respiratory effort, able to speak in complete sentences and symmetric chest movement GI Inspection: normal to inspection Palpation: soft and other Other: gravid Skin General: no rashes or lesions noted Neuro General: patient alert, patient awake and patient oriented x3 Cognition: normal cognition Speech: speech normal Gait: normal gait Motor: muscle tone normal throughout Extrem General: normal to inspection and full ROM Psych Appearance: grossly normal Mental Status: mental status grossly normal Mood: congruent mood Affect: normal affect Speech and Movement: speech and movement normal Attitude: cooperative Thought Process: normal Thought Content: normal Judgment: judgment good Results POC Urinalysis 2 Dip (Clinic) Office Urine Glucose Negative Last Edit by Juliann Nicolas on 05/23/25 08:52 Office Urine Protein Negative Last Edit by Juliann Nicolas on 05/23/25 08:52 Coding Level of Care Code OB Routine Diagnoses Anemia affecting O99.019 Uterine size date discrepancy O26.849 Positive GBS test B95.1 Supervision of normal Z34.90 39 weeks gestation of Z3A.39 Weeks of gestation: 39 weeks Assessment and Plan Assessment and Plan (1) Anemia affecting : Status: Acute Comment: ferritin, iron & iron binding studies-normal (2) Uterine size date discrepancy : Status: Acute Comment: S>D (3) Positive GBS test: Status: Acute Comment: treat in labor (4) Supervision of normal : Status: Acute Comment: PRR, , JENNY 05/29/25, boy Lili Parr, Maria Isabel (5) : Status: Acute Qualifiers: Weeks of gestation: 39 weeks Qualified Code(s): Z3A.39 - 39 weeks gestation of Comment: Low risk, anatomy nl Orders: Orders POC Urinalysis 2 Dip (Clinic) Today Plan Details Additional Comments: ACOG trimester education reviewed and updated. see problem list details for updated plan management information and see below for orders placed at this visit. GA appropriate handout given. 05/23/25 0900 <Electronically signed by Lino mckenna CNM> Date _ Lino Joaquin CNM Cosigner Signature: Date (if applicable) CC: ~ [facility] Work Phone: Reason for referral (narrative)No reason for referral information availableWSelect [facility], [facility] Work Phone: Summary Purpose Family History Relationship Condition Age at Onset Recorded Date/T noah Not Specified Controlled type 1 diabetes mellitus Unkn own grandfather Lymphoma Unknown Relationship Condition Age at Onset Recorded Date/T noah grandfather Lymphoma Unknown aunt Controlled type 1 diabetes mellitus Unkno wn Advance Directives Advance Directive Response Recorded Date/ Time Living Will No September 18, 2 022 9:06am Power of Etl Informatica Developer No September 18, 2022 9:06am Advance Directive Response Recorded Date/ Time Living Will No November 19 2:26am Power of Etl Informatica Developer No November 19, 2022 2:26am Advance Directive Response Recorded Date/ Time Living Will No November 19 3:26am Power of Etl Informatica Developer No November 19, 2022 3:26am Advance Directive Response Recorded Date/ Time Living Will No March 21, 2023 4 :18pm Power of Etl Informatica Developer No March 21, 2023 4:18pm Advance Directive Response Recorded Date/ Time Name of Medical Power of Etl Informatica Developer Maria Isabel olmos May 29, 2023 8:24am Living Will Yes May 29, 2023 8:24am Power of Etl Informatica Developer Yes May 29 8:24am Chief Complaint and Reason for Visit Chief Complaint Annual (VICE PRESIDENT QUALITY) E ORDER Reason for Visit Early stage of pregn jose g Encounter for routine gynecological examination Chief Complaint Annual (VICE PRESIDENT QUALITY) E ORDER NOB LMP 08/18 Reason for Visit Early stage of pregn jose g Encounter for routine gynecological examination Early stage of Seasonal allergies Supervision of high risk , antepartum Asthma Chief Complaint Annual (VICE PRESIDENT QUALITY) E ORDER NOB LMP 08/18 ABD PAIN Reason for Visit Early stage of pregn jose g Encounter for routine gynecological examination Early stage of Seasonal allergies Supervision of high risk , antepartum Asthma Chief Complaint NOB LMP 08/18 ABD PAIN 15 WK OB 18 WK OB 22 WK OB 26 WK OB Reason for Visit Supervision of high risk , antepartum Asthma Early stage of Seasonal allergies Supervision of high risk , antepartum Asthma Supervision of high risk , antepartum Asthma Supervision of high risk , antepartum Anemia affecting in third trimester Supervision of high risk , antepartum Asthma Chief Complaint 18 WK OB 22 WK OB 26 WK OB 30 wk ob E-ORDER 32 wk ob 34 WK OB Reason for Visit Supervision of high risk , antepartum Asthma Supervision of high risk , antepartum Anemia affecting in third trimester Supervision of high risk , antepartum Asthma Anemia affecting in third trimester Supervision of high risk , antepartum Asthma Anemia affecting in third trimester Supervision of high risk , antepartum Asthma Anemia affecting in third trimester Supervision of high risk , antepartum Asthma Chief Complaint 26 WK OB 30 wk ob E-ORDER 32 wk ob 34 WK OB 36 WK OB 37 WK OB 38 WK OB membrane sweep, ok per LC VAG DELIVERY VAG DELIVERY Reason for Visit Anemia affecting pre gnancy in third trimester Supervision of high risk , antepartum Asthma Anemia affecting in third trimester Supervision of high risk , antepartum Asthma Anemia affecting in third trimester Supervision of high risk , antepartum Asthma Anemia affecting in third trimester Supervision of high risk , antepartum Asthma Anemia affecting in third trimester Supervision of high risk , antepartum Asthma Anemia affecting in third trimester Supervision of high risk , antepartum Asthma Anemia affecting in third trimester Supervision of high risk , antepartum Asthma Anemia affecting in third trimester Supervision of high risk , antepartum Asthma Anemia affecting in third trimester Supervision of high risk , antepartum (spontaneous vaginal delivery) Asthma Chief Complaint Admit Date 14wk OB December 03, 2024 9 :59am 18 WK OB December 31, 2024 9:25 am 23 WK OB February 04, 2025 9:2 5am 27 WK OB/GLUCOSE March 04, 2025 11:14a m Reason for Visit Admit Date Positive GBS test December 03, 2024 9 :59am December 03, 2024 9 :59am Supervision of normal December 03, 2024 9:59am Positive GBS test December 31, 2024 9:25 am December 31, 2024 9:25 am Supervision of normal December 9:25am Positive GBS test February 04, 2025 9:2 5am February 04, 2025 9:2 5am Supervision of normal February 042024 9:25am Positive GBS test March 04, 2025 11:14a m March 04, 2025 11:14a m Supervision of normal March 04, 2025 11:14am Chief Complaint Admit Date 14wk OB December 03, 2024 9 :59am 18 WK OB December 31, 2024 9:25 am 23 WK OB February 04, 2025 9:2 5am 27 WK OB/GLUCOSE March 04, 2025 11:14a m 30 WK OB March 25, 2025 11:16 am Reason for Visit Admit Date Positive GBS test December 03, 2024 9 :59am December 03, 2024 9 :59am Supervision of normal December 03, 2024 9:59am Positive GBS test December 31, 2024 9:25 am December 31, 2024 9:25 am Supervision of normal December 9:25am Positive GBS test February 04, 2025 9:2 5am February 04, 2025 9:2 5am Supervision of normal February 042024 9:25am Positive GBS test March 04, 2025 11:14a m March 04, 2025 11:14a m Supervision of normal March 04, 2025 11:14am Positive GBS test March 25, 2025 11:16 am March 25, 2025 11:16 am Supervision of normal February 11:16am Chief Complaint Admit Date 18 WK OB December 31, 2024 9:25 am 23 WK OB February 04, 2025 9:2 5am 27 WK OB/GLUCOSE March 04, 2025 11:14a m 30 WK OB March 25, 2025 11:16 am 33 WK OB (PT RQT) April 11, 2025 10:0 2am Reason for Visit Admit Date Positive GBS test December 31, 2024 9:25 am December 31, 2024 9:25 am Supervision of normal December 9:25am Positive GBS test February 04, 2025 9:2 5am February 04, 2025 9:2 5am Supervision of normal February 042024 9:25am Positive GBS test March 04, 2025 11:14a m March 04, 2025 11:14a m Supervision of normal March 04, 2025 11:14am Positive GBS test March 25, 2025 11:16 am March 25, 2025 11:16 am Supervision of normal February 11:16am Positive GBS test April 11, 2025 10:0 2am April 11, 2025 10:0 2am Supervision of normal March 10:02am Uterine size date discrepancy April 11, 2025 10:02am Chief Complaint Admit Date 18 WK OB December 31, 2024 9:25 am 23 WK OB February 04, 2025 9:2 5am 27 WK OB/GLUCOSE March 04, 2025 11:14a m 30 WK OB March 25, 2025 11:16 am 33 WK OB (PT RQT) April 11, 2025 10:0 2am UTERINE SIZE LARGER THAN DATES March 1:07pm Chief Complaint Admit Date 23 WK OB February 04, 2025 9:2 5am 27 WK OB/GLUCOSE March 04, 2025 11:14a m 30 WK OB March 25, 2025 11:16 am 33 WK OB (PT RQT) April 11, 2025 10:0 2am UTERINE SIZE LARGER THAN DATES March 1:07pm 35 WK OB May 06, 2025 9:22 am Reason for Visit Admit Date Positive GBS test February 04, 2025 9:2 5am February 04, 2025 9:2 5am Supervision of normal February 042024 9:25am Positive GBS test March 04, 2025 11:14a m March 04, 2025 11:14a m Supervision of normal March 04, 2025 11:14am Positive GBS test March 25, 2025 11:16 am March 25, 2025 11:16 am Supervision of normal February 11:16am Positive GBS test April 11, 2025 10:0 2am April 11, 2025 10:0 2am Supervision of normal March 10:02am Uterine size date discrepancy April 11, 2025 10:02am Anemia affecting May 06 9:22am Positive GBS test May 06, 2025 9:22 am May 06, 2025 9:22 am Supervision of normal April 9:22am Uterine size date discrepancy May 06, 2025 9:22am Chief Complaint Admit Date 23 WK OB February 04, 2025 9:2 5am 27 WK OB/GLUCOSE March 04, 2025 11:14a m 30 WK OB March 25, 2025 11:16 am 33 WK OB (PT RQT) April 11, 2025 10:0 2am UTERINE SIZE LARGER THAN DATES March 1:07pm 36 WK OB May 06, 2025 9:22 am 37 WK OB May 13, 2025 10:4 9am Reason for Visit Admit Date Positive GBS test February 04, 2025 9:2 5am February 04, 2025 9:2 5am Supervision of normal February 042024 9:25am Positive GBS test March 04, 2025 11:14a m March 04, 2025 11:14a m Supervision of normal March 04, 2025 11:14am Positive GBS test March 25, 2025 11:16 am March 25, 2025 11:16 am Supervision of normal February 11:16am Positive GBS test April 11, 2025 10:0 2am April 11, 2025 10:0 2am Supervision of normal March 10:02am Uterine size date discrepancy April 11, 2025 10:02am Anemia affecting May 06 9:22am Positive GBS test May 06, 2025 9:22 am May 06, 2025 9:22 am Supervision of normal April 9:22am Uterine size date discrepancy May 06, 2025 9:22am Anemia affecting May 13 10:49am Positive GBS test May 13, 2025 10:4 9am May 13, 2025 10:4 9am Supervision of normal April 10:49am Uterine size date discrepancy May 13, 2025 10:49am Chief Complaint Admit Date 23 WK OB February 04, 2025 9:2 5am 27 WK OB/GLUCOSE March 04, 2025 11:14a m 30 WK OB March 25, 2025 11:16 am 33 WK OB (PT RQT) April 11, 2025 10:0 2am UTERINE SIZE LARGER THAN DATES March 1:07pm 36 WK OB May 06, 2025 9:22 am 37 WK OB May 13, 2025 10:4 9am 38 WK OB May 20, 2025 8:33 am Reason for Visit Admit Date Positive GBS test February 04, 2025 9:2 5am February 04, 2025 9:2 5am Supervision of normal February 042024 9:25am Positive GBS test March 04, 2025 11:14a m March 04, 2025 11:14a m Supervision of normal March 04, 2025 11:14am Positive GBS test March 25, 2025 11:16 am March 25, 2025 11:16 am Supervision of normal February 11:16am Positive GBS test April 11, 2025 10:0 2am April 11, 2025 10:0 2am Supervision of normal March 10:02am Uterine size date discrepancy April 11, 2025 10:02am Anemia affecting May 06 9:22am Positive GBS test May 06, 2025 9:22 am May 06, 2025 9:22 am Supervision of normal April 9:22am Uterine size date discrepancy May 06, 2025 9:22am Anemia affecting May 13 10:49am Positive GBS test May 13, 2025 10:4 9am May 13, 2025 10:4 9am Supervision of normal April 10:49am Uterine size date discrepancy May 13, 2025 10:49am Anemia affecting May 20 8:33am Positive GBS test May 20, 2025 8:33 am May 20, 2025 8:33 am Supervision of normal April 8:33am Uterine size date discrepancy May 20, 2025 8:33am Chief Complaint Admit Date 23 WK OB February 04, 2025 9:2 5am 27 WK OB/GLUCOSE March 04, 2025 11:14a m 30 WK OB March 25, 2025 11:16 am 33 WK OB (PT RQT) April 11, 2025 10:0 2am UTERINE SIZE LARGER THAN DATES March 1:07pm 36 WK OB May 06, 2025 9:22 am 37 WK OB May 13, 2025 10:4 9am 38 WK OB May 20, 2025 8:33 am 39 WK OB May 23, 2025 8:42 am Reason for Visit Admit Date Positive GBS test February 04, 2025 9:2 5am February 04, 2025 9:2 5am Supervision of normal February 042024 9:25am Positive GBS test March 04, 2025 11:14a m March 04, 2025 11:14a m Supervision of normal March 04, 2025 11:14am Positive GBS test March 25, 2025 11:16 am March 25, 2025 11:16 am Supervision of normal February 11:16am Positive GBS test April 11, 2025 10:0 2am April 11, 2025 10:0 2am Supervision of normal March 10:02am Uterine size date discrepancy April 11, 2025 10:02am Anemia affecting May 06 9:22am Positive GBS test May 06, 2025 9:22 am May 06, 2025 9:22 am Supervision of normal April 9:22am Uterine size date discrepancy May 06, 2025 9:22am Anemia affecting May 13 10:49am Positive GBS test May 13, 2025 10:4 9am May 13, 2025 10:4 9am Supervision of normal April 10:49am Uterine size date discrepancy May 13, 2025 10:49am Anemia affecting May 20 8:33am Positive GBS test May 20, 2025 8:33 am May 20, 2025 8:33 am Supervision of normal April 8:33am Uterine size date discrepancy May 20, 2025 8:33am Anemia affecting May 23 8:42am Positive GBS test May 23, 2025 8:42 am May 23, 2025 8:42 am Supervision of normal April 8:42am Uterine size date discrepancy May 23, 2025 8:42am Chief Complaint Admit Date 23 WK OB February 04, 2025 9:2 5am 27 WK OB/GLUCOSE March 04, 2025 11:14a m 30 WK OB March 25, 2025 11:16 am 33 WK OB (PT RQT) April 11, 2025 10:0 2am UTERINE SIZE LARGER THAN DATES March 1:07pm 36 WK OB May 06, 2025 9:22 am 37 WK OB May 13, 2025 10:4 9am 38 WK OB May 20, 2025 8:33 am 39 WK OB May 23, 2025 8:42 am HAPPY DUE DATE! May 30, 2025 3:5 4pm Reason for Visit Admit Date Positive GBS test February 04, 2025 9:2 5am February 04, 2025 9:2 5am Supervision of normal February 042024 9:25am Positive GBS test March 04, 2025 11:14a m March 04, 2025 11:14a m Supervision of normal March 04, 2025 11:14am Positive GBS test March 25, 2025 11:16 am March 25, 2025 11:16 am Supervision of normal February 11:16am Positive GBS test April 11, 2025 10:0 2am April 11, 2025 10:0 2am Supervision of normal March 10:02am Uterine size date discrepancy April 11, 2025 10:02am Anemia affecting May 06 9:22am Positive GBS test May 06, 2025 9:22 am May 06, 2025 9:22 am Supervision of normal April 9:22am Uterine size date discrepancy May 06, 2025 9:22am Anemia affecting May 13 10:49am Positive GBS test May 13, 2025 10:4 9am May 13, 2025 10:4 9am Supervision of normal April 10:49am Uterine size date discrepancy May 13, 2025 10:49am Anemia affecting May 20 8:33am Positive GBS test May 20, 2025 8:33 am May 20, 2025 8:33 am Supervision of normal April 8:33am Uterine size date discrepancy May 20, 2025 8:33am Anemia affecting May 23 8:42am Positive GBS test May 23, 2025 8:42 am May 23, 2025 8:42 am Supervision of normal April 8:42am Uterine size date discrepancy May 23, 2025 8:42am Anemia affecting May 30, 2 025 3:54pm Positive GBS test May 30, 2025 3:5 4pm May 30, 2025 3:5 4pm Supervision of normal May 302024 3:54pm Uterine size date discrepancy May 30, 2025 3:54pm Additional Source Comments INFORMATION SOURCE (unrecogn ized section and content) DATE CREATED AUTHOR 04/14/2018 [facility] DATE CREATED AUTHOR AUTHOR'S ORGANIZ ATION 09/23/2020 [facility] DATE CREATED AUTHOR AUTHOR'S ORGANIZ ATION 05/17/2024 [facility] DATE CREATED AUTHOR AUTHOR'S ORGANIZ ATION 01/04/2025 [facility] DATE CREATED AUTHOR AUTHOR'S ORGANIZ ATION 05/23/2025 [facility] Goals (unrecognized section and content) Goals may be documented in a n alternate sectionGoals may be documented in an alternate sectionGoals may be documented in an alternate sectionGoals may be documented in an alternate sectionGoals may be documented in an alternate sectionGoals may be documented in an alternate sectionGoals may be documented in an alternate sectionGoals may be documented in an alternate sectionGoals may be documented in an alternate sectionGoals may be documented in an alternate sectionGoals may be documented in an alternate sectionGoals may be documented in an alternate sectionGoals may be documented in an alternate sectionGoals may be documented in an alternate sectionGoals may be documented in an alternate sectionGoals may be documented in an alternate section Care Teams (unrecognized sec tion and content) Team Status: Active Member Role Status Dates Dr. Maria Isabel Cagle MD Family Provider Active Dr. Maria Isabel Sandoval MD Primary Care Provider Active Team Status: Inactive Member Role Status Dates No Primary Care Physician Primary Care Provider, Refer ring Provider Active Jennifer Mike INDUSTRIAL EQUIPMENT WIRER, INDUST[employer]QUIPMENT WIRER-C Attending Provider Active Team Status: Inactive Member Role Status Dates No Primary Care Physician Referring Provider Active Dr. Tamiko Steven DO Attending Provider Activ e Dr. Maria Isabel Sandoval MD Primary Care Provider Active Team Status: Inactive Member Role Status Dates No Primary Care Physician Primary Care Provider Active Jennifer Mike [employer]USTRI[employer] EQUIPMENT WIRER, INDUSTRIAL EQUIPMENT WIRER-C Attending Provider, Referring Provider Active Team Status: Inactive Member Role Status Dates Dr. Maria Isabel Sandoval MD Primary Care Provider Active Jennifer Mike INDUSTRIAL EQUIPMENT WIRER, INDUSTRIAL EQUIPMENT WIRER-C Attending Provider Active Team Status: Inactive Member Role Status Dates Dr. Maria Isabel Sandoval MD Primary Care Provider Active Dr. Tamiko Steven DO Attending Provider, Refe rring Provider Active Team Status: Inactive Member Role Status Dates Dr. Maria Isabel Sandoval MD Primary Care Provider Active Dr. Suzanne Aguilar DO Emergency Provider Active Team Status: Inactive Member Role Status Dates Dr. Maria Isabel Sandoval MD Primary Care Provider, Referr ing Provider Active Dr. Karla Shrestha MD Attending Provider Active Team Status: Active Member Role Status Dates Dr. Maria Isabel Sandoval MD Primary Care Provider Active Dr. Rishi Muse MD Attending Provider Active Dr. Suzanne Aguilar DO Referring Provider Active Team Status: Inactive Member Role Status Dates Dr. Maria Isabel Sandoval MD Primary Care Provider, Referr ing Provider Active Dr. Tamiko Steven DO Attending Provider Activ e Team Status: Inactive Member Role Status Dates Dr. Maria Isabel Sandoval MD Primary Care Provider, Referr ing Provider Active Jennifer Mike [employer]UST[employer] EQUIPMENT WIRER, INDUSTRIAL EQUIPMENT WIRER-C Attending Provider Active Team Status: Inactive Member Role Status Dates Dr. Maria Isabel Sandoval MD Primary Care Provider Active Dr. Suzanne Aguilar DO Attending Provider, Yannick iverson Active Team Status: Inactive Member Role Status Dates Dr. Maria Isabel Sandoval MD Primary Care Provider Active Dr. Karla Shrestha MD Attending Provider, Referr ing Provider Active Jennifer Mike [employer]RI[employer] EQUIPMENT W[employer]ER, INDUSTRIAL EQUIPMENT WIRER-C Other Provider Active Team Status: Inactive Member Role Status Dates Dr. Maria Isabel Sandoval MD Primary Care Provider, Referr ing Provider Active Mitzi Lyon CNM Attending Provider Active Team Status: Active Member Role Status Dates Dr. Maria Isabel Sandoval MD Primary Care Provider Active Dr. Karla Shrestha MD Admit Provid er, Referring Provider, Other Provider Active Mitzi Lyon CNM Attending Provider Active Team Status: Inactive Member Role Status Dates Dr. Maria Isabel Sandoval MD Primary Care Provider Active Mitzi Lyon CNM Attending Provider, Referring Pr ovider Active Team Status: Inactive Member Role Status Dates Dr. Maria Isabel Sandoval MD Primary Care Provider Active Dr. Karla Shrestha MD Admit Provid er, Attending Provider, Referring Provider Active Team Status: Active Member Role Status Dates Dr. Maria Isabel Cagle MD Family Provider Active Pattie Giordano MD Primary Care Provider Active Team Status: Inactive Member Role Status Dates Pattie Giordano MD Primary Care Provider Active St art: December 03, 2024 End: December 03, 2024 Pattie Giordano MD Referring Provider Active Start : December 03, 2024 End: December 03, 2024 Lino Joaquin CNM Attending Provider Active S tart: December 03, 2024 End: December 03, 2024 Team Status: Inactive Member Role Status Dates Pattie Giordano MD Primary Care Provider Active St art: December 31, 2024 End: December 31, 2024 Pattie Giordano MD Referring Provider Active Start : December 31, 2024 End: December 31, 2024 Lino Joaquin CNM Attending Provider Active S tart: December 31, 2024 End: December 31, 2024 Team Status: Inactive Member Role Status Dates Pattie Giordano MD Primary Care Provider Active St art: February 04, 2025 End: February 04, 2025 Pattie Giordano MD Referring Provider Active Start : February 04, 2025 End: February 04, 2025 Dr. Tamiko Steven DO Attending Provider Activ e Start: February 04, 2025 End: February 04, 2025 Team Status: Inactive Member Role Status Amee Giordano MD Primary Care Provider Active St art: March 04, 2025 End: March 04, 2025 Pattie Giordano MD Referring Provider Active Start : March 04, 2025 End: March 04, 2025 Lino Joaquin CNM Attending Provider Active S tart: March 04, 2025 End: March 04, 2025 Team Status: Inactive Member Role Status Amee Giordano MD Primary Care Provider Active St art: March 04, 2025 End: March 04, 2025 Dr. aKrla Shrestha MD Attending Provider Active Start: March 04, 2025 End: March 04, 2025 Dr. Karla Shrestha MD Referring Provider Active Start: March 04, 2025 End: March 04, 2025 Team Status: Inactive Member Role Status Amee Giordano MD Primary Care Provider Active St art: March 25, 2025 End: March 25, 2025 Pattie Giordano MD Referring Provider Active Start : March 25, 2025 End: March 25, 2025 Dr. Karla Shrestha MD Attending Provider Active Start: March 25, 2025 End: March 25, 2025 Team Status: Inactive Member Role Status Amee Giordano MD Primary Care Provider Active St art: April 11, 2025 End: April 11, 2025 Pattie Giordano MD Referring Provider Active Start : April 11, 2025 End: April 11, 2025 Lino Joaquin CNM Attending Provider Active S tart: April 11, 2025 End: April 11, 2025 Team Status: Active Member Role Status Amee Giordano MD Primary Care Provider Active St art: April 11, 2025 Lino Joaquin CNM Attending Provider Active S tart: April 11, 2025 Lino Joaquin CNM Referring Provider Active S tart: April 11, 2025 Team Status: Active Member Role Status Amee Giordano MD Primary Care Provider Active Team Status: Inactive Member Role Status Amee Giordano MD Primary Care Provider Active St art: April 11, 2025 End: April 11, 2025 Lino Joaquin CNM Attending Provider Active S tart: April 11, 2025 End: April 11, 2025 Lino Joaquin CNM Referring Provider Active S tart: April 11, 2025 End: April 11, 2025 Team Status: Inactive Member Role Status Amee Giordano MD Primary Care Provider Active St art: April 15, 2025 End: April 15, 2025 Lino Joaquin CNM Attending Provider Active S tart: April 15, 2025 End: April 15, 2025 Lino Joaquin CNM Referring Provider Active S tart: April 15, 2025 End: April 15, 2025 Team Status: Active Member Role/Relationship Status Amee Giordano MD Primary Care Provider Active Team Status: Inactive Member Role/Relationship Status Amee Giordano MD Primary Care Provider Active St art: February 04, 2025 End: February 04, 2025 Pattie Giordano MD Referring Provider Active Start : February 04, 2025 End: February 04, 2025 Dr. Tamiko Steven DO Attending Provider Activ e Start: February 04, 2025 End: February 04, 2025 Team Status: Inactive Member Role/Relationship Status Amee Giordano MD Primary Care Provider Active St art: March 04, 2025 End: March 04, 2025 Pattie Giordano MD Referring Provider Active Start : March 04, 2025 End: March 04, 2025 Lino Joaquin CNM Attending Provider Active S tart: March 04, 2025 End: March 04, 2025 Team Status: Inactive Member Role/Relationship Status Amee Giordano MD Primary Care Provider Active St art: March 04, 2025 End: March 04, 2025 Dr. Karla Shrestha MD Attending Provider Active Start: March 04, 2025 End: March 04, 2025 Dr. Karla Shrestha MD Referring Provider Active Start: March 04, 2025 End: March 04, 2025 Team Status: Inactive Member Role/Relationship Status Amee Giordano MD Primary Care Provider Active St art: March 25, 2025 End: March 25, 2025 Pattie Giordano MD Referring Provider Active Start : March 25, 2025 End: March 25, 2025 Dr. Karla Shrestha MD Attending Provider Active Start: March 25, 2025 End: March 25, 2025 Team Status: Inactive Member Role/Relationship Status Amee Giordano MD Primary Care Provider Active St art: April 11, 2025 End: April 11, 2025 Pattie Giordano MD Referring Provider Active Start : April 11, 2025 End: April 11, 2025 Lino Joaquin CNM Attending Provider Active S tart: April 11, 2025 End: April 11, 2025 Team Status: Inactive Member Role/Relationship Status Amee Giordano MD Primary Care Provider Active St art: April 11, 2025 End: April 11, 2025 Lino Joaquin CNM Attending Provider Active S tart: April 11, 2025 End: April 11, 2025 Lino Joaquin CNM Referring Provider Active S tart: April 11, 2025 End: April 11, 2025 Team Status: Inactive Member Role/Relationship Status Amee Giordano MD Primary Care Provider Active St art: April 15, 2025 End: April 15, 2025 Lino Joaquin CNM Attending Provider Active S tart: April 15, 2025 End: April 15, 2025 Lino Joaquin CNM Referring Provider Active S tart: April 15, 2025 End: April 15, 2025 Team Status: Inactive Member Role/Relationship Status Amee Giordano MD Primary Care Provider Active St art: May 06, 2025 End: May 06, 2025 Pattie Giordano MD Referring Provider Active Start : May 06, 2025 End: May 06, 2025 Lino Joaquin CNM Attending Provider Active S tart: May 06, 2025 End: May 06, 2025 Team Status: Inactive Member Role/Relationship Status Amee Giordano MD Primary Care Provider Active St art: May 13, 2025 End: May 13, 2025 Pattie Giordano MD Referring Provider Active Start : May 13, 2025 End: May 13, 2025 Dr. Karla Shrestha MD Attending Provider Active Start: May 13, 2025 End: May 13, 2025 Team Status: Inactive Member Role/Relationship Status Amee Giordano MD Primary Care Provider Active St art: May 20, 2025 End: May 20, 2025 Pattie Giordano MD Referring Provider Active Start : May 20, 2025 End: May 20, 2025 Mitzi Lyon CNM Attending Provider Active Start: May 20, 2025 End: May 20, 2025 Team Status: Inactive Member Role/Relationship Status Amee Giordano MD Primary Care Provider Active St art: May 23, 2025 End: May 23, 2025 Pattie Giordano MD Referring Provider Active Start : May 23, 2025 End: May 23, 2025 Lino Joaquin CNM Attending Provider Active S tart: May 23, 2025 End: May 23, 2025 Team Status: Inactive Member Role/Relationship Status Dates Pattie Giordano MD Primary Care Provider Active St art: May 30, 2025 End: May 30, 2025 Pattie Giordano MD Referring Provider Active Start : May 30, 2025 End: May 30, 2025 Dr. Tamiko Steven DO Attending Provider Activ e Start: May 30, 2025 End: May 30, 2025 Source Comments (unrecognize d section and content) In the event this informatio n is protected by the Federal Confidentiality of Alcohol and Drug Abuse Patient Records regulations: The Federal rules restrict any use of the information to criminally investigate or prosecute any alcohol or drug abuse patient.[facility] Reason for Visit (unrecogniz ed section and content) Reason Comments lichen sclerosus FOR RECORDS PERTAINING TO PATIENTS WHO ARE OR HAVE BEEN ENROLLED IN A CHEMICAL DEPENDENCY/SUBSTANCEABUSE PROGRAM, SOME INFORMATION MAY BE OMITTED. This clinical summary was aggregated from multiple sources. Caution should be exercised in using it in the provision of clinical care. This summary normalizes information from multiple sources, and as a consequence, information in this document may materially change the coding, format and clinical context of patient data. In addition, data may be omitted in some cases. CLINICAL DECISIONS SHOULD BE BASED ON THE PRIMARY CLINICAL RECORDS. [facility] [employer] [facility]. provides no warranty or guarantee of the accuracy or completeness of information in this document.
--- OUTSIDE RECORDS SUMMARY | 2025-05-31 01:08 | XMS RPT_ITS | CCD ---
Author Organization [facility] CliniSywy Care Team Providers Care Medical Reimbursement Manager Name Role Phone ANNMARIE VANEGAS Unavailable Unavailabl e SELF, SELF Unavailable Unavailable SYSTEM, PROVIDER NOT IN Admitting Unavaila ble NO, PHYSICIAN Primary Care Unavailable Care Physician, No Primary Primary Care Provider Unavailable Care Physician, No Primary Referring Provider Un available YAQUELIN Mike NP Attending Provider [phone] Dr. Tamiko Steven Attending Provider [phone] Dr. Maria Isabel Sandoval Primary Care Provider [phone] Care Physician, No Primary Referring Provider Un available Dr. Tamiko Steven Attending Provider [phone] Dr. Maria Isabel Sandoval Primary Care Provider [phone] Dr. Rishi Muse Attending Provider Dr. Suzanne Aguilar Referring Provider Dr. Maria Isabel Sandoval Referring Provider Dr. Karla Shrestha Attending Provider [phone] YAQUELIN Mike NP Attending Provider [phone] Dr. Maria Isabel Sandoval Primary Care Provider Dr. Maria Isabel Sandoval Referring Provider Dr. Tamiko Steven Attending Provider [phone] Dr. Karla Shrestha Attending Provider [phone] DAKOTA Lyon Attending Provider Dr. Mraia Isabel Sandoval Primary Care Provider [phone] [...] Dr. Karla Shrestha MD Attending Provider [phone] Dr. Karla Shrestha MD Referring Provider [phone] Pasquale FINN, Chalon Primary Care Provider [phone] [...] (17 sources) cefTRIAXone Drug Allergy 2 rash [facility] (2 sources) cefTRIAXone; Translations: [CEFTRIAXONE SODIUM] Drug Allergy 9 Shortness of Breath [facility] Work Phone: (1 source) cefTRIAXone Drug Allergy 5 [facility] Repository Medications Current Medications Medication [...] 3 10/09/2010 05/14/2024 Discontinued (Clinical Decision) Multivit 61-Cwll-Tyetju 1-Dha (Pnv-Dha) 27 mg iron-1 mg -300 mg capsule (15 sources) Start: 10-18-2022 Multivit 84-Ufdf-Qzpyug 1-Dha (Pnv-Dha) 27 mg iron-1 mg -300 [...] Chronic Comment on above: resolved on recent [facility] Immunizations and screening for infectious disease (1 [...] Episodic Unclassified (1 source) New Patient / [id number]() Onset: 03-31-2018 Unclassified (1 source) Red Eye / [id number]() Onset: 03-31-2018 Past or Other Problems Problem [...] Joaquin on 05-23-2025 Glucose Ql (U) Negative [facility] Laboratory - UrinalysisOrder ed By: Lino Joaquin on 05-23-2025 Protein Ql (U) Negative [facility] Card Lacer Office Visit Reporton 05-23-2025 Card Lacer Office Visit Report [facility]'s [address], [address] [place] [address] OFFICE VISIT Date of Service: 05/23/25 MR#: [id number] Acct: [id number] Name: ISHA VANEGAS Rep #: [id number] : 1990 Provider: DAKOTA Mccormick ams Age/Sex: 34/F Location: [facility] [place] Status: Signed Intake Vital Signs 02/04/25 09:33 05/20/25 08:35 05/23/25 08:50 05/23/25 08:51 Height 5 ft 5 in 5 ft 5 in 5 ft 5 in 5 ft 5 in Weight: 161 lb 8 oz BMI 26.9 BP 114/74 Intake Visit Reasons: 39 WK OB Chief Complaint: 39wk OB Curtain Cutter Required: No Is patient in pain?: No [...] 2 current occupational status: employed 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 -??? (more content not included)... Normal [facility] Laboratory - Chemistry and C hemistry - challengeOrdered By: Mitzi Lyon on 05-20-2025 Glucose Ql (U) Negative [facility] - UrinalysisOrder ed By: Mitzi Lyon on 05-20-2025 Protein Ql (U) Negative [facility] Card Lacer Office Visit Reporton 05-20-2025 Card Lacer Office Visit Report [facility] [address], [address] [place] [address] OFFICE VISIT Date of Service: 05/20/25 MR#: [id number] Acct: [id number] Name: ISHA VANEGAS Rep #: [id number] : 1990 Provider: DAKOTA chu Age/Sex: 34/F Location: [facility] Status: Signed Intake Vital Signs 02/04/25 09:33 04/11/25 10:06 05/13/25 11:02 05/20/25 08:35 Height 5 ft 5 in 5 ft 5 in 5 ft 5 in 5 ft 5 in Weight: 161 lb 4 oz BMI 26.8 BP 94/58 L Intake Visit Reasons: 38 WK OB Curtain Cutter Required: No Is patient in pain?: No [...] 2 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 Date Name GA/Weeks Outcome Route Bth Weight Gen Labor Lgth Anesthesia Del Locatn Provider FOB 06/02/21 Annette 40 live - full term 8lbs 3oz Female epidural [facility] Ricki rokop 05/29/23 Lili 40 live - full term 8#3 Female [facility] Dax levi Delivery Date: 06/02/21 Last [...] oz 1 (more content not included)... Normal [facility] Laboratory - Chemistry and C hemistry - challengeOrdered By: Karla Shrestha on 05-13-2025 Glucose Ql (U) Negative [facility] - UrinalysisOrder ed By: Karla Shrestha on 05-13-2025 Protein Ql (U) Negative [facility] Card Lacer Office Visit Reporton 05-13-2025 Card Lacer Office Visit Report [facility] [address], [address] [place] [address] OFFICE VISIT Date of Service: 05/13/25 MR#: [id number] Acct: [id number] Name: ISHA VANEGAS Rep #: [id number] : 1990 Provider: Dr. 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 Date Name GA/Weeks Outcome Route Bth Weight Infant Gen Labor Lgth Anesthesia Del Locatn Provider FOB 06/02/21 Annette 40 live - full term 8lbs 3oz Female epidural [facility] Ricki rokop 05/29/23 Lili 40 live - full term 8#3 Female [facility] Dax levi Delivery Date: 06/02/21 Last [...] -???-???- Ne (more content not included)... Normal [facility] Laboratory - Chemistry and C hemistry - challengeOrdered By: Lino Joaquin on 05-06-2025 Glucose Ql (U) Negative [facility] Laboratory - UrinalysisOrder ed By: Lino Joaquin on 05-06-2025 Protein Ql (U) Negative [facility] Card Lacer Office Visit Reporton 05-06-2025 Card Lacer Office Visit Report [facility] [address], [address] [place] [address] OFFICE VISIT Date of Service: 05/06/25 MR#: [id number] Acct: [id number] Name: ISHA VANEGAS Rep #: [id number] : 1990 Provider: DAKOTA Mccormick [facility] Age/Sex: 34/F Location: [facility] [place] Status: Signed Intake Vital Signs 02/04/25 09:33 04/11/25 10:06 05/06/25 09:26 05/06/25 09:29 Height 5 ft 5 in 5 ft 5 in 5 ft 5 in 5 ft 5 in Weight: 160 lb BMI 26.6 BP 110/73 Intake Visit Reasons: 35 WK OB Chief Complaint: 36wk OB Curtain Cutter Required: No Is patient in pain?: No [...] 2 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 Normal [facility] Ferritinon 04-15-2025 Ferritin [Mass/Vol] 38 ng/mL Normal 22-378 [facility] Comment on above: Performed By: #### L 503.6550, L503.6030 ####[facility] [address] [place], [place], [id number] Iron measurement (mass/mass) Ordered By: Lino Joaquin on 04-15-2025 Iron (Unsp spec) [Mass/Mass] 113 ug/dL 50-170 [facility] Iron+Iron Binding Capacityon 04-15-2025 Iron [Mass/Vol] 113 ug/dL Normal 50-170 [facility] Comment on above: Performed By: #### L 503.6550, L503.6030 ####[facility] [address] [place], [address] IRON SATURATION 29.0 Normal 13-59 [facility] Comment on above: Performed By: #### L 503.6550, L503.6030 ####[facility] [address] [place], [address] TIBC 387 ug/dL Normal 250-450 [facility] Comment on above: Performed By: #### L 503.6550, L503.6030 ####[facility] [address] [place], [place], [address] UIBC 274 ug/dL Normal 228-428 [facility] Comment on above: Performed By: #### L 503.6550, L503.6030 ####[facility] [address] [place], [address] No Panel InformationOrdered By: Lino Joaquin on 04-15-2025 Unsaturated Iron Binding Capacity 274 ug/dL 228-428 [facility] OB Limited With Biometricson 04-15-2025 OB Limited With Biometrics [facility] Services [address] [place], [place] [address] OB Limited With Biometrics MR#: [id number] Acct: [id number] Name: ISHA VANEGAS Rep #: [id number] : 1990 F 34 From: Jovany martinez MD PCP: Dr. Pattie Giordano MD Status: REG CLI Study: OB Limited With Biometrics Date of Exam: 04/15 Exam# [id number] Ordering Dr: Lino Joaquin M PROCEDURE: OB [...] 35 weeks and 1 day. Reading Location: [id number] CC: DAKOTA Joaquin; Dr. 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 Normal [facility] Serum or plasma ferritin safia surement (mass/volume)Ordered By: Lino Joaquin on 04-15-2025 Ferritin [Mass/Vol] 38 ng/mL 22-378 [facility] Serum or plasma iron saturat ion measurement (mass fraction)Ordered By: Lino Joaquin on 04-15-2025 Iron saturation [Mass fraction] 29.0 % 13-59 [facility] Absolute lymphocyte countOrd ered By: Lino Joaquin on 04-11-2025 Lymphocytes Auto (Unsp spec) [#/Vol] 1.27 10*3/uL 0.83-4.51 [facility] Absolute neutrophil countOrd ered By: Lino Joaquin on 04-11-2025 Neutrophils (Bld) [#/Vol] 4.6 10*3/uL 2.0-7.7 [facility] Anion gap in Serum or Plasma Ordered By: Lino Joaquin on 04-11-2025 Anion gap [Moles/Vol] 9 mmol/L 5-15 [facility] Automated lymphocyte count a s percentage of total leukocytesOrdered By: Lino Joaquin on 04-11-2025 Lymphocytes/100 WBC Auto (Unsp spec) 19.3 % 19-41 [facility] BUN/creatinine ratioOrdered By: Lino Joaquin on 04-11-2025 Urea nitrogen/Creatinine [Mass ratio] 18.9 mg/mg 10-20 [facility] Basophil percentageOrdered B y: Lino Joaquin on 04-11-2025 Basophils/100 WBC (Bld) 0.3 % 0-1 [facility] Bilirubin, totalOrdered By: Lino Joaquin on 04-11-2025 Bilirubin [Mass/Vol] 0.36 mg/dL 0.00-1.30 [facility] CBC W/Diff, Automatedon 03-27 Absolute Lymph 1.27 X10 3/uL Normal 0.83-4.51 [facility] Comment on above: Performed By: #### L 100.0100 #### [facility] [address] [place], [address] Absolute Neut 4.6 X10 3/uL Normal 2.0-7.7 [facility] Comment on above: Performed By: #### L 100.0100 #### [facility] [address] [place], [address] Basophils/100 WBC (Bld) 0.3 % Normal 0-1 [facility] Comment on above: Performed By: #### L 100.0100 #### [facility] [address] [place], [address] Eosinophils/100 WBC (Bld) 3.3 % Normal 0-5 [facility] Comment on above: Performed By: #### L 100.0100 #### [facility] [address] [place], [address] Erythrocyte distribution width (RBC) [Ratio] 12.2 % Normal 11.6-14.6 [facility] Comment on above: Performed By: #### L 100.0100 #### [facility] [address] [place], [address] Hematocrit (Bld) [Volume fraction] 30.7 % Low 37-47 [facility] Comment on above: Performed By: #### L 100.0100 #### [facility] [address] [place], [address] Hemoglobin (Bld) [Mass/Vol] 10.7 g/dL Low 12.0-15.0 [facility] Comment on above: Performed By: #### L 100.0100 #### [facility] [address] [place], [address] IG% 0.500 Normal 0.0-0.9 [facility] Comment on above: Result Comment: IG% - Immature Granulocytes (promyelocytes, myelocytes and metamyelocytes) > 1% indicates that a LEFT SHIFT is Present. Performed By: #### L 100.0100 #### [facility] [address] [place], [address] Lymphocytes/100 WBC (Bld) 19.3 % Normal 19-41 [facility] Comment on above: Performed By: #### L 100.0100 #### [facility] [address] [place], [address] MCH (RBC) [Entitic mass] 34.1 pg High 27.0-32.0 [facility] Comment on above: Performed By: #### L 100.0100 #### [facility] [address] [place], [address] MCHC (RBC) [Mass/Vol] 34.9 g/dL Normal 32-36 [facility] Comment on above: Performed By: #### L 100.0100 #### [facility] [address] [place], [address] MCV (RBC) [Entitic vol] 97.8 fL Normal 81-99 [facility] Comment on above: Performed By: #### L 100.0100 #### [facility] [address] [place], [address] Monocytes/100 WBC (Bld) 6.8 % Normal 0-10 [facility] Comment on above: Performed By: #### L 100.0100 #### [facility] [address] [place], [address] Neutrophils/100 WBC (Bld) 69.8 % Normal 47-70 [facility] Comment on above: Performed By: #### L 100.0100 #### [facility] [address] [place], [address] Nucleated RBC (Bld) [#/Vol] 0 10*3/uL Normal 0-5 [facility] Comment on above: Performed By: #### L 100.0100 #### [facility] [address] [place], [address] Platelet mean volume (Bld) [Entitic vol] 11.3 fL Normal 6.2-12.0 [facility] Comment on above: Performed By: #### L 100.0100 #### [facility] [address] [place], [address] Platelets (Bld) [#/Vol] 159 10*3/uL Normal 150-450 [facility] Comment on above: Performed By: #### L 100.0100 #### [facility] [address] [place], [address] RBC (Bld) [#/Vol] 3.14 10*6/uL Low 4.2-5.4 [facility] Comment on above: Performed By: #### L 100.0100 #### [facility] [address] [place], [address] RDW SD 43.8 fl Normal 35.1-43.9 [facility] Comment on above: Performed By: #### L 100.0100 #### [facility] [address] [place], [address] WBC (Bld) [#/Vol] 6.6 10*3/uL Normal 4.4-11.0 [facility] Comment on above: Performed By: #### L 100.0100 #### [facility] [address] [place], [address] Carbon dioxide, total [Moles /volume] in Central venous bloodOrdered By: Lino Joaquin on 04-11-2025 CO2 [Moles/Vol] 24.9 mmol/L 21.0-32.0 [facility] Chloride assayOrdered By: Thomas Joaquin on 04-11-2025 Chloride [Moles/Vol] 103 mmol/L 98-108 [facility] Comprehensive Metabolic Prof ilon 04-11-2025 Albumin [Mass/Vol] 3.6 g/dL Normal 3.5-5.0 [facility] Comment on above: Performed By: #### L 500.4050, L501.0900 ####[facility] [address] [place], [address] Albumin/Globulin [Mass ratio] 1.6 {ratio} Normal 0.9-2.4 [facility] Comment on above: Performed By: #### L 500.4050, L501.0900 ####[facility] [address] [place], [address] ALK PHOS 65 U/L Normal 35-104 [facility] Comment on above: Performed By: #### L 500.4050, L501.0900 ####[facility] [address] [place], [address] ALT [Catalytic activity/Vol] 15 U/L Normal <=34 [facility] Comment on above: Performed By: #### L 500.4050, L501.0900 ####[facility] [address] [place], [address] AST [Catalytic activity/Vol] 24 U/L Normal <=31 [facility] Comment on above: Performed By: #### L 500.4050, L501.0900 ####[facility] [address] [place], [address] Bilirubin [Mass/Vol] 0.36 mg/dL Normal 0.00-1.30 [facility] Comment on above: Performed By: #### L 500.4050, L501.0900 ####[facility] [address] [place], [address] BUN/CRE 18.9 RATIO Normal 10-20 [facility] Comment on above: Performed By: #### L 500.4050, L501.0900 ####[facility] [address] [place], [address] Calcium [Mass/Vol] 8.7 mg/dL Normal 7.6-11.0 [facility] Comment on above: Performed By: #### L 500.4050, L501.0900 ####[facility] [address] [place], [address] Chloride [Moles/Vol] 103 mmol/L Normal 98-108 [facility] Comment on above: Performed By: #### L 500.4050, L501.0900 ####[facility] [address] [place], [address] CO2 [Moles/Vol] 24.9 mmol/L Normal 21.0-32.0 [facility] Comment on above: Performed By: #### L 500.4050, L501.0900 ####[facility] [address] [place], [address] Creatinine [Mass/Vol] 0.69 mg/dL Low 0.70-1.20 [facility] Comment on above: Performed By: #### L 500.4050, L501.0900 ####[facility] [address] [place], [address] GAP 9 Normal 5-15 [facility] Comment on above: Performed By: #### L 500.4050, L501.0900 ####[facility] [address] [place], [address] GFR/1.73 sq M.predicted among non-blacks MDRD (S/P/Bld) [Vol rate/Area] 118 mL/min/{1.73_m2} Normal >60 [facility] Comment on above: Result Comment: mL/m in/1.73m2 CKD-EPI Creatinine Equation (2020) Performed By: #### L 500.4050, L501.0900 ####[facility] [address] [place], [address] Globulin (S) [Mass/Vol] 2.3 g/dL Normal 2.2-4.2 [facility] Comment on above: Performed By: #### L 500.4050, L501.0900 ####[facility] [address] [place], [address] Glucose [Mass/Vol] 87 mg/dL Normal 70-99 [facility] Comment on above: Performed By: #### L 500.4050, L501.0900 ####[facility] [address] [place], [address] Potassium [Moles/Vol] 4.0 mmol/L Normal 3.3-5.1 [facility] Comment on above: Performed By: #### L 500.4050, L501.0900 ####[facility] [address] [place], [address] Sodium [Moles/Vol] 137 mmol/L Normal 133-145 [facility] Comment on above: Performed By: #### L 500.4050, L501.0900 ####[facility] [address] [place], [address] T PROT 5.9 g/dL Normal 5.9-8.4 [facility] Comment on above: Performed By: #### L 500.4050, L501.0900 ####[facility] [address] [place], [address] Urea nitrogen [Mass/Vol] 13 mg/dL Normal 4-19 [facility] Comment on above: Performed By: #### L 500.4050, L501.0900 ####[facility] [address] [place], [address] Eosinophil percentageOrdered By: Lino Joaquin on 04-11-2025 Eosinophils/100 WBC (Bld) 3.3 % 0-5 [facility] Erythrocyte distribution wid th ratioOrdered By: Lino Joaquin on 04-11-2025 Erythrocyte distribution width (RBC) [Ratio] 12.2 % 11.6-14.6 [facility] Erythrocyte distribution wid th standard deviationOrdered By: Lino Joaquin on 04-11-2025 Erythrocyte distribution width (RBC) [Ratio] 43.8 fl 35.1-43.9 [facility] Glomerular filtration rate ( GFR) estimation/1.73 sq m using serum, plasma, or whole bOrdered By: Lino Joaquin on 04-11-2025 GFR/1.73 sq M.predicted among non-blacks MDRD (S/P/Bld) [Vol rate/Area] 118 mL/min/{1.73_m2} >60 [facility] Comment on above: mL/min/1.73m2 CKD-EP I Creatinine Equation (2020) Hematocrit Auto (Bld) [Volum e fraction]Ordered By: Lino Joaquin on 04-11-2025 Hematocrit (Bld) [Volume fraction] 30.7 % Low 37-47 [facility] Hemoglobin measurementOrdere d By: Lino Joaquin on 04-11-2025 Hemoglobin (Bld) [Mass/Vol] 10.7 g/dL Low 12.0-15.0 [facility] Immature granulocytes/100 WB C Auto (Bld)Ordered By: Lino Joaquin on 04-11-2025 Immature granulocytes/100 WBC (Bld) 0.500 % 0.0-0.9 [facility] Comment on above: IG% - Immature Granu locytes (promyelocytes, myelocytes and metamyelocytes) > 1% indicates that a LEFT SHIFT is Present. Laboratory - Chemistry and C hemistry - challengeOrdered By: Lino Joaquin on 04-11-2025 AST [Catalytic activity/Vol] 24 U/L <32 [facility] Glucose Ql (U) Negative [facility] Laboratory - UrinalysisOrder ed By: Lino Joaquin on 04-11-2025 Protein Ql (U) 1+ [facility] MCV (mean corpuscular volume ) determinationOrdered By: Lino Joaquin on 04-11-2025 MCV (RBC) [Entitic vol] 97.8 fL 81-99 [facility] Mean corpuscular hemoglobin (MCH) determinationOrdered By: Lino Joaquin on 04-11-2025 MCH (RBC) [Entitic mass] 34.1 pg High 27.0-32.0 [facility] Mean corpuscular hemoglobin concentration (MCHC) determinationOrdered By: Lino Joaquin on 04-11-2025 MCHC (RBC) [Mass/Vol] 34.9 g/dL 32-36 [facility] Mean platelet volume determi nationOrdered By: Lino Joaquin on 04-11-2025 Platelet mean volume (Bld) [Entitic vol] 11.3 fL 6.2-12.0 [facility] Monocyte percentageOrdered B y: Lino Joaquin on 04-11-2025 Monocytes/100 WBC (Bld) 6.8 % 0-10 [facility] Neutrophil percentageOrdered By: Lino Joaquin on 04-11-2025 Neutrophils/100 WBC (Bld) 69.8 % 47-70 [facility] Nucleated red blood cell per centageOrdered By: Lino Joaquin on 04-11-2025 Nucleated RBC/100 WBC (Bld) [Ratio] 0 % 0-5 [facility] Card Lacer Office Visit Reporton 04-11-2025 Card Lacer Office Visit Report [facility], [address] [place] [address] OFFICE VISIT Date of Service: 04/11/25 MR#: [id number] Acct: [id number] Name: ISHA VANEGAS Rep #: [id number] : 1990 Provider: DAKOTA Mccormick ams Age/Sex: 34/F Location: [facility] Status: Signed Intake Vital Signs 02/04/25 09:33 03/25/25 11:20 04/11/25 10:05 04/11/25 10:06 Height 5 ft 5 in 5 ft 5 in 5 ft 5 in 5 ft 5 in Weight: 160 lb 2 oz 159 lb 6 oz BMI 26.6 26.5 BP 105/68 99/64 Intake Visit Reasons: 34 WK OB (PT RQT) Chief Complaint: 33wk OB Curtain Cutter Required: No Is patient in pain?: No [...] 2 current occupational status: employed 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 (more content not included)... Normal [facility] Platelet countOrdered By: Thomas Joaquin on 04-11-2025 Platelets (Bld) [#/Vol] 159 10*3/uL 150-450 [facility] Potassium measurement (mass/ volume)Ordered By: Lino Joaquin on 04-11-2025 Potassium (Unsp spec) [Mass/Vol] 4.0 mmol/L 3.3-5.1 [facility] Protein+Creatinine Ratio,Uri neon 04-11-2025 PROT:CRE RATIO 98 mg/g CRE Normal 0-200 [facility] Comment on above: Performed By: #### L 500.4050, L501.0900 ####[facility] [address] [place], [place], [id number] Protein (U) [Mass/Vol] 21.8 mg/dL High 0.0-12.0 [facility] Comment on above: Performed By: #### L 500.4050, L501.0900 ####[facility] [address] [place], [address] RBC Auto (Bld) [#/Vol]Ordere d By: Lino Joaquin on 04-11-2025 RBC (Bld) [#/Vol] 3.14 10*6/uL Low 4.2-5.4 [facility] Random urine creatinine dwayne urement (mass/volume)Ordered By: Lino Joaquin on 04-11-2025 Creatinine Unsp time (U) [Mass/Vol] 223.00 mg/dL High 28.00-217.00 [facility] Serum creatinine measurement (mass/volume)Ordered By: Lino Joaquin on 04-11-2025 Creatinine [Mass/Vol] 0.69 mg/dL Low 0.70-1.20 [facility] Serum globulin measurementOr dered By: Lino Joaquin on 04-11-2025 Globulin (S) [Mass/Vol] 2.3 g/dL 2.2-4.2 [facility] Serum glucose measurement (m ass/volume)Ordered By: Lino Joaquin on 04-11-2025 Glucose [Mass/Vol] 87 mg/dL 70-99 [facility] Serum or plasma alanine boone otransferase (ALT) measurementOrdered By: Lino Joaquin on 04-11-2025 ALT [Catalytic activity/Vol] 15 U/L <35 [facility] Serum or plasma albumin dwayne urement (mass/volume)Ordered By: Lino Joaquin on 04-11-2025 Albumin [Mass/Vol] 3.6 g/dL 3.5-5.0 [facility] Serum or plasma albumin/glob ulin mass ratioOrdered By: Lino Joaquin on 04-11-2025 Albumin/Globulin [Mass ratio] 1.6 {ratio} 0.9-2.4 [facility] Serum or plasma alkaline eusebia sphatase measurementOrdered By: Lino Joaquin on 04-11-2025 ALP [Catalytic activity/Vol] 65 U/L 35-104 [facility] Serum or plasma calcium dwayne urement (mass/volume)Ordered By: Lino Joaquin on 04-11-2025 Calcium [Mass/Vol] 8.7 mg/dL 7.6-11.0 [facility] Serum or plasma urea nitroge n measurement (mass/volume)Ordered By: Lino Joaquin on 04-11-2025 Urea nitrogen [Mass/Vol] 13 mg/dL 4-19 [facility] Sodium levelOrdered By: Arelis Joaquin on 04-11-2025 Sodium [Moles/Vol] 137 mmol/L 133-145 [facility] Total proteinOrdered By: Chaim Joaquin on 04-11-2025 Protein [Mass/Vol] 5.9 g/dL 5.9-8.4 [facility] Urine protein measurement (m ass/volume)Ordered By: Lino Joaquin on 04-11-2025 Protein (U) [Mass/Vol] 21.8 mg/dL High 0.0-12.0 [facility] Urine protein/creatinine mas s ratioOrdered By: Lino Joaquin on 04-11-2025 Protein/Creatinine (U) [Mass ratio] 98 mg/g CRE 0-200 [facility] White blood cell (WBC) count Ordered By: Lino Joaquin on 04-11-2025 WBC (Bld) [#/Vol] 6.6 10*3/uL 4.4-11.0 [facility] Card Lacer Office Visit Reporton 03-25-2025 Card Lacer Office Visit Report [facility]'[address], [address] [place] [address] OFFICE VISIT Date of Service: 03/25/25 MR#: [id number] Acct: [id number] Name: ISHA VANEGAS Rep #: [id number] : 1990 Provider: Dr. 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 (more content not included)... Normal [facility] Absolute lymphocyte countOrd ered By: Tamiko Cohn on 03-04-2025 Lymphocytes Auto (Unsp spec) [#/Vol] 1.55 10*3/uL 0.83-4.51 [facility] Absolute neutrophil countOrd ered By: Tamiko [facility] on 03-04-2025 Neutrophils (Bld) [#/Vol] 5.6 10*3/uL 2.0-7.7 [facility] Automated lymphocyte count a s percentage of total leukocytesOrdered By: Tamiko Cohn on 03-04-2025 Lymphocytes/100 WBC Auto (Unsp spec) 20.2 % 19-41 [facility] Basophil percentageOrdered B y: Tamiko Cohn on 03-04-2025 Basophils/100 WBC (Bld) 0.3 % 0-1 [facility] CBC W/Diff, Automatedon 05-0 Absolute Lymph 1.55 X10 3/uL Normal 0.83-4.51 [facility] Comment on above: Performed By: #### L 3890.6006, L100.0100, L509.8002, L501.0250 ####[facility] [address] [place], [place], [id number] Absolute Neut 5.6 X10 3/uL Normal 2.0-7.7 [facility] Comment on above: Performed By: #### L 3890.6006, L100.0100, L509.8002, L501.0250 ####[facility] [address] [place], [address] Basophils/100 WBC (Bld) 0.3 % Normal 0-1 [facility] Comment on above: Performed By: #### L 3890.6006, L100.0100, L509.8002, L501.0250 ####[facility] [address] [place], [address] Eosinophils/100 WBC (Bld) 0.0 % Normal 0-5 [facility] Comment on above: Performed By: #### L 3890.6006, L100.0100, L509.8002, L501.0250 ####[facility] [address] [place], [address] Erythrocyte distribution width (RBC) [Ratio] 12.4 % Normal 11.6-14.6 [facility] Comment on above: Performed By: #### L 3890.6006, L100.0100, L509.8002, L501.0250 ####[facility] [address] [place], [address] Hematocrit (Bld) [Volume fraction] 31.7 % Low 37-47 [facility] Comment on above: Performed By: #### L 3890.6006, L100.0100, L509.8002, L501.0250 ####[facility] [address] [place], [address] Hemoglobin (Bld) [Mass/Vol] 10.7 g/dL Low 12.0-15.0 [facility] Comment on above: Performed By: #### L 3890.6006, L100.0100, L509.8002, L501.0250 ####[facility] [address] [place], [address] IG% 0.300 Normal 0.0-0.9 [facility] Comment on above: Result Comment: IG% - Immature Granulocytes (promyelocytes, myelocytes and metamyelocytes) > 1% indicates that a LEFT SHIFT is Present. Performed By: #### L 3890.6006, L100.0100, L509.8002, L501.0250 ####[facility] [address] [place], [address] Lymphocytes/100 WBC (Bld) 20.2 % Normal 19-41 [facility] Comment on above: Performed By: #### L 3890.6006, L100.0100, L509.8002, L501.0250 ####[facility] [address] [place], [address] MCH (RBC) [Entitic mass] 33.3 pg High 27.0-32.0 [facility] Comment on above: Performed By: #### L 3890.6006, L100.0100, L509.8002, L501.0250 ####[facility] [address] [place], [address] MCHC (RBC) [Mass/Vol] 33.8 g/dL Normal 32-36 [facility] Comment on above: Performed By: #### L 3890.6006, L100.0100, L509.8002, L501.0250 ####[facility] [address] [place], [address] MCV (RBC) [Entitic vol] 98.8 fL Normal 81-99 [facility] Comment on above: Performed By: #### L 3890.6006, L100.0100, L509.8002, L501.0250 ####[facility] [address] [place], [address] Monocytes/100 WBC (Bld) 6.2 % Normal 0-10 [facility] Comment on above: Performed By: #### L 3890.6006, L100.0100, L509.8002, L501.0250 ####[facility] [address] [place], [address] Neutrophils/100 WBC (Bld) 73.0 % High 47-70 [facility] Comment on above: Performed By: #### L 3890.6006, L100.0100, L509.8002, L501.0250 ####[facility] [address] [place], [address] Nucleated RBC (Bld) [#/Vol] 0 10*3/uL Normal 0-5 [facility] Comment on above: Performed By: #### L 3890.6006, L100.0100, L509.8002, L501.0250 ####[facility] [address] [place], [address] Platelet mean volume (Bld) [Entitic vol] 11.4 fL Normal 6.2-12.0 [facility] Comment on above: Performed By: #### L 3890.6006, L100.0100, L509.8002, L501.0250 ####[facility] [address] [place], [address] Platelets (Bld) [#/Vol] 170 10*3/uL Normal 150-450 [facility] Comment on above: Performed By: #### L 3890.6006, L100.0100, L509.8002, L501.0250 ####[facility] [address] [place], [address] RBC (Bld) [#/Vol] 3.21 10*6/uL Low 4.2-5.4 [facility] Comment on above: Performed By: #### L 3890.6006, L100.0100, L509.8002, L501.0250 ####[facility] [address] [place], [address] RDW SD 45.0 fl High 35.1-43.9 [facility] Comment on above: Performed By: #### L 3890.6006, L100.0100, L509.8002, L501.0250 ####[facility] [address] [place], [address] WBC (Bld) [#/Vol] 7.7 10*3/uL Normal 4.4-11.0 [facility] Comment on above: Performed By: #### L 3890.6006, L100.0100, L509.8002, L501.0250 ####[facility] [address] [place], [address] Eosinophil percentageOrdered By: Tamiko Cohn on 03-04-2025 Eosinophils/100 WBC (Bld) 0.0 % 0-5 [facility] Erythrocyte distribution wid th ratioOrdered By: Tamiko Cohn on 03-04-2025 Erythrocyte distribution width (RBC) [Ratio] 12.4 % 11.6-14.6 [facility] Erythrocyte distribution wid th standard deviationOrdered By: Tamiko Cohn on 03-04-2025 Erythrocyte distribution width (RBC) [Ratio] 45.0 fl High 35.1-43.9 [facility] Glucose Challenge Gest 1H 50 ally 03-04-2025 GLU GEST 50g 1H 98 mg/dL Normal 70-140 [facility] Comment on above: Performed By: #### L 3890.6006, L100.0100, L509.8002, L501.0250 ####[facility] [address] [place], [address] Glucose measurement at 2 robles rs post-dose gestational glucose tolerance testOrdered By: Tamiko Cohn on 03-04-2025 Glucose [Mass/Vol] 98 mg/dL 70-140 [facility] HIVon 03-04-2025 HIV Non-Reactive Normal Nonreactive [facility] Comment on above: Result Comment: Non- Reactive Reactive Repeatedly reactive samples must be confirmed according to CDC recommended confirmatory algorithms. The subresults for either HIVAG or AHIV can be used as an aid in the selection of the confirmation algorithm for reactive samples. Send out specimens with Reactive results to [facility] for confirmation. Order the HIV antibody detection and differentiation: lc#[id number] Performed By: #### L 3890.6006, L100.0100, L509.8002, L501.0250 ####[facility] [address] [place], [address] Hematocrit Auto (Bld) [Volum e fraction]Ordered By: Tamiko Cohn on 03-04-2025 Hematocrit (Bld) [Volume fraction] 31.7 % Low 37-47 [facility] Hemoglobin measurementOrdere d By: Tamiko Cohn on 03-04-2025 Hemoglobin (Bld) [Mass/Vol] 10.7 g/dL Low 12.0-15.0 [facility] Immature granulocytes/100 WB C Auto (Bld)Ordered By: Tamiko Cohn on 03-04-2025 Immature granulocytes/100 WBC (Bld) 0.300 % 0.0-0.9 [facility] Comment on above: IG% - Immature Granu locytes (promyelocytes, myelocytes and metamyelocytes) > 1% indicates that a LEFT SHIFT is Present. Laboratory - Chemistry and C hemistry - challengeOrdered By: Lino Joaquin on 03-04-2025 Glucose Ql (U) Negative [facility] Laboratory - UrinalysisOrder ed By: Lino Joaquin on 03-04-2025 Protein Ql (U) Negative [facility] MCV (mean corpuscular volume ) determinationOrdered By: Tamiko Cohn on 03-04-2025 MCV (RBC) [Entitic vol] 98.8 fL 81-99 [facility] Mean corpuscular hemoglobin (MCH) determinationOrdered By: Tamiko Cohn on 03-04-2025 MCH (RBC) [Entitic mass] 33.3 pg High 27.0-32.0 [facility] Mean corpuscular hemoglobin concentration (MCHC) determinationOrdered By: Tamiko Cohn on 03-04-2025 MCHC (RBC) [Mass/Vol] 33.8 g/dL 32-36 [facility] Mean platelet volume determi nationOrdered By: Tamiko Cohn on 03-04-2025 Platelet mean volume (Bld) [Entitic vol] 11.4 fL 6.2-12.0 [facility] Monocyte percentageOrdered B y: Tamiko Cohn on 03-04-2025 Monocytes/100 WBC (Bld) 6.2 % 0-10 [facility] Neutrophil percentageOrdered By: Tamiko Cohn on 03-04-2025 Neutrophils/100 WBC (Bld) 73.0 % High 47-70 [facility] No Panel InformationOrdered By: Tamiko Cohn on 03-04-2025 HIV (1&2) Antibody Non-Reactive Nonreactive [facility] Comment on above: Non-ReactiveReactive Repeatedly reactive samples must be confirmed according to CDC recommended confirmatory algorithms. The subresults for either HIVAG or AHIV can be used as an aid in the selection of the confirmation algorithm for reactive samples.Send out specimens with Reactive results to [facility] for confirmation.Order the HIV antibody detection and differentiation: #[id number] Nucleated red blood cell per centageOrdered By: Tamiko Cohn on 03-04-2025 Nucleated RBC/100 WBC (Bld) [Ratio] 0 % 0-5 [facility] Card Lacer Office Visit Reporton 03-04-2025 Card Lacer Office Visit Report [facility] [address], [address] [place] [address] OFFICE VISIT Date of Service: 03/04/25 MR#: [id number] Acct: [id number] Name: ISHA VANEGAS Rep #: [id number] : 1990 Provider: DAKOTA Mccormick ams Age/Sex: 34/F Location: [facility] Status: Signed Intake Vital Signs 12/03/24 10:02 02/04/25 09:33 03/04/25 11:18 Height 5 ft 5 in 5 ft 5 in 5 ft 5 in Weight: 156 lb BMI 25.9 BP 115/75 Intake Visit Reasons: 27 WK OB/GLUCOSE Chief Complaint: 27wk OB Curtain Cutter Required: No Is patient in pain?: No [...] 2 current occupational status: employed 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 (more content not included)... Normal [facility] Platelet countOrdered By: Dwight Cohn on 03-04-2025 Platelets (Bld) [#/Vol] 170 10*3/uL 150-450 [facility] RBC Auto (Bld) [#/Vol]Ordere d By: Tamiko Cohn on 03-04-2025 RBC (Bld) [#/Vol] 3.21 10*6/uL Low 4.2-5.4 [facility] Syphilis Antibodieson 2024 Syphilis Abs Non-Reactive Normal Nonreactive [facility] Comment on above: Performed By: #### L 3890.6006, L100.0100, L509.8002, L501.0250 ####[facility] [address] [place], [place], [id number] White blood cell (WBC) count Ordered By: Tamiko Cohn on 03-04-2025 WBC (Bld) [#/Vol] 7.7 10*3/uL 4.4-11.0 [facility] Laboratory - Chemistry and C hemistry - challengeOrdered By: Tamiko Cohn on 02-04-2025 Glucose Ql (U) Negative [facility] Laboratory - UrinalysisOrder ed By: Tamiko Cohn on 02-04-2025 Protein Ql (U) Negative [facility] Card Lacer Office Visit Reporton 02-04-2025 Card L[place] Office Visit Report [facility] [address], [address] [place] [address] OFFICE VISIT Date of Service: 02/04/25 MR#: [id number] Acct: [id number] Name: SIHA VANEGAS Rep #: [id number] : 1990 Provider: Dr. 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 -???- (more content not included)... Normal [facility] Laboratory - Chemistry and C hemistry - challengeOrdered By: Lino Joaquin on 12-31-2024 Glucose Ql (U) Negative [facility] Laboratory - UrinalysisOrder ed By: Lino Joaquin on 12-31-2024 Protein Ql (U) Negative [facility] Card Lacer Office Visit Reporton 12-31-2024 Card Lacer Office Visit Report [facility] [address], [address] [place] [address] OFFICE VISIT Date of Service: 12/31/24 MR#: [id number] Acct: [id number] Name: ISHA VANEGAS Rep #: [id number] : 1990 Provider: DAKOTA Mccormick [facility] Age/Sex: 34/F Location: [facility] Status: Signed Intake Vital Signs 11/01/24 10:21 [...] 2 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 Normal [facility] Laboratory - Chemistry and C hemistry - challengeOrdered By: Lino Joaquin on 12-03-2024 Glucose Ql (U) Negative [facility] Laboratory - UrinalysisOrder ed By: Lino Joaquin on 12-03-2024 Protein Ql (U) Trace [facility] Card [facility] Office Visit Reporton 12-03-2024 Card L[facility] Office Visit Report [facility] [address], [address] [place] [id number] OFFICE VISIT Date of Service: 12/03/24 MR#: [id number] Acct: [id number] Name: ISHA VANEGAS Rep #: [id number] : 1990 Provider: DAKOTA Mccormick ams Age/Sex: 34/F Location: [facility] Status: Signed Intake Vital Signs 07/08/23 11:54 [...] 2 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 Normal [facility] Urine Cultureon 11-04-2024 URC Below infection level. Streptococcus agalactiae (B) [place] Count 1000-10,000 Streptococcus agalactiae (B): REACTION Ampicillin Islt GABRIEL <=0.25 cefTRIAXone Islt GABRIEL <=0.12 S Clindamycin Islt GABRIEL R Clindamycin.induced Susc Islt POS Linezolid Islt GABRIEL <=2 S Vancomycin Islt GABRIEL 0.5 S Normal [facility] Comment on above: Performed By: #### L 0.1799, ####[facility] [address] [place], [place], [address] Chlamydia/GC ABA aptimaon CHLAMY,NUC ACID Negative Normal Negative [facility] Comment on above: Performed By: #### L 0.1799, ####[facility] [address] [place], [place], [address] GC BY NUC ACID Negative Normal Negative [facility] Comment on above: Result Comment: Perf ormed at: =G - [facility] [address] [place], [place] [id number] Marketing Community Liaison: Raquel Key MD, Phone: [phone] Performed By: #### L 0.1800, M100.2200 ####[facility] [address] [place], [address] CBC W/Diff, Automatedon 01-0 6-2024 Absolute Lymph 1.40 X10 3/uL Normal 0.83-4.51 [facility] Comment on above: Performed By: #### L 100.0100, BTS, L3890.6100, L3890.6005, L509.8000, L509.4005, L900.0098, L3890.6300 #### [facility] [address] [place], [address] Absolute Neut 3.7 X10 3/uL Normal 2.0-7.7 [facility] Comment on above: Performed By: #### L 100.0100, BTS, L3890.6100, L3890.6005, L509.8000, L509.4005, L900.0098, L3890.6300 #### [facility] [address] [place], [address] Basophils/100 WBC (Bld) 0.5 % Normal 0-1 [facility] Comment on above: Performed By: #### L 100.0100, BTS, L3890.6100, L3890.6005, L509.8000, L509.4005, L900.0098, L3890.6300 #### [facility] [address] [place], [address] Eosinophils/100 WBC (Bld) 0.5 % Normal 0-5 [facility] Comment on above: Performed By: #### L 100.0100, BTS, L3890.6100, L3890.6005, L509.8000, L509.4005, L900.0098, L3890.6300 #### [facility] [address] [place], [address] Erythrocyte distribution width (RBC) [Ratio] 12.5 % Normal 11.6-14.6 [facility] Comment on above: Performed By: #### L 100.0100, BTS, L3890.6100, L3890.6005, L509.8000, L509.4005, L900.0098, L3890.6300 #### [facility] [address] [place], [address] Hematocrit (Bld) [Volume fraction] 32.6 % Low 37-47 [facility] Comment on above: Performed By: #### L 100.0100, BTS, L3890.6100, L3890.6005, L509.8000, L509.4005, L900.0098, L3890.6300 #### [facility] [address] [facility] [place], [address] Hemoglobin (Bld) [Mass/Vol] 11.1 g/dL Low 12.0-15.0 [facility] Comment on above: Performed By: #### L 100.0100, BTS, L3890.6100, L3890.6005, L509.8000, L509.4005, L900.0098, L3890.6300 #### [facility] [address] [facility] [place], [address] IG% 0.200 Normal 0.0-0.9 [facility] Comment on above: Result Comment: IG% - Immature Granulocytes (promyelocytes, myelocytes and metamyelocytes) > 1% indicates that a LEFT SHIFT is Present. Performed By: #### L 100.0100, BTS, L3890.6100, L3890.6005, L509.8000, L509.4005, L900.0098, L3890.6300 #### [facility] [address] [place], [address] Lymphocytes/100 WBC (Bld) 25.3 % Normal 19-41 [facility] Comment on above: Performed By: #### L 100.0100, BTS, L3890.6100, L3890.6005, L509.8000, L509.4005, L900.0098, L3890.6300 #### [facility] [address] [place], [address] MCH (RBC) [Entitic mass] 32.4 pg High 27.0-32.0 [facility] Comment on above: Performed By: #### L 100.0100, BTS, L3890.6100, L3890.6005, L509.8000, L509.4005, L900.0098, L3890.6300 #### [facility] [address] [place], [address] MCHC (RBC) [Mass/Vol] 34.0 g/dL Normal 32-36 [facility] Comment on above: Performed By: #### L 100.0100, BTS, L3890.6100, L3890.6005, L509.8000, L509.4005, L900.0098, L3890.6300 #### [facility] [address] [place], [address] MCV (RBC) [Entitic vol] 95.0 fL Normal 81-99 [facility] Comment on above: Performed By: #### L 100.0100, BTS, L3890.6100, L3890.6005, L509.8000, L509.4005, L900.0098, L3890.6300 #### [facility] [address] [place], [address] Monocytes/100 WBC (Bld) 6.5 % Normal 0-10 [facility] Comment on above: Performed By: #### L 100.0100, BTS, L3890.6100, L3890.6005, L509.8000, L509.4005, L900.0098, L3890.6300 #### [facility] [address] [place], [address] Neutrophils/100 WBC (Bld) 67.0 % Normal 47-70 [facility] Comment on above: Performed By: #### L 100.0100, BTS, L3890.6100, L3890.6005, L509.8000, L509.4005, L900.0098, L3890.6300 #### [facility] [address] [place], [address] Nucleated RBC (Bld) [#/Vol] 0 10*3/uL Normal 0-5 [facility] Comment on above: Performed By: #### L 100.0100, BTS, L3890.6100, L3890.6005, L509.8000, L509.4005, L900.0098, L3890.6300 #### [facility] [address] [place], [address] Platelet mean volume (Bld) [Entitic vol] 12.3 fL High 6.2-12.0 [facility] Comment on above: Performed By: #### L 100.0100, BTS, L3890.6100, L3890.6005, L509.8000, L509.4005, L900.0098, L3890.6300 #### [facility] [address] [place], [address] Platelets (Bld) [#/Vol] 185 10*3/uL Normal 150-450 [facility] Comment on above: Performed By: #### L 100.0100, BTS, L3890.6100, L3890.6005, L509.8000, L509.4005, L900.0098, L3890.6300 #### [facility] [address] [place], [address] RBC (Bld) [#/Vol] 3.43 10*6/uL Low 4.2-5.4 [facility] Comment on above: Performed By: #### L 100.0100, BTS, L3890.6100, L3890.6005, L509.8000, L509.4005, L900.0098, L3890.6300 #### [facility] [address] [place], [place], [id number] RDW SD 43.5 fl Normal 35.1-43.9 [facility] Comment on above: Performed By: #### L 100.0100, BTS, L3890.6100, L3890.6005, L509.8000, L509.4005, L900.0098, L3890.6300 #### [facility] [address] [facility] [place], [address] WBC (Bld) [#/Vol] 5.5 10*3/uL Normal 4.4-11.0 [facility] Comment on above: Performed By: #### L 100.0100, BTS, L3890.6100, L3890.6005, L509.8000, L509.4005, L900.0098, L3890.6300 #### [facility] [address] [facility] [place], [address] HIV - WCHon 11-01-2024 HIV Non-Reactive Normal Nonreactive [facility] Comment on above: Order Comment: Reaso n for Exam: Performed By: #### L 100.0100, BTS, L3890.6100, L3890.6005, L509.8000, L509.4005, L900.0098, L3890.6300 #### [facility] [address] [place], [address] Hepatitis B Surface Antigeno n 11-01-2024 HEP B Surf Ag [facility] Comment on above: Order Comment: Reaso n for Exam: Performed By: #### L 100.0100, BTS, L3890.6100, L3890.6005, L509.8000, L509.4005, L900.0098, L3890.6300 ####[facility] [address] [place], [address] Hepatitis C Antibodyon 11-01 Hepatitis C AB Non-Reactive Normal Nonreactive [facility] Comment on above: Order Comment: Reaso n for Exam: Result Comment: Non Reactive: < 0.8 Equivocal: >/= 0.8 to < 1.0 Reactive: >/= 1.0 The [facility] requires that a reactive/equivocal HCV antibody result be sent out for confirmation. HCV Quant by PCR testing. Performed By: #### L 100.0100, BTS, L3890.6100, L3890.6005, L509.8000, L509.4005, L900.0098, L3890.6300 ####[facility] [address] [place], [address] L509.8000on 11-01-2024 Syphilis Abs Non-Reactive Normal [facility] Comment on above: Order Comment: Reaso n for Exam: Performed By: #### L 100.0100, BTS, L3890.6100, L3890.6005, L509.8000, L509.4005, L900.0098, L3890.6300 #### [facility] [address] [place], [address] NATERAon 11-01-2024 NATURA SEE SCANNED REPORT Normal [facility] Comment on above: Order Comment: Comme nts: NIPT with Gender Performed By: #### L 100.0100, BTS, L3890.6100, L3890.6005, L509.8000, L509.4005, L900.0098, L3890.6300 #### [facility] [address] [place], [address] Card Lacer Office Visit Reporton 11-01-2024 Card Lacer Office Visit Report [facility] [address], [address] [place] [address] OFFICE VISIT Date of Service: 11/01/24 MR#: [id number] Acct: [id number] Name: ISHA VANEGAS Rep #: [id number] : 1990 Provider: Dr. 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 -???-???- (more content not included)... Normal [facility] Rubella IgGon 11-01-2024 Rubella IgG Reactive Normal Nonreactive [facility] Comment on above: Order Comment: Reaso n for Exam: Result Comment: Anti body Results Interpretation of Immune Status Non Reactive Presumed Non-Immune Equivocal Equivocal Reactive Presumed Immune Performed By: #### L 100.0100, BTS, L3890.6100, L3890.6005, L509.8000, L509.4005, L900.0098, L3890.6300 #### [facility] [place], [address] Type AND Screenon 11-01-2024 Ab SCREEN GEL Negative Normal [facility] Comment on above: Order Comment: PN Performed By: #### L 100.0100, BTS, L3890.6100, L3890.6005, L509.8000, L509.4005, L900.0098, L3890.6300 #### [facility] [address] [place], [place], [id number] PROGESTERONE 4317on 09-25-20 24 PROGESTERONE 27.5 ng/mL Normal . [facility] Comment on above: Order Comment: N Result Comment: Foll icular phase 0.1 - 0.9 Luteal phase 1.8 - 23.9 Ovulation phase 0.1 - 12.0 First trimester 11.0 - 44.3 Second trimester 25.4 - 83.3 Third trimester 58.7 - 214.0 Postmenopausal 0.0 - 0.1 Performed at: [facility] [address] [id number] [employer] Community Liaison: Addy Mcginnis PhD, Phone: [phone] Performed By: #### L 801.2600, L700.8000 ####[facility] [address] [place], [place], [id number] hCG Titer Quant., Serumon HCG QUANT. 954 mIU/mL [address] Comment on above: Result Comment: hCG levels with Gestational Age Gestational Age hCG mIU/mL (IU/L) 0.2 - 1 week 5 - 50 1-2 weeks 50 - 500 2-3 weeks 100 - 5000 3-4 weeks 500 - 15059 4-5 weeks 1000 - 07833 5-6 weeks 61769 - 100,000 6-8 weeks 18221 - 200,000 2-3 months 23814 - 100,000 Performed By: #### L 700.8000 ####[facility] [address] [place], [place], [id number] hCG Titer Quant., Serumon HCG QUANT. 423 mIU/mL [facility] [address] Comment on above: Result Comment: hCG levels with Gestational Age Gestational Age hCG mIU/mL (IU/L) 0.2 - 1 week 5 - 50 1-2 weeks 50 - 500 2-3 weeks 100 - 5000 3-4 weeks 500 - 90091 4-5 weeks 1000 - 02346 5-6 weeks 33198 - 100,000 6-8 weeks 58960 - 200,000 2-3 months 08246 - 100,000 Performed By: #### L 801.2600, L700.8000 ####[facility] [address] [place], [address] CBC W/Diff, Automatedon 08-27 Absolute Lymph 1.69 X10 3/uL Normal 0.83-4.51 [facility] Comment on above: Performed By: #### L 100.0100 #### [facility] [address] [place], [address] Absolute Neut 2.4 X10 3/uL Normal 2.0-7.7 [facility] Comment on above: Performed By: #### L 100.0100 #### [facility] [address] [place], [address] Basophils/100 WBC (Bld) 1.1 % High 0-1 [facility] Comment on above: Performed By: #### L 100.0100 #### [facility] [address] [place], [address] Eosinophils/100 WBC (Bld) 0.7 % Normal 0-5 [facility] Comment on above: Performed By: #### L 100.0100 #### [facility] [address] [place], [address] Erythrocyte distribution width (RBC) [Ratio] 12.6 % Normal 11.6-14.6 [facility] Comment on above: Performed By: #### L 100.0100 #### [facility] [address] [place], [address] Hematocrit (Bld) [Volume fraction] 37.2 % Normal 37-47 [facility] Comment on above: Performed By: #### L 100.0100 #### [facility] [address] [place], [address] Hemoglobin (Bld) [Mass/Vol] 12.2 g/dL Normal 12.0-15.0 [facility] Comment on above: Performed By: #### L 100.0100 #### [facility] [address] [place], [address] IG% 0.000 Normal 0.0-0.9 [facility] Comment on above: Result Comment: IG% - Immature Granulocytes (promyelocytes, myelocytes and metamyelocytes) > 1% indicates that a LEFT SHIFT is Present. Performed By: #### L 100.0100 #### [facility] [address] [place], [address] Lymphocytes/100 WBC (Bld) 36.7 % Normal 19-41 [facility] Comment on above: Performed By: #### L 100.0100 #### [facility] [address] [place], [address] MCH (RBC) [Entitic mass] 31.5 pg Normal 27.0-32.0 [facility] Comment on above: Performed By: #### L 100.0100 #### [facility] [address] [place], [address] MCHC (RBC) [Mass/Vol] 32.8 g/dL Normal 32-36 [facility] Comment on above: Performed By: #### L 100.0100 #### [facility] [address] [place], [address] MCV (RBC) [Entitic vol] 96.1 fL Normal 81-99 [facility] Comment on above: Performed By: #### L 100.0100 #### [facility] [address] [place], [address] Monocytes/100 WBC (Bld) 9.1 % Normal 0-10 [facility] Comment on above: Performed By: #### L 100.0100 #### [facility] [address] [place], [address] Neutrophils/100 WBC (Bld) 52.4 % Normal 47-70 [facility] Comment on above: Performed By: #### L 100.0100 #### [facility] [address] [place], [address] Nucleated RBC (Bld) [#/Vol] 0 10*3/uL Normal 0-5 [facility] Comment on above: Performed By: #### L 100.0100 #### [facility] [address] [place], [address] Platelet mean volume (Bld) [Entitic vol] 11.9 fL Normal 6.2-12.0 [facility] Comment on above: Performed By: #### L 100.0100 #### [facility] [address] [place], [address] Platelets (Bld) [#/Vol] 180 10*3/uL Normal 150-450 [facility] Comment on above: Performed By: #### L 100.0100 #### [facility] [address] [place], [address] RBC (Bld) [#/Vol] 3.87 10*6/uL Low 4.2-5.4 [facility] Comment on above: Performed By: #### L 100.0100 #### [facility] [address] [place], [address] RDW SD 44.4 fl High 35.1-43.9 [facility] Comment on above: Performed By: #### L 100.0100 #### [facility] [address] [place], [address] WBC (Bld) [#/Vol] 4.6 10*3/uL Normal 4.4-11.0 [facility] Comment on above: Performed By: #### L 100.0100 #### [facility] [address] [place], [address] Comprehensive Metabolic Prof ilon 09-13-2024 Albumin [Mass/Vol] 3.9 g/dL Normal 3.2-5.0 [facility] Comment on above: Performed By: #### L 506.1000, L500.4050, L500.4100, L100.0100, L501.9520 ####[facility] [address] [place], [address] Albumin/Globulin [Mass ratio] 1.3 {ratio} Normal 0.9-2.4 [facility] Comment on above: Performed By: #### L 506.1000, L500.4050, L500.4100, L100.0100, L501.9520 ####[facility] [address] [place], [address] ALK P 40 U/L Low 45-117 [facility] Comment on above: Performed By: #### L 506.1000, L500.4050, L500.4100, L100.0100, L501.9520 ####[facility] [address] [place], [address] ALT [Catalytic activity/Vol] 18 U/L Normal 13-56 [facility] Comment on above: Performed By: #### L 506.1000, L500.4050, L500.4100, L100.0100, L501.9520 ####[facility] [address] [place], [address] AST [Catalytic activity/Vol] 11 U/L Low 15-37 [facility] Comment on above: Performed By: #### L 506.1000, L500.4050, L500.4100, L100.0100, L501.9520 ####[facility] [address] [place], [address] Bilirubin [Mass/Vol] 0.40 mg/dL Normal 0.20-1.00 [facility] Comment on above: Result Comment: For patients on eltrombopag therapy, use of Dimension [place] TBIL is not recommended. Performed By: #### L 506.1000, L500.4050, L500.4100, L100.0100, L501.9520 ####[facility] [address] [place], [address] BUN/CRE 25.6 RATIO High 10-20 [facility] Comment on above: Performed By: #### L 506.1000, L500.4050, L500.4100, L100.0100, L501.9520 ####[facility] [address] [place], [address] CA,Total 8.5 mg/dL Normal 8.5-10.1 [facility] Comment on above: Performed By: #### L 506.1000, L500.4050, L500.4100, L100.0100, L501.9520 ####[facility] [address] [place], [address] Chloride [Moles/Vol] 109 mmol/L High 98-107 [facility] Comment on above: Performed By: #### L 506.1000, L500.4050, L500.4100, L100.0100, L501.9520 ####[facility] [address] [place], [address] CO2 [Moles/Vol] 26.0 mmol/L Normal 21.0-32.0 [facility] Comment on above: Performed By: #### L 506.1000, L500.4050, L500.4100, L100.0100, L501.9520 ####[facility] [address] [place], [address] Creatinine [Mass/Vol] 0.74 mg/dL Normal 0.55-1.02 [facility] Comment on above: Result Comment: The validity of the calculated GFR GFRAA in patients over 70 years has not been determined. Clinical correlation is essential. Performed By: #### L 506.1000, L500.4050, L500.4100, L100.0100, L501.9520 ####[facility] [address] [place], [address] EST GFR - AA 116 mL/min Normal >60 [facility] Comment on above: Result Comment: Afri can Bel[place]ian GFR Calc Performed By: #### L 506.1000, L500.4050, L500.4100, L100.0100, L501.9520 ####[facility] [address] [place], [address] GAP 4 Low 5-15 [facility] Comment on above: Performed By: #### L 506.1000, L500.4050, L500.4100, L100.0100, L501.9520 ####[facility] [address] [place], [address] GFR/1.73 sq M.predicted among non-blacks MDRD (S/P/Bld) [Vol rate/Area] 96 mL/min/{1.73_m2} Normal >60 [facility] Comment on above: Result Comment: Non- GFR Calc Performed By: #### L 506.1000, L500.4050, L500.4100, L100.0100, L501.9520 ####[facility] [address] [place], [address] Globulin (S) [Mass/Vol] 3.1 g/dL Normal 2.2-4.2 [facility] Comment on above: Performed By: #### L 506.1000, L500.4050, L500.4100, L100.0100, L501.9520 ####[facility] [address] [place], [address] Glucose [Mass/Vol] 91 mg/dL Normal 74-106 [facility] Comment on above: Performed By: #### L 506.1000, L500.4050, L500.4100, L100.0100, L501.9520 ####[facility] [address] [place], [address] Potassium [Moles/Vol] 3.9 mmol/L Normal 3.5-5.1 [facility] Comment on above: Performed By: #### L 506.1000, L500.4050, L500.4100, L100.0100, L501.9520 ####[facility] [address] [place], [address] Sodium [Moles/Vol] 139 mmol/L Normal 136-145 [facility] Comment on above: Performed By: #### L 506.1000, L500.4050, L500.4100, L100.0100, L501.9520 ####[facility] [address] [place], [address] T PROT 7.0 g/dL Normal 6.4-8.2 [facility] Comment on above: Performed By: #### L 506.1000, L500.4050, L500.4100, L100.0100, L501.9520 ####[facility] [address] [place], [address] Urea nitrogen [Mass/Vol] 19 mg/dL High 7-18 [facility] Comment on above: Performed By: #### L 506.1000, L500.4050, L500.4100, L100.0100, L501.9520 ####[facility] [address] [place], [address] Lipid Profileon 09-13-2024 Cholesterol [Mass/Vol] 187 mg/dL Normal 200 [facility] Comment on above: Result Comment: <200 mg/dL Desirable 200-240 mg/dL Borderline >240 mg/dL High Risk Performed By: #### L 506.1000, L500.4050, L500.4100, L100.0100, L501.9520 ####[facility] [address] [place], [address] Cholesterol in HDL [Mass/Vol] 72 mg/dL Normal [facility] Comment on above: Result Comment: The drugs N-Acetylcysteine and Metamizole may falsely depress this assay. Reference Range HDL <40 mg/dL Low HDL Cholesterol HDL >or= 60 mg/dL High HDL Cholesterol Performed By: #### L 506.1000, L500.4050, L500.4100, L100.0100, L501.9520 ####[facility] [address] [place], [address] Cholesterol in LDL [Mass/Vol] 107 mg/dL Normal 0-130 [facility] Comment on above: Performed By: #### L 506.1000, L500.4050, L500.4100, L100.0100, L501.9520 ####[facility] [address] [place], [address] Cholesterol in VLDL [Mass/Vol] 8 mg/dL Normal 5-40 [facility] Comment on above: Performed By: #### L 506.1000, L500.4050, L500.4100, L100.0100, L501.9520 ####[facility] [address] [place], [address] Triglyceride [Mass/Vol] 42 mg/dL Normal [facility] Comment on above: Result Comment: The drugs N-Acetylcysteine and Metamizole may falsely depress this assay. Serum Triglycerides Reference Interval Normal <150 mg/dL Borderline high 150 - 199 mg/dL High 200 - 499 mg/dL Very High > or = 500 mg/dL Performed By: #### L 506.1000, L500.4050, L500.4100, L100.0100, L501.9520 ####[facility] [address] [place], [address] Thyroid Stim Hormone (TSH)on 09-13-2024 TSH 0.918 uIU/mL Normal 0.358-3.740 [facility] Comment on above: Performed By: #### L 100.0100 #### [facility] [address] [place], [address] Vitamin D,25 Hydroxyon 09-13 Vitamin D 25-OH 32.7 ng/mL Normal [facility] Comment on above: Result Comment: Mela min D 25(OH) Status Range Deficiency <20 ng/mL (50nmol/L) Insufficiency 20 - 30 ng/mL (50 - 75 nmol/L) Sufficiency 30 - 100 ng/mL (75 - 250 nmol/L) Toxicity >100 ng/mL (>250 nmol/L) Performed By: #### L 506.1000, L500.4050, L500.4100, L100.0100, L501.9520 ####[facility] [address] 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 [...] kg/m? Physical Exam Exam conducted with a bid clerk present. Constitutional: Appearance: She is well-developed. HENT: [...] uterine pro (more content not included)... Normal [facility] Absolute lymphocyte countOrd ered By: Karla Shrestha on 05-29-2023 Lymphocytes Auto (Unsp spec) [#/Vol] 1.46 10*3/uL 0.83-4.51 [facility] Basophil percentageOrdered B y: Karla Shrestha on 05-29-2023 Basophils/100 WBC (Bld) 0.3 % 0-1 [facility] Eosinophils/100 WBC (Bld) 0.3 % 0-5 [facility] Neutrophils (Bld) [#/Vol] 6.9 10*3/uL 2.0-7.7 [facility] Neutrophils/100 WBC (Bld) 76.2 % 47-70 [facility] WBC (Bld) [#/Vol] 9.1 10*3/uL 4.4-11.0 [facility] Blood erythrocytes count (nu mber/volume)Ordered By: Karla Shrestha on 05-29-2023 RBC (Bld) [#/Vol] 3.59 10*6/uL 4.2-5.4 [facility] Blood hemoglobin measurement (mass/volume)Ordered By: Karla Shrestha on 05-29-2023 Hemoglobin (Bld) [Mass/Vol] 12.0 g/dL 12.0-15.0 [facility] Blood lymphocytes/100 leukoc ytesOrdered By: Karla Shrestha on 05-29-2023 Lymphocytes/100 WBC (Bld) 16.0 % 19-41 [facility] Blood monocytes/100 leukocyt esOrdered By: Karla Shrestha on 05-29-2023 Monocytes/100 WBC (Bld) 6.9 % 0-10 [facility] Blood platelet mean volumeOr dered By: Karla Shrestha on 05-29-2023 Platelet mean volume (Bld) [Entitic vol] 11.8 fL 6.2-12.0 [facility] Determination of erythrocyte mean corpuscular volume (MCV)Ordered By: Karla Shrestha on 05-29-2023 MCV (RBC) [Entitic vol] 100.0 fL 81-99 [facility] Hematocrit Auto (Bld) [Volum e fraction]Ordered By: Karla Shrestha on 05-29-2023 Hematocrit (Bld) [Volume fraction] 35.9 % 37-47 [facility] - Hematology and Cell countsOrdered By: Karla Shrestha on 05-29-2023 Erythrocyte distribution width (RBC) [Entitic vol] 44.4 fL 35.1-43.9 [facility] Erythrocyte distribution width (RBC) [Ratio] 12.2 % 11.6-14.6 [facility] Immature granulocytes/100 WBC (Bld) 0.300 % 0.0-0.9 [facility] Comment on above: IG% - Immature Granu locytes (promyelocytes, myelocytes and metamyelocytes) > 1% indicates that a LEFT SHIFT is Present. MCH (RBC) [Entitic mass] 33.4 pg 27.0-32.0 [facility] Nucleated RBC/100 WBC (Bld) [Ratio] 0 % 0-5 [facility] MCHC Auto (RBC) [Mass/Vol]Or dered By: Karla Shrestha on 05-29-2023 MCHC (RBC) [Mass/Vol] 33.4 g/dL 32-36 [facility] Platelets bldOrdered By: Eric Shrestha on 05-29-2023 Platelets (Bld) [#/Vol] 173 10*3/uL 150-450 [facility] Serum Treponema species anti body detectionOrdered By: Karla Shrestha on 05-29-2023 Treponema sp Ab Ql (S) Non-Reactive [facility] - Chemistry and C hemistry - challengeon 05-23-2023 Glucose Ql (U) Negative [facility] - Urinalysison Protein Ql (U) Negative [facility] - Chemistry and C hemistry - challengeon 05-16-2023 Glucose Ql (U) Negative [facility] - Urinalysison Protein Ql (U) Negative [facility] Absolute lymphocyte countOrd ered By: Mitzi Lyon on 05-09-2023 Lymphocytes Auto (Unsp spec) [#/Vol] 1.95 10*3/uL 0.83-4.51 [facility] Basophil percentageOrdered B y: Mitzi Lyon on 05-09-2023 Basophils/100 WBC (Bld) 0.4 % 0-1 [facility] Eosinophils/100 WBC (Bld) 2.7 % 0-5 [facility] Neutrophils (Bld) [#/Vol] 4.3 10*3/uL 2.0-7.7 [facility] Neutrophils/100 WBC (Bld) 60.5 % 47-70 [facility] WBC (Bld) [#/Vol] 7.1 10*3/uL 4.4-11.0 [facility] Blood erythrocytes count (nu mber/volume)Ordered By: Mitzi Lyon on 05-09-2023 RBC (Bld) [#/Vol] 3.34 10*6/uL 4.2-5.4 [facility] Blood hemoglobin measurement (mass/volume)Ordered By: Mitzi Lyon on 05-09-2023 Hemoglobin (Bld) [Mass/Vol] 11.5 g/dL 12.0-15.0 [facility] Blood lymphocytes/100 leukoc ytesOrdered By: Mitzi Lyon on 05-09-2023 Lymphocytes/100 WBC (Bld) 27.4 % 19-41 [facility] Blood monocytes/100 leukocyt esOrdered By: Mitzi Lyon on 05-09-2023 Monocytes/100 WBC (Bld) 8.6 % 0-10 [facility] Blood platelet mean volumeOr dered By: Mitzi Lyon on 05-09-2023 Platelet mean volume (Bld) [Entitic vol] 11.1 fL 6.2-12.0 [facility] Determination of erythrocyte mean corpuscular volume (MCV)Ordered By: Mitzi Lyon on 05-09-2023 MCV (RBC) [Entitic vol] 101.8 fL 81-99 [facility] Hematocrit Auto (Bld) [Volum e fraction]Ordered By: Mitzi Lyon on 05-09-2023 Hematocrit (Bld) [Volume fraction] 34.0 % 37-47 [facility] Laboratory - Chemistry and C hemistry - challengeon 05-09-2023 Glucose Ql (U) Negative [facility] - Hematology and Cell countsOrdered By: Mitzi Lyon on 05-09-2023 Erythrocyte distribution width (RBC) [Entitic vol] 46.8 fL 35.1-43.9 [facility] Erythrocyte distribution width (RBC) [Ratio] 12.4 % 11.6-14.6 [facility] Immature granulocytes/100 WBC (Bld) 0.400 % 0.0-0.9 [facility] Comment on above: IG% - Immature Granu locytes (promyelocytes, myelocytes and metamyelocytes) > 1% indicates that a LEFT SHIFT is Present. MCH (RBC) [Entitic mass] 34.4 pg 27.0-32.0 [facility] Nucleated RBC/100 WBC (Bld) [Ratio] 0 % 0-5 [facility] Laboratory - Urinalysison Protein Ql (U) Negative [facility] MCHC Auto (RBC) [Mass/Vol]Or dered By: Mitiz Lyon on 05-09-2023 MCHC (RBC) [Mass/Vol] 33.8 g/dL 32-36 [facility] No Panel InformationOrdered By: Mitzi Lyon on 05-09-2023 Group B Streptococcus Culture Group B Beta Streptococcus is not isolated. [facility] Platelets bldOrdered By: Megan Lyon on 05-09-2023 Platelets (Bld) [#/Vol] 165 10*3/uL 150-450 [facility] Laboratory - Chemistry and C hemistry - challengeon 04-25-2023 Glucose Ql (U) Negative [facility] Laboratory - Urinalysison Protein Ql (U) Trace [facility] - Chemistry and C hemistry - challengeon 04-07-2023 Glucose Ql (U) Negative [facility] Laboratory - Urinalysison Protein Ql (U) Negative [facility] Absolute lymphocyte countOrd ered By: Tamiko Cohn on 03-21-2023 Lymphocytes Auto (Unsp spec) [#/Vol] 1.70 10*3/uL 0.83-4.51 [facility] Basophil percentageOrdered B y: Tamiko Cohn on 03-21-2023 Basophils/100 WBC (Bld) 0.3 % 0-1 [facility] Eosinophils/100 WBC (Bld) 0.0 % 0-5 [facility] Neutrophils (Bld) [#/Vol] 6.4 10*3/uL 2.0-7.7 [facility] Neutrophils/100 WBC (Bld) 73.2 % 47-70 [facility] WBC (Bld) [#/Vol] 8.7 10*3/uL 4.4-11.0 [facility] Blood erythrocytes count (nu mber/volume)Ordered By: Tamiko Cohn on 03-21-2023 RBC (Bld) [#/Vol] 3.11 10*6/uL 4.2-5.4 [facility] Blood hemoglobin measurement (mass/volume)Ordered By: Tamiko Cohn on 03-21-2023 Hemoglobin (Bld) [Mass/Vol] 10.7 g/dL 12.0-15.0 [facility] Blood lymphocytes/100 leukoc ytesOrdered By: Tamiko Cohn on 03-21-2023 Lymphocytes/100 WBC (Bld) 19.5 % 19-41 [facility] Blood monocytes/100 leukocyt esOrdered By: Tamiko Cohn on 03-21-2023 Monocytes/100 WBC (Bld) 6.7 % 0-10 [facility] Blood platelet mean volumeOr dered By: Tamiko Cohn on 03-21-2023 Platelet mean volume (Bld) [Entitic vol] 10.2 fL 6.2-12.0 [facility] Determination of erythrocyte mean corpuscular volume (MCV)Ordered By: Tamiko Cohn on 03-21-2023 MCV (RBC) [Entitic vol] 101.3 fL 81-99 [facility] Hematocrit Auto (Bld) [Volum e fraction]Ordered By: Tamiko Cohn on 03-21-2023 Hematocrit (Bld) [Volume fraction] 31.5 % 37-47 [facility] - Hematology and Cell countsOrdered By: Tamiko Cohn on 03-21-2023 Erythrocyte distribution width (RBC) [Entitic vol] 46.9 fL 35.1-43.9 [facility] Erythrocyte distribution width (RBC) [Ratio] 12.7 % 11.6-14.6 [facility] Immature granulocytes/100 WBC (Bld) 0.300 % 0.0-0.9 [facility] Comment on above: IG% - Immature Granu locytes (promyelocytes, myelocytes and metamyelocytes) > 1% indicates that a LEFT SHIFT is Present. MCH (RBC) [Entitic mass] 34.4 pg 27.0-32.0 [facility] Nucleated RBC/100 WBC (Bld) [Ratio] 0 % 0-5 [facility] MCHC Auto (RBC) [Mass/Vol]Or dered By: Tamiko Cohn on 03-21-2023 MCHC (RBC) [Mass/Vol] 34.0 g/dL 32-36 [facility] Platelets bldOrdered By: Maribel Cohn on 03-21-2023 Platelets (Bld) [#/Vol] 201 10*3/uL 150-450 [facility] Absolute lymphocyte countOrd ered By: Jennifer Mike on 02-17-2023 Lymphocytes Auto (Unsp spec) [#/Vol] 1.58 10*3/uL 0.83-4.51 [facility] Basophil percentageOrdered B y: Jennifer Mike on 02-17-2023 Basophils/100 WBC (Bld) 0.4 % 0-1 [facility] Eosinophils/100 WBC (Bld) 0.0 % 0-5 [facility] Neutrophils (Bld) [#/Vol] 7.2 10*3/uL 2.0-7.7 [facility] Neutrophils/100 WBC (Bld) 75.8 % 47-70 [facility] WBC (Bld) [#/Vol] 9.5 10*3/uL 4.4-11.0 [facility] Blood erythrocytes count (nu mber/volume)Ordered By: Jennifer Mike on 02-17-2023 RBC (Bld) [#/Vol] 3.18 10*6/uL 4.2-5.4 [facility] Blood hemoglobin measurement (mass/volume)Ordered By: Jennifer Mike on 02-17-2023 Hemoglobin (Bld) [Mass/Vol] 10.6 g/dL 12.0-15.0 [facility] Blood lymphocytes/100 leukoc ytesOrdered By: Jennifer Miek on 02-17-2023 Lymphocytes/100 WBC (Bld) 16.6 % 19-41 [facility] Blood monocytes/100 leukocyt esOrdered By: Jennifer Mike on 04-24-2023 Monocytes/100 WBC (Bld) 6.7 % 0-10 [facility] Blood platelet mean volumeOr dered By: Jennifer Mike on 02-17-2023 Platelet mean volume (Bld) [Entitic vol] 11.7 fL 6.2-12.0 [facility] Determination of erythrocyte mean corpuscular volume (MCV)Ordered By: Jennifer Mike on 02-17-2023 MCV (RBC) [Entitic vol] 101.3 fL 81-99 [facility] Gestational diabetes screen 1-hour screen with 50g oral glucose loadOrdered By: Jennifer Mike on 02-17-2023 Glucose 1 Hr post 50 g glucose PO [Mass/Vol] 84 mg/dL 70-140 [facility] HIV 1 and HIV-2 antibody ass ay with HIV-1 p24 antigen detectionOrdered By: Jennifer Mike on 02-17-2023 HIV 1+2 Ab+HIV1 p24 Ag IA Ql Non-Reactive Nonreactive [facility] Hematocrit Auto (Bld) [Volum e fraction]Ordered By: Jennifer Mike on 02-17-2023 Hematocrit (Bld) [Volume fraction] 32.2 % 37-47 [facility] - Hematology and Cell countsOrdered By: Jennifer Mike on 02-17-2023 Erythrocyte distribution width (RBC) [Entitic vol] 47.5 fL 35.1-43.9 [facility] Erythrocyte distribution width (RBC) [Ratio] 12.7 % 11.6-14.6 [facility] Immature granulocytes/100 WBC (Bld) 0.500 % 0.0-0.9 [facility] Comment on above: IG% - Immature Granu locytes (promyelocytes, myelocytes and metamyelocytes) > 1% indicates that a LEFT SHIFT is Present. MCH (RBC) [Entitic mass] 33.3 pg 27.0-32.0 [facility] Nucleated RBC/100 WBC (Bld) [Ratio] 0 % 0-5 [facility] MCHC Auto (RBC) [Mass/Vol]Or dered By: Jennifer Mike on 02-17-2023 MCHC (RBC) [Mass/Vol] 32.9 g/dL 32-36 [facility] Platelets bldOrdered By: Mahsa Mike on 02-17-2023 Platelets (Bld) [#/Vol] 199 10*3/uL 150-450 [facility] Serum Treponema species anti body detectionOrdered By: Jennifer Cee on 02-17-2023 Treponema sp Ab Ql (S) Non-Reactive [facility] Laboratory - Chemistry and C hemistry - challengeon 01-20-2023 Glucose Ql (U) Negative [facility] - Urinalysison Protein Ql (U) Negative [facility] - Chemistry and C hemistry - challengeon 12-27-2022 Glucose Ql (U) Negative [facility] - Urinalysison Protein Ql (U) Negative [facility] - Chemistry and C hemistry - challengeon 11-29-2022 Glucose Ql (U) Negative [facility] Laboratory - Urinalysison Protein Ql (U) Negative [facility] Culture, urineOrdered By: Dr Margarita Aguilar on 11-21-2022 Bacteria identified Cx Nom (U) Culture exhibits no growth. [facility] Absolute lymphocyte countOrd ered By: Dr. Aguilar on 11-19-2022 Lymphocytes Auto (Unsp spec) [#/Vol] 1.67 10*3/uL 0.83-4.51 [facility] Basophil percentageOrdered B y: Dr. Aguilar on 11-19-2022 Basophil percentage 0-5 SEEN /hpf 0-5 [facility] Basophils/100 WBC (Bld) 0.4 % 0-1 [facility] Bilirubin [Mass/Vol] 0.20 mg/dL 0.20-1.00 [facility] Comment on above: For patients on eltr ombopag therapy, use of Dimension [place] TBIL is not recommended. Chloride [Moles/Vol] 104 mmol/L 98-107 [facility] Eosinophils/100 WBC (Bld) 0.3 % 0-5 [facility] Glucose [Mass/Vol] 123 mg/dL 74-106 [facility] Comment on above: Fasting Glucose resu lt from 100 to 125 mg/dL suggests IMPAIRED HOMEOSTASIS per A.D.A. criteria. Neutrophils (Bld) [#/Vol] 7.0 10*3/uL 2.0-7.7 [facility] Neutrophils/100 WBC (Bld) 75.4 % 47-70 [facility] Potassium [Moles/Vol] 3.8 mmol/L 3.5-5.1 [facility] Protein [Mass/Vol] 6.3 g/dL 6.4-8.2 [facility] Sodium [Moles/Vol] 136 mmol/L 136-145 [facility] WBC (Bld) [#/Vol] 9.3 10*3/uL 4.4-11.0 [facility] Bilirubin Test strip Ql (U)O rdered By: Dr. Aguilar on 11-19-2022 Bilirubin Ql (U) Negative Negative [facility] Blood erythrocytes count (nu mber/volume)Ordered By: Dr. Aguilar on 11-19-2022 RBC (Bld) [#/Vol] 3.54 10*6/uL 4.2-5.4 [facility] Blood hemoglobin measurement (mass/volume)Ordered By: Dr. Aguilar on 11-19-2022 Hemoglobin (Bld) [Mass/Vol] 11.3 g/dL 12.0-15.0 [facility] Blood lymphocytes/100 leukoc ytesOrdered By: Dr. Aguilar on 11-19-2022 Lymphocytes/100 WBC (Bld) 17.9 % 19-41 [facility] Blood monocytes/100 leukocyt esOrdered By: Dr. Aguilar on 11-19-2022 Monocytes/100 WBC (Bld) 5.8 % 0-10 [facility] Blood platelet mean volumeOr dered By: Dr. Aguilar on 11-19-2022 Platelet mean volume (Bld) [Entitic vol] 11.5 fL 6.2-12.0 [facility] Calcium oxalate crystals det ection in urine sediment by light microscopyOrdered By: Dr. Aguilar on 11-19-2022 Calcium oxalate crystals LM Ql (Urine sed) RARE /hpf [facility] Determination of erythrocyte mean corpuscular volume (MCV)Ordered By: Dr. Aguilar on 11-19-2022 MCV (RBC) [Entitic vol] 95.8 fL 81-99 [facility] Hematocrit Auto (Bld) [Volum e fraction]Ordered By: Dr. Aguilar on 11-19-2022 Hematocrit (Bld) [Volume fraction] 33.9 % 37-47 [facility] Ketones Test strip Ql (U)Ord ered By: Dr. Aguilar on 11-19-2022 Ketones Ql (U) Negative Negative [facility] Laboratory - Chemistry and C hemistry - challengeOrdered By: Dr. Aguilar on 11-19-2022 ALP [Catalytic activity/Vol] 29 U/L 45-117 [facility] ALT [Catalytic activity/Vol] 19 U/L 13-56 [facility] CO2 [Moles/Vol] 25.0 mmol/L 21.0-32.0 [facility] Globulin (S) [Mass/Vol] 3.1 g/dL 2.2-4.2 [facility] Urea nitrogen/Creatinine [Mass ratio] 27.6 mg/mg 10-20 [facility] - Hematology and Cell countsOrdered By: Dr. Aguilar on 11-19-2022 Erythrocyte distribution width (RBC) [Entitic vol] 44.4 fL 35.1-43.9 [facility] Erythrocyte distribution width (RBC) [Ratio] 12.8 % 11.6-14.6 [facility] Immature granulocytes/100 WBC (Bld) 0.200 % 0.0-0.9 [facility] Comment on above: IG% - Immature Granu locytes (promyelocytes, myelocytes and metamyelocytes) > 1% indicates that a LEFT SHIFT is Present. MCH (RBC) [Entitic mass] 31.9 pg 27.0-32.0 [facility] Nucleated RBC/100 WBC (Bld) [Ratio] 0 % 0-5 [facility] MCHC Auto (RBC) [Mass/Vol]Or dered By: Dr. Aguilar on 11-19-2022 MCHC (RBC) [Mass/Vol] 33.3 g/dL 32-36 [facility] Mucus LM Ql (Urine sed)Order ed By: Dr. Aguilar on 11-19-2022 Mucus Ql (Urine sed) 1+ /hpf [facility] Nitrite Test strip Ql (U)Ord ered By: Dr. Aguilar on 11-19-2022 Nitrite Ql (U) Negative Negative [facility] No Panel InformationOrdered By: Dr. Aguilar on 11-19-2022 Estimated Creatinine Clearance Calc 118.30 ml/min [facility] Estimated GFR (MDRD) Amer 145 mL/min >60 [facility] Comment on above: GFR Calc Estimated GFR (MDRD) Non-Af Amer 120 mL/min >60 [facility] Comment on above: Non- GFR Calc Platelets bldOrdered By: Dr. Aguilar on 11-19-2022 Platelets (Bld) [#/Vol] 174 10*3/uL 150-450 [facility] Protein Test strip Ql (U)Ord ered By: Dr. Aguilar on 11-19-2022 Protein Ql (U) 15 mg/dl Negative [facility] Serum or plasma albumin dwayne urement (mass/volume)Ordered By: Dr. Aguilar on 11-19-2022 Albumin [Mass/Vol] 3.2 g/dL 3.2-5.0 [facility] Serum or plasma albumin/glob ulin mass ratioOrdered By: Dr. Aguilar on 11-19-2022 Albumin/Globulin [Mass ratio] 1.0 {ratio} 0.9-2.4 [facility] Serum or plasma calcium dwayne urement (mass/volume)Ordered By: Dr. Aguilar on 11-19-2022 Calcium [Mass/Vol] 8.1 mg/dL 8.5-10.1 [facility] Serum or plasma creatinine m easurement (mass/volume)Ordered By: Dr. Aguilar on 11-19-2022 Creatinine [Mass/Vol] 0.62 mg/dL 0.55-1.02 [facility] Comment on above: The validity of the calculated GFR & GFRAA in patients over 70 years has not been determined. Clinical correlation is essential. Serum or plasma urea nitroge n measurement (mass/volume)Ordered By: Dr. Aguilar on 11-19-2022 Urea nitrogen [Mass/Vol] 17 mg/dL 7-18 [facility] Squamous epithelial cells de tection in urine sediment by light microscopyOrdered By: Dr. Aguilar on 11-19-2022 Epithelial cells.squamous LM Ql (Urine sed) 5-10 SEEN /hpf 5-10 [facility] Thin prep Papanicolaou smear with manual screeningOrdered By: Dr. Aguilar on 11-19-2022 Thin prep Papanicolaou smear with manual screening 11 U/L 15-37 [facility] Thin prep Papanicolaou smear with manual screening 7 5-15 [facility] Urine blood detectionOrdered By: Dr. Aguilar on 11-19-2022 RBC Ql (U) 25 /ul Negative [facility] RBC Ql (U) 0-5 SEEN /hpf 0-5 [facility] Urine clarityOrdered By: Dr. Aguilar on 11-19-2022 Clarity (U) Clear Clear [facility] Urine color determinationOrd ered By: Dr. Aguilar on 11-19-2022 Color (U) Yellow Yellow [facility] Urine glucose detectionOrder ed By: Dr. Aguilar on 11-19-2022 Glucose Ql (U) Normal mg/dl Normal [facility] Urine leukocyte esterase det ection by dipstickOrdered By: Dr. Aguilar on 11-19-2022 Leukocyte esterase Test strip Ql (U) 25 /ul Negative [facility] Urine pHOrdered By: Dr. Gregorio yen on 11-19-2022 pH (U) 5.0 [pH] 5.0 - 8.0 [facility] Urine sediment bacteria coun t by microscopy (number/high power field)Ordered By: Dr. Aguilar on 11-19-2022 Bacteria LM.HPF (Urine sed) [#/Area] 3 /[HPF] None Seen [facility] Urine specific gravity measu rementOrdered By: Dr. Aguilar on 11-19-2022 Specific gravity (U) [Rel density] 1.030 1.002-1.030 [facility] Urobilinogen Auto test strip Ql (U)Ordered By: Dr. Aguilar on 11-19-2022 Urobilinogen Ql (U) Normal mg/dl Normal [facility] Culture, urineOrdered By: Dr Margarita Cohn on 11-03-2022 Bacteria identified Cx Nom (U) Culture exhibits no growth. [facility] Absolute lymphocyte countOrd ered By: Dr. Cohn on 11-01-2022 Lymphocytes Auto (Unsp spec) [#/Vol] 2.09 10*3/uL 0.83-4.51 [facility] Basophil percentageOrdered B y: Dr. Cohn on 11-01-2022 Basophils/100 WBC (Bld) 0.5 % 0-1 [facility] Eosinophils/100 WBC (Bld) 2.8 % 0-5 [facility] Neutrophils (Bld) [#/Vol] 5.3 10*3/uL 2.0-7.7 [facility] Neutrophils/100 WBC (Bld) 64.3 % 47-70 [facility] WBC (Bld) [#/Vol] 8.3 10*3/uL 4.4-11.0 [facility] Blood erythrocytes count (nu mber/volume)Ordered By: Dr. Cohn on 11-01-2022 RBC (Bld) [#/Vol] 3.83 10*6/uL 4.2-5.4 [facility] Blood hemoglobin measurement (mass/volume)Ordered By: Dr. Cohn on 11-01-2022 Hemoglobin (Bld) [Mass/Vol] 12.6 g/dL 12.0-15.0 [facility] Blood lymphocytes/100 leukoc ytesOrdered By: Dr. Cohn on 11-01-2022 Lymphocytes/100 WBC (Bld) 25.3 % 19-41 [facility] Blood monocytes/100 leukocyt esOrdered By: Dr. Cohn on 11-01-2022 Monocytes/100 WBC (Bld) 6.9 % 0-10 [facility] Blood platelet mean volumeOr dered By: Dr. Cohn on 11-01-2022 Platelet mean volume (Bld) [Entitic vol] 11.9 fL 6.2-12.0 [facility] Cervical or vagninal specime n microscopic examination by cytology stain (reported asOrdered By: Dr. Cohn on 11-01-2022 Cytology report Cyto stain Doc (Cvx/Vag) Comment . [facility] Comment on above: The Pap [...] rRNA ABA+probe Ql (Unsp spec) Negative Negative [facility] Detection in cervical specim en of any of human papilloma virus (HPV) 16, 18, 31, 33,Ordered By: Dr. Cohn on 11-01-2022 HPV 16+18+31+33+35+39+45+51+ 52+56+58+59+66+68 DNA Probe+sig amp Ql (Cvx) Negative Negative [facility] Comment on above: This nucleic acid am plification test detects fourteen high-risk HPV types (16,18,31,33,35,39,45,51,52,56,58,59,66,68)without differentiation. Determination of erythrocyte mean corpuscular volume (MCV)Ordered By: Dr. Cohn on 11-01-2022 MCV (RBC) [Entitic vol] 96.3 fL 81-99 [facility] HIV 1 and HIV-2 antibody ass ay with HIV-1 p24 antigen detectionOrdered By: Dr. Cohn on 11-01-2022 HIV 1+2 Ab+HIV1 p24 Ag IA Ql Non-Reactive Nonreactive [facility] Hematocrit Auto (Bld) [Volum e fraction]Ordered By: Dr. Cohn on 11-01-2022 Hematocrit (Bld) [Volume fraction] 36.9 % 37-47 [facility] Laboratory - CytologyOrdered By: Dr. Cohn on 11-01-2022 Paper Stacker Cyto stain Nom (Cvx/Vag) [ID] Comment . [facility] Comment on above: Luis Adams, Cyto technologist (ASCP) Laboratory - Hematology and Cell countsOrdered By: Dr. Cohn on 11-01-2022 Erythrocyte distribution width (RBC) [Entitic vol] 43.8 fL 35.1-43.9 [facility] Erythrocyte distribution width (RBC) [Ratio] 12.5 % 11.6-14.6 [facility] Immature granulocytes/100 WBC (Bld) 0.200 % 0.0-0.9 [facility] Comment on above: IG% - Immature Granu locytes (promyelocytes, myelocytes and metamyelocytes) > 1% indicates that a LEFT SHIFT is Present. MCH (RBC) [Entitic mass] 32.9 pg 27.0-32.0 [facility] Nucleated RBC/100 WBC (Bld) [Ratio] 0 % 0-5 [facility] Laboratory - Microbiology an d Antimicrobial susceptibilityOrdered By: Dr. Cohn on 11-01-2022 N. gonorrhoeae DNA ABA+probe Ql (Unsp spec) Negative Negative [facility] Comment on above: Performed at: =G - [address] [facility] [id number] Director: Raquel Key MD, Phone: [phone] Laboratory - Miscellaneous t estsOrdered By: Dr. Cohn on 11-01-2022 Service comment (Unsp spec) [Interp] Comment . [facility] Comment on above: This liquid based Th inPrep(R) pap test was screened withthe use of an image guided system. Service comment (Unsp spec) [Interp] . . [facility] Liquid-based cerv Pap + CT/G C by ABA w reflex to high-risk HPV for ASCUSOrdered By: Dr. Cohn on 11-01-2022 Cytology report Cyto stain.thin prep Doc (Cvx/Vag) Comment . [facility] Comment on above: Criteria not met, HP V Genotype not performed.Performed at: - [facility] [id number] Director: Raquel Key MD, Phone: [phone] at: =G - [facility] [id number] Director: Raquel Key MD, Phone: [phone] MCHC Auto (RBC) [Mass/Vol]Or dered By: Dr. Cohn on 11-01-2022 MCHC (RBC) [Mass/Vol] 34.1 g/dL 32-36 [facility] No Panel InformationOrdered By: Dr. Cohn on 11-01-2022 Pathology report final diagnosis Narrative Comment . [facility] Comment on above: NEGATIVE FOR INTRAEP ITHELIAL LESION OR MALIGNANCY. Miscellaneous Test Comment MAILED SPECIMEN [facility] Hepatitis B Surface Antigen Non-Reactive Nonreactive [facility] Hepatitis C Antibody Non-Reactive Nonreactive [facility] Comment on above: Non Reactive: < 0.8 Equivocal: >/= 0.8 to < 1.0 Reactive: >/= 1.0The CDC recommends that a reactive/equivocal HCV antibody result be followed up by the HCV Nucleic Acid Amplificationtest (965141) Rubella IgG Antibody Reactive Nonreactive [facility] Comment on above: Antibody Results Int erpretation of Immune Status Non Reactive Presumed Non-Immune Equivocal Equivocal Reactive Presumed Immune Platelets bldOrdered By: Dr. Cohn on 11-01-2022 Platelets (Bld) [#/Vol] 210 10*3/uL 150-450 [facility] Serum Treponema species anti body detectionOrdered By: Dr. Cohn on 11-01-2022 Treponema sp Ab Ql (S) Non-Reactive [facility] Serum or plasma choriogonado tropin detectionOrdered By: Jennifer Mike on 09-20-2022 HCG ( test) Ql 283 mIU/mL <4 [facility] Comment on above: hCG levels with Gest ational AgeGestational Age hCG mIU/mL (IU/L)0.2 - 1 week 5 - 501-2 weeks 50 - 5002-3 weeks 100 - 43983-5 weeks 500 - 432287-9 weeks 1000 - 800716-8 weeks 38080 - 100,0006-8 weeks 43618 - 200,0002-3 months 49438 - 100,000 Serum or plasma choriogonado tropin detectionOrdered By: Jennifer Mike on 09-18-2022 HCG ( test) Ql 85 mIU/mL <4 [facility] Comment on above: hCG levels with Gest ational AgeGestational Age hCG mIU/mL (IU/L)0.2 - 1 week 5 - 501-2 weeks 50 - 5002-3 weeks 100 - 86308-2 weeks 500 - 815031-1 weeks 1000 - 213182-3 weeks 89004 - 100,0006-8 weeks 05200 - 200,0002-3 months 72626 - 100,000 Serum or plasma progesterone measurement (mass/volume)Ordered By: Jennifer Mike on 09-18-2022 Progesterone [Mass/Vol] 21.25 ng/mL See Comment [facility] Comment on above: Progesterone Referen [...] 165.1 cm Pattie Giordano MD Work Phone: [facility] 05-30-2025 15:57-0400 Body mass index (BMI) [Ratio] 27.5 kg/m2 Pattie Giordano MD Work Phone: [facility] 05-30-2025 15:57-0400 Body weight 74.98 kg Pattie Giordano MD Work Phone: [facility] 05-30-2025 15:57-0400 Diastolic blood pressure 75 mm[Hg] Pattie Giordano MD Work Phone: [facility] 05-30-2025 15:57-0400 Systolic blood pressure 116 mm[Hg] Pattie Giordano MD Work Phone: [facility] 05-23-2025 08:51-0400 Body height 165.1 cm Pattie Giordano MD Work Phone: [facility] 05-23-2025 08:50-0400 Body mass index (BMI) [Ratio] 26.9 kg/m2 Pattie Giordano MD Work Phone: [facility] 05-23-2025 08:50-0400 Body weight 73.25 kg Pattie Giordano MD Work Phone: [facility] 05-23-2025 08:50-0400 Diastolic blood pressure 74 mm[Hg] Pattie Giordano MD Work Phone: [facility] 05-23-2025 08:50-0400 Systolic blood pressure 114 mm[Hg] Pattie Giordano MD Work Phone: [facility] 05-20-2025 08:35-0400 Body height 165.1 cm Pattie Giordano MD Work Phone: [facility] 05-20-2025 08:35-0400 Body mass index (BMI) [Ratio] 26.8 kg/m2 Pattie Giordano MD Work Phone: [facility] 05-20-2025 08:35-0400 Body weight 73.14 kg Pattie Giordano MD Work Phone: [facility] 05-20-2025 08:35-0400 Diastolic blood pressure 58 mm[Hg] Pattie Giordano MD Work Phone: [facility] 05-20-2025 08:35-0400 Systolic blood pressure 94 mm[Hg] Pattie Giordano MD Work Phone: [facility] 05-13-2025 11:02-0400 Body height 165.1 cm Pattie Giordano MD Work Phone: [facility] 05-13-2025 11:02-0400 Body mass index (BMI) [Ratio] 26.6 kg/m2 Pattie Giordano MD Work Phone: [facility] 05-13-2025 11:02-0400 Body weight 72.8 kg Pattie Giordano MD Work Phone: [facility] 05-13-2025 11:02-0400 Diastolic blood pressure 66 mm[Hg] Pattie Giordano MD Work Phone: [facility] 05-13-2025 11:02-0400 Systolic blood pressure 106 mm[Hg] Pattie Giordano MD Work Phone: [facility] 05-06-2025 09:29-0400 Body height 165.1 cm Pattie Giordano MD Work Phone: [facility] 05-06-2025 09:26-0400 Body mass index (BMI) [Ratio] 26.6 kg/m2 Pattie Giordano MD Work Phone: [facility] 05-06-2025 09:26-0400 Body weight 72.57 kg Pattie Giordano MD Work Phone: [facility] 05-06-2025 09:26-0400 Diastolic blood pressure 73 mm[Hg] Pattie Giordano MD Work Phone: [facility] 05-06-2025 09:26-0400 Systolic blood pressure 110 mm[Hg] Pattie Giordano MD Work Phone: [facility] 04-11-2025 10:06-0400 Body height 165.1 cm Pattie Giordano MD Work Phone: [facility] 04-11-2025 10:05-0400 Body mass index (BMI) [Ratio] 26.5 kg/m2 Pattie Giordano MD Work Phone: [facility] 04-11-2025 10:05-0400 Body weight 72.29 kg Pattie Giordano MD Work Phone: [facility] 04-11-2025 10:05-0400 Diastolic blood pressure 64 mm[Hg] Pattie Giordano MD Work Phone: [facility] 04-11-2025 10:05-0400 Systolic blood pressure 99 mm[Hg] Pattie Giordano MD Work Phone: [facility] 03-25-2025 11:20-0400 Body height 165.1 cm Pattie Giordano MD Work Phone: [facility] 03-25-2025 11:20-0400 Body mass index (BMI) [Ratio] 26.6 kg/m2 Pattie Giordano MD Work Phone: [facility] 03-25-2025 11:20-0400 Body weight 72.63 kg Pattie Giordano MD Work Phone: [facility] 03-25-2025 11:20-0400 Diastolic blood pressure 68 mm[Hg] Pattie Giordano MD Work Phone: [facility] 03-25-2025 11:20-0400 Systolic blood pressure 105 mm[Hg] Pattie Giordano MD Work Phone: 7(289)054-902771 [place] [address] 03-04-2025 11:18-0400 Body height 165.1 cm Pattie Giordano MD Work Phone: [facility] 03-04-2025 11:18-0400 Body mass index (BMI) [Ratio] 25.9 kg/m2 Pattie Giordano MD Work Phone: [facility] 03-04-2025 11:18-0400 Body weight 70.76 kg Pattie Giordano MD Work Phone: 7(779)480-996371 [place] [address] 03-04-2025 11:18-0400 Diastolic blood pressure 75 mm[Hg] Pattie Giordano MD Work Phone: 6(222)116-459171 [place] [address] 03-04-2025 11:18-0400 Systolic blood pressure 115 mm[Hg] Pattie Giordano MD Work Phone: 7(796)184-513376 [place] [address] 02-04-2025 09:33-0400 Body mass index (BMI) [Ratio] 25.7 kg/m2 Pattie Giordano MD Work Phone: 7(949)654-767771 [place] [address] 02-04-2025 09:33-0400 Body weight 69.96 kg Pattie Giordano MD Work Phone: 1(371)571-004671 [place] [address] 02-04-2025 09:33-0400 Diastolic blood pressure 61 mm[Hg] Pattie Giordano MD Work Phone: 0(970)860-838676 [place] [address] 02-04-2025 09:33-0400 Systolic blood pressure 95 mm[Hg] Pattie Giordano MD Work Phone: 7(016)586-433171 [place] [address] 12-31-2024 09:30-0500 Body mass index (BMI) [Ratio] 24.7 kg/m2 Pattie Giordano MD Work Phone: 2(381)634-041371 [place] [address] 12-31-2024 09:30-0500 Body weight 67.3 kg Pattie Giordano MD Work Phone: [facility] 12-31-2024 09:30-0500 Diastolic blood pressure 62 mm[Hg] Pattie Giordano MD Work Phone: [facility] 12-31-2024 09:30-0500 Systolic blood pressure 99 mm[Hg] Pattie Giordano MD Work Phone: [facility] 12-03-2024 10:02-0500 Body mass index (BMI) [Ratio] 23.3 kg/m2 Pattie Giordano MD Work Phone: [facility] 12-03-2024 10:02-0500 Body weight 63.61 kg Pattie Giordano MD Work Phone: [facility] 12-03-2024 10:02-0500 Diastolic blood pressure 69 mm[Hg] Pattie Giordano MD Work Phone: [facility] 12-03-2024 10:02-0500 Systolic blood pressure 103 mm[Hg] Pattie Giordano MD Work Phone: [facility] 05-14-2024 08:14-0400 Body height 165.1 cm Rebecca Lucio MD Work Phone: [facility] 05-14-2024 08:14-0400 Body mass index (BMI) [Ratio] 22.61 kg/m2 Rebecca Lucio MD Work Phone: [facility] 05-14-2024 08:14-0400 Body weight 61.64 kg Rebecca Lucio MD Work Phone: [facility] 05-14-2024 08:14-0400 Diastolic blood pressure 78 mm[Hg] Rebecca Lucio MD Work Phone: [facility] 05-14-2024 08:14-0400 Systolic blood pressure 110 mm[Hg] Rebecca Lucio MD Work Phone: [facility] 05-30-2023 13:43-0400 Body temperature 98.2 [degF] Dr. Maria Isabel Sandoval Work Phone: [facility] 05-30-2023 13:43-0400 Diastolic blood pressure 64 mm[Hg] Dr. Maria Isabel Sandoval Work Phone: [facility] 05-30-2023 13:43-0400 Heart rate 68 /min Dr. Maria Isabel Sandovla Work Phone: [facility] 05-30-2023 13:43-0400 Respiratory rate 16 /min Dr. Maria Isabel Sandoval Work Phone: [facility] 05-30-2023 13:43-0400 SaO2% (BldA) [Mass fraction] 98 % Dr. Maria Isabel Sandoval Work Phone: [facility] 05-30-2023 13:43-0400 Systolic blood pressure 106 mm[Hg] Dr. Maria Isabel Sandoval Work Phone: [facility] 05-29-2023 08:27-0400 Body height 165.[address] Maria Isabel Sandoval Work Phone: [facility] 05-29-2023 08:27-0400 Body mass index (BMI) [Ratio] 27 kg/m2 Dr. Maria Isabel Sandoval Work Phone: 0(366)[phone] [place] [address] 05-29-2023 08:27-0400 Body weight 73.[address] Maria Isabel Sandoval Work Phone: [facility] 05-28-2023 16:22-0400 Body mass index (BMI) [Ratio] 27.5 kg/m2 Dr. Maria Isabel Sandoval Work Phone: [facility] 05-28-2023 16:22-0400 Body weight 74.[address] Maria Isabel Sandoval Work Phone: [facility] 05-28-2023 16:22-0400 Diastolic blood pressure 69 mm[Hg] Dr. Maria Isabel Sandoval Work Phone: [facility] 05-28-2023 16:22-0400 Systolic blood pressure 102 mm[Hg] Dr. Maria Isabel Sandoval Work Phone: [facility] 05-23-2023 14:08-0400 Body mass index (BMI) [Ratio] 27.3 kg/m2 Dr. Maria Isabel Sandoval Work Phone: [facility] 05-23-2023 14:08-0400 Body weight 74.[address] Maria Isabel Sandoval Work Phone: [facility] 05-23-2023 14:08-0400 Diastolic blood pressure 66 mm[Hg] Dr. Maria Isabel Sandoval Work Phone: [facility] 05-23-2023 14:08-0400 Systolic blood pressure 106 mm[Hg] Dr. Maria Isabel Sandoval Work Phone: [facility] 05-16-2023 16:06-0400 Body mass index (BMI) [Ratio] 27.3 kg/m2 Dr. Maria Isabel Sandoval Work Phone: [facility] 05-16-2023 16:06-0400 Body weight 74.[address] Maria Isabel Sandoval Work Phone: [facility] 05-16-2023 16:06-0400 Diastolic blood pressure 64 mm[Hg] Dr. Maria Isabel Sandoval Work Phone: [facility] 05-16-2023 16:06-0400 Systolic blood pressure 105 mm[Hg] Dr. Maria Isabel Sandoval Work Phone: [facility] 05-09-2023 09:44-0400 Body mass index (BMI) [Ratio] 26.8 kg/m2 Dr. Maria Isabel Sandoval Work Phone: [facility] 05-09-2023 09:44-0400 Body weight 73.[address] Maria Isabel Sandoval Work Phone: [facility] 05-09-2023 09:44-0400 Diastolic blood pressure 62 mm[Hg] Dr. Maria Isabel Sandoval Work Phone: [facility] 05-09-2023 09:44-0400 Systolic blood pressure 100 mm[Hg] Dr. Maria Isabel Sandoval Work Phone: [facility] 04-25-2023 08:09-0400 Body height 165.[address] Maria Isabel Sandoval Work Phone: [facility] 04-25-2023 08:06-0400 Body mass index (BMI) [Ratio] 26.5 kg/m2 Dr. Maria Isabel Sandoval Work Phone: [facility] 04-25-2023 08:06-0400 Body weight 72.[address] Maria Isabel Sandoval Work Phone: [facility] 04-25-2023 08:06-0400 Diastolic blood pressure 47 mm[Hg] Dr. Maria Isabel Sandoval Work Phone: [facility] 04-25-2023 08:06-0400 Systolic blood pressure 96 mm[Hg] Dr. Maria Isabel Sandoval Work Phone: [facility] 04-07-2023 11:39-0400 Body mass index (BMI) [Ratio] 26.6 kg/m2 Dr. Maria Isabel Sandoval Work Phone: [facility] 04-07-2023 11:39-0400 Body weight 72.[address] Maria Isabel Sandoval Work Phone: 1(084)[phone] [place] [address] 04-07-2023 11:39-0400 Diastolic blood pressure 63 mm[Hg] Dr. Maria Isabel Sandoval Work Phone: 2(063)091-392571 [place] [address] 04-07-2023 11:39-0400 Systolic blood pressure 96 mm[Hg] Dr. Maria Isabel Sandoval Work Phone: [facility] 03-21-2023 16:06-0400 Body mass index (BMI) [Ratio] 26.2 kg/m2 Dr. Maria Isabel Sandoval Work Phone: [facility] 03-21-2023 16:06-0400 Body weight 71.[address] Maria Isabel Sandoval Work Phone: [facility] 03-21-2023 16:06-0400 Diastolic blood pressure 67 mm[Hg] Dr. Maria Isabel Sandoval Work Phone: [facility] 03-21-2023 16:06-0400 Systolic blood pressure 97 mm[Hg] Dr. Maria Isabel Sandoval Work Phone: [facility] 02-17-2023 10:48-0400 Body height 165.1 cm No Primary Care Physician [facility] 02-17-2023 10:48-0400 Body mass index (BMI) [Ratio] 25.8 kg/m2 No Primary Care Physician [facility] 02-17-2023 10:48-0400 Body weight 70.47 kg No Primary Care Physician [facility] 02-17-2023 10:48-0400 Diastolic blood pressure 64 mm[Hg] No Primary Care Physician [facility] 02-17-2023 10:48-0400 Systolic blood pressure 101 mm[Hg] No Primary Care Physician [facility] 01-20-2023 11:12-0400 Body mass index (BMI) [Ratio] 25 kg/m2 No Primary Care Physician [facility] 01-20-2023 11:12-0400 Body weight 68.26 kg No Primary Care Physician [facility] 01-20-2023 11:12-0400 Diastolic blood pressure 58 mm[Hg] No Primary Care Physician [facility] 01-20-2023 11:12-0400 Systolic blood pressure 110 mm[Hg] No Primary Care Physician [facility] 12-27-2022 10:42-0500 Body mass index (BMI) [Ratio] 24.5 kg/m2 No Primary Care Physician [facility] 12-27-2022 10:42-0500 Body weight 66.84 kg No Primary Care Physician [facility] 12-27-2022 10:42-0500 Diastolic blood pressure 66 mm[Hg] No Primary Care Physician [facility] 12-27-2022 10:42-0500 Systolic blood pressure 102 mm[Hg] No Primary Care Physician [facility] 11-29-2022 15:50-0500 Body mass index (BMI) [Ratio] 23.6 kg/m2 No Primary Care Physician [facility] 11-29-2022 15:50-0500 Body weight 64.41 kg No Primary Care Physician [facility] 11-29-2022 15:50-0500 Diastolic blood pressure 74 mm[Hg] No Primary Care Physician [facility] 11-29-2022 15:50-0500 Systolic blood pressure 106 mm[Hg] No Primary Care Physician [facility] 11-19-2022 08:36-0500 Diastolic blood pressure 67 mm[Hg] No Primary Care Physician [facility] 11-19-2022 08:36-0500 Heart rate 63 /min No Primary Care Physician [facility] 11-19-2022 08:36-0500 Respiratory rate 14 /min No Primary Care Physician [facility] 11-19-2022 08:36-0500 SaO2% (BldA) [Mass fraction] 97 % No Primary Care Physician [facility] 11-19-2022 08:36-0500 Systolic blood pressure 104 mm[Hg] No Primary Care Physician [facility] 11-19-2022 02:26-0500 Body height 165.1 cm No Primary Care Physician [facility] 11-19-2022 02:26-0500 Body mass index (BMI) [Ratio] 23.4 kg/m2 No Primary Care Physician [facility] 11-19-2022 02:26-0500 Body temperature 96.6 [degF] No Primary Care Physician [facility] 11-19-2022 02:26-0500 Body weight 64 kg No Primary Care Physician [facility] 11-01-2022 14:12-0500 Body height 165.1 cm No Primary Care Physician [facility] 11-01-2022 14:11-0500 Body mass index (BMI) [Ratio] 23 kg/m2 No Primary Care Physician [facility] 11-01-2022 14:11-0500 Body weight 62.7 kg No Primary Care Physician [facility] 11-01-2022 14:11-0500 Diastolic blood pressure 69 mm[Hg] No Primary Care Physician [facility] 11-01-2022 14:11-0500 Systolic blood pressure 115 mm[Hg] No Primary Care Physician [facility] 09-18-2022 09:01-0500 Body mass index (BMI) [Ratio] 22.4 kg/m2 No Primary Care Physician [facility] 09-18-2022 09:01-0500 Diastolic blood pressure 68 mm[Hg] No Primary Care Physician [facility] 09-18-2022 09:01-0500 Systolic blood pressure 100 mm[Hg] No Primary Care Physician [facility] 09-18-2022 08:40-0500 Body weight 60.95 kg No Primary Care Physician [facility] Encounters Encounter Date Encounter Type Care Provider Facility Start: 05-30-2025 End: 05-30-2025 ambulatory Pattie Giordano MD Work Phone: [facility] Start: 05-30-2025 End: 05-30-[address] Tamiko Steven DO -[facility] Work Phone: Start: 05-23-2025 End: 05-23-2025 Patient encounter procedure Lino Joaquin CNM -[facility] Work Phone: Start: 05-23-2025 End: 05-23-2025 ambulatory Pattie Giordano MD Work Phone: [facility] Start: 05-20-2025 End: 05-20-2025 Patient encounter procedure Mitzi AVELAR -[facility] Work Phone: Start: 05-20-2025 End: 05-20-2025 ambulatory Pattie Giordano MD Work Phone: [facility] Start: 05-13-2025 End: 05-13-[address] Karla Shrestha MD -[facility] Work Phone: Start: 05-13-2025 End: 05-13-2025 ambulatory Pattie Giordano MD Work Phone: [facility] Start: 05-06-2025 End: 05-06-2025 Patient encounter procedure Lino Joaquin CNM -[facility] Work Phone: Start: 05-06-2025 End: 05-06-2025 ambulatory Pattie Giordano MD Work Phone: [facility] Start: 04-15-2025 End: 04-15-2025 ambulatory Pattie Giordano MD Work Phone: [facility] Work Phone: Start: 04-15-2025 End: 04-15-2025 [facility] Start: 04-15-2025 End: 04-15-2025 ambulatory Chalon Pasquale Facility:[facility] Start: 04-11-2025 End: 04-11-2025 Patient encounter procedure Lino Joaquin CNM -[facility] Work Phone: Start: 04-11-2025 End: 04-11-2025 ambulatory Patite Giordano MD Work Phone: [facility] Work Phone: Start: 04-11-2025 End: 04-11-2025 ambulatory Chalon Pasquale Facility:[facility] Start: 03-25-2025 End: 03-25-[address] Karla Shrestha MD -[facility] Work Phone: Start: 03-25-2025 End: 03-25-2025 ambulatory Pattie Giordano MD Work Phone: [facility] Work Phone: Start: 03-04-2025 End: 03-04-2025 Patient encounter procedure Lino Joaquin CNM -[facility] Work Phone: Start: 03-04-2025 End: 03-04-2025 ambulatory Pattie Giordano MD Work Phone: [facility] Work Phone: Start: 03-04-2025 End: 03-04-2025 ambulatory Chalon Pasquale Facility:[facility] Start: 02-04-2025 End: 02-04-[address] Tamiko Steven DO -[facility] Work Phone: Start: 02-04-2025 End: 02-04-2025 ambulatory Chalon Pasquale Facility:[facility] Start: 01-03-2025 End: 01-03-2025 ambulatory MARIA ISABEL SANDOVAL [facility] Start: 12-31-2024 End: 12-31-2024 Patient encounter procedure Lino Joaquin CNM -[facility] Work Phone: Start: 12-31-2024 End: 12-31-2024 ambulatory Chalon Pasquale Facility:[facility] Start: 12-03-2024 End: 12-03-2024 Patient encounter procedure Lino Joaquin CNM -[facility] Work Phone: Start: 12-03-2024 End: 12-03-2024 ambulatory Chalon Pasquale Facility:[facility] Start: 11-01-2024 End: 11-01-2024 ambulatory Chalon Pasquale Facility:[facility] Start: 11-01-2024 End: 11-01-2024 ambulatory Chalon Pasquale Facility:[facility] Start: 09-24-2024 End: 09-24-2024 ambulatory Chalon Pasquale Facility:[facility] Start: 09-22-2024 End: 09-22-2024 ambulatory Chalon Pasquale Facility:[facility] Start: 09-13-2024 End: 09-13-2024 ambulatory Chalon Pasquale Facility:[facility] Start: 05-14-2024 End: 05-14-2024 ambulatory REBECCA LUCIO Facility:[facility] Start: 05-14-2024 End: 05-14-2024 Office consultation new/estab patient 60 min Rebecca Lucio MD Work Phone: URO/Gynecology Comment on above: Lichen sclerosus et atrophicus (Primary Dx) Start: 05-30-2023 Non-patient / Non-visit Dr. Beth Sandoval Work Phone: [facility] Start: 05-29-2023 End: 05-30-2023 Evaluation and management of inpatient Dr. Maria Isabel Sandoval Work Phone: [facility] [place] Work Phone: Start: 05-28-2023 End: 05-28-[address] Maria Isabel Sandoval Work Phone: [facility] Work Phone: Start: 05-23-2023 End: 05-23-[address] Maria Isabel Sandoval Work Phone: [facility] Work Phone: Start: 05-16-2023 End: 05-16-[address] Maria Isabel Sandoval Work Phone: [facility] Work Phone: Start: 05-09-2023 End: 05-09-[address] Maria Isabel Sandoval Work Phone: [facility] Work Phone: Start: 04-25-2023 End: 04-25-[address] Maria Isabel Sandoval Work Phone: [facility] Work Phone: Start: 04-07-2023 End: 04-07-[address] Maria Isabel Sandoval Work Phone: [facility] Work Phone: Start: 03-21-2023 End: 03-21-[address] Maria Isabel Sandoval Work Phone: [facility] Work Phone: Start: 03-21-2023 End: 03-21-[address] Maria Isabel Sandoval Work Phone: [facility] Work Phone: Start: 02-17-2023 End: 02-17-2023 ambulatory No Primary Care Physician [facility] Work Phone: Start: 02-17-2023 End: 02-17-2023 Patient encounter procedure No Primary Care Physician [facility] Start: 01-20-2023 End: 01-20-2023 Patient encounter procedure No Primary Care Physician [facility] Start: 12-27-2022 End: 12-27-2022 Patient encounter procedure No Primary Care Physician [facility] Start: 11-29-2022 End: 11-29-2022 Patient encounter procedure No Primary Care Physician [facility] Start: 11-19-2022 Non-patient / Non-visit No [facility] Care Physician [facility] Start: 11-19-2022 End: 11-19-2022 Emergency department patient visit No Primary Care Physician [facility] Start: 11-01-2022 End: 11-01-2022 ambulatory No Primary Care Physician [facility] Work Phone: Start: 11-01-2022 End: 11-01-2022 Patient encounter procedure No Primary Care Physician [facility] Start: 09-20-2022 End: 09-20-2022 ambulatory No Primary Care Physician [facility] Work Phone: Start: 09-20-2022 End: 09-20-2022 Patient encounter procedure No Primary Care Physician [facility] Start: 09-18-2022 End: 09-18-2022 ambulatory No Primary Care Physician [facility] Work Phone: Start: 09-18-2022 End: 09-18-2022 Patient encounter procedure No Primary Care Physician [facility] Start: 09-19-2020 End: 09-23-2020 Patient encounter procedure PROVIDER NOT IN SYSTEM [facility] Start: 03-31-2018 Ambulatory ANNMARIE VANEGAS [facility] Procedures Date Procedure Procedure Detail [...] Physician Start: 11-19-2022 US urinary tract No [facility] Physician Urine culture No Primary Car e Physician Urine culture No Primary Car e Physician Plan of Treatment Date Care Activity Detail Author Start: 03-21-2033 Urine microalbumin profile DTaP,Tdap,Td Vaccine (9 - Td or Tdap) [facility] Start: 04-11-2025 Comprehensive metabolic 2000 panel - Serum or Plasma [facility] Start: 04-11-2025 Protein/Creatinine [Ratio] in Urine [facility] Start: 06-27-2024 Influenza vaccination Influenza Vaccine (#1) [facility] Start: 10-27-2023 Behavioral Health Screening Behavioral Health Screening [facility] Start: 06-27-2023 Covid-19 Vaccine () Covid-19 Vaccine () [facility] Start: 05-30-2023 Patient discharge [facility] Start: 05-29-2023 Administration of medication [facility] Start: 05-29-2023 Application of ice collar, cap or bag [facility] Start: 05-29-2023 Catheterization of vein [facility] Start: 05-29-2023 Introduction of urinary catheter [facility] Start: 05-29-2023 Measuring intake and output [facility] Start: 05-29-2023 Notification of physician [facility] Start: 05-29-2023 Procedure discontinued [facility] Start: 05-29-2023 Provision of activity privileges [facility] Start: 05-29-2023 Vital signs measurements [facility] Start: 05-29-2023 [facility] Start: 05-29-2023 Admission procedure [facility] Start: 11-19-2022 [facility] Start: 2012 Screening for malignant neoplasm of cervix Cervical Cancer Screening [facility] Start: 2009 Hepatitis C screening Hepatitis C Screening [facility] Start: 2009 HIV screening HIV Screening [facility] Alanine aminotransfe rase [Enzymatic activity/volume] in Serum or Plasma [facility] Albumin [Mass/volume ] in Serum or Plasma [facility] Alkaline phosphatase [Enzymatic activity/volume] in Serum or Plasma [facility] Anion gap in Serum or Plasma [facility] Bilirubin, total measurement [facility] BUN/Creatinine ratio [facility] Calcium [Mass/volume ] in Serum or Plasma [facility] Carbon dioxide, tota l [Moles/volume] in Central venous blood [facility] CBC W Auto Different ial panel - Blood [facility] Creatinine [Mass/vol ume] in Serum or Plasma [facility] Creatinine [Mass/vol ume] in Urine collected for unspecified duration [facility] Glucose [Mass/volume ] in Serum or Plasma [facility] Measurement of renal function [facility] Patient Education ED Abdominal P ain Unkn Cause Fem ED Abdominal Pain, Early [facility] Work Phone: Patient referral [facility] Work Phone: Potassium measurement [facility] Protein [Mass/volume ] in Urine [facility] Protein/Creatinine [ Mass Ratio] in Urine [facility] Serum chloride measurement [facility] Sodium measurement [facility] Total protein measurement [facility] Ultrasound scan for growth [facility] Urea nitrogen [Mass/ volume] in Serum or Plasma [facility] Immunizations Immunization Date Immunization Notes Care Provider Sh[facility] 03-25-2025 tetanus toxoid, redu rodo diphtheria toxoid, and acellular pertussis vaccine, adsorbed Pattie Giordano MD Work Phone: [facility] 03-21-2023 tetanus toxoid, redu rodo diphtheria toxoid, and acellular pertussis vaccine, adsorbed Dr. Maria Isabel Sandoval Work Phone: [facility] [facility]21 tetanus toxoid, redu rodo diphtheria toxoid, and acellular pertussis vaccine, adsorbed No Primary Care Physician [facility] 07-17-2020 influenza virus vaccine, unspecified formulation Rebecca Lucio MD Work Phone: [facility] 01-25-1997 diphtheria, tetanus toxoids and acellular pertussis vaccine Rebecca Lucio MD Work Phone: [facility] 01-25-1997 trivalent poliovirus vaccine, live, oral Rebecca Lucio MD Work Phone: [facility] 11-02-1992 haemophilus influenz ae type b vaccine, HbOC conjugate Rebecca Lucio MD Work Phone: [facility] 11-02-1992 measles, mumps and rubella virus vaccine Rebecca Lucio MD Work Phone: [facility] 01-13-1992 diphtheria, tetanus toxoids and acellular pertussis vaccine Rebecca Lucio MD Work Phone: [facility] 01-13-1992 haemophilus influenz ae type b vaccine, HbOC conjugate Rebecca Luico MD Work Phone: [facility] 1991 diphtheria, tetanus toxoids and acellular pertussis vaccine Rebecca Lucio MD Work Phone: [facility] 1990 haemophilus influenz ae type b vaccine, HbOC conjugate Rebecca Lucio MD Work Phone: [facility] 1991 trivalent poliovirus vaccine, live, oral Rebecca Lucio MD Work Phone: [facility] 1991 diphtheria, tetanus toxoids and acellular pertussis vaccine Rebecca Lucio MD Work Phone: [facility] 1990 haemophilus influenz ae type b vaccine, HbOC conjugate Rebecca Lucio MD Work Phone: [facility] 1991 trivalent poliovirus vaccine, live, oral Rebecca Lucio MD Work Phone: [facility] Payers Date Payer Category Payer Self-pay [id number] 2022 Unknown [employer] PPLEMENT [id number] 2022-[facility] [phone] [address] [place] [address] Indemnity [id number] 2022 Private Health Insurance [id number] 2018 Private Health Insurance [id number] 1990 Unknown [id number] [id number]. 900 1991 Unknown [id number] 2.16.840.1.690348.3.579.2. 479 Unknown [id number] Unknown [facility] *DO NOT USE* [id number] Unknown [id number] 2.16.840.1.149075.3.579.2. 462 Unknown [id number] 2.16.840.1.394681.3.579.2. 462 Unknown [id number] 2..840.1.287212.3.579.2. 462 Unknown [id number] 2.16.840.1.824862.3.579.2. 462 Unknown [id number] 2.16.840.1.873131.3.579.2. 462 Unknown [id number] 2.16.840.1.235063.3.579.2. 462 Unknown [id number] 2.16.840.1.162096.3.579.2. 462 Unknown [id number] 2.16.840.1.443804.3.579.2. 462 Unknown [id number] 2.16.840.1.305127.3.579.2. 462 Unknown [id number] 2.16.840.1.115922.3.579.2. 462 Unknown [id number] 2.16.840.1.411767.3.579.2. 462 Unknown [id number] 2.16.840.1.691293.3.579.2. 462 Unknown [id number] 2.16.840.1.737438.3.579.2. 462 Unknown [id number] 2.840.1.847678.3.579.2. 462 Unknown [id number] 2.840.1.762109.3.579.2. 462 Unknown [id number] 2.16840.1.963361.3.579.2. 462 Unknown [id number] 2.0.1.485710.3.579.2. 462 Unknown [id number] 2.840.1.153585.3.579.2. 462 Social History Date Type Detail Facility Start: 09-18-2022 End: 05-29-2023 Tobacco smoking status NHIS Unknown if ever smoked [facility] Start: 1990 Sex Assigned At Female [facility] Start: 11-01-2024 Tobacco smoking stat us NHIS Never smoked tobacco [facility] Start: 05-14-2024 Alcohol intake Current non-dr scheduling assistant of alcohol (finding) [facility] Start: 05-14-2024 History of Social function [facility] Start: 05-14-2024 Tobacco use panel [facility] Start: 1990 Sex Assigned At Not on file [facility] Goals Date Patient Goal Desired Activity /State Clinical Notes 11-01-2022 to 05-23-2025 Note Date & Type Note Facility 05-23-2025 Progress note [facility] 05-20-2025 Progress note [facility] 05-13-2025 Progress note [facility] 05-06-2025 Progress note [facility] 04-18-2025 Radiology Diagnostic study note [facility] Imaging Services [address] [place] [address] OB Limited With Biometrics MR#: [id number] Acct: [id number] Name: ISHA VANEGAS Rep #: [id number] : 1990 F 34 From: Familia Cervantes MD PCP: Dr. Pattie Giordano MD Status: REG CL I Study:OB Limited With Biometrics Date of Exam : 04/15/25 Exam# [id number] Ordering Dr: Lino Joaquin CNM PROCEDURE: OB [...] of 35 weeks and 1day. Reading Location: [id number] CC: DAKOTA Joaquin; Dr. Pattie Giordano MD ~ Factory Engineer: Signed [facility] 04-11-2025 Progress note [facility] 02-04-2025 Evaluation note Diagnosis Onset [...] date discrepancy acute May 06, 2025 9:22am [facility] Work Phone: 1(547) 435-641004-11-2025 Evaluation note* Diagnosis Onset Date Resolution Status [...] discrepanc y acute May 13, 2025 10:49am [facility] Work Phone: 1(443) 555-683004-11-2025 Evaluation note* Diagnosis Onset Date Resolution Status [...] discrepanc y acute May 20, 2025 8:33am [facility] Work Phone: 1(776) 975-970604-11-2025 Evaluation note* Diagnosis Onset Date Resolution Status [...] discrepanc y acute May 23, 2025 8:42am [facility] Work Phone: 1(188) 175-707004-11-2025 Evaluation note* Diagnosis Onset Date Resolution Status [...] discrepanc y acute May 30, 2025 3:54pm [email or web address] Work Phone: [phone]) [phone] Evaluation note* Diagnosis Onset Date Resolution Status [...] discrepanc y acute April 11, 2025 10:02am [facility] Work Phone: 1(264) 183-6277114560-31-8625 Evaluation note* Diagnosis Onset Date Resolution Status [...] normal acute March 04, 2025 11 :14am [facility] Work Phone: 1(686) 749-873902-07-2025 Evaluation note* Diagnosis Onset Date Resolution Status [...] normal acute March 25, 2025 1 1:16am [facility] Work Phone: 1([phone]) 524-932507-19-2024 Evaluation note* Diagnosis Lichen sclerosus et atrophicus- [...] and pre-procedure instructions. 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 [...] kg/m Physical Exam Exam conducted with a bid clerk present. Constitutional: Appearance: She is well-developed. HENT: [...] Lucio MD This note was created using [employer]. [facility]24 NoteHNO ID: [id number] Author: REBECCA LUCIO MD Service: ? 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 [...] kg/m? Physical Exam Exam conducted with a bid clerk present. Constitutional: Appearance: She is well-developed. HENT: [...] Normal range of mo (more content not included)...[facility]08-04-2023 Progress note Author Mitzi Lyon [facility] May 30, 2023 8:45am Note Date/Time May 30, 2023 8:4 5am [facility] Medical Records Department [address] [place] [address] Progress Note - OBGYN 05/30/23 0843 MR#: [id number] Acct: [id number] Name: ISHA VANEGAS Rep #: [id number] : 1990 32 From: Mitzi Lyon CNM PCP: Dr. Maria Isabel Sandoval MD Status:AD M IN Location: [id number] Subjective Subjective Patient doing well without complaints. [...] Cosigner Signature (if applicable): CC: ~ Signed [facility] Work Phone: 1(906) 139-722908-03-2023 Discharge summary Author Karla Shrestha [facility] May 29, 2023 5:09pm Note Date/Time May 29, 2023 5:1 0pm [facility] Medical Records Department [address] [place] [address] Instructions for Home/Discharge Instructions 05/29/23 1709 MR#: [id number] Acct: [id number] Name: ISHA VANEGAS Rep #: [id number] : 1990 32 From: Karla flower MD [...] Up With: Karla Shrestha MD When: Call [phone] to make an appointment with your doctor [...] Sandoval MD [Primary Care Provider] - 05/29/23 1849<Electronically signed by Karla Shrestha MD>Karla Shrestha MD CC: Dr. Maria Isabel Sandoval MD ~ Signed [facility] Work Phone: 1(657) 239-135208-03-2023 Procedure [facility] 05-29-2023 History and physical note Author Karla Shrestha [facility] May 29, 2023 8:45am Note Date/Time May 29, 2023 7:3 6am [facility] Medical Records Department [address] [place] [address] H&P Exam - EDGER TAILER 05/29/23 0735 MR#: [id number] Acct: [id number] Name: ISHA VANEGAS Rep #: [id number] : 1990 32 From: Karla flower MD PCP: Dr. 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 Game Master in [facility] wants nipt. 11/29/22 -?-?-?-?-?-?-?-?-?-?-?-?- 14w 5d 142 [...] Sandoval MD; Dr. Karla Shrestha MD~ Signed [facility] Work Phone: 1(313) 839-258301-24-[address] Aguilar [facility] November 19, 2022 10:07am Note Date/Time November 19, 2022 5 :26am [facility] Medical Records Department [address] [place] [address] Emergency Department Summary 11/19/22 MR#: [id number] Acct: [id number] Name: ISHA VANEGAS Rep #: [id number] : 1990 32 From: Suzanne Monroy PCP: [...] up from sleep. She spoke with her EDGER TAILER who recommend she come to the ER. Patient has had a confirming IUP per her EDGER TAILER (Dr. Wayne Levi). Patient denies any vaginal [...] home. No other complaints at this time. 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 Case initially discussed with her EDGER TAILER, Dr. Dax Levi. Concern for possible ruptured [...] emergency. Patient will follow-up closely with her EDGER TAILER. She is given referral for GI as [...] 75.4 H Lymph % (Auto) 17.9 L Bosque % (Auto) 5.8 Eos % (Auto) 0.3 [...] Clarity Clear Urine pH 5.0 Ur Specific Elberta 1.030 Urine Protein 15 H Urine Glucose [...] your Primary Care Provider. Call [facility] ([phone]) or report to the closest Emergency Room. Call 911 if necessary. 11/19/22 1007 <Electronically signed by Suzanne Aguilar DO> Cosigner Signature (if applicable): CC: Dr. Maria Isabel Sandoval MD ~ Signed [facility] Work Phone: 1([phone]) 358-340001-06-2023 NotePap Smear Specimen AdequacyJanuary 2022 4:36pmComment.Satisfactory for evaluation. No endocervical component is identified.An endocervical component is not commonly seen in the patient.[facility] A#[id number] Toledo Hospital on above: Satisfactory for evaluation. No endocervical component is identified.An endocervical component is not commonly seen in the patient.11-01-2022 NotePap Smear Specimen AdequacyJanuary 2022 4:36pmComment.Satisfactory for evaluation. No endocervical component is identified.An endocervical component is not commonly seen in the patient.[facility] A#[id number] Toledo Hospital on above:Satisfactory for evaluation. No endocervical component is identified.An endocervical component is not commonly seen in the patient.11-01-2022 NotePap Smear Specimen AdequacyJanuary 2022 5:36pmComment.Satisfactory for evaluation. No endocervical component is identified.An endocervical component is not commonly seen in the patient.[facility] A#[id number] Surgical Hospital at SouthwoodsComment on above: Satisfactory for evaluation. No endocervical component is identified.An endocervical component is not commonly seen in the patient.Evaluation note* Diagnosis Onset Date Resolution Status Early stage of acu te Encounter for routine gynecological examination noneactive [facility] Work Phone: Evaluation note* Diagnosis Onset Date Resolution Status Early stage of acu te Encounter for routine gynecological examination noneactive Early stage of acu te acute Seasonal allergies acute Supervision of high risk , antepartum acute Asthma chronic [facility] Work Phone: Evaluation note* Diagnosis [...] high risk , antepartum acute Asthma chronic [facility] Work Phone: Evaluation note* Diagnosis [...] high risk , antepartum acute Asthma chronic [facility] Work Phone: Evaluation note* Diagnosis [...] acute (spontaneous vaginal delivery) acute Asthma chronic [facility] Work Phone: Hospital Discharge instructions Additional Instructions Start taking either Colace or MiraLAX to help with constipation as you do have some stool in the right side. The exact cause of your pain is not clear. No signs of acute infection. No blood clots in the legs. No signs of disrupted blood flow to your ovaries.[facility] Work Phone: Progress note Author Lino Joaquin [facility] Note Date/Time April 11, 2025 10:[address] [facility] [address] [place] [address], [address] [place] [address] OFFICE VISIT Date of Service: 04/11/25 MR#: [id number] Acct: [id number] Name: ISHA VANEGAS Rep #: [id number] : 1990 Provider: DAKOTA Joaquin Age/Sex: 34/F Location: [facility] Status: Signed Intake Vital Signs 02/04/25 09:33 03/25/25 11:20 04/11/25 10:05 04/11/25 10:06 Height 5 ft 5 in 5 ft 5 in 5 ft 5 in 5 ft 5 in Weight: 160 lb 2 oz 159 lb 6 oz BMI 26.6 26.5 BP 105/68 99/64 Intake Visit Reasons: 33 WK OB (PT RQT) Chief Complaint: 33wk OB Curtain Cutter Required: No Is patient in pain?: No [...] 2 current occupational status: employed 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 Date Name GA/Weeks Outcome Route Bth Weight Infant Gen Labor Lgth Anesthesia Del Locatn Provider FOB 06/02/21 Annette 40 live - full term 8lbs 3oz Female e pidural [facility] Tray 05/29/23 Lili 40 live - full term 8#3 Female [facility] Henrietta Delivery Date: 06/02/21 Last Updated [...] Cosigner Signature: Date (if applicable) CC: ~ [facility] Work Phone: Progress note Author Lino Madi [facility] Note Date/Time May 06, 2025 9:43 am [place] [facility] [address] [place] [address], [address] [place] [address] OFFICE VISIT Date of Service: 05/06/25 MR#: [id number] Acct: [id number] Name: ISHA VANEGAS Rep #: [id number] : 1990 Provider: DAKOTA Joaquin Age/Sex: 34/F Location: [facility] Status: Signed Intake Vital Signs 02/04/25 09:33 04/11/25 10:06 05/06/25 09:26 05/06/25 09:29 Height 5 ft 5 in 5 ft 5 in 5 ft 5 in 5 ft 5 in Weight: 160 lb BMI 26.6 BP 110/73 Intake Visit Reasons: 35 WK OB Chief Complaint: 36wk OB Curtain Cutter Required: No Is patient in pain?: No [...] 2 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 occupational status: employed 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 [address] [place] [address], [address] [place] [address] OFFICE VISIT Date of Service: 05/13/25 MR#: [id number] Acct: [id number] Name: ISHA VANEGAS Rep #: [id number] : 1990 Provider: Dr. 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 current occupational exposures/hazards: No pets and animals: [...] 3-4 times per week duration: 30-45 minutes/day nito/caodaism: Methodist seatbelt use: always do you feel safe [...] full term 8lbs 3oz Female e pidural [facility] Tray 05/29/23 Lili 40 live - full term 8#3 Female [facility] Marcanthony Delivery Date: 06/02/21 Last Updated [...] Cosigner Signature: Date (if applicable) CC: ~ [facility] Work Phone: Progress note Author Mitzi Lyon [facility] Note Date/Time May 20, 2025 8:55 am [place] [facility] [address] [place] [address], [address] [place] [address] OFFICE VISIT Date of Service: 05/20/25 MR#: [id number] Acct: [id number] Name: ISHA VANEGAS Rep #: [id number] : 1990 Provider: DAKOTA Lyon Age/Sex: 34/F Location: [facility] Status: Signed Intake Vital Signs 02/04/25 09:33 04/11/25 10:06 05/13/25 11:02 05/20/25 08:35 Height 5 ft 5 in 5 ft 5 in 5 ft 5 in 5 ft 5 in Weight: 161 lb 4 oz BMI 26.8 BP 94/58 L Intake Visit Reasons: 38 WK OB Curtain Cutter Required: No Is patient in pain?: No [...] 2 current occupational status: employed 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 current occupational exposures/hazards: No pets and animals: [...] 3-4 times per week duration: 30-45 minutes/day nito/caodaism: Methodist seatbelt use: always do you feel safe [...] full term 8lbs 3oz Female e pidural [facility] Tray 05/29/23 Lili 40 live - full term 8#3 Female [facility] Marcanthony Delivery Date: 06/02/21 Last Updated [...] Cosigner Signature: Date (if applicable) CC: ~ [facility] Work Phone: Progress note Author Lino Joaquin [facility] Note Date/Time May 23, 2025 9:00 am [facility] [address], [address] [place] [address] OFFICE VISIT Date of Service: 05/23/25 MR#: [id number] Acct: [id number] Name: ISHA VANEGAS Rep #: [id number] : 1990 Provider: DAKOTA Joaquin Age/Sex: 34/F Location: [facility] Status: Signed Intake Vital Signs 02/04/25 09:33 05/20/25 08:35 05/23/25 08:50 05/23/25 08:51 Height 5 ft 5 in 5 ft 5 in 5 ft 5 in 5 ft 5 in Weight: 161 lb 8 oz BMI 26.9 BP 114/74 Intake Visit Reasons: 39 WK OB Chief Complaint: 39wk OB Curtain Cutter Required: No Is patient in pain?: No [...] 2 current occupational status: employed 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 current occupational exposures/hazards: No pets and animals: [...] 3-4 times per week duration: 30-45 minutes/day nito/caodaism: Methodist seatbelt use: always do you feel safe [...] full term 8lbs 3oz Female e pidural [facility] Tray 05/29/23 Lili 40 live - full term 8#3 Female [facility] Marcanthony Delivery Date: 06/02/21 Last Updated [...] Cosigner Signature: Date (if applicable) CC: ~ [facility] Work Phone: Reason for referral (narrative)No reason for referral information availableWDoctors [facility] Work Phone: Summary Purpose Family History Relationship Condition Age at Onset Recorded Date/T noah Not Specified Controlled type 1 diabetes mellitus Unkn own grandfather Lymphoma Unknown Relationship Condition Age at Onset Recorded Date/T noah grandfather Lymphoma Unknown aunt Controlled type 1 diabetes mellitus Unkno wn Advance Directives Advance Directive Response Recorded Date/ Time Living Will No September 18, 2 022 9:06am Power of Retail Selling Specialist No September 18, 2022 9:06am Advance Directive Response Recorded Date/ Time Living Will No November 19 2:26am Power of Retail Selling Specialist No November 19, 2022 2:26am Advance Directive Response Recorded Date/ Time Living Will No November 19 3:26am Power of Retail Selling Specialist No November 19, 2022 3:26am Advance Directive Response Recorded Date/ Time Living Will No March 21, 2023 4 :18pm Power of Retail Selling Specialist No March 21, 2023 4:18pm Advance Directive Response Recorded Date/ Time Name of Medical Power of Retail Selling Specialist Maria Isabel olmos May 29, 2023 8:24am Living Will Yes May 29, 2023 8:24am Power of Retail Selling Specialist Yes May 29 8:24am Chief Complaint and Reason for Visit Chief Complaint Annual (OFFSET PRESSMAN) E ORDER Reason for Visit Early stage of pregn jose g Encounter for routine gynecological examination Chief Complaint Annual (OFFSET PRESSMAN) E ORDER NOB LMP 08/18 Reason for Visit Early stage of pregn jose g Encounter for routine gynecological examination Early stage of Seasonal allergies Supervision of high risk , antepartum Asthma Chief Complaint Annual (OFFSET PRESSMAN) E ORDER NOB LMP 08/18 ABD PAIN [...] section and content) DATE CREATED AUTHOR 04/14/2018 [facility] DATE CREATED AUTHOR AUTHOR'S ORGANIZ ATION 09/23/2020 [facility] DATE CREATED AUTHOR AUTHOR'S ORGANIZ ATION 05/17/2024 [facility] DATE CREATED AUTHOR AUTHOR'S ORGANIZ ATION 01/04/2025 [facility] DATE CREATED AUTHOR AUTHOR'S ORGANIZ ATION 05/23/2025 [facility] Goals (unrecognized section and content) Goals may [...] Provider, Refer ring Provider Active Jennifer Mike GEOLOGICAL TECHNICAL OFFICER, GEOLOGICAL TECHNICAL OFFICER-C Attending Provider Active Team Status: Inactive Member Role Status Dates No Primary Care Physician Referring Provider Active Dr. Tamiko Steven DO Attending Provider Activ e Dr. Maria Isabel Sandoval MD Primary Care Provider Active Team Status: Inactive Member Role Status Dates No Primary Care Physician Primary Care Provider Active Jennifer Mike GEOLOGICAL TECHNICAL OFFICER, GEOLOGICAL TECHNICAL OFFICER-C Attending Provider, Referring Provider Active Team Status: Inactive Member Role Status Dates Dr. Maria Isabel Sandoval MD Primary Care Provider Active Jennifer Mike GEOLOGICAL TECHNICAL OFFICER, GEOLOGICAL TECHNICAL OFFICER-C Attending Provider Active Team Status: Inactive Member [...] Provider, Referr ing Provider Active Jennifer Mike GEOLOGICAL TECHNICAL OFFICER, GEOLOGICAL TECHNICAL OFFICER-C Attending Provider Active Team Status: Inactive Member Role Status Dates Dr. Maria Isabel Sandoval MD Primary Care Provider Active Dr. Suzanne Aguilar DO Attending Provider, Yannick iverson Active Team Status: Inactive Member Role Status Dates Dr. Maria Isabel Sandoval MD Primary Care Provider Active Dr. Karla Shrestha MD Attending Provider, Referr ing Provider Active Jennifer Mike GEOLOGICAL TECHNICAL OFFICER, GEOLOGICAL TECHNICAL OFFICER-C Other Provider Active Team Status: Inactive Member Role Status Dates Dr. Maria Isabel Sandoval MD Primary Care Provider, Referr ing Provider Active Mitzi Lyon CNM Attending Provider Active Team Status: Active Member Role Status Dates Dr. Maria Isabel Snadoval MD Primary Care Provider Active Dr. Karla [...] or prosecute any alcohol or drug abuse patient.[facility] Reason for Visit (unrecogniz ed section and [...] BE BASED ON THE PRIMARY CLINICAL RECORDS. [facility] [place] [facility]. provides no warranty or guarantee of the accuracy or completeness of information in this document.
[2025-05-31] MEDS: Penicillin G Pot 5,000,000 UNITS in 0.9% Normal Saline (100mL MB+) 100 ML 150 UNITS IV (01:20)
[2025-05-31] MEDS: Lactated Ringers 1,000 ML 50 ML IV (01:20)
[2025-05-31 01:23] LABS: Hematocrit 34.5 % (37-47); Hemoglobin 12.1 g/dL (12.0-15.0); Immature Granulocytes Count 0.020 X10^3/uL (0.0-0.0); Mean Corp Hgb Conc 35.1 g/dL (32-36); Mean Corpuscular Volume 96.1 fL (81-99); Mean Platelet Vol. 12.3 fl (6.2-12.0); NRBC Flagged by Analyzer 0 % (0-5); Platelet Count 151 K/mm3 (150-450); RBC Distribution Width CV 11.9 % (11.6-14.6); RBC Distribution Width SD 41.8 fl (35.1-43.9); Red Blood Count 3.59 M/mm3 (4.2-5.4); White Blood Count 7.6 K/mm3 (4.4-11.0)
[2025-05-31] MEDS: Lactated Ringers 1,000 ML 1000 ML IV (01:38)
[2025-05-31 01:53] LABS: Syphilis Antibodies Nonreactive (Nonreactive)
[2025-05-31] MEDS: Cefazolin 1 GM/5 ML Vial 2 GM IV (02:01)
[2025-05-31] MEDS: Azithromycin 500 MG Vial (SNAP) IV (02:01)
--- NOTE | 2025-05-31 02:16 | HP.PCM.OB_ITS ---
HPI - General General Date of Admission: 05/31/25 HPI Narrative ISHA CUNNINGHAM, is a 34 y/o @ 40 weeks 2 days who presents to L&D in active labor. She was found to be 8 cm dilated with bulging membranes. GBS is positive and has been uncomplicated. Maternal Data Information JENNY Calculator Estimated Delivery Date Method Current WG Current Estimate 05/29/25 LMP (Certain) 40w 2d PFSH PFS Medical History (Updated 05/31/25 @ 02:[address] Tamiko Steven, DO) Asthma Lichen sclerosus (spontaneous vaginal delivery) Spontaneous vaginal delivery Phenylalanine hydroxylase deficiency Eczema Asthma Home Medications ?Medication ?Instructions ?Recorded ?Last Taken ?Type albuterol sulfate 90 mcg/actuation 1 inh inhalation Q4 H PRN supplement 10/18/22 Unknown History breath activated powder inhaler multivitamin no.47-iron fum 27 cap PO supplement 10/1805/30/25 08:00 History mg-folate no.1 1 mg-dha 300 mg capsule (PNV-DHA) clobetasol 0.05 % topical ointment 1 applic topical QH S skin 08/11/23 Unknown Rx irritation #30 grams Allergy/AdvReac Type Severity Reaction Status Date / Time ceftriaxone (From Rocephin) Allergy Mild rash Verified 05/31/25 01:11 Family History Grandfather Lymphoma Aunt Diabetes type 1, controlled Paternal Surgical History s/p stomach surgery s/p left ankle surgery Social History adopted: No household members: spouse and children number of children: 2 current occupational status: employed 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 current occupational exposures/hazards: No pets and animals: Yes pets and animals: dog(s) history of recent travel: No sexually active: Yes Smoking Status: Never smoker alcohol intake: never substance use type: does not use well-balanced diet: daily or most days caffeine: No eating out: 1-3 times/week during the past year weight has: remained stable what type of physical activity do you participate in: bicycling and weight training frequency: 3-4 times per week duration: 30-45 minutes/day nito/holiness: Sabianist seatbelt use: always do you feel safe at home: Yes additional social history: - No History 3 Elective abortions Hx Para 2 Spontaneous abortions Hx # Term Pregnancies Ectopic pregnancies Hx # Pregnancies Multiple births # of living children 2 Past Pregnancies Del. Date Name GA/Weeks Outcome Route Bth Weight Gen Labor Lgth Anesthesia Del Locatn Provider FOB 06/02/21 Annette 40 live - full term 8lbs 3oz Female e pidural [facility] Tray 05/29/23 Lili 40 live - full term 8#3 Female [facility] Marcanthony Delivery Date: 06/02/21 Last Updated by: Alana Mendez PROM; Developed Chorio; 2nd degree laceration Delivery Date: 05/29/23 Last Updated by: Siena Braun IOL Visit Details Expected Delivery Route/Plan Labor Preferences- CB/BF classes: [] labor support person: [] labor intervention preferences: [] pain management options preferred: [] cut cord/dad catch: [] : plans PP control planned: [] discussed possible routes of delivery and associated risks: [] special requests: [] Plans Covid status: [] Flu vaccine: [] Tdap vaccine:obtained Rhogam: na LARC form signed: completed Problem list reviewed and updated with the most current plan of care details and appropriate orders placed. Relevant counseling for the gestational age provided. Continue routine care and follow up unless otherwise noted in visit notes/problem list details OB Flowsheet Initial Weight: Not Recorded Date -?-?-?-?-?--?-?-?-?-?-?-?- EGA Weight BP Urine Prot -?-?-?-?-?-?-?-?-?-?-?-?- Glucose FHR FuHt Pres Dilation -?-?-?-?-?-?-?-?-?-?-?-?- Effaced St Visit Note 11/01/24 -?-?-?-?-?-?-?-?-?-?-?-?- 10w 1d 137 lb 8 oz 98/60 -?-?-?-?-?-?-?-?-?-?-?-?- 180 -?-?-?-?-?-?-?-?-?-?-?-?- SM- CRL cons wit h LMP 3.3 cm 12/03/24 -?-?-?-?-?-?-?-?-?-?-?-?- 14w 5d 140 lb 4 oz 103/69 Trac e -?-?-?-?-?-?-?-?-?-?-?-?- Negative 159 -?-?-?-?-?-?-?-?-?-?-?-?- KW- no vb/crampi ng. had GI bug over that last week. US ordered. 12/31/24 -?-?--?-?-?-?-?-?-?-?-?-?- 18w 5d 148 lb 6 oz 148 lb 6 oz 99/62 Negative -?-?-?-?-?-?-?-?-?-?-?-?- Negative 145 -?-?-?-?-?-?-?-?-?-?-?-?- KW- no vb/crampi ng. US scheduled for next week. declines AFP 02/04/25 -?-?-?-?-?-?-?-?-?-?-?-?- 23w 5d 154 lb 4 oz 95/61 Nega tive -?-?-?-?-?-?-?-?-?-?-?-?- Negative 143 24 -?-?-?-?-?-?-?-?-?-?-?-?- JV- normal anato my scan reviewed. no lof, vaginal bleedig. + FM. planning GCT next visit. 03/04/25 -?-?-?-?-?-?-?-?-?-?-?-?- 27w 5d 156 lb 115/75 Negative -?-?-?-?-?-?-?-?-?-?-?-?- Negative 150 28 -?-?-?-?-?-?-?-?-?-?-?-?- kw- no vb/lof/ct x. good fm gct today. LARC done. tdap next visit. 03/25/25 -?-?-?-?-?-?-?-?-?-?-?-?- 30w 5d 160 lb 2 oz 105/68 -?-?-?-?-?-?-?-?-?-?-?-?- 140 32 -?-?-?-?-?-?-?--?-?-?-?-?- SM- no vb lof go od fm nor egular ctx tdap given 04/11/25 -?-?-?-?-?-?-?-?-?-?-?-?- 33w 1d 159 lb 6 oz 99/64 1+ -?-?-?-?-?-?-?-?-?-?-?-?- Negative 130 35 -?-?-?-?-?-?-?-?-?-?-?-?- KW- no vb/lof/ct x. good fm. PC ratio sent for 1+ protein. growth US ordered for fundal height. 05/06/25 -?-?-?-?-?-?-?-?-?-?-?-?- 36w 5d 160 lb 110/73 Negative -?-?-?-?-?-?-?-?-?-?-?-?- Negative 145 36 Cephalic 1 -?-?-?-?-?-?-?-?-?-?-?-?- 60 -2 KW- no vb. lof.ctx good fm. GBS today. normal KW- no vb.lof.ctx good fm. G BS positive in urine. normal US 05/13/25 -?-?-?-?-?-?-?-?-?-?-?-?- 37w 5d 160 lb 8 oz 106/66 Nega tive -?-?-?-?-?-?-?-?-?-?-?-?- Negative 135 38 Cephalic -?-?-?-?-?-?-?-?-?-?-?-?- SM- no vb lof go od fm no reuglar ctx 05/20/25 -?-?-?--?-?-?-?-?-?-?-?-?- 38w 5d 161 lb 4 oz 94/58 Nega tive -?-?-?-?-?-?-?-?-?-?-?-?- Negative 138 38 Cephalic 1 -?-?-?-?-?-?-?-?-?-?-?-?- 60 -3 LC- no ctx /lof/vb/ good fm. no concerns today 05/23/25 -?-?-?-?-?-?-?-?-?-?-?-?- 39w 1d 161 lb 8 oz 114/74 Nega tive -?-?-?-?-?-?-?-?-?-?-?-?- Negative 140 39 Cephalic -?-?-?-?-?-?-?-?-?-?-?-?- KW- no vb/lof/ct x. good fm. declines vaginal exam. 05/30/25 -?-?-?-?-?-?-?-?-?-?-?-?- 40w 1d 165 lb 5 oz 116/75 Nega tive -?-?-?-?-?-?-?-?-?-?-?-?- Negative 125 42 Cephalic 4 -?-?-?-?-?-?-?-?-?-?-?-?- 80 -2 JV- no lof , vaginal bleeding, or dec fm. wants membrane sweep today. plan IOL at 41 weeks. ROS Constitutional Constitutional: Denies change in weight, fatigue, fever(s), headache(s), poor appetite or weakness Eyes Eyes: Denies blurry vision, change in vision, seeing flashes or spots in vision ENT HEENT: Denies dizziness, headache(s), loss taste/smell or sore throat Cardiovascular Cardiovascular: Denies chest pain, dizziness, dyspnea, irregular heart rhythm, leg edema, palpitations, rapid heart rate or vomiting Respiratory/Chest Respiratory/Chest: Denies chest tightness, cough, dyspnea or breast pain Gastrointestinal Gastrointestinal: Denies abdominal pain, anorexia, constipation, cramping, diarrhea, hemorrhoids, vomiting or weight changes Genitourinary Genitourinary: Denies dysuria, flank pain, genital lesions, genital pain, urinary frequency or urinary urgency Musculoskeletal Musculoskeletal: Denies back pain, difficulty walking, joint pain, limited range of motion, muscle cramps or numbness Integumentary Integumentary: Denies lesions or unusual bruising Neurologic Neurologic: Denies abnormal movements, abnormal speech, dizziness, numbness, seizure-like activity or syncope Psychiatric Psychiatric: Denies anxiety, behavioral changes, change in appetite, change in libido, cognitive impairment, confusion, depression, difficulty concentrating, hallucinations or suicidal thoughts Endocrine Endocrinology: Denies excessive sweating, polydipsia or polyuria Hematologic/Lymphatic Hematologic/Lymphatic: Denies easy bleeding, easy bruising or lymphadenopathy Allergic/Immunologic Allergic/Immunologic: Denies itchy eyes, lip swelling, seasonal rhinorrhea, rhinitis, throat swelling, tongue swelling, eczemia, wheezing or asthma Vital Signs Vital Signs Vital Signs: 05/31/25 01:06 05/31/25 01:06 05/31/25 01:06 Temperature Pulse Rate 74 Respiratory Rate 16 Blood Pressure 132/78 H BP Systolic 132 BP Diastolic 78 05/31/25 01:06 Temperature 97.8 F Pulse Rate Respiratory Rate Blood Pressure BP Systolic BP Diastolic Weight Weight: 163 lb 9.6 oz Body Mass Index (BMI) 27.2 Physical Exam Const alert, oriented x3, no apparent distress and healthy appearing General Appearance: cooperative; Negative for anxious HEENT normocephalic Face and Sinus: normal facial exam Eyes EOMs intact bilaterally and no scleral icterus General Eye: normal appearance of both eyes Neck full ROM and supple Resp normal respiratory effort Effort and Inspection: able to speak in complete sentences Cardio regular rate GI soft to palpation and non-tender Inspection: gravid Palpation: soft; Negative for tender external exam normal Narrative: cervix 8 cm dilated and she consents to AROM. upon Rupture of fluid, there was a face presentation and MARIA DE JESUS called. Meconium fluid present. Amniotic Fluid: ROM+plus Back/Spine no CVA tenderness Extremity normal to inspection, full ROM and no clubbing, cyanosis or edema General Extremity: Negative for calf tenderness or edema Skin Lesions: no lesions Rashes: no rashes Psych mental status grossly normal Labs Labs Labs: Blood Type O POSITIVE Antibody Screen NEGATIVE Hct 34.5 % (37-47) L Hgb 12.1 g/dL (12.0-15.0) Pap Smear Negative Obstetrics Ultrasound Syphilis Total Ab Nonreactive (Nonreactive) VZV IgG Antibody 0.93 index (Immune >1.09) L Rubella IgG Antibody Reactive (Nonreactive) Hep Bs Antigen Non-Reactive (Nonreactive) Hepatitis C Antibody Non-Reactive (Nonreactive) Hepatitis C Ab (EIA) <0.1 s/co ratio (0.0-0.9) Chlamydia DNA (ABA) Negative (Negative) N.gonorrhoeae DNA (ABA) Negative (Negative) HIV 1&2 Antibody Nonreactive (Nonreactive) Glucose 1 Hr 50 gm 98 mg/dL (70-140) Assessment & Plan (1) Face presentation of fetus: (2) Anemia affecting : COMMENT: ferritin, iron & iron binding studies-normal (3) Uterine size date discrepancy : COMMENT: S>D (4) Positive GBS test: COMMENT: treat in labor (5) Supervision of normal : COMMENT: PRR, , JENNY 05/29/25, boy Lili Parr, Misha (6) : QUALIFIERS: Weeks of gestation: 40 weeks Qualified Code(s): Z3A.40 - 40 weeks gestation of COMMENT: Low risk, anatomy nl PLAN: Plan MARIA DE JESUS now for face presentation and prolonged heart rate deceleration.
--- NOTE | 2025-05-31 02:20 | OP.PCM_ITS ---
Assessment & Plan (1) Face presentation of fetus: (2) Anemia affecting : COMMENT: ferritin, iron & iron binding studies-normal (3) Uterine size date discrepancy : COMMENT: S>D (4) Positive GBS test: COMMENT: treat in labor (5) Supervision of normal : COMMENT: PRR, , JENNY 05/29/25, boy Lili Parr, Misha (6) : QUALIFIERS: Weeks of gestation: 40 weeks Qualified Code(s): Z3A.40 - 40 weeks gestation of COMMENT: Low risk, anatomy nl Maternal Data Information JENNY Calculator Estimated Delivery Date Method Current WG Current Estimate 05/29/25 LMP (Certain) 40w 2d Operative Report (OB) Details Procedure Type: low transverse Date of Procedure: 05/31/25 Procedure Start Time: 01:50 Procedure Stop Time: 02:20 Time of Delivery: 01:51 Pre-Operative Diagnosis: Other (Face presentation and bradycardia ) Other Pre-Operative diagnosis: none Post-Operative Diagnosis: Same as Pre-operative diagnosis Classification: Stat Type of Anesthesia: General Antibiotic Given: Ancef 2 grams IV x1 and Zithromax 500 mg/5 mL X1 Drain: Suarez to straight drain Estimated Blood Loss: 1000cc Findings Description of surgery: Procedure: The patient was brought to the operating room after an MARIA DE JESUS was announced due to a face presentation. 8 cm dilated, and inability to obtain a steady heart rate. Due to the face presentation, internal monitors were not possible. Initially our plan was to get an epidural and try to rotate the 's head position however due to persistent bradycardia that started in the low 100s that ended up being in the 80s, this idea was quickly aborted. She was placed in a dorsal supine position with a leftward tilt. She was prepped and draped with a Betadine splash while general anesthesia was administered. A Pfannenstiel skin incision was made with a scalpel and carried through to the underlying layers. The fascia was incised using the scalpel. The rectus muscles were in the midline. Peritoneum was entered bluntly the uterus was identified and a bladder blade was inserted into the abdomen. A low transverse incision was made with a scalpel and extended laterally manually. The 's head was grasped with the help of my assistant associate professor and fundal pressure the was delivered through the uterine incision without difficulty. The mouth and nares were bulb suctioned. After a 15 second delay the cord was clamped and cut. The was handed off to the awaiting special forces medical sergeant for routine assessment. Placenta was delivered manually without difficulty. The uterus was exteriorized and cleared of all clots and debris. Incision was closed with an 0 Vicryl suture in a running locked fashion. Second layer of 1-0 monocryl suture was used in imbricating manner to create excellent closure and hemostasis. The uterus was returned to the abdomen. The gutters were cleared of all clots and debris. The peritoneum was closed in a pursestring pattern using a 3-0 Vicryl suture. This muscle was reapproximated with a 3-0 Vicryl. The fascia was closed with an 0 PDS stratafix suture. Subcutaneous tissue layer was closed using a plain gut suture. The skin was closed with a 4-0 Monocryl subcuticular stitch. The skin was also sealed with surgical glue. The patient tolerated the procedure well sponge lap and needle counts were correct at each tissue closure plane and the p atient is now being brought to the recovery room in stable condition Surgical findings: Viable male scores 8 and 9 Presentation: Other (vertex/Face presentation ) Amniotic Membrane Rupture Type: Artificial Amniotic Fluid Description: Lightly stained meconium Placental Delivery Description: Manual Removal Placenta Disposition: [facility] Specimen collected: No Cord Vessel Description: 3 Vessels Cord Entanglement: None Infant A gender: Male (1 minute): 8 (5 minute): 9 Delayed Cord Clamping: Yes Rebar Fabricator transportation security screener: Yes [employer] Former Supervisor: lian Tasks completed by airline pilot/first officer: Closing and Retracting Additional assistant associate professor?: No Complications Complications: No Multi Select Codes Urinary/Genital Urinary/Genital CPT Codes: 92599 delivery only
--- NOTE | 2025-05-31 02:27 | PCM.POST.ANE ---
Anesthesia: Postop Eval I Current Vital Signs Temperature: 37 F Pulse Rate: 98 Blood Pressure: 115/85 Respiratory Rate: 14 Pulse Ox: 99 Oxygen Delivery Method: Room Air Assessment Airway patent: Yes Spontaneous unlabored respirations: Yes Mental status: Awake and Calm nausea: No Vomiting: No Anesthesia Complication: No Fluid Hydration Crystalloid volume administer (ml): 1,000 Total IV fluid infused: 1,000 Progress Note Anesthesia document: Postop Eval 1 completed: Yes
--- NOTE | 2025-05-31 02:30 | POSTOPAN2_ITS ---
Anesthesia Postop Eval I Sum Postop Eval Completion status Anesthesia document: Postop Eval 1 completed: Yes Anesthesia Postop Eval I Summary Anesthesia Postop Eval I Summary: Anesthesia Postop Eval I: Assessment Summary Airway patent Yes 05/31/25 02:28 CLASSIFIER [email or web address] Spontaneous unlabored Yes 05/31/25 02:28 CLASSIFIER [email or web address].MDOT respirations Mental status Awake,Calm 05/31/25 02:28 CLASSIFIER [email or web address].MDOT nausea No 05/31/25 02:28 CLASSIFIER TENDER.MDOT Vomiting No 05/31/25 02:28 CLASSIFIER [email or web address] Anesthesia Postop Eval I: Fluid Summary Crystalloid volume administer 1,000 05/31/25 02:28 CLASSIFIER [email or web address].MDOT (ml) Colloids volume administered ( ml) Blood Product volume administered (ml) Total IV fluid infused 1,000 05/31/25 02:28 CLASSIFIER [email or web address] Anesthesia Postop Eval I: Summary Notes Anesthesia Complication No 05/31/25 02:28 CLASSIFIER [email or web address].MDOT Anesthesia Complication Comment: Post-operative progress note Anesthesia: Postop Eval II Evaluation Mental status: Awake and Calm Pain Level: 0 nausea: No Vomiting: No Complications Anesthesia Complication: No
--- NOTE | 2025-05-31 02:30 | PCM.POSTANE2 ---
Anesthesia Postop Eval I Sum Postop Eval Completion status Anesthesia document: Postop Eval 1 completed: Yes Anesthesia Postop Eval I Summary Anesthesia Postop Eval I Summary: Anesthesia Postop Eval I: Assessment Summary Airway patent Yes 05/31/25 02:28 PHY [email or web address] Spontaneous unlabored Yes 05/31/25 02:28 PHY [email or web address].MDOT respirations Mental status Awake,Calm 05/31/25 02:28 PHY [email or web address].MDOT nausea No 05/31/25 02:28 PHY [email or web address].MDOT Vomiting No 05/31/25 02:28 PHY [email or web address].MDOT Anesthesia Postop Eval I: Fluid Summary Crystalloid volume administer 1,000 05/31/25 02:28 PHY THERAPIST.MDOT (ml) Colloids volume administered ( ml) Blood Product volume administered (ml) Total IV fluid infused 1,000 05/31/25 02:28 PHY [email or web address].MDOT Anesthesia Postop Eval I: Summary Notes Anesthesia Complication No 05/31/25 02:28 PHY [email or web address].MDOT Anesthesia Complication Comment: Post-operative progress note Anesthesia: Postop Eval II Evaluation Mental status: Awake and Calm Pain Level: 0 nausea: No Vomiting: No Complications Anesthesia Complication: No
--- NOTE | 2025-05-31 02:35 | DCINST_ITS ---
Discharge Instructions DC O2, CPAP, BIPAP needs Home O2 Discharge instructions: No Dressing / Incision Discharge Activity: May Not Drive (for 2 weeks or while taking narcotic pain medications.), May Shower and May Take a Tub Bath (in 7 days.) May resume sexual activity in: 4-6 weeks Weight Bearing Status: Full weight bearing Lifting Restrictions: 20 pounds Dressing / Incision Call your doctor if your incision/area has: Continuous Slow Oozing, Sudden Increased Bleeding, Increased Pain/ Swelling, Increased Redness and Foul Smelling Discharge Call your doctor if you observe: Fever of 101 or Higher and Using more than 1 pad per hour Suture Line Care: Avoid Pulling/Pushing and Avoid Pinching/Bending Cleanse incision/area with: Soap & Water and Keep Dressing Clean & Dry Follow Up Care Please Follow Up With: Tamiko Steven DO When: Call [phone] to make an appointment for an incision check in 1-2 weeks. Test Results: Test results from this visit will be discussed in further detail at your follow- up appointment, if applicable. Discharge Plan Admission Admit Date/Time: 05/31/25 01:00 Primary Reason for Your Visit: emergency section Attending Provider: Tamiko Steven Primary Care Provider: Pattie Giordano Discharge Orders/Prescriptions Prescriptions: New ibuprofen 800 mg tablet 800 mg PO Q8H PRN (Reason: pain) Qty: 30 0RF oxycodone-acetaminophen [Percocet] 5-325 mg tablet 1 tab PO Q4H PRN (Reason: pain) 7 Days Qty: 20 0RF Continued PNV-DHA 27 mg iron-1 mg -300 mg capsule PO albuterol sulfate 90 mcg/actuation aerosol powdr breath activated 1 inh inhalation Q4H PRN (Reason: supplement) clobetasol 0.05 % ointment 1 applic topical QHS Qty: 30 3RF Rx Instructions: apply thin layer; massage gently into affected area nightly x 6 weeks then 1- 2x weekly Referrals / Follow Up: Pattie Giordano MD [Primary Care Provider] - Disposition Disposition (needs filled in before D/C Order can be placed): Home, Self Care
[2025-05-31] MEDS: Ketorolac 30 MG/ML Syringe IV ×4 (02:56→20:50)
[2025-05-31] MEDS: Oxytocin 15 Units/NS 250ml 15 UNITS/250 ML IV.SOLN 83 UNITS IV (02:56)
[2025-05-31] MEDS: Senna/Docusate Sodium 1 Tablet PO (09:34)
[2025-05-31] MEDS: 0.9% Saline Lock 10 ML Syringe IV ×2 (09:35→15:51)
[2025-06-01 01:09] VITALS: BP 91/54; PULSE 78; RESP 16; TEMP 36.5; O2SAT 98
[2025-06-01] MEDS: 0.9% Saline Lock 10 ML Syringe IV ×2 (05:11→09:03)
[2025-06-01 05:36] LABS: Hematocrit 23.4 % (37-47); Hemoglobin 8.1 g/dL (12.0-15.0); Mean Corp Hgb Conc 34.6 g/dL (32-36); Mean Corpuscular Volume 97.5 fL (81-99); Mean Platelet Vol. 12.3 fl (6.2-12.0); Platelet Count 139 K/mm3 (150-450); RBC Distribution Width CV 12.3 % (11.6-14.6); RBC Distribution Width SD 44.0 fl (35.1-43.9); Red Blood Count 2.40 M/mm3 (4.2-5.4); White Blood Count 8.8 K/mm3 (4.4-11.0)
[2025-06-01 06:15] VITALS: BP 92/60; PULSE 72; RESP 16; O2SAT 99
[2025-06-01] MEDS: Sodium Ferric Gluconat 250 MG in 0.9% Normal Saline 250 ML 135 MG IV (06:49)
--- NOTE | 2025-06-01 07:40 | PN.OBGYN_ITS ---
Subjective Subjective Patient doing well without complaints. Tolerating PO. Ambulating and voiding without difficulty. Feeding well. Denies chest pain, shortness of breath, calf pain/swelling, fevers, chills, lightheadedness. IV venofer infusing Objective Data Objective Data Vital Signs: Vital Signs Temp Pulse Resp BP Pulse Ox O2 Del Method 97.7 F L 72 16 92/60 99 Room Air 06/01/25 01:09 06/01/25 06:15 06/01/25 06:15 06/01/25 06:15 06/01/25 06:15 06/01/25 06:15 Oxygen Delivery Method Room Air Weight: 163 lb 9.6 oz Body Mass Index (BMI) 27.2 Intake & Output: Intake and Output for Last 24 Hours 05/30/25 05/31/25 06/01/25 23:59 23:59 23:59 Intake Total 412.5 / 412.5 Output Total 2500 / 2500 Balance -2087.5 / -2087.5 Lab / Micro Data Attestation: I reviewed the patient's lab results. 06/01/25 05:20 Labs: Laboratory Results - last 24 hr 06/01/25 05:20: WBC 8.8, RBC 2.40 L, Hgb 8.1 L, Hct 23.4 L, MCV 97.5, MCH 33.8 H , MCHC 34.6, RDW Std Deviation 44.0 H, RDW Coeff of Shara 12.3, Plt Count 139 L, M PV 12.3 H ROS Constitutional Constitutional: Reports systems reviewed and no addt'l complaints, except as documented; Denies anorexia or headache(s) Cardiovascular Cardiovascular: Reports systems reviewed and no addt'l complaints, except as documented; Denies dizziness, dyspnea, nausea or tachypnea Respiratory/Chest Respiratory/Chest: Reports systems reviewed and no addt'l complaints, except as documented; Denies cough, dyspnea, shortness of breath at rest or tachypnea Gastrointestinal Gastrointestinal: Reports systems reviewed and no addt'l complaints, except as documented; Denies abdominal pain, constipation or nausea Genitourinary Genitourinary: Reports systems reviewed and no addt'l complaints, except as documented; Denies burning urination, difficulty urinating, dysuria, urinary frequency or urinary incontinence Musculoskeletal Musculoskeletal: Reports systems reviewed and no addt'l complaints, except as documented Integumentary Integumentary: Reports systems reviewed and no addt'l complaints, except as documented Neurologic Neurologic: Reports systems reviewed and no addt'l complaints, except as documented; Denies abnormal speech, dizziness or headache(s) Psychiatric Psychiatric: Reports systems reviewed and no addt'l complaints, except as documented Endocrine Endocrinology: Reports systems reviewed and no addt'l complaints, except as documented Hematologic/Lymphatic Hematologic/Lymphatic: Reports systems reviewed and no addt'l complaints, except as documented Physical Exam Const alert, oriented x3 and no apparent distress Neck full ROM Resp normal respiratory effort, normal air movement and no retractions Effort and Inspection: able to speak in complete sentences and symmetric chest movement GI soft to palpation Inspection: incision intact Bladder / Kidney Exam: bladder normal to palpation Uterus Palpation: uterus fundus firm Extremity normal to inspection and full ROM Psych mental status grossly normal, thought process normal and cooperative Assessment & Plan (1) Status post section: PLAN: s/p LTCS PPD # 1 1. routine post care 2. breast feeding- support given 3. rh positive 4. rubella immune 5. Discharge home (2) Face presentation of fetus: (3) Anemia affecting : COMMENT: ferritin, iron & iron binding studies-normal (4) Uterine size date discrepancy : COMMENT: S>D (5) Positive GBS test: COMMENT: treat in labor (6) Supervision of normal : COMMENT: PRR, , JENNY 05/29/25, boy Lili Parr, Misha (7) : QUALIFIERS: Weeks of gestation: 40 weeks Qualified Code(s): Z 3A.40 - 40 weeks gestation of COMMENT: Low risk, anatomy nl Charges/Coding Multi Select Codes Urinary/Genital Urinary/Genital CPT Codes: No Charge
[2025-06-01 08:50] VITALS: BP 91/59; PULSE 79; RESP 18; TEMP 36.9; O2SAT 99
[2025-06-01] MEDS: Senna/Docusate Sodium 1 Tablet PO (11:04)
[2025-06-01 13:32] VITALS: BP 101/59; PULSE 76; RESP 16; TEMP 36.4; O2SAT 100
--- NOTE | 2025-06-06 14:40 | NURSING ---
Follow up phone call made, no answer, left voicemail
== END 2025-06-01 13:41 | disposition home or self-care (01) | DRG 788 ==
PROVIDERS: Admitting Provider Obstetrics & Gynecology; PCP Family Medicine; Referring Provider Obstetrics & Gynecology; Visit Provider Obstetrics & Gynecology
DX: O32.3XX0 Maternal care for face, brow and chin presentation, not applicable or unspecified (principal); O26.843 Uterine size-date discrepancy, third trimester; O76 Abnormality in fetal heart rate and rhythm complicating labor and delivery; O77.0 Labor and delivery complicated by meconium in amniotic fluid; Z37.0 Single live birth; O99.824 Streptococcus B carrier state complicating childbirth; O99.02 Anemia complicating childbirth; Z3A.40 40 weeks gestation of pregnancy; Z87.59 Personal history of other complications of pregnancy, childbirth and the puerperium
CPT/HCPCS: 59025; 85025; 85027; 86780; 86850; 86900; 86901; 99221; A4216; G0378; J2405; J2916